=== PATIENT | female | born 1990 | race Caucasian/White ===

== ENCOUNTER 2018-03-18 18:04 | Emergency (ER) | payer OTHER, MEDICAID, SELFPAY ==
[2018-03-18 18:05] VITALS: BP 166/102; PULSE 109; RESP 18; TEMP 36.4; O2SAT 99; BMI 29.2
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
--- NOTE | 2018-03-18 19:33 | ED.RN ---
PATIENT LEFT WITHOUT VITALS BEING OBTAINED AND D/C INFORMATION. PT GIVEN EDUCATION ON STRANGULATION AND WHEN TO RETURN TO ER. PHYSICIAN AWARE AND GAVE PATIENT CT RESULTS PRIOR TO LEAVING AND WALKING OUT OF DOOR.
== END 2018-03-18 19:34 | disposition home or self-care (01) ==
LOC: ED 19:21
PROVIDERS: Emergency Provider Emergency Medicine
DX: S16.1XXA Strain of muscle, fascia and tendon at neck level, initial encounter (principal); Y04.2XXA Assault by strike against or bumped into by another person, initial encounter; Y93.9 Activity, unspecified; Y92.9 Unspecified place or not applicable; Y99.9 Unspecified external cause status; Z72.0 Tobacco use
CPT/HCPCS: 70498; 99283; Q9967; A4216

== ENCOUNTER 2018-10-26 10:46 | Emergency (ER) | payer OTHER, MEDICAID, SELFPAY ==
[2018-10-26 10:47] VITALS: BP 116/72; PULSE 120; RESP 16; TEMP 36.5; O2SAT 98; BMI 30.8
[2018-10-26] MEDS: 0.9% Normal Saline 1,000 ML 1000 ML IV (11:59)
[2018-10-26] MEDS: Ondansetron 4 MG/2 ML Vial IV (11:59)
--- NOTE | 2018-10-26 12:04 | RAD_ITS ---
STUDY: X-RAY - ACUTE ABDOMINAL SERIES REASON FOR EXAM: Female, 27 years old. 5 day history of abdominal pain and vomiting. TECHNIQUE: Single view of the chest. Supine, and erect view(s) of the abdomen were obtained. COMPARISON: None. FINDINGS: The lungs are clear and expanded. Normal size heart. Normal mediastinum and pebbles. Normal visualized pulmonary arteries. Normal visualized aortic arch and descending thoracic aorta. There is an abundance of fecal material throughout the colon. The soft tissue structures of the abdomen and pelvis are unremarkable. Normal visualized osseous structures. RAD/Acute Abdomen Inc Chest IMPRESSION: Large amount of fecal material is seen in the colon. Electronically Signed: Colton Royal, at 12:44 EST , Service support ,
[2018-10-26 12:17] LABS: Absolute Neutrophil Count 5.4 X10^3/uL (2.0-7.7); Basophil# 0.07 X10^3/uL; Basophil% 0.8 % (0-1); Eosinophil# 0.05 X10^3/uL; Eosinophils% 0.5 % (0-5); Hematocrit 27.5 % (37-47); Hemoglobin 8.8 g/dl (12.0-15.0); Lymphocyte % 25.1 % (19-41); Mean Corpuscular Hgb 30.2 pg (27.0-32.0); Mean Corpuscular Volume 94.5 fL (81-99); Mean Platelet Vol. 9.3 fl (6.2-12.0); Monocyte# 1.24 X10^3/uL; Monocyte% 13.5 % (0-10); Neutrophil # 5.43 X10^3/uL (2.7-7.7); Neutrophil % 59.2 % (47-70); Platelet Count 322 K/mm3 (150-450); RBC Distribution Width CV 14.5 % (11.6-14.6); RBC Distribution Width SD 49.7 fl (35.1-43.9); Red Blood Count 2.91 M/mm3 (4.2-5.4); White Blood Count 9.2 K/mm3 (4.4-11.0)
[2018-10-26 12:18] LABS: POSITIVE COUNT NO; POSITIVE DIFFERENTIAL NO; POSITIVE MORPHOLOGY NO
[2018-10-26 12:26] LABS: Anion Gap 8 (5-15); BUN 19 mg/dL (7-18); BUN/Creat Ratio 26.6 RATIO (10-20); Calcium,Total 8.1 mg/dL (8.5-10.1); Chloride 100 mmol/L (98-107); Creatinine, Serum 0.71 mg/dL (0.55-1.02); EST Glomerular Filtration Rate 102 mL/min (>60); Est Glom Filt Rate - Afr Amer 124 mL/min (>60); Estimated Creatinine Clearance 100.96 ml/min; Glucose 113 mg/dL (74-106); Potassium 4.5 mmol/L (3.5-5.1); Sodium Level 136 mmol/L (136-145)
--- NOTE | 2018-10-26 12:43 | ED.DCSUM_ITS ---
History of Present Illness Chief Complaint: Abd Pain Detail of Chief Complaint: Generalized with nausea vomiting and no BM times 4-5 days Informant: Patient Onset: Days Context: Gradual Onset Timing: Continuous Quality: Aching, cramping sharp Location: Generalized Current Severity: Moderate Maximum Severity: Severe Worsened by: Nothing in particular Relieved by: Nothing Associated Symptoms: Nausea vomiting and constipation Narrative: Patient is a 27-year-old female who reports last menses was 2 weeks ago. She reports nausea and vomiting since yesterday. She reports generalized abdominal pain. She states she has not had a bowel movement for 5 days. No prior surgical history. Patient denies fever, chills night sweats. She denies cardiac respiratory symptoms. She denies food intolerance. She denies neuro logic symptoms. Patient was asked what she has eaten the past 24-40 hours and she has a diet. Prior similar symptoms: No Recent Illness/Hospitalization: No Past Medical History - Allergies and Home Meds Allergies/Adverse Reactions: Allergies Penicillins Allergy (Verified 10/26/18 10:49) Hives Primary Care Physician: Care Physician,No Primary [Primary Care Provider] - Prior records reviewed: Yes Past Medical History: None Surgical History: no surgical history Lives: Alone Smoking Status: Former smoker Alcohol: Rare Drugs: None Review of Systems General: Denies: Chills, Fever, Malaise, Subjective, Sweats Eyes: Denies: Visual changes - bilaterally, Blurred Vision - bilaterally, Diplopia ENT: Denies: Bilateral ear pain, Rhinorrhea, Sore throat Cardiovascular: Denies: Chest pain, Palpitations Respiratory: Denies: Dyspnea, Cough, Dyspnea on exertion Gastrointestinal: Reports: Abdominal pain, Nausea, Vomiting, Constipation - Re: 20 usually Jayne 2 0 followed. Denies: Diarrhea, Melena, Hematochezia Genitourinary: Denies: Dysuria, Hematuria, Frequency Musculoskeletal: Denies: Back pain, Extremity Pain Skin: Denies: Rash, Wounds Neurological: Denies: Headache, Weakness, Numbness Psych: Reports: Depression Endocrine: Denies: Polyuria, Polydipsia Hematologic: Denies: Easy bruising Allergy: Denies: Uticaria Physical Exam Vital Signs/Narrative: Vital Signs Temp Pulse Resp BP Pulse Ox 10/26/18 10:47 97.7 F L 120 H 16 116/72 98 Inital Vital Signs reviewed: Yes General: Well nourished, Well developed, No Acute Distress, Acute Distress Head: Normocephalic, Atraumatic Eyes: Perrl, EOMI. Negative for: Pale conjunctiva, Scleral icterus ENT: Moist mucous membranes, No rhinorrhea, TM's clear Neck: Supple, Nontender, No lymphadenopathy, No JVD Cardiovascular: Regular rate, Regular rhythm, No murmurs, Normal S1, Normal S2, Tachycardia Respiratory: No distress, CTA bilaterally, Chest nontender, Rales Abdomen: Soft, Nondistended, Normal bowel sounds, No masses, Tender, Hypoactive bowel sounds. Negative for: Guarding, Rebound tenderness, Hyperactive bowel sounds, Splenomegaly, Mass, Ventral hernia, Inguinal hernia, Umbilical hernia Rectal: Deferred Back: Nontender, Normal Inspection. Negative for: CVA tenderness Extremities: Nontender, No edema. Negative for: Tenderness, Calf Tenderness Skin: Normal color, No rash. Negative for: Cyanosis, Jaundice Neurological: Alert, Oriented x3, Cranial nerves II-XII grossly intact, Normal Strength, Normal Sensation Psychological: - - Aspect is flat. Thought content is normal. Diagnostic/Tx/Re-eval Chest X-Ray - ED: - - Three-view abdominal x-ray interpreted by me as no acute process. There is increased feces. No ossific gas pattern. Osseous structures are normal. 10/26/18 12:04 Acute Abdomen Inc Chest [RAD] Stat Laboratory Results 10/26/18 10/26/18 11:57 11:57 WBC 9.2 RBC 2.91 L Hgb 8.8 L Hct 27.5 L MCV 94.5 MCH 30.2 MCHC 32.0 RDW 14.5 RDW Differential 49.7 H Plt Count 322 MPV 9.3 Immature Gran % (Auto) 0.900 Neut % (Auto) 59.2 Lymph % (Auto) 25.1 [place] % (Auto) 13.5 H Eos % (Auto) 0.5 Baso % (Auto) 0.8 Absolute Neuts (auto) 5.4 Absolute Lymphs (auto) 2.30 Total Counted Not Reportable Sodium 136 Potassium 4.5 Chloride 100 Carbon Dioxide 28.0 Anion Gap 8 BUN 19 H Creatinine 0.71 Estim Creat Clear Calc 100.96 Est GFR (MDRD) Af Amer 124 Est GFR (MDRD) Non-Af 102 BUN/Creatinine Ratio 26.6 H Glucose 113 H Calcium 8.1 L Three-view x-ray of the abdomen interpreted by me - Rhythm Strip Rhythm Strip: Sinus Rhythm Rate: 120 Ectopy: None - Medical Decision Making We will obtain abdominal series to determine patient has fecal stasis the cause of her abdominal dose discomfort and nausea and vomiting. Blood work was obtained as well. Patient's abdominal discomfort is secondary to fecal stasis. Plan is mag citrate 10 ounces followed 4 hours later with 1 glass of MiraLAX and a glass of MiraLAX every hour until she has results. 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 4 hours later drink 1 glass of MiraLAX and drink 1 glass of MiraLAX every hour until you have results.
[2018-10-26 12:47] LABS: Pregnancy, Serum, hCG Quali. NEGATIVE Negative (0-9 Nonpreg)
[2018-10-26 13:39] VITALS: BP 115/70; PULSE 90; RESP 14; O2SAT 98
== END 2018-10-26 13:41 | disposition home or self-care (01) ==
PROVIDERS: Emergency Provider Emergency Medicine
DX: K59.00 Constipation, unspecified (principal); R11.2 Nausea with vomiting, unspecified; R00.0 Tachycardia, unspecified; Z87.891 Personal history of nicotine dependence
CPT/HCPCS: 74022; 80048; 84703; 85025; 96361; 96374; 99283; J7030; A4216; J2405

== ENCOUNTER 2018-12-31 12:31 | Emergency (ER) | payer OTHER, MEDICAID, SELFPAY ==
[2018-12-31 12:32] VITALS: BP 130/96; PULSE 111; RESP 16; TEMP 36.7; BMI 28.1
--- NOTE | 2018-12-31 12:57 | ED.DCSUM_ITS ---
History of Present Illness Chief Complaint: Mental Health Detail of Chief Complaint: Paranoia and illicit drug use Informant: Patient Onset: - - 1 to 3 years Timing: Waxes and wanes Quality: Patient feels people are out to get her. Location: Not applicable Current Severity: Moderate Maximum Severity: Severe Worsened by: Methamphetamine use Relieved by: nothing Associated Symptoms: No suicidal homicidal ideation no formal psychiatric diagnosis Narrative: Patient is a 28-year-old woman who presents with chief complaint of paranoia. She states this is not related to methamphetamine use. She think she has a mental illness. She has been to rehab twice. She states she snorts the methamphetamine. In the past she injected methamphetamine. She denies fever, chills night sweats. Denies ocular, visual auditory symptoms. Denies trouble with speech. She denies cardiac, respiratory or GI symptoms. She denies urologic symptoms. She denies history of SBE. Patient does not know HIV status or hepatitis status. Prior similar symptoms: Yes Recent Illness/Hospitalization: No - Past Medical History (1) Illicit drug use, continuous Status: Acute Past Medical History - Allergies and Home Meds Allergies/Adverse Reactions: Allergies Penicillins Allergy (Verified 12/31/18 12:45) Hives Primary Care Physician: Care Physician,No Primary [Primary Care Provider] - Prior records reviewed: No Surgical History: no surgical history Lives: Alone Smoking Status: Current every day smoker Alcohol: Occasional Drugs: - - Methamphetamine Review of Systems General: Denies: Chills, Fever, Malaise, Subjective, Sweats Eyes: Denies: Visual changes - bilaterally, Blurred Vision - bilaterally, Diplopia ENT: Denies: Rhinorrhea, Sore throat Cardiovascular: Reports: Heart racing. Denies: Chest pain, Palpitations Respiratory: Denies: Dyspnea, Cough, Dyspnea on exertion Gastrointestinal: Denies: Abdominal pain, Nausea, Vomiting, Diarrhea, Melena, Hematochezia Genitourinary: Denies: Dysuria, Hematuria, Frequency Musculoskeletal: Denies: Back pain, Extremity Pain Skin: Denies: Rash, Wounds Neurological: Denies: Headache, Weakness, Numbness Psych: Reports: Depression, Anxiety, - - Paranoid ideation. Denies: Suicidal thoughts, Suicidal ideations Physical Exam Vital Signs/Narrative: Vital Signs Temp Pulse Resp BP 12/31/18 12:32 98.1 F 111 H 16 130/96 H Inital Vital Signs reviewed: Yes General: Well nourished, Well developed, No Acute Distress, - - Patient is unable to sit still or lie on the bed for more than 15 to 30 seconds. Head: Normocephalic, Atraumatic Eyes: Perrl, EOMI. Negative for: Pale conjunctiva, Scleral icterus ENT: Moist mucous membranes, No rhinorrhea Neck: Supple, Nontender Cardiovascular: Regular rate, Regular rhythm, No murmurs Respiratory: No distress, CTA bilaterally, Chest nontender Abdomen: Soft, Nontender, Nondistended, Normal bowel sounds Back: Nontender, Normal Inspection Extremities: Nontender, No edema Skin: Normal color, No rash. Negative for: Cyanosis, Jaundice Neurological: Alert, Oriented x3, Cranial nerves II-XII grossly intact, Normal Strength, Normal Sensation, Normal Gait Psychological: Normal Mood, Agitated, - - Hyper hyperactive, pressured speech Diagnostic/Tx/Re-eval - Medical Decision Making patient admits to recent methamphetamine use. She does not believe she needs h elp for her drug addiction. She believes she has a mental health illness. She may have both. She declined referral to [facility]. Evaluation. In my professional medical opinion patient's paranoia is related to her methamphetamine use. There is no evidence of cellulitis or abscess. Since patient not febrile has no infectious symptoms blood work was not obtained. Appointment was made to be seen in counseling center tomorrow January 01 at 1 PM. I was informed that she has not kept her prior appointments. ED Disposition - Plan for ED Patient: Disposition: Home or Assisted Living Diagnosis: Paranoia Instructions: ED Psychosis, ED Drug Abuse General Referrals: Care Physician,No Primary [Primary Care Provider] - Counseling,Center [GROUP OF PHYSICIANS] - 01/01/19 1:00 pm
[2018-12-31 13:15] VITALS: PULSE 90; RESP 18; O2SAT 97
--- NOTE | 2018-12-31 13:16 | ED.RN ---
This RN discussed discharge instructions with pt and explained the importance going to her scheduled appt with the counseling center tomorrow.
== END 2018-12-31 13:35 | disposition home or self-care (01) ==
LOC: ED 13:24
PROVIDERS: Emergency Provider Emergency Medicine
DX: F22 Delusional disorders (principal); F32.9 Major depressive disorder, single episode, unspecified; F41.9 Anxiety disorder, unspecified; F17.200 Nicotine dependence, unspecified, uncomplicated; Z88.0 Allergy status to penicillin
CPT/HCPCS: 99282

== ENCOUNTER 2019-01-08 19:16 | Emergency (ER) | payer OTHER, MEDICAID, SELFPAY ==
[2019-01-08 19:16] VITALS: BP 147/96; PULSE 106; RESP 18; TEMP 36.6; O2SAT 99; BMI 28.3
--- NOTE | 2019-01-08 20:08 | ED.DCSUM_ITS ---
- ER Visit Summary Date of Service: 01/08/19 Chief Complaint: Fatigue with jaundiced eyes History of Present Illness: The patient is a 28 F past medical history of IV methamphetamine abuse states she has not used recently. Otherwise no other significant past medical history. Denies any history of hepatitis. Physical Examination: Young female no acute distress. Vital signs are stable afebrile. She does not look septic or toxic. She does not look dehydrated. HEENT exam she does have scleral icterus consistent with jaundice. Moist weeks membranes. Neck nontender no lymphadenopathy. Lungs clear to auscultation bilaterally. Heart regular rhythm rate about 100 no murmur. Abdomen is soft and nontender normal bowel sounds no peritoneal signs. I do not appreciate a specific organomegaly. There is no right upper quadrant tenderness. Extremities moves all 4. Nontender no edema. Neurologically she is awake alert. Back nontender. Test Results: White count 8. Hemoglobin 14. Electrolytes unremarkable normal creatinine and gap. Lipase normal. Serum test negative. Liver enzymes elevated total bilirubin 6.9 direct 5.8. Alk phos is only 172 ALT [address] of the abdomen and pelvis showed a collapsed gallbladder but no gall stones or signs of obstruction. A hemorrhagic ovarian cyst in the liver appeared unremarkable. Emergency Department Course and Treatment: Patient with scleral icterus. Will be worked up for possible causes of jaundice. Repeat exam at 2240 abdomen is benign. She has no right upper quadrant pain. My plan was to admit the patient for further evaluation and work-up for jaundice possible acute hepatitis she is refusing admission and will sign out AMA. She has no local primary care physician and will be referred to Dr. Patel from the [facility]. Treatment Plan: Outpatient follow-up for further evaluation and work-up for possible hepatitis versus other causes of jaundice Disposition: Discharge AMA Impression: Acute jaundice uncertain etiology Rule out acute onset hepatitis This note was generated with [employer] dictation software. It may contain incorrect words, spelling, and punctuation that were not noted in review of the chart prior to signing ED Disposition - Plan for ED Patient: Referrals: Care Physician,No Primary [Primary Care Provider] -
[2019-01-08 20:23] VITALS: BP 148/104; PULSE 91; RESP 16; O2SAT 98
[2019-01-08 20:26] LABS: Absolute Lymphocyte Count 1.82 X10^3/ul (0.83-4.51); Absolute Neutrophil Count 5.3 X10^3/uL (2.0-7.7); Basophil# 0.04 X10^3/uL; Basophil% 0.5 % (0-1); Eosinophil# 0.08 X10^3/uL; Hematocrit 43.1 % (37-47); Hemoglobin 14.6 g/dl (12.0-15.0); Lymphocyte # 1.82 X10^3/ul (4.0); Lymphocyte % 22.5 % (19-41); Mean Corp Hgb Conc 33.9 g/gl (32-36); Mean Corpuscular Hgb 30.9 pg (27.0-32.0); Mean Corpuscular Volume 91.1 fL (81-99); Mean Platelet Vol. 10.9 fl (6.2-12.0); Monocyte% 9.9 % (0-10); Neutrophil # 5.27 X10^3/uL (2.7-7.7); Neutrophil % 65.2 % (47-70); Platelet Count 421 K/mm3 (150-450); RBC Distribution Width CV 15.7 % (11.6-14.6); RBC Distribution Width SD 51.8 fl (35.1-43.9); Red Blood Count 4.73 M/mm3 (4.2-5.4); White Blood Count 8.1 K/mm3 (4.4-11.0)
[2019-01-08 20:37] LABS: POSITIVE COUNT NO; POSITIVE DIFFERENTIAL NO; POSITIVE MORPHOLOGY NO
[2019-01-08 20:40] LABS: Pregnancy, Serum, hCG Quali. NEGATIVE Negative (0-9 Nonpreg)
[2019-01-08 20:41] LABS: AST(SGOT) 1410 U/L (15-37); Alanine Aminotransfer ALT/SGPT 1719 U/L (13-56); Albumin, Serum 3.4 g/dL (3.2-5.0); Alkaline Phosphatase 172 U/L (45-117); Anion Gap 5 (5-15); BUN 11 mg/dL (7-18); BUN/Creat Ratio 15.2 RATIO (10-20); Bilirubin, Direct 5.82 mg/dL (0.00-0.30); Calcium,Total 8.5 mg/dL (8.5-10.1); Chloride 111 mmol/L (98-107); Creatinine, Serum 0.72 mg/dL (0.55-1.02); EST Glomerular Filtration Rate 101 mL/min (>60); Est Glom Filt Rate - Afr Amer 122 mL/min (>60); Estimated Creatinine Clearance 98.66 ml/min; Globulin 4.4 g/dL (2.2-4.2); Glucose 104 mg/dL (74-106); Lipase 137 U/L (73-393); Potassium 3.8 mmol/L (3.5-5.1); Protein, Total 7.8 g/dL (6.4-8.2); Sodium Level 139 mmol/L (136-145)
[2019-01-08 20:44] LABS: Internal QC Validated? YES +Cl - CLEAR BKGD
--- NOTE | 2019-01-08 20:49 | CT_ITS ---
STUDY: CT ABDOMEN AND PELVIS WITH CONTRAST REASON FOR EXAM: Female, 28 years old. Jaundice, hepatitis. RADIATION DOSAGE (If Supplied By Facility): CTDIvol = ( 13.85 ) mGy, DLP = ( 800.26 ) mGycm TECHNIQUE: Transaxial images were obtained from the dome of the diaphragm to the symphysis pubis without oral contrast. 100ML IV Isovue 300 was administered. Sagittal and coronal images were reconstructed. Individualized dose optimization techniques were used for this CT. COMPARISON: None. FINDINGS: Lung bases are clear. Visualized heart is normal. The liver is unremarkable. There is no intrahepatic biliary duct dilation. The gallbladder is collapsed and irregular, with marked pericholecystic fluid versus wall thickening. No obvious stones are seen. Common duct is normal in caliber. The spleen and pancreas are unremarkable. The adrenal glands are normal. The kidneys are unremarkable. No stones or hydronephrosis. The aorta is normal in caliber. There is no free fluid, free air, or organized collection. Small bowel (jejunal) intussusception is noted in the left upper quadrant, seen on series 2 image 64 and series 601, image 46. There is no evidence of high-grade proximal obstruction. The appendix is not seen. There are no inflammatory changes about the cecum to indicate acute appendicitis. Urinary bladder is unremarkable. The uterus is normal in appearance. There is a 4.7 x 4.2 x 4.8 cm lesion posterior to the uterus with CT density of 44 Hounsfield units. This likely represents a hemorrhagic ovarian cyst. Differential considerations include: Tubo-ovarian abscess, endometrioma. Ectopic is not excluded and should be considered in the appropriate clinical setting. If the patient has acute pelvic pain, ovarian torsion cannot be excluded. Normal abdominal wall. Normal osseous structures. CT/Abdomen/Pelvis W IV Cont ONLY IMPRESSION: 1. Small bowel intussusception in the left upper quadrant. This may be seen as a transient phenomenon, although it may be associated with underlying inflammation or mass as lead point. There is no high-grade proximal obstruction. 2. Collapsed gallbladder with marked pericholecystic fluid (less likely wall thickening). No demonstrated stone or duct dilation. 3. A 4.8 cm complex adnexal cyst. Differential considerations are noted above. If the patient has acute pelvic pain, pelvic ultrasound to include Doppler evaluation is advised to evaluate for ovarian torsion. Electronically Signed: Suzi Ojeda MD at 22:13 EDT Tel , Service support ,
[2019-01-08 22:14] VITALS: BP 142/102; PULSE 96; RESP 15; O2SAT 97
--- NOTE | 2019-01-08 22:45 | ED.DEP ---
ED Disposition - Plan for ED Patient: Disposition: Home or Assisted Living Instructions: ED Hepatitis Cause Unkn Test Pen Referrals: Naga Patel MD [NON-STAFF] - As soon as possible Additional Instructions: May have hepatitis that is undetermined at this time. You need to follow-up with the above physician to have further evaluation. We did send hepatitis studies today but there is been on back for several days. There are other causes of jaundice that also may need evaluation.
[2019-01-08 22:51] VITALS: BP 146/103; PULSE 97; RESP 16; O2SAT 99
--- NOTE | 2019-01-08 22:52 | ED.RN ---
pt was given pamplet on 180 upon discharge. she was strongly encouraged to follow-up with them and that if she continued this lifestyle she may . pt was instructed to return if s/s worsened. she was informed that her hepatis screen would not be back tonight. pt stated understanding of d/c information and need for follow-up care. joel parsons. rn [id number]
[2019-01-10 09:08] LABS: Hepatitis A IgM Antibody Negative (Negative); Hepatitis B Core AB IgM Positive (Negative)
[2019-01-10 16:16] LABS: HEPATITIS B SURFACE AG Positive (Negative)
[2019-01-10 16:20] LABS: Hep C Antibodies >11.0 s/co ratio (0.0-0.9)
== END 2019-01-08 22:55 | disposition left against medical advice (07) ==
PROVIDERS: Emergency Provider Emergency Medicine
DX: R17 Unspecified jaundice (principal); R74.8 Abnormal levels of other serum enzymes; R10.9 Unspecified abdominal pain; F15.21 Other stimulant dependence, in remission; Z72.0 Tobacco use
CPT/HCPCS: 74177; 80048; 80074; 80076; 83690; 84703; 85025; 99283; Q9967; A4216

== ENCOUNTER 2019-01-10 07:24 | Emergency (ER) | payer OTHER, MEDICAID, SELFPAY ==
[2019-01-10 07:25] VITALS: BP 128/74; PULSE 76; RESP 12; TEMP 36.7; O2SAT 98; BMI 28.3
--- NOTE | 2019-01-10 07:48 | US_ITS ---
STUDY: ABDOMINAL ULTRASOUND - RIGHT UPPER QUADRANT REASON FOR VISIT: Female, 28 years old. Elevated liver function tests. TECHNIQUE: Ultrasound evaluation of the right upper quadrant was performed with real-time and static hinojosa-scale imaging. TECHNICAL QUALITY: Adequate. COMPARISON: Comparison is made with prior CT scan dated January 08, 2019. FINDINGS: Liver: The liver measures 15.5 cm. There is normal echogenicity of the liver. The bile ducts are within normal limits. There is hepatic color flow. The direction of portal flow is hepatopetal. There is no demonstrated mass lesion. Gallbladder: There is a contracted gallbladder. The gallbladder wall is thickened and measures 7 mm. There is a negative sonographic Benson's sign. There is pericholecystic fluid. There are no gallstones. Common Bile Duct (C.B.D.): The common bile duct measures 5 mm. Pancreas: Normal size of the head, body and tail of the pancreas. There is normal echogenicity of the pancreas. There is no demonstrated pancreatic mass or cyst. Right Kidney: Normal size of the right kidney. The right kidney measures 11.3 cm x 4.6 cm x 4.4 cm. Normal renal cortex. The right cortex measures 1.1 cm. There is no demonstrated renal mass or cyst. There is no right hydronephrosis. US/Abdomen Limited IMPRESSION: Contracted gallbladder with a thickened wall of the gallbladder and pericholecystic fluid. Electronically Signed: Colton Royal, at 8:55 EDT , Service support ,
[2019-01-10] MEDS: 0.9% Normal Saline 1,000 ML 150 ML IV (07:59)
[2019-01-10] MEDS: Ondansetron 4 MG/2 ML Vial IV (07:59)
[2019-01-10] MEDS: Ketorolac 30 MG/ML Syringe IV (07:59)
--- NOTE | 2019-01-10 08:05 | ED.DCSUM_ITS ---
- ER Visit Summary Date of Service: 01/10/19 Chief Complaint: Abdominal pain, diarrhea History of Present Illness: The patient is a 28 F with a 5-day history of generalized abdominal pain. She was seen in the ER yesterday. She was found to have elevated LFTs. Hepatitis panel was sent. Patient signed out AMA last night. She returns today with continued abdominal pain and generalized weakness. She now agrees to hospital admission. Patient has not noted fever or chills. She does have a history of IV drug use. Last use of meth was last night. I did review her work-up from last evening. CT scan from last night showed a collapsed gallbladder. There is questionable intussusception in the left upper quadrant small bowel. Patient does report having a bowel movement this morning. Physical Examination: Vital signs are unremarkable. Patient is lying in a darkened room in no acute distress. Heart is regular rate and rhythm. Lung sounds are clear. Abdomen is soft with mild diffuse tenderness. Active bowel sounds are noted throughout. There is no guarding or rebound. Skin examination was mild scleral icterus. Test Results: CBC is unremarkable. Chemistry studies remarkable only for glucose of 130. LFTs revealed total bili of 8.2 compared to 6.9 yesterday. Bili 6.72 compared to 5.8 yesterday. Alk phos is 158 today compared to 172 yesterday. ALT is 1311 compared to 1719 yesterday. AST is 08/21/2000 compared to 1410 yesterday. Lipase is normal. Coags are unremarkable. Hepatitis panel sent yesterday is still pending. Right upper quadrant ultrasound shows contracted gallbladder with wall measuring 7 mm. Pericholecystic fluid is noted. There is no sonographic Benson sign. No gallstones are noted and normal common bile duct is noted. Abdominal x-ray with upright is obtained and unremarkable. Emergency Department Course and Treatment: Patient was given IV fluids, Toradol, and Zofran. On repeat evaluation she is resting comfortably. At this time her LFTs largely are reducing. I do not know that there will be significant work-up to be obtained in the hospital. Patient needs the results of her hepatitis panel and to follow-up. She was referred to Dr. Patel yesterday. I will also refer her to Dr. Payne. Patient is in agreement with discharge and return if her symptoms worsen. I did advise her that she would be called with her hepatitis panel results if abnormal. Treatment Plan: [] Disposition: Discharge Impression: 1. Abdominal pain, improved 2. Hepatitis, improving This note was generated with [employer] dictation software. It may contain incorrect words, spelling, and punctuation that were not noted in review of the chart prior to signing ED Disposition - Plan for ED Patient: Disposition: Home or Assisted Living Instructions: ED Hepatitis Cause Unkn Test Pen Prescriptions: Ondansetron [Zofran Odt] 4 mg PO Q8H PRN PRN #10 tablet PRN Reason: Nausea Ketorolac [Toradol] 10 mg PO Q6H PRN #14 tablet PRN Reason: Pain Referrals: Naga Patel MD [NON-STAFF] - As soon as possible Roly Payne MD [NON-STAFF] - As soon as possible
--- NOTE | 2019-01-10 08:05 | RAD_ITS ---
STUDY: X-RAY - ABDOMEN/PELVIS REASON FOR EXAM: Female, 28 years old. Abdominal pain. Possible intussusception. TECHNIQUE: AP supine and upright views of the abdomen and pelvis. COMPARISON: None. FINDINGS: Normal visualized lung bases. There is a moderate amount of colonic fecal material. There is no demonstrated free abdominal air. The visualized liver, spleen and kidneys are grossly normal in size and morphology. Normal soft tissue structures. Normal visualized osseous structures. RAD/Abd Inc Decub and/or Erect IMPRESSION: Normal x-ray examination of the abdomen and pelvis. Electronically Signed: Colton Royal, at 8:52 EDT , Service support ,
[2019-01-10 08:36] LABS: International Normalized Ratio 1.3; Prothrombin Time (Protime)PT. 15.8 SECONDS (11.7-14.9)
[2019-01-10 08:40] LABS: Absolute Lymphocyte Count 1.63 X10^3/ul (0.83-4.51); Absolute Neutrophil Count 4.1 X10^3/uL (2.0-7.7); Basophil# 0.04 X10^3/uL; Basophil% 0.6 % (0-1); Eosinophil# 0.17 X10^3/uL; Eosinophils% 2.5 % (0-5); Hematocrit 39.5 % (37-47); Hemoglobin 13.3 g/dl (12.0-15.0); Lymphocyte # 1.63 X10^3/ul (4.0); Lymphocyte % 23.9 % (19-41); Mean Corp Hgb Conc 33.7 g/gl (32-36); Mean Corpuscular Hgb 30.5 pg (27.0-32.0); Mean Corpuscular Volume 90.6 fL (81-99); Mean Platelet Vol. 10.8 fl (6.2-12.0); Monocyte# 0.84 X10^3/uL; Monocyte% 12.3 % (0-10); Neutrophil # 4.07 X10^3/uL (2.7-7.7); Neutrophil % 59.8 % (47-70); Platelet Count 430 K/mm3 (150-450); RBC Distribution Width CV 16.3 % (11.6-14.6); RBC Distribution Width SD 53.1 fl (35.1-43.9); Red Blood Count 4.36 M/mm3 (4.2-5.4); White Blood Count 6.8 K/mm3 (4.4-11.0)
[2019-01-10 08:44] LABS: POSITIVE COUNT NO; POSITIVE DIFFERENTIAL NO; POSITIVE MORPHOLOGY NO
[2019-01-10 08:54] LABS: AST(SGOT) 1101 U/L (15-37); Alanine Aminotransfer ALT/SGPT 1311 U/L (13-56); Albumin, Serum 3.1 g/dL (3.2-5.0); Alkaline Phosphatase 158 U/L (45-117); Anion Gap 5 (5-15); BUN 11 mg/dL (7-18); BUN/Creat Ratio 14.8 RATIO (10-20); Bilirubin, Direct 6.72 mg/dL (0.00-0.30); Calcium,Total 8.5 mg/dL (8.5-10.1); Chloride 107 mmol/L (98-107); Creatinine, Serum 0.74 mg/dL (0.55-1.02); EST Glomerular Filtration Rate 97 mL/min (>60); Est Glom Filt Rate - Afr Amer 118 mL/min (>60); Estimated Creatinine Clearance 95.99 ml/min; Globulin 4.2 g/dL (2.2-4.2); Glucose 130 mg/dL (74-106); Lipase 182 U/L (73-393); Potassium 3.8 mmol/L (3.5-5.1); Protein, Total 7.3 g/dL (6.4-8.2); Sodium Level 139 mmol/L (136-145)
[2019-01-10 09:29] VITALS: BP 124/69; PULSE 71; RESP 15; O2SAT 98
== END 2019-01-10 09:31 | disposition home or self-care (01) ==
PROVIDERS: Emergency Provider Emergency Medicine
DX: B19.10 Unspecified viral hepatitis B without hepatic coma (principal); B19.20 Unspecified viral hepatitis C without hepatic coma; R10.84 Generalized abdominal pain; R53.1 Weakness; Z72.0 Tobacco use
CPT/HCPCS: 74019; 76705; 80048; 80076; 83690; 85025; 85610; 85730; 96361; 96374; 96375; 99284; J2405

== ENCOUNTER 2019-01-13 12:25 | Emergency (ER) | payer OTHER, MEDICAID, SELFPAY ==
[2019-01-13 12:27] VITALS: BP 148/99; PULSE 99; RESP 16; TEMP 36.4; O2SAT 99; BMI 27.8
--- NOTE | 2019-01-13 13:04 | ED.DCSUM_ITS ---
- ER Visit Summary Date of Service: 01/13/19 Chief Complaint: Abscess History of Present Illness: The patient is a 28 F with recent diagnosis of hepatitis presents with an abscess on her right posterior calf. The patient was recently diagnosed with otitis. She states she had an area of redness over the past 2 days. She went to urgent care, but given her recent history she was sent here for further evaluation. She denies any fevers or chills. She denies any injections of the area. She denies any other history of immunosuppression. Physical Examination: Exam is relatively unremarkable. Patient is a 6 cm ovoid area of cellulitis on the right calf. It does not extend beyond the knee. There is some central fluctuance. There is no streaking. Compartments are soft. Test Results: [] Emergency Department Course and Treatment: The patient does have a localized abscess with some cellulitis. She was consented for I&D. This was done. Purulence is able to be expressed. It was sent for culture. Loculations were broken up. The small strip packing was placed. With the patient's recent diagnosis of hepatitis, she will be placed on doxycycline as it is not hepatically cleared. She is comfortable with this plan of care and will be discharged to follow-up with GI as initially discussed. Treatment Plan: [] Disposition: Discharge Impression: 1. Abscess of the right calf to incision and drainage This note was generated with [employer] dictation software. It may contain incorrect words, spelling, and punctuation that were not noted in review of the chart prior to signing ED Disposition - Plan for ED Patient: Instructions: ED Abscess IandD Prescriptions: Ondansetron [Zofran Odt] 4 mg PO Q8H PRN PRN #10 tab PRN Reason: Nausea Doxycycline 100 mg PO BID #20 cap Referrals: Care Physician,No Primary [Primary Care Provider] -
== END 2019-01-13 13:20 | disposition home or self-care (01) ==
LOC: ED 13:19
PROVIDERS: Emergency Provider Emergency Medicine
DX: L02.415 Cutaneous abscess of right lower limb (principal); L03.115 Cellulitis of right lower limb; Z72.0 Tobacco use; Z86.19 Personal history of other infectious and parasitic diseases
CPT/HCPCS: 10060; 87070; 87077; 87186; 87205; 99283

== ENCOUNTER 2019-04-29 09:03 | Emergency (ER) | payer OTHER, SELFPAY ==
[2019-04-29 09:04] VITALS: BP 117/82; PULSE 106; RESP 16; TEMP 36.2; O2SAT 99; BMI 29.2
--- NOTE | 2019-04-29 09:13 | ED.DCSUM_ITS ---
History of Present Illness Chief Complaint: Abd Pain Detail of Chief Complaint: Upper quadrant with nausea, vomiting diarrhea Informant: Patient, Significant Other Onset: Days - Onset Monday, April 26 with nausea and vomiting x3. No vomiting since Monday. Context: Sudden Onset Timing: Continuous Quality: Pulling sensation Location: Right upper and left upper quadrant Current Severity: Mild Maximum Severity: Moderate Worsened by: Nothing Relieved by: Nothing Associated Symptoms: Nausea, vomiting and diarrhea Narrative: Patient is a 28-year-old woman whose last normal menstrual period was February. She presents with bilateral upper quadrant abdominal pain associate with nausea and vomiting on Monday. Diarrhea started today. She is had 3 loose stools. Denies blood or mucus in the stool. She denies black or maroon stool. No ill contacts. She complained of subjective fever on Monday. She denies ocular, visual or auditory symptoms. She denies rhinorrhea, congestion or postnasal drainage. She denies sore throat. She denies cough, shortness of breath or difficulty breathing. She denies intolerance to greasy or fried foods. She has been 3 times with no complications. She states she does not use any form of control. She denies symptoms of i.e. breast tenderness, frequency or weight gain. Prior similar symptoms: Yes - October 2018 Recent Illness/Hospitalization: Yes - Other issues - Past Medical History (1) Illicit drug use, continuous Status: Acute Past Medical History - Allergies and Home Meds Allergies/Adverse Reactions: Allergies Penicillins Allergy (Verified 04/29/19 09:04) Hives Primary Care Physician: Care Physician,No Primary [Primary Care Provider] - Prior records reviewed: Yes Surgical History: no surgical history Lives: Spouse/ Significant Other, With Family Smoking Status: Current every day smoker Alcohol: Rare Drugs: - - Per old records history of drug use Review of Systems General: Reports: Chills, Fever, Malaise, Subjective. Denies: Sweats, Weight loss Eyes: Denies: Visual changes - bilaterally, Blurred Vision - bilaterally, Diplopia ENT: Denies: Rhinorrhea, Sore throat Cardiovascular: Denies: Chest pain, Palpitations Respiratory: Denies: Dyspnea, Cough, Dyspnea on exertion Gastrointestinal: Reports: Abdominal pain, Nausea, Vomiting, Diarrhea. Denies: Constipation, Melena, Hematochezia Genitourinary: Denies: Dysuria, Hematuria, Frequency Musculoskeletal: Denies: Myalgias, Arthralgias, Neck pain, Back pain, Swelling, Extremity Pain Skin: Denies: Rash, Wounds Neurological: Denies: Headache, Weakness, Numbness Hematologic: Denies: Easy bruising, Easy bleeding Allergy: Denies: Uticaria, Swelling of the mouth Physical Exam Vital Signs/Narrative: Vital Signs Temp Pulse Resp BP Pulse Ox 04/29/19 09:04 97.2 F L 106 H 16 117/82 H 99 Inital Vital Signs reviewed: Yes General: Well nourished, Well developed, No Acute Distress Head: Normocephalic, Atraumatic Eyes: Perrl, EOMI. Negative for: Pale conjunctiva, Scleral icterus ENT: No rhinorrhea, Dry mucous membranes. Negative for: Nasal congestion, Sinus tenderness Neck: Supple, Nontender Cardiovascular: Regular rate, Regular rhythm, No murmurs Respiratory: No distress, CTA bilaterally, Chest nontender Abdomen: Soft, Nondistended, Normal bowel sounds, No masses, Tender - Patient has tenderness suprapubic region., - - There is tympanitic to percussion. Rectal: Deferred Back: Nontender, Normal Inspection. Negative for: CVA tenderness Extremities: Nontender, No edema Skin: Normal color, No rash, No Trauma. Negative for: Cyanosis, Diaphoresis, Jaundice Neurological: Alert, Oriented x3, Cranial nerves II-XII grossly intact, Normal Strength, Normal Sensation, Normal Gait Psychological: Normal affect, Normal Mood Diagnostic/Tx/Re-eval Laboratory Results 04/29/19 04/29/19 04/29/19 09:20 09:20 10:19 Sodium 137 Potassium 3.8 Chloride 104 Carbon Dioxide 27.0 Anion Gap 6 BUN 15 Creatinine 0.73 Estim Creat Clear Calc 97.31 Est GFR (MDRD) Af Amer 121 Est GFR (MDRD) Non-Af 100 BUN/Creatinine Ratio 20.7 H Glucose 103 Calcium 8.5 Serum , Qual NEGATIVE Urine Color Yellow Urine Clarity Clear Urine pH 6.0 Ur Specific [place] 1.015 Urine Protein Negative Urine Glucose (UA) Normal Urine Ketones Negative Urine Occult Blood Negative Urine Nitrite Negative Urine Bilirubin Negative Urine Urobilinogen Normal Ur Leukocyte Esterase 25 H Urine RBC 0-5 SEEN Urine WBC 0-5 SEEN Ur Squamous Epith Cells 0-5 SEEN Urine Bacteria RARE Urine Mucus 0 SEEN Basic metabolic panel is unremarkable. test is negative. UA is unremarkable and split gravity is only 1.015. - Medical Decision Making Clinically patient has mild dehydration. Will treat nausea with Zofran. Basic metabolic panel was obtained to assess potassium and renal function. Because patient has not had a menstrual cycle since February and is sexually active using no form of control a test was obtained. Because there is significant tenderness suprapubic region will obtain a UA. If urine is consistent with infection and pain assess his positive will not need to pursue ultrasound at this point. If urine does not explain to the pubic discomfort and brings test is positive we will obtain an ultrasound to assess for ovarian cyst, ectopic . ED Disposition - Plan for ED Patient: Disposition: Acute Care [facility] Diagnosis: Abdominal pain, vomiting, and diarrhea, Mild dehydration, Amenorrhea Instructions: VOMITING AND DIARRHEA, Nonspecific (Adult), Amenorrhea Referrals: Care Physician,No Primary [Primary Care Provider] - Zach Hendrix MD [NON-STAFF] - 3-5 Days if not improving Additional Instructions: You were assigned to Dr. Zach Hendrix since you do not have a primary care physician.
[2019-04-29 09:41] LABS: Anion Gap 6 (5-15); BUN 15 mg/dL (7-18); BUN/Creat Ratio 20.7 RATIO (10-20); Calcium,Total 8.5 mg/dL (8.5-10.1); Chloride 104 mmol/L (98-107); Creatinine, Serum 0.73 mg/dL (0.55-1.02); EST Glomerular Filtration Rate 100 mL/min (>60); Est Glom Filt Rate - Afr Amer 121 mL/min (>60); Estimated Creatinine Clearance 97.31 ml/min; Glucose 103 mg/dL (74-106); Potassium 3.8 mmol/L (3.5-5.1); Sodium Level 137 mmol/L (136-145)
[2019-04-29 09:51] LABS: Internal QC Validated? YES +Cl - CLEAR BKGD; Pregnancy, Serum, hCG Quali. NEGATIVE Negative
[2019-04-29] MEDS: 0.9% Normal Saline 1,000 ML 1000 ML IV (10:06)
[2019-04-29] MEDS: Ondansetron 4 MG/2 ML Vial IV (10:06)
[2019-04-29 10:24] LABS: Mucous, Urine 0 SEEN /hpf (<or=2+)
[2019-04-29 10:30] LABS: Color, Urine Yellow (Yellow); Glucose, Dipstick Normal (Normal); Ketone-Dipstick Negative (Negative); Leukocyte Esterase-Dipstick 25 /ul (Negative); Nitrite-Dipstick Negative (Negative); Occult Blood-Urine Negative /ul (Negative); Protein-Dipstick Negative (Negative); Specific Gravity, Urine 1.015 (1.002-1.030); Urine Bilirubin Dipstick Negative (Negative); Urine Clarity Clear (Clear); Urine Urobilinogen Normal (Normal)
[2019-04-29 10:38] LABS: Bacteria RARE /hpf (None Seen); Red Blood Cells-Urine 0-5 SEEN /hpf (0-5); Squamous Epithelial Cells - UA 0-5 SEEN /hpf (5-10); White Blood Cells 0-5 SEEN /hpf (0-5)
[2019-04-29 11:44] VITALS: BP 108/74; PULSE 86; RESP 18; O2SAT 99
== END 2019-04-29 11:45 | disposition home or self-care (01) ==
PROVIDERS: Emergency Provider Emergency Medicine
DX: R10.11 Right upper quadrant pain (principal); R10.12 Left upper quadrant pain; R11.2 Nausea with vomiting, unspecified; R19.7 Diarrhea, unspecified; E86.0 Dehydration; N91.2 Amenorrhea, unspecified; F17.200 Nicotine dependence, unspecified, uncomplicated; Z88.0 Allergy status to penicillin
CPT/HCPCS: 80048; 81001; 84703; 96361; 96374; 99283; J7030; A4216; J2405

== ENCOUNTER 2020-01-30 21:41 | Emergency (ER) | payer MEDICAID, SELFPAY ==
[2020-01-30 21:43] VITALS: BP 121/89; PULSE 60; RESP 14; TEMP 35.8; O2SAT 100; BMI 34.0
--- NOTE | 2020-01-30 22:53 | ED.VIS.GEN ---
History of Present Illness Chief Complaint: Mental Health Informant: Patient Narrative: She stated that she took methamphetamines tonight. It was laced with heroin in her opinion. She felt dizzy and tired. She did not lose consciousness. She feels mild nausea. Otherwise she has no complaints at this time and is resting comfortably. Current severity is mild. - Past Medical History (1) Illicit drug use, continuous Status: Acute Past Medical History - Allergies and Home Meds Allergies/Adverse Reactions: Allergies Penicillins Allergy (Verified 01/30/20 21:47) Hives Primary Care Physician: Care Physician,No Primary [Primary Care Provider] - Prior records reviewed: Yes Past Medical History: - - See problem list Surgical History: no surgical history Smoking Status: Current every day smoker Alcohol: None Drugs: - - Amphetamines Review of Systems General: Denies: Chills, Fever, Sweats Eyes: Denies: Visual changes - bilaterally, Diplopia ENT: Denies: Rhinorrhea, Sore throat Cardiovascular: Denies: Chest pain, Palpitations Respiratory: Denies: Dyspnea, Cough, Dyspnea on exertion Gastrointestinal: Reports: Nausea. Denies: Abdominal pain, Vomiting, Diarrhea, Melena, Hematochezia Genitourinary: Denies: Dysuria, Hematuria, Frequency Musculoskeletal: Denies: Back pain, Extremity Pain Skin: Denies: Rash, Wounds Neurological: Denies: Headache, Weakness, Numbness Physical Exam Vital Signs/Narrative: Vital Signs Temp Pulse Resp BP Pulse Ox 01/30/20 21:43 96.4 F L 60 14 121/89 H 100 General: Well nourished, Well developed, No Acute Distress Head: Normocephalic, Atraumatic Eyes: Perrl, EOMI ENT: Moist mucous membranes, No rhinorrhea Neck: Supple, Nontender Cardiovascular: Regular rate, Regular rhythm, No murmurs Respiratory: No distress, CTA bilaterally, Chest nontender Abdomen: Soft, Nontender, Nondistended, Normal bowel sounds Back: Nontender, Normal Inspection Extremities: Nontender, No edema Skin: Normal color, No rash Neurological: Alert, Oriented x3, Cranial nerves II-XII grossly intact, Normal Strength, Normal Sensation Psychological: Normal affect, Normal Mood Diagnostic/Tx/Re-eval - Medical Decision Making Patient is resting comfortably. Perhaps her methamphetamines were laced with heroin. At this time she was given oral dissolving Zofran. She will be monitored. She will be discharged upon further sobriety and instructed to stay away from illicit substances ED Disposition - Plan for ED Patient: Disposition: Home or Assisted Living Diagnosis: Drug abuse Instructions: ED Abuse Narcotic Referrals: Mark Paul DO [NON CLINICAL AFFILIATE] - [facility] [STAFF PHYSICIAN] -
[2020-01-30] MEDS: Ondansetron ODT 4 MG Tablet 8 MG PO (23:29)
[2020-01-30 23:48] VITALS: BP 122/78; PULSE 80; RESP 17; O2SAT 99
--- OUTSIDE RECORDS SUMMARY | 2020-06-07 12:09 | XMS RPT_ITS | CCD ---
:1990 External Reference #:[id number] Author Organization [facility] Care Team Providers Name Role Phone Unavailable Unavailable Unavailable Results Result Name Value Range Unit Interpretation Flag Date Location cnpn on 2019-10-10 CNPN Telephone (IMMDNA) Normal 10-10-2019 [facility] BAUDILIO SHARMA ([id number]) 1990 [facility] Time Provider Department ([id number]) 10/10/19 LACHO RODRIGUEZ IMMMIRACLE During your visit today, we recorded the following informati on about you: Lacho Rodriguez MD 10/10/2019 7:17 AM Signed Patient was seen recently. She provided a history of hepatitis C without follow-up. Laboratories were ordered. I note that they were not done. N ot sure why. Please call patient and make sure that these are completed. This is extremely important Stacie Bowser, RN, RN 10/10/2019 8:22 AM Signed Left message for patient to return call. Alexis Kruse 10/14/2019 3:44 PM Signed Called pt and left VM to complete labs per below. Advised to Cb with any questions/concerns. Allergies As of Date: 10/10/2019 Noted Allergy Reaction PENICILLINS 07/28/2012 2 - Rash Date Reviewed: 10/08/2019 Reviewed by: Alexis Kruse - Fully Assessed Reason for Visit: Labs needed [Other] Prescriptions as of 10/10/2019 Sig: GENTAMICIN 0.3 % EYE DROPS Use 2 Drops in eyes three светлана* HYDROCHLOROTHIAZIDE 12.5 MG C* Take 1 capsule by mouth once * VITAMIN,CALCIUM,MINE* Take 1 tablet by mouth. Problem List As Of Date 10/10/2019 Noted Resolved Supervision of normal [Z34.90] 12/29/2014 High risk due to smoking in first tri*12/29/2014 Short interval between pregnancies affecting pr*12/29/2014 Family history of sickle cell trait in father [*12/29/2014 More... Rubella non-immune status, antepartum [O99.89, *01/29/2015 History of shoulder dystocia in prior *06/05/2015 More... Abnormal glucose affecting [O99.810] 06/08/2015 Hepatitis C [B19.20] Encounter Status:Closed by LACHO RODRIGUEZ MD on 10/10/19 progress on 2019-09 PROGRESS HNO ID: [id number] Normal 10-08-2019 [facility] Author: Lacho Rodriguez [facility] ([id number]) Service: ? Author Type: Physician Type: Progress Notes Filed: 10/08/2019 10:50 AM Note Text: S: Here for left eye Red matted this am . Exposed to [place] [facility] this week right eye Also ?? Some discomfort in left eye No Visual change O: palpeibral and Scleral ocnjunctiva Left eye inflammed Inj ected . No pus Right minimally so A: Conjunctivitis P: gentamcin eye drops 2 qtts Ou 3 times per day wash Hands Frequently No mascara no eyeliner 158/100 Recheck Noted bp Every time it is checked lungs Clear Cor rrr no m A: Hypertension History of hepatitis C - no f/u diagnosed in Summer At [facility] P: cmp Hepatitis c Viral load HIV - History of IV drug use hctz 12.5 Stop smoking Decrease salt n diet Exercise rto 1 month bp Recheck in one month PROGRESS HNO ID: [id number] Normal 10-08-2019 [facility] Author: Alexis patel ([id number]) Service: ? Author Type: ? Type: Progress Notes Filed: 10/08/2019 10:34 AM Note Text: ONE PNEUMOVAX PRIOR TO AGE 63 due on 11/03/2007 PAP TESTING due on 2009 HPV TESTING due on 2018 INFLUENZA(1) due on 04/21/2019 cnov on 2019-10-08 CNOV Office Visit (FAMDNA) Normal 10-08-19 [facility] BAUDILIO SHARMA ([id number]) 1990 [facility] Date Time Provider Department ([id number]) 10/08/19 10:00 AM LACHO RODRIGUEZ FAM[place]IR[place]LE During your visit today, we recorded the following informati on about you: Temperature Pulse Blood pressure Weight 98.5 degrees 123/minute 167/111 92.5 kg Height 1.626 m Alexis Uriah 10/08/2019 10:34 AM Signed ONE PNEUMOVAX PRIOR TO AGE 63 due on 11/03/2007 PAP TESTING due on 2009 HPV TESTING due on 2018 INFLUENZA(1) due on 04/21/2019 Lacho Rodriguez MD 10/08/2019 10:50 AM Addendum S: Here for left eye Red matted this am . Exposed to [place] [facility] this week right eye Also ?? Some discomfort in left eye No Visual change O: palpeibral and Scleral ocnjunctiva Left eye inflammed Inj ected . No pus Right minimally so A: Conjunctivitis P: gentamcin eye drops 2 qtts Ou 3 times per day wash Hands Frequently No mascara no eyeliner 158/100 Recheck Noted bp Every time it is checked lungs Clear Cor rrr no m A: Hypertension History of hepatitis C - no f/u diagnosed in Summer At [facility] P: cmp Hepatitis c Viral load HIV - History of IV drug use hctz 12.5 Stop smoking Decrease salt n diet Exercise rto 1 month bp Recheck in one month Lacho Rodriguez MD 10/08/2019 10:51 AM Signed Addended by: LACHO RODRIGUEZ MD on: 10/08/2019 10:51 AM Modules accepted: Orders Referring Provider: SELF [200] Allergies As of Date: 10/08/2019 Noted Allergy Reaction PENICILLINS 07/28/2012 2 - Rash Date Reviewed: 10/08/2019 Reviewed by: Alexis Kruse - Fully Assessed Reason for Visit: Conjunctivitis [24] Primary Visit Diagnosis:Bacterial conjunctivitis [H10.9] Other Visit Diagnoses:Hepatitis C virus infection without he patic coma, unspecified chronicity [B19.20] Essential hypertension, benign [I10] Order(s):gentamicin (GENTAK) 0.3 % ophthalmic solutionUse 2 Drops in eyes three times daily.Disp: 1 BottleRfl: 0 Hydrochlorothiazide 12.5 mg capsuleTake 1 capsule by mouth o nce daily.Disp: 30 capsuleRfl: 6 COMP METABOLIC PANEL [SQCMP] Order #: [id number] FUTURE HCV QUANT RNA BY PCR [SQHCQPCR] Order #: [id number] FUTURE HIV 1 2 COMBO(AG/AB),WITH REFLEX TO DIFFERENTIATION [SQHIV12 ] Order #: [id number] FUTURE Prescriptions as of 10/08/2019 Sig: GENTAMICIN 0.3 % EYE DROPS Use 2 Drops in eyes three светлана* HYDROCHLOROTHIAZIDE 12.5 MG C* Take 1 capsule by mouth once * VITAMIN,CALCIUM,MINE* Take 1 tablet by mouth. Problem List As Of Date 10/08/2019 Noted Resolved Supervision of normal [Z34.90] 12/29/2014 High risk due to smoking in first tri*12/29/2014 Short interval between pregnancies affecting pr*12/29/2014 Family history of sickle cell trait in father [*12/29/2014 More... Rubella non-immune status, antepartum [O99.89, *01/29/2015 History of shoulder dystocia in prior *06/05/2015 More... Abnormal glucose affecting [O99.810] 06/08/2015 Hepatitis C [B19.20] Prescriptions ordered this encounter Disp Refills Start End GENTAMICIN 0.3 % EYE DROPS 1 [place]* 0 10/08/2019 Route: OPHTHALMIC Sig: Use 2 Drops in eyes three times daily. HYDROCHLOROTHIAZIDE 12.5 MG CAPSULE 30 c* 6 10/08/2019 Route: ORAL Sig: Take 1 capsule by mouth once daily. Disposition: Return for 1 month bp choose p cp . Follow-up and Disposition History Recorded Encounter Status:Closed by LACHO RODRIGUEZ MD on 10/08/19 progress on 2018-12 PROGRESS HNO ID: [id number] Normal 01-13-2019 [facility] Author: Ver[place] (Sanjiv) [facility] ([id number]) Service: ? Author Type: Nurse Practitioner Type: Progress Notes Filed: 01/13/2019 1:50 PM Note Text: Subjective HPI HPI Baudilio Sharma is a 28 year old female who presents t [facility] for CC of severe right calf pain/infection. This started 2 days ago, n o known insect bite. Has tried nothing for relief. Recently went to ER and w/u for liver dysfunction and blood infection .Patient presents with: Insect Bite: (right) lower leg x 2 days PAST MEDICAL HISTORY Diagnosis Date - NEGATIVE MEDICAL HISTORY PAST SURGICAL HISTORY Procedure Laterality Date - NONE ALLERGIES Penicillins MEDICATIONS Ftfjymmg-Yt-Qji-Fe-FA ( VITAMIN) tab Take 1 tablet by mouth. FAMILY HISTORY Problem Relation Age of Onset - Cancer Father Throat Cancer Social History Tobacco Use - Smoking status: Current Some Day Smoker Packs/day: 0.25 Years: 17.00 Pack years: 4.25 Types: Cigarettes - Smokeless tobacco: Never Used - Tobacco comment: 1 cigarettes per week Substance Use Topics - Alcohol use: No - Drug use: No Review of Systems Constitutional: Positive for malaise/fatigue. Negative for f ever. Skin: Negative for itching and rash. Objective Blood pressure 130/90, pulse 93, temperature 36.8 ?C (98.2 ? F), temperature source Tympanic, resp. rate 17, weight 73.5 kg ( 162 lb), SpO2 98 %, unknown if currently . Physical Exam Constitutional: She is oriented to person, place, and time a nd well-developed, well-nourished, and in no distress. Non-toxi c appearance. She does not have a sickly appearance. No distress. HENT: Head: Normocephalic and atraumatic. Eyes: Scleral icterus is present. Pulmonary/Chest: Effort normal. No accessory muscle usage. N o respiratory distress. Neurological: She is alert and oriented to person, place, an d time. Skin: She is not diaphoretic. ASSESSMENT/PLAN: 1. Scleral icterus - ICD9: 782.4, ICD10: R17 (primary diagno sis) As below 2. Skin infection - ICD9: 686.9, ICD10: L08.9 -Concerns with severity of pain erythema -Patient not known to [facility] recently being w/u fo r liver dysfunction, has not gotten results yet. -I recommend ER evaluation/treatment -patient to drive pov to ER, not sure what hospital she will go to Verona Carrasquillo APRN.CNP cnov on 2019-01-13 CNOV Office Visit (UCWSTR) Normal 01-14-20 19 [facility] SHARMABAUDILIO ([id number]) 1990 [facility] Date Time Provider Department ([id number]) 01/13/19 10:45 AM VERONA CARRASQUILLO (SANJIV) [facility] During your visit today, we recorded the following informati on about you: Temperature Pulse Respiration Blood pressure 98.2 degrees 93/minute 17/minute 130/90 Weight 73.5 kg Verona Carrasquillo APRN.CNP 01/13/2019 1:50 PM Signed Subjective HPI HPI Baudiliochristal Sharma is a 28 year old female who presents t [facility] for CC of severe right calf pain/infection. This started 2 days ago, n o known insect bite. Has tried nothing for relief. Recently went to ER and w/u for liver dysfunction and blood infection .Patient presents with: Insect Bite: (right) lower leg x 2 days PAST MEDICAL HISTORY Diagnosis Date - NEGATIVE MEDICAL HISTORY PAST SURGICAL HISTORY Procedure Laterality Date - NONE ALLERGIES Penicillins MEDICATIONS Stlbygbq-Xc-Weg-Fe-FA ( VITAMIN ) tab Take 1 tablet by mouth. FAMILY HISTORY Problem Relation Age of Onset - Cancer Father Throat Cancer Social History Tobacco Use - Smoking status: Current Some Day Smoker Packs/day: 0.25 Years: 17.00 Pack years: 4.25 Types: Cigarettes - Smokeless tobacco: Never Used - Tobacco comment: 1 cigarettes per week Substance Use Topics - Alcohol use: No - Drug use: No Review of Systems Constitutional: Positive for malaise/fatigue. Negative for f ever. Skin: Negative for itching and rash. Objective Blood pressure 130/90, pulse 93, temperature 36.8 ?C (98.2 ?F), temperature source Tympanic, resp. rate 17, weight 7 3.5 kg (162 lb), SpO2 98 %, unknown if currently . Physical Exam Constitutional: She is oriented to perso n, place, and time and well-developed, well-nourished, and in no distress. Non-toxic ap pearance. She does not have a sickly appearance. No distress. HENT: Head: Normocephalic and atraumatic. Eyes: Scleral icterus is present. Pulmonary/Chest: Effort normal. No accessory muscle usage. N o respiratory distress. Neurological: She is alert and oriented to person, place, an d time. Skin: She is not diaphoretic. ASSESSMENT/PLAN: 1. Scleral icterus - ICD9: 782.4, ICD10: R17 (primary diagno sis) As below 2. Skin infection - ICD9: 686.9, ICD10: L08.9 -Concerns with severity of pain erythema -Patient not known to [facility] recently being w/u fo r liver dysfunction, has not gotten results yet. -I recommend ER evaluation/treatment -patient to drive pov to ER, not sure what hospital she will go to Verona Carrasquillo APRN.HOME HEALTH OCCUPATIONAL THERAPIST Referring Provider: SELF [200] Allergies As of Date: 01/13/2019 Noted Allergy Reaction PENICILLINS 07/28/2012 2 - Rash Date Reviewed: 01/13/2019 Reviewed by: Antonina Krishna [facility] - Fully Assessed Reason for Visit: Insect Bite [929] Cmt: (right) lower leg x 2 days Primary Visit Diagnosis:Scleral icterus [R17] Other Visit Diagnosis:Skin infection [L08.9] Prescriptions as of 01/13/2019 Sig: VITAMIN,CALCIUM,MINE* Take 1 tablet by mouth. Problem List As Of Date 01/13/2019 Noted Resolved Supervision of normal [Z34.90] INVALID FOR* High risk due to smoking in first tri*INVALID FOR* Short interval between pregnancies affecting pr*INVALID FOR* Family history of sickle cell trait in father [*INVALID FOR* More... Rubella non-immune status, antepartum [O99.89, *INVALID FOR* History of shoulder dystocia in prior *INVALID FOR* More... Abnormal glucose affecting [O99.810] INVALID FOR* Encounter Status:Closed by VERONA CARRASQUILLO CNP on 01/13/19 Summary Purpose Family History No Family History Records Found Advance Directives No Advanced Directives Records Found Additional Source Comments FOR RECORDS PERTAINING TO PATIENTS WHO ARE OR HAVE BEEN ENROLLED IN A CHEMICAL DEPENDENCY/SUBSTANCE ABUSE PROGRAM, SOME INFORMATION MAY BE OMITTED. This clinical summary was aggregated from multiple sources. Caution should be exercised in using it in the provision of clinical care. This summary normalizes information from multiple sources, and as a consequence, information in this document may materially changethe coding, format and clinical context of patient data. In addition, data may be omittedin some cases. CLINICAL DECISIONS SHOULD BE BASED ON THE PRIMARY CLINICAL RECORDS. [facility] provides no warranty or guarantee of the accuracy or completeness of information in this document. UNRECOGNIZED CONTENT PROVIDED BELOW FOR UNRECOGNIZED SECTION INFORMATION SOURCE DATE CREATED AUTHOR AUTHOR'S ORGANIZATIO N 10/15/2019 [facility] Ayan santana
--- OUTSIDE RECORDS SUMMARY | 2020-06-07 12:12 | XMS RPT_ITS | CCD ---
:1990 External Reference #:[id number] Author Organization [facility] Care Team Providers Name Role Phone Unavailable Unavailable Unavailable Results Result Name Value Range Unit Interpretation Flag Date Location cnpn on 2019-10-10 CNPN Telephone (IMMDNA) Normal 10-10-2019 [facility] BAUDILIO SHARMA ([id number]) 1990 [facility] Time Provider Department ([id number]) 10/10/19 LACHO RODRIGUEZ IMMMIRACLE During your visit [...] 10/10/19 progress on 2019-09 PROGRESS HNO ID: [id number] Normal 10-08-2019 [facility] Author: Lacho Rodriguez [place] ([id number]) Service: ? Author Type: Physician Type: Progress Notes Filed: 10/08/2019 10:50 AM Note Text: S: Here for left eye Red matted this am . Exposed to [place] [facility] this week right eye Also ?? [...] - no f/u diagnosed in Summer At [facility] P: cmp Hepatitis c Viral load HIV - History of IV drug use hctz 12.5 Stop smoking Decrease salt n diet Exercise rto 1 month bp Recheck in one month PROGRESS HNO ID: [id number] Normal 10-08-2019 [facility] Author: Alexis patel ([id number]) Service: ? Author Type: ? Type: Progress Notes Filed: 10/08/2019 10:34 AM Note Text: ONE PNEUMOVAX PRIOR TO AGE 63 due on 11/03/2007 PAP TESTING due on 2009 HPV TESTING due on 2018 INFLUENZA(1) due on 04/21/2019 cnov on 2019-10-08 CNOV Office Visit (FAMDNA) Normal 10-08-19 [facility] BAUDILIO SHARMA ([id number]) 1990 [facility] [place] Date Time Provider Department ([id number]) 10/08/19 10:00 AM LACHO RODRIGUEZ FAMMIRACLE During [...] Red matted this am . Exposed to [place] [facility] this week right eye Also ?? [...] - no f/u diagnosed in Summer At [facility] P: cmp Hepatitis c Viral load HIV [...] 6 COMP METABOLIC PANEL [SQCMP] Order #: [id number] FUTURE HCV QUANT RNA BY PCR [SQHCQPCR] Order #: [id number] FUTURE HIV 1 2 COMBO(AG/AB),WITH REFLEX TO DIFFERENTIATION [SQHIV12 ] Order #: [id number] FUTURE Prescriptions as of 10/08/2019 Sig: GENTAMICIN [...] 10/08/19 progress on 2018-12 PROGRESS HNO ID: [id number] Normal 01-13-2019 [facility] Author: [place] (Sanjiv) [facility] ([id number]) Service: ? Author Type: Nurse Practitioner Type: [...] Laterality Date - NONE ALLERGIES Penicillins MEDICATIONS Eodcxjco-Be-Xxe-Fe-FA ( VITAMIN) tab Take 1 tablet by [...] of pain erythema -Patient not known to [facility] recently being w/u fo r liver dysfunction, has not gotten results yet. -I recommend ER evaluation/treatment -patient to drive pov to ER, not sure what hospital she will go to Verona Carrasquillo APRN.CNP cnov on 2019-01-13 CNOV Office Visit (UCWSTR) Normal 01-14-20 19 [facility] SHARMABAUDILIO ([id number]) 1990 [facility] Date Time Provider Department ([id number]) 01/13/19 10:45 AM VERONA CARRASQUILLO (SANJIV) [facility] During your visit today, we recorded the following informati on about you: Temperature Pulse Respiration Blood pressure 98.2 degrees 93/minute 17/minute 130/90 Weight 73.5 kg Verona Carrasquillo APRN.CNP 01/13/2019 1:50 PM Signed Subjective HPI HPI Baudiliochristal Sharma is a 28 year old female who presents t [facility] for CC of severe right calf [...] Laterality Date - NONE ALLERGIES Penicillins MEDICATIONS Idqhxvks-Bx-Zpw-Fe-FA ( VITAMIN ) tab Take 1 tablet [...] of pain erythema -Patient not known to [facility] recently being w/u fo r liver dysfunction, has not gotten results yet. -I recommend ER evaluation/treatment -patient to drive pov to ER, not sure what hospital she will go to Verona Carrasquillo APRN.HASHER OPERATOR Referring Provider: SELF [200] Allergies As of Date: 01/13/2019 Noted Allergy Reaction PENICILLINS 07/28/2012 2 - Rash Date Reviewed: 01/13/2019 Reviewed by: Antonina Krishna [facility] - Fully Assessed Reason for Visit: Insect [...] BE BASED ON THE PRIMARY CLINICAL RECORDS. [facility] provides no warranty or guarantee of the accuracy or completeness of information in this document. UNRECOGNIZED CONTENT PROVIDED BELOW FOR UNRECOGNIZED SECTION INFORMATION SOURCE DATE CREATED AUTHOR AUTHOR'S ORGANIZATIO N 10/15/2019 [facility] Ayan santana
== END 2020-01-30 23:56 | disposition home or self-care (01) ==
PROVIDERS: Emergency Provider Emergency Medicine
DX: F19.10 Other psychoactive substance abuse, uncomplicated (principal); F17.200 Nicotine dependence, unspecified, uncomplicated; Z88.0 Allergy status to penicillin
CPT/HCPCS: 99284

== ENCOUNTER 2020-07-04 13:39 | Emergency (ER) | payer MEDICAID, SELFPAY ==
[2020-07-04 13:39] VITALS: BP 141/83; PULSE 96; PULSE 99; RESP 18; TEMP 35.9; O2SAT 100; O2SAT 99; BMI 33.5
--- NOTE | 2020-07-04 13:59 | ED.VIS.GEN ---
History of Present Illness Informant: Patient Narrative: 29 year old female presents asking to detox from meth. She states she injects meth and last use was yesterday. She smokes 1/2 PPD but denies any other illicit drug use. She has contacted [facility] and states she has a bed ready for her at [place] on Monday but she wanted to detox sooner. She has no withdrawal symptoms. Denies fevers, chills, nausea, vomiting, chest pain, shortness of breath, cough, abdominal pain, or diarrhea. She also states she had a positive home test 1 week ago. LMP was the first week of May. <Jolanta Hedrick - Last Filed: 07/04/20 14:26> Narrative: Patient was seen by me she appears well has normal vitals she does have a positive test. We talked to the hospitalist who did not admit the patient for detox however she does have a plan for detox in 2 days. She has a safe place to go and she will go to a place where there is no drug use. <Delfino Saavedra - Last Filed: 07/04/20 14:39> Chief Complaint: Substance Abuse Past Medical History Surgical History: no surgical history Smoking Status: Current every day smoker <Jolanta Hedrick - Last Filed: 07/04/20 14:26> <Delfino Saavedra - Last Filed: 07/04/20 14:39> - Allergies and Home Meds Allergies/Adverse Reactions: Allergies Penicillins Allergy (Verified 01/30/20 21:47) Hives Primary Care Physician: Care Physician,No Primary [Primary Care Provider] - Review of Systems General: Denies: Chills, Fever, Sweats Eyes: Denies: Visual changes - bilaterally, Diplopia ENT: Denies: Rhinorrhea, Sore throat Cardiovascular: Denies: Chest pain, Palpitations Respiratory: Denies: Dyspnea, Cough, Dyspnea on exertion Gastrointestinal: Denies: Abdominal pain, Nausea, Vomiting, Diarrhea, Melena, Hematochezia Genitourinary: Denies: Dysuria, Hematuria, Frequency Musculoskeletal: Denies: Back pain, Extremity Pain Skin: Denies: Rash, Wounds Neurological: Denies: Headache, Weakness, Numbness <Jolanta Hedrick - Last Filed: 07/04/20 14:26> Physical Exam Vital Signs/Narrative: Vital Signs Temp Pulse Resp BP Pulse Ox 07/04/20 13:39 96.6 F L 99 18 141/83 H 99 General: Well nourished, Well developed, No Acute Distress Head: Normocephalic, Atraumatic Eyes: Perrl, EOMI ENT: Moist mucous membranes, No rhinorrhea Neck: Supple, Nontender Cardiovascular: Regular rate, Regular rhythm, No murmurs Respiratory: No distress, CTA bilaterally, Chest nontender Abdomen: Soft, Nontender, Nondistended, Normal bowel sounds Back: Nontender, Normal Inspection Extremities: Nontender, No edema Skin: Normal color, No rash Neurological: Alert, Oriented x3, Cranial nerves II-XII grossly intact Psychological: Normal affect, Normal Mood <Jolanta Hedrick - Last Filed: 07/04/20 14:26> Vital Signs/Narrative: Vital Signs Temp Pulse Resp BP Pulse Ox 07/04/20 13:39 96.6 F L 99 18 141/83 H 99 <Delfino Saavedra - Last Filed: 07/04/20 14:39> Diagnostic/Tx/Re-eval - Medical Decision Making Patient presented requesting to detox from meth. She uses no other illicit drugs. She appears well and nontoxic. Vital signs within normal limits. General medical exam is unremarkable. I spoke with the hospitalist who states there is no treatment for meth detox unless she has concurrent opiate use which she denies. She would only be admitted to be placed in a program but she already has this arranged through [facility]. Urine hgc confirmed . She was informed of these results and has an OBGYN to follow up with. She was discharged home in stable condition. <Jolanta Hedrick - Last Filed: 07/04/20 14:26> ED Disposition <Jolanta Hedrick - Last Filed: 07/04/20 14:26> <Delfino Saavedra - Last Filed: 07/04/20 14:39> - Plan for ED Patient: Disposition: Home or Assisted Living Diagnosis: Amphetamine abuse, Illicit drug use, continuous, First trimester Instructions: ED AMPHETAMINE ABUSE Referrals: Care Physician,No Primary [Primary Care Provider] -
[2020-07-04 14:22] LABS: Internal QC Validated? YES +Cl - CLEAR BKGD
[2020-07-04 14:24] LABS: Pregnancy, Urine Positive Negative
--- OUTSIDE RECORDS SUMMARY | 2020-08-12 05:15 | XMS RPT_ITS | CCD ---
:1990 External Reference #:[id number] Demographics Address [address] [place] [address] Preferred Language Unknown Marital Status Unknown Moravian Affiliation Unknown Race White Ethnic Group Unknown Author Organization [facility] Care Team Providers Name Role Phone Unavailable Primary Care Provider Unavailable Allergies Reported Allergen Reaction(s) Severity Date of Onset Location Penicillins Rash 07-28-2012 - [facility] ([id number]) Medications Medication Name Sig Date Prescriber Location Gentamicin gentamicin (GENTAK) 10-08-2019 - Ronnie Rodriguez [facility] 0.3 % ophthalmic 08-04-2020 Ronnie Tatumiajeffrey ([id number] ) solution Use 2 Drops in eyes three times daily. 1 Bottle 0 10/08/2019 08/04/2020 Discontinued Comment: Use 2 Drops in eyes three ti mes daily. hydroCHLOROthiazide Hydrochlorothiazide 12.5 10-08-2019 - Ronnie Griffith [place] mg capsule Take 1 08-04-2020 [facility] capsule by mouth once Ronnie Griffith ([id number] ) daily. 30 capsule 6 [place] 10/08/2019 08/04/2020 Discontinued Comment: Take 1 capsule by mouth once daily. [facility]cf Provider [place] Vzqyolrh-Fi-Sbk-Fe-FA Sijlbfhm-Nt-Epi-Fe-FA [facility] ([id number]) ( VITAMIN) tab ( VITAMIN) tab Take 1 tablet by mouth. 0 Active Comment: Take 1 tablet by mouth. Problems Active Problems Category Problem Name Status Date Location Hepatitis Viral hepatitis C Active [facility] ([id number]) Unclassified Finding of pattern of Active 12-29-2014 - [facility] ([id number]) Past or Other Problems Category Problem Name Status Date Location Diabetes mellitus Abnormal glucose Completed 06-08-2015 - [facility] without complication level (71535) Immunizations and Rubella non-immune Completed 01-29-2015 - [facility] screening for (92099) infectious disease Other complications of Supervision of Completed 06-05-2015 - [facility] with other (91749) poor reproductive or obstetric history, unspecified trimester Other complications of High risk Completed 12-29-2014 - [facility] ([id number]) Other and Normal Completed 12-29-2014 - [facility] delivery including (01260) normal Residual codes; FH: Sickle cell trait Completed 12-29-2014 - [facility] unclassified (86436) Results Result Name Value Range Unit Interpretation Flag Date Location progress on 2020-07 PROGRESS HNO ID: [id number] Normal 08-04-[address] [facility] Author: Murray Arellano [facility] ([id number]) Service: ? Author Type: Physician Type: Progress Notes Filed: 08/04/2020 3:06 PM Note Text: Baudilio Sharma is a 29 year old female who presents for e karon . HPI: Patient presents with early . She went to the care center and US there was unable to detect a heart beat. Also the baby was measuring 8 weeks and by LMP she would be 11-12 weeks. Patient reports some light spotting about 4 times in the pre gnancy. Denies pelvic pain. No PNC prior to today. PAST MEDICAL HISTORY Diagnosis Date - Hepatitis C - Hypertension - NEGATIVE MEDICAL HISTORY PAST SURGICAL HISTORY Procedure Laterality Date - NONE FAMILY HISTORY Problem Relation Age of Onset - Cancer Father Throat Cancer Social History Tobacco Use - Smoking status: Current Some Day Smoker Packs/day: 0.25 Years: 17.00 Pack years: 4.25 Types: Cigarettes - Smokeless tobacco: Never Used Substance Use Topics - Alcohol use: No - Drug use: Not Currently Current Outpatient Medications Medication Sig - Ypkxxmwb-Gr-Fcf-Fe-FA ( VITAMIN) tab Take 1 tablet by mouth. - gentamicin (GENTAK) 0.3 % ophthalmic solution Use 2 Drops in eyes three times daily. (Patient not taking: Reported on 08/04/2020 ) - Hydrochlorothiazide 12.5 mg capsule Take 1 capsule by mout h once daily. (Patient not taking: Reported on 08/04/2020 ) No current facility-administered medications for this visit. Allergies As of Date: 08/04/2020 Allergen Noted Reaction PENICILLINS 07/28/2012 Rash Fully Assessed 08/04/2020 REVIEW OF SYSTEMS Abdomen: No bloating, early satiety, indigestion, or increas ed flatulence. No abdominal pain, nausea, vomiting, diarrhea, or constipati on. Bladder: No dysuria, gross hematuria, urinary frequency, uri nary urgency, or incontinence. Expanded ROS: GENERAL: No weight loss, malaise or fevers Allergies and current medication updated:Yes EXAM: BP 134/72 Wt 208 lb (94.3kg) LMP 05/15/2020 GENERAL: pleasant, female in no apparent distress CHEST: Normal inspiratory effort PELVIC: external genitalia normal, normal appearing perineal body and perianal region NEURO: alert and oriented x3,exam grossly non-focal EXTREMITIES: normal ASSESSMENT AND PLAN: 29yo female with missed TVUS shows IUP measuring 8AND3 with no fca. This confirms th e findings at the Care Center. Discussed R/B/A of management options. Patient wishes to pro ceed with cytotec AND use reviewed. Reviewed bleeding AND pain preca utions. She plans to take the cytotec later this week. F/u 1 week or PRN. [facility] 2020[facility]08-04 CNPN Telephone (OBGYWM) Normal 08-04-2020 [facility] BAUDILIO SHARMA ([id number]) 1990 [facility] Date Time Provider Department ([id number]) 08/04/20 MURRAY ARELLANO During your visit today, we recorded the following informati on about you: Geena Jeffers RN 08/04/2020 12:37 PM Signed LMP 05/15/20 Approximately 11w4d Received a call from Litzy from the [facility]. Patient is in their office now for an ultrasound and unable to find a FHR. Asking if we can bring patient in to our office today for an ultrasound. Patient pamela fernandez seen in our office in 2014. Denies cramping or bleeding. Ok to schedule patient for a problem visit and bedside ultrasound? Please advise. Geena Arellano MD 08/04/2020 1:18 PM Signed Sounds like a good plan. Please schedule AND have her come i n. MD Jessica Chaudhari RN 08/04/2020 1:42 PM Signed Patient notified and scheduled. Jessica Fontaine RN Allergies As of Date: 08/04/2020 Noted Allergy Reaction PENICILLINS 07/28/2012 2 - Rash Date Reviewed: 10/08/2019 Reviewed by: Alexis Kruse - Fully Assessed Reason for Visit: Call To Referring Provider [[id number]] Prescriptions as of 08/04/2020 Sig: GENTAMICIN 0.3 % EYE DROPS Use 2 Drops in eyes three светлана* HYDROCHLOROTHIAZIDE 12.5 MG C* Take 1 capsule by mouth once * VITAMIN,CALCIUM,MINE* Take 1 tablet by mouth. Problem List As Of Date 08/04/2020 Noted Resolved Supervision of normal [Z34.90] 12/29/2014 High risk due to smoking in first tri*12/29/2014 Short interval between pregnancies affecting pr*12/29/2014 Family history of sickle cell trait in father [*12/29/2014 More... Rubella non-immune status, antepartum [O99.891,*01/29/2015 History of shoulder dystocia in prior *06/05/2015 More... Abnormal glucose affecting [O99.810] 06/08/2015 Hepatitis C [B19.20] Encounter Status:Closed by JESSICA FONTAINE RN on 08/04/20 cnov on 2020-08-04 CNOV Office Visit (OBGYWM) Normal 08-04-[address] [place] [address] [facility] BAUDILIO SHARMA ([id number]) 1990 [facility] Time Provider Department ([id number]) 08/04/20 2:20 PM MURRAY ARELLANO OBHANNAH During your visit today, we recorded the following informati on about you: Blood pressure Weight Last Period 134/72 94.3 kg 05/15/20 Murray Arellano MD 08/04/2020 3:06 PM Signed Baudilio Sharma is a 29 year old female who presents for early . HPI: Patient presents with early . She went to the care center and US there was unable to detect a heart beat. Also the baby was measuring 8 weeks and by LMP she would be 11-12 weeks. Pat ient reports some light spotting about 4 times in the . Denies pelvic pain. No PNC prior to today. PAST MEDICAL HISTORY Diagnosis Date - Hepatitis C - Hypertension - NEGATIVE MEDICAL HISTORY PAST SURGICAL HISTORY Procedure Laterality Date - NONE FAMILY HISTORY Problem Relation Age of Onset - Cancer Father Throat Cancer Social History Tobacco Use - Smoking status: Current Some Day Smoker Packs/day: 0.25 Years: 17.00 Pack years: 4.25 Types: Cigarettes - Smokeless tobacco: Never Used Substance Use Topics - Alcohol use: No - Drug use: Not Currently Current Outpatient Medications Medication Sig - Ojzqxcsa-Ey-Zgb-F e-FA ( VITAMIN) tab Take 1 tablet by mouth. - gentamicin (GENTAK) 0.3 % ophthalmic solution Use 2 Drops in eyes three times daily. (Patient not taking: Reported on 08/04/2020 ) - Hydrochlorothiazide 12.5 mg capsule Take 1 capsule by mout h once daily. (Patient not taking: Reported on 08/04/2020 ) No current facility-administered medications for this visit. Allergies As of Date: 08/04/2020 Allergen Noted Reaction PENICILLINS 07/28/2012 Rash Fully Assessed 08/04/2020 REVIEW OF SYSTEMS Abdomen: No bloating, early satiety, indigestion , or increased flatulence. No abdominal pain, nausea, vomiting, diarrhea, or constipation. Bladder: No dysuria, gross hematuria, urinary frequenc y, urinary urgency, or incontinence. Expanded ROS: GENERAL: No weight loss, malaise or fevers Allergies and current medication updated:Yes EXAM: BP 134/72 Wt 208 lb (94.3kg) LMP 05/15/2020 GENERAL: pleasant, female in no apparent distress CHEST: Normal inspiratory effort PELVIC: external genitalia normal, velma l appearing perineal body and perianal region NEURO: alert and oriented x3,exam grossly non-focal EXTREMITIES: normal ASSESSMENT AND PLAN: 29yo female with missed TVUS shows IUP measuring 8AND3 with no fca. This confirms the findings at the Care Center. Discussed R/B/A of management options. Patient w ishes to proceed with cytotec AND use reviewed. Reviewed b leeding AND pain precautions. She plans to take the cytotec later this week. F/u 1 week or PRN. Murray Arellano MD Referring Provider: MURRAY ARELLANO [[id number]] Allergies As of Date: 08/04/2020 Noted Allergy Reaction PENICILLINS 07/28/2012 2 - Rash Date Reviewed: 08/04/2020 Reviewed by: Murray Arellano - Fully Assessed Reason for Visit: Early [Other] Primary Visit Diagnosis:Missed [O02.1] Order(s):miSOPROStol (CYTOTEC) 200 mcg tabletUse 4 tablets vaginally one time only for 1 dose.Disp: 4 tabletRfl: 0 Prescriptions as of 08/04/2020 Sig: VITAMIN,CALCIUM,MINE* Take 1 tablet by mouth. MISOPROSTOL 200 MCG TABLET Use 4 tablets vaginally one t* Problem List As Of Date 08/04/2020 Noted Resolved Supervision of normal [Z34.90] 12/29/2014 High risk due to smoking in first tri*12/29/2014 Short interval between pregnancies affecting pr*12/29/2014 Family history of sickle cell trait in father [*12/29/2014 More... Rubella non-immune status, antepartum [O99.891,*01/29/2015 History of shoulder dystocia in prior *06/05/2015 More... Abnormal glucose affecting [O99.810] 06/08/2015 Hepatitis C [B19.20] Prescriptions ordered this encounter Disp Refills Start End MISOPROSTOL 200 MCG TABLET 4 ta* 0 08/04/2020 08/04/2020 Route: VAGINAL Sig: Use 4 tablets vaginally one time only for 1 dose. Medications Discontinued During This Encounter Prescriptions - gentamicin (GENTAK) 0.3 % ophthalmic solution (Discontinue d) Reported on 08/04/2020 - Hydrochlorothiazide 12.5 mg capsule (Discontinued) Reported on 08/04/2020 Encounter Status:Closed by MURRAY ARELLANO MD on 08/04/20 cnpn on 2019-10-10 CNPN Telephone (IMMDNA) Normal 10-10-2019 [facility] BAUDILIO SHARMA ([id number]) 1990 [facility] Time Provider Department ([id number]) 10/10/19 RONNIE RODRIGUEZ During your visit today, we recorded the following informati on about you: Ronnie Rodriguez MD 10/10/2019 7:17 AM Signed Patient [...] 06/08/2015 Hepatitis C [B19.20] Encounter Status:Closed by RONNIE RODRIGUEZ MD on 10/10/19 progress on 2019-09 PROGRESS HNO ID: [id number] Normal 10-08-[address] [facility] Author: Ronnie Martinez ([id number]) Service: ? Author Type: Physician Type: Progress Notes Filed: 10/08/2019 10:50 AM Note Text: S: Here for left eye Red matted this am . Exposed to [place] eye this week right eye Also ?? [...] - no f/u diagnosed in [facility] At [facility] P: cmp Hepatitis c Viral load HIV - History of IV drug use hctz 12.5 Stop smoking Decrease salt n diet Exercise rto 1 month bp Recheck in one month PROGRESS HNO ID: [id number] Normal 10-08-[address] [facility] Author: Alexis patel ([id number]) Service: ? Author Type: ? Type: Progress Notes Filed: 10/08/2019 10:34 AM Note Text: ONE PNEUMOVAX PRIOR TO AGE 65 due on 11/03/2007 PAP TESTING due on 2009 HPV TESTING due on 2018 INFLUENZA(1) due on 04/21/2019 cnov on 2019-10-08 CNOV Office Visit (FAMDNA) Normal 10-08-[address] [place] [address] Clinic BAUDILIO SHARMA ([id number]) 1990 [facility] Date Time Provider Department ([id number]) 10/08/19 10:00 AM RONNIE RODRIGUEZ [facility] During your visit today, we recorded the following informati on about you: Temperature Pulse Blood pressure Weight 98.5 degrees 123/minute 167/111 92.5 kg Height 1.626 m Alexis Kruse 10/08/2019 10:34 AM Signed ONE PNEUMOVAX PRIOR TO AGE 65 due on 11/03/2007 PAP TESTING due on 2009 HPV TESTING due on 2018 INFLUENZA(1) due on 04/21/2019 Ronnie Rodriguez MD 10/08/2019 10:50 AM Addendum S: Here for left eye Red matted this am . Exposed to [place] eye this week right eye Also ?? [...] - no f/u diagnosed in Summer At [facility] P: cmp Hepatitis c Viral load HIV - History of IV drug use hctz 12.5 Stop smoking Decrease salt n diet Exercise rto 1 month bp Recheck in one month Ronnie Rodriguez MD 10/08/2019 10:51 AM Signed Addended by: RONNIE RODRIGUEZ MD on: 10/08/2019 10:51 AM Modules [...] 6 COMP METABOLIC PANEL [SQCMP] Order #: [id number] FUTURE HCV QUANT RNA BY PCR [SQHCQPCR] Order #: [id number] FUTURE HIV 1 2 COMBO(AG/AB),WITH REFLEX TO DIFFERENTIATION [SQHIV12 ] Order #: [id number] FUTURE Prescriptions as of 10/08/2019 Sig: GENTAMICIN [...] and Disposition History Recorded Encounter Status:Closed by RONNIE RODRIGUEZ MD on 10/08/19 Encounters Date Type Reason Provider Location 08-04-2020 - 08-04-2020 Telephone encounter [facility] Comment: Call To Referring Provider Plan of Treatment Plan Description Date Location DTAP,TDAP,TD (2 - Td) DTAP,TDAP,TD (2 - Td) 04-23-2025 [facility] ([id number]) ONE PNEUMOVAX PRIOR TO ONE PNEUMOVAX PRIOR TO AGE 0210-08-[address] [facility] ([id number]) AGE [age] Comment: Postponed from 11/03/2007 (D eclined at this time) INFLUENZA (#1) INFLUENZA (#1) [address] [facility] ([id number]) HPV TESTING HPV TESTING [address] [facility] ([id number]) PAP TESTING PAP TESTING [address] [facility] (68742) no information [facility] (16128) Immunizations Vaccine Notes Status Date Location Influenza Seasonal influenza, injectable, (completed) 06-05-[address] [facility] Inj Quad Age 6 Mo - quadrivalent, contains (94693) 64 Yrs preservative Tdap (Age 7+) tetanus toxoid, reduced (completed) 04-23-2015 [facility] diphtheria toxoid, and (4419 5) acellular pertussis vaccine, adsorbed Payers Payer Name Policy Number Location [employer] [id number] [facility] (44 195) The following information is from the original human readable contentNo Payer Records Found Social History Type Social History Date Location Description Tobacco smoking status [facility]) [facility] of [facility] use [facility]igarette Smoker [facility] (83508) Cigarettes smoked 08-04-2020 - [facility] ic current (pack per day) 08-04-2020 (85843) - Reported Tobacco use and Never used 08-04-[address] [facility] exposure (41363) Alcohol intake Current non-drinker of 08-04-[address] [facility] alcohol (finding) (96208) Sex Assigned At Not on file [address] [facility] (91593) Exposure to SARS-CoV-[address] [facility] (event) (93528) The following information is from the original human readable contentNo Social History Records Found Summary Purpose Family History No Family History [...] BE BASED ON THE PRIMARY CLINICAL RECORDS. [facility] provides no warranty or guarantee of the accuracy or completeness of information in this document. UNRECOGNIZED CONTENT PROVIDED BELOW FOR UNRECOGNIZED SECTION INFORMATION SOURCE DATE CREATED AUTHOR AUTHOR'S GILLES N 08/06/[address] [facility] Ayan santana UNRECOGNIZED CONTENT PROVIDED BELOW FOR UNRECOGNIZED SECTION Source Comments In the event this information is protected by the Federal Confidentiality of Alcohol and Drug Abuse Patient Records regulations: The Federal rules restrict any use of the information to criminally investigate or prosecute any alcohol or drug abuse patient.[facility] UNRECOGNIZED CONTENT PROVIDED BELOW FOR UNRECOGNIZED SECTION Reason for Visit Reason Comments Call To Referring Provider UNRECOGNIZED CONTENT PROVIDED BELOW FOR UNRECOGNIZED SECTION Miscellaneous Notes Telephone Encounter - Jessica Fontaine RN - 08/04/2020 1:42 PM ESTPatient notified and scheduled. Jessica Fontaine RN elephone Encounter - Murray Arellano - 08/04/2020 1:17 PM ESTSounds like a good plan. Please schedule & have her come in. Murray Arellano MD elephone Encounter - Geena Jeffers RN - 08/04/2020 12:35 PM ESTLMP 05/15/20 Approximately 11w4d Received a call from Litzy from the Care Center. Patient is in their office now for an ultrasound and unable to find a FHR. Asking if we can bring patient in to our office today for an ultrasound. Patient last seen in our office in 2014. Denies cramping or bleeding. Ok to schedule patient for a problem visit and bedside ultrasound? Please advise. Geena Jeffers RN documented in this encounter
--- OUTSIDE RECORDS SUMMARY | 2020-08-12 05:15 | XMS RPT_ITS | CCD ---
:1990 External Reference #:[id number] Demographics Address [address] [place] [address] Preferred Language Unknown Marital Status Unknown Holiness Affiliation Unknown Race White Ethnic Group Unknown Author Organization [facility] Care Team Providers Name Role Phone Unavailable Primary Care Provider Unavailable Allergies Reported Allergen Reaction(s) Severity Date of Onset Location Penicillins Rash 07-28-2012 - [facility] ([id number]) Medications Medication Name Sig Date Prescriber Location Gentamicin gentamicin (GENTAK) 10-08-2019 - Ronnie Rodriguez [facility] 0.3 % ophthalmic 08-04-2020 Ronnie Tatumiajeffrey ([id number] ) solution Use 2 Drops in eyes three times daily. 1 Bottle 0 10/08/2019 08/04/2020 Discontinued Comment: Use 2 Drops in eyes three ti mes daily. hydroCHLOROthiazide Hydrochlorothiazide 12.5 10-08-2019 - Ronnie Griffith [place] mg capsule Take 1 08-04-2020 [facility] capsule by mouth once Ronnie Griffith ([id number] ) daily. 30 capsule 6 [place] 10/08/2019 08/04/2020 Discontinued Comment: Take 1 capsule by mouth once daily. [facility] Provider [place] Nnqrsjdn-Hq-Jtx-Fe-FA Zpodysmf-Ci-Dfx-Fe-FA [facility] ([id number]) ( VITAMIN) tab ( VITAMIN) tab Take 1 tablet by mouth. 0 Active Comment: Take 1 tablet by mouth. Problems Active Problems Category Problem Name Status Date Location Hepatitis Viral hepatitis C Active [facility] ([id number]) Unclassified Finding of pattern of Active 12-29-2014 - [facility] ([id number]) Past or Other Problems Category Problem Name Status Date Location Diabetes mellitus Abnormal glucose Completed 06-08-2015 - [facility] without complication level (36499) Immunizations and Rubella non-immune Completed 01-29-2015 - [facility] screening for (26085) infectious disease Other complications of Supervision of Completed 06-05-2015 - [facility] with other (94931) poor reproductive or obstetric history, unspecified trimester Other complications of High risk Completed 12-29-2014 - [facility] (03712) Other and Normal Completed 12-29-2014 - [facility] delivery including (31707) normal Residual codes; FH: Sickle cell trait Completed 12-29-2014 - [facility] unclassified ([id number]) Results Result Name Value Range Unit Interpretation Flag Date Location progress on 2020-07 PROGRESS HNO ID: [id number] Normal 08-04-2020 [facility] Author: Murray Arellano [facility] ([id number]) Service: ? Author Type: Physician Type: Progress [...] Currently Current Outpatient Medications Medication Sig - Bkvzloca-Vi-Yrk-Fe-FA ( VITAMIN) tab Take 1 tablet by [...] 1 week or PRN. Murray Arellano [facility] 2020-08-04 CNPN Telephone (OBGYWM) Normal 08-04-2020 [place] [facility] BAUDILIO SHARMA ([id number]) 1990 [facility] Date Time Provider Department ([id number]) 08/04/20 MURRAY ARELLANO During your visit today, we recorded the following informati on about you: Geena Jeffers RN 08/04/2020 12:37 PM Signed LMP 05/15/20 Approximately 11w4d Received a call from Litzy from the [facility]. Patient is in their office now [...] Reason for Visit: Call To Referring Provider [[id number]] Prescriptions as of 08/04/2020 Sig: GENTAMICIN 0.3 [...] 2020-08-04 CNOV Office Visit (OBGYWM) Normal 08-04-[address] [place] [address] [facility] BAUDILIO SHARMA ([id number]) 1990 [facility] Time Provider Department ([id number]) 08/04/20 2:20 PM MURRAY ARELLANO OBHANNAH During [...] Currently Current Outpatient Medications Medication Sig - Ioxvxkty-Ag-Ebk-F e-FA ( VITAMIN) tab Take 1 tablet [...] Murray Arellano MD Referring Provider: MURRAY ARELLANO [[id number]] Allergies As of Date: 08/04/2020 Noted Allergy [...] (IMMDNA) Normal 10-10-2019 [facility] BAUDILIO SHARMA ([id number]) 1990 [facility] Time Provider Department ([id number]) 10/10/19 RONNIE RODRIGUEZ During your visit today, [...] 10/10/19 progress on 2019-09 PROGRESS HNO ID: [id number] Normal 10-08-2019 [facility] Author: Ronnie [facility] ([id number]) Service: ? Author Type: Physician Type: Progress Notes Filed: 10/08/2019 10:50 AM Note Text: S: Here for left eye Red matted this am . Exposed to [facility] this week right eye Also ?? [...] - no f/u diagnosed in [facility] P: cmp Hepatitis c Viral load HIV - History of IV drug use hctz 12.5 Stop smoking Decrease salt n diet Exercise rto 1 month bp Recheck in one month PROGRESS HNO ID: [id number] Normal 10-08-2019 [facility] Author: Alexis patel ([id number]) Service: ? Author Type: ? Type: Progress Notes Filed: 10/08/2019 10:34 AM Note Text: ONE PNEUMOVAX PRIOR TO AGE 65 due on 11/03/2007 PAP TESTING due on 2009 HPV TESTING due on 2018 INFLUENZA(1) due on 04/21/2019 cnov on 2019-10-08 CNOV Office Visit (FAMDNA) Normal 10-08-[address] [place] [address] Clinic BAUDILIO SHARMA ([id number]) 1990 [facility] Date Time Provider Department ([id number]) 10/08/19 10:00 AM RONNIE RODRIGUEZ [facility] During [...] Red matted this am . Exposed to [facility] this week right eye Also ?? [...] - no f/u diagnosed in [facility] P: cmp Hepatitis c Viral load [...] 6 COMP METABOLIC PANEL [SQCMP] Order #: [id number] FUTURE HCV QUANT RNA BY PCR [SQHCQPCR] Order #: [id number] FUTURE HIV 1 2 COMBO(AG/AB),WITH REFLEX TO DIFFERENTIATION [SQHIV12 ] Order #: [id number] FUTURE Prescriptions as of 10/08/2019 Sig: GENTAMICIN [...] - Td) DTAP,TDAP,TD (2 - Td) 04-23-2025 [facility] ([id number]) ONE PNEUMOVAX PRIOR TO ONE PNEUMOVAX PRIOR TO AGE 0210-08-2020 [facility] ([id number]) AGE 63 65 Comment: Postponed from 11/03/2007 (D eclined at this time) INFLUENZA (#1) INFLUENZA (#1) 2020 [facility] (80536) HPV TESTING HPV TESTING 2018 [facility] ([id number]) PAP TESTING PAP TESTING 2009 [facility] ([id number]) no information [facility] (37811) Immunizations Vaccine Notes Status Date Location Influenza Seasonal influenza, injectable, (completed) 06-05-2015 [facility] Inj Quad Age 6 Mo - quadrivalent, contains (91733) 64 Yrs preservative Tdap (Age 7+) tetanus toxoid, reduced (completed) 04-23-2015 [facility] diphtheria toxoid, and (4419 5) acellular pertussis vaccine, adsorbed Payers Payer Name Policy Number Location [employer] [id number] [facility] (44 195) The following information is from the original human readable contentNo Payer Records Found Social History Type Social History Date Location Description Tobacco smoking status [facility]) [facility] of tobacco use Cigarette Smoker [facility] (90637) Cigarettes smoked 08-04-2020 - [facility] ic current (pack per day) 08-04-2020 (64667) - Reported Tobacco use and Never used 08-04-2020 [facility] exposure (82568) Alcohol intake Current non-drinker of 08-04-2020 [facility] alcohol (finding) (56170) Sex Assigned At Not on file 1990 [facility] (64533) Exposure to SARS-CoV-2 Not sure [facility] (event) (02843) The following information is from the original [...] BE BASED ON THE PRIMARY CLINICAL RECORDS. [facility] provides no warranty or guarantee of the accuracy or completeness of information in this document. UNRECOGNIZED CONTENT PROVIDED BELOW FOR UNRECOGNIZED SECTION INFORMATION SOURCE DATE CREATED AUTHOR AUTHOR'S GILLES N 08/06/2020 [facility] Ayan santana UNRECOGNIZED CONTENT PROVIDED BELOW FOR UNRECOGNIZED SECTION Source Comments In the event this information is protected by the Federal Confidentiality of Alcohol and Drug Abuse Patient Records regulations: The Federal rules restrict any use of the information to criminally investigate or prosecute any alcohol or drug abuse patient.[facility] UNRECOGNIZED CONTENT PROVIDED BELOW FOR UNRECOGNIZED [...]
== END 2020-07-04 14:44 | disposition home or self-care (01) ==
LOC: ED 14:15
PROVIDERS: Emergency Provider Physician Assistant
DX: O99.321 Drug use complicating pregnancy, first trimester (principal); F15.10 Other stimulant abuse, uncomplicated; O99.331 Smoking (tobacco) complicating pregnancy, first trimester; F17.200 Nicotine dependence, unspecified, uncomplicated; Z3A.00 Weeks of gestation of pregnancy not specified
CPT/HCPCS: 81025; 99282

== ENCOUNTER 2020-08-10 00:28 | Emergency (ER) | payer MEDICAID, SELFPAY ==
[2020-08-10 00:29] VITALS: BP 138/93; PULSE 96; RESP 18; TEMP 36.4; O2SAT 97; BMI 36.1
[2020-08-10] MEDS: Ondansetron 4 MG/2 ML Vial IV (00:50)
[2020-08-10] MEDS: Ketorolac 15 MG/ML Vial IV (00:50)
[2020-08-10] MEDS: 0.9% Normal Saline 1,000 ML 1000 ML IV (00:50)
[2020-08-10 00:57] LABS: Absolute Lymphocyte Count 1.55 X10^3/uL (0.83-4.51); Basophil# 0.06 X10^3/uL; Basophil% 0.4 % (0-1); Eosinophil# 0.15 X10^3/uL; Hematocrit 44.4 % (37-47); Hemoglobin 14.9 g/dL (12.0-15.0); Lymphocyte # 1.55 X10^3/ul (4.0); Lymphocyte % 10.1 % (19-41); Mean Corp Hgb Conc 33.6 g/dL (32-36); Mean Corpuscular Hgb 31.8 pg (27.0-32.0); Mean Corpuscular Volume 94.7 fL (81-99); Mean Platelet Vol. 9.1 fl (6.2-12.0); Monocyte% 3.2 % (0-10); NRBC Flagged by Analyzer 0 % (0-5); Neutrophil # 13.01 X10^3/uL (2.7-7.7); Neutrophil % 84.5 % (47-70); Platelet Count 395 K/mm3 (150-450); RBC Distribution Width SD 44.6 fl (35.1-43.9); Red Blood Count 4.69 M/mm3 (4.2-5.4); White Blood Count 15.4 K/mm3 (4.4-11.0)
--- NOTE | 2020-08-10 01:00 | ED.DCSUM_ITS ---
- ER Visit Summary Date of Service: 08/10/20 Chief Complaint: Vomiting/diarrhea History of Present Illness: The patient is a 29 F with no primary care physician. She reports that Dr. Dobbs is her cath lab radiology technician. States that she has vomiting and diarrhea that began today. She complains of crampy diffuse abd ominal pain is 4-10 in severity. She is vomited 4 times. No blood or emesis. She had 3 episodes of diarrhea. No blood in her stools or black tarry stools. Patient denies sick contacts. Has not been camping out of the country. No possible bad food exposure. Does not drink well water. No recent antibiotic use. Patient reports that she had a positive test in June and is approx imately 11 weeks . She went to the care center on August 06 and had an ultrasound that showed that there is no heartbeat. She had a second opinion by Dr. Rinku Tian who agrees that there is no heartbeat. She is scheduled to have a D&C tomorrow. She reports that she has been spotting since yesterday. Physical Examination: Vitals: Stable. Afebrile. General: Well-nourished and well-developed. Head: Normocephalic atraumatic. Neck: Supple, no lymphadenopathy. No JVD. Nontender. Cardiovascular: Regular rate and rhythm. No murmurs. Respiratory: No respiratory distress. Clear to auscultation bilaterally. Abdominal: Soft, nontender, nondistended, normal bowel sounds. No guarding, rebound, or peritoneal signs. Back: Nontender. Extremities: Nontender, no edema. Skin: Normal color, no rash. Neurologic: Alert and oriented ?3. Cranial nerves II through XII are intact. Normal strength and sensation. Psych: Depressed affect. Test Results: CBC shows a white count of 15.4 with 85 segmented neutrophils and 10 lymphocytes. I suspect that the elevated white count is demargination from vomiting. Chem-7 shows a sodium 133, bicarb of 19, glucose of 116. Anion gap is normal at 7. Emergency Department Course and Treatment: Chart review shows patient's blood type is O+. She had an IV placed. She was given a liter normal saline. She is given Toradol and Zofran IV. She has had no vomiting or diarrhea while here. She is resting comfortably. Treatment Plan: Patient will be discharged with Zofran. Instructed to push fluids. Follow-up with Dr. Dobbs tomorrow for her D&C as scheduled. Follow-up with the [facility] in 1 to 2 days if her vomiting and diarrhea has not resolved. Return to the emergency department for any worsening symptoms. Disposition: To home in improved and stable condition. Impression: 1. Vomiting/diarrhea. 2. Reported intrauterine demise. 3. Leukocytosis. This note was generated with [employer] software. It may contain incorrect words, spelling, and punctuation that were not noted in review of the chart prior to signing ED Disposition - Plan for ED Patient: Instructions: ED Diet for Vomiting or Diarrhea Adult Prescriptions: Ondansetron [Zofran Odt] 4 mg PO Q8H PRN PRN #10 tab PRN Reason: Nausea Prescription Printed Referrals: Pinky Jacobsen [NON-STAFF] - 1-2 Days if not improving Moises Dobbs MD [STAFF PHYSICIAN] - Keep Ismael appointment
[2020-08-10 01:21] LABS: Anion Gap 7 (5-15); BUN 15 mg/dL (7-18); BUN/Creat Ratio 24.4 RATIO (10-20); Calcium,Total 8.6 mg/dL (8.5-10.1); Chloride 107 mmol/L (98-107); Creatinine, Serum 0.62 mg/dL (0.55-1.02); EST Glomerular Filtration Rate 120 mL/min (>60); Est Glom Filt Rate - Afr Amer 145 mL/min (>60); Estimated Creatinine Clearance 113.53 ml/min; Glucose 116 mg/dL (74-106); Sodium Level 133 mmol/L (136-145)
[2020-08-10 01:38] VITALS: PULSE 95
== END 2020-08-10 01:41 | disposition home or self-care (01) ==
LOC: ED 01:01
PROVIDERS: Emergency Provider Emergency Medicine
DX: O99.891 Other specified diseases and conditions complicating pregnancy (principal); R11.2 Nausea with vomiting, unspecified; R10.84 Generalized abdominal pain; R19.7 Diarrhea, unspecified; O02.1 Missed abortion; Z3A.11 11 weeks gestation of pregnancy; Z72.0 Tobacco use
CPT/HCPCS: 80048; 85025; 96361; 96374; 96375; 99285; J7030; J2405

== ENCOUNTER 2020-08-20 04:13 | Emergency (ER) | payer MEDICAID, SELFPAY ==
[2020-08-20 04:14] VITALS: BP 113/76; PULSE 102; RESP 18; TEMP 36.6; O2SAT 100; BMI 35.4
[2020-08-20 04:48] LABS: Absolute Lymphocyte Count 2.52 X10^3/uL (0.83-4.51); Absolute Neutrophil Count 5.8 X10^3/uL (2.0-7.7); Basophil# 0.06 X10^3/uL; Basophil% 0.6 % (0-1); Eosinophil# 0.25 X10^3/uL; Eosinophils% 2.7 % (0-5); Hematocrit 38.3 % (37-47); Hemoglobin 12.7 g/dL (12.0-15.0); Lymphocyte # 2.52 X10^3/ul (4.0); Mean Corp Hgb Conc 33.2 g/dL (32-36); Mean Corpuscular Hgb 31.8 pg (27.0-32.0); Mean Corpuscular Volume 95.8 fL (81-99); Mean Platelet Vol. 9.4 fl (6.2-12.0); Monocyte# 0.66 X10^3/uL; Monocyte% 7.1 % (0-10); NRBC Flagged by Analyzer 0 % (0-5); Neutrophil # 5.77 X10^3/uL (2.7-7.7); Platelet Count 392 K/mm3 (150-450); RBC Distribution Width SD 45.5 fl (35.1-43.9); White Blood Count 9.3 K/mm3 (4.4-11.0)
--- NOTE | 2020-08-20 04:48 | ED.DCSUM_ITS ---
History of Present Illness Chief Complaint: Vag Bld, Preg Narrative: 29-year-old female presents with concern for miscarriage. She states that earlier today she had some bleeding and then started passing clots and tissue. Patient was told on August 06 that she has no heartbeat. She estimates she is about 8 weeks . 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 She states that she did have a second opinion by Dr. Rinku Tian. She was scheduled for a D&C yesterday. She did not go because she wanted to have a natural miscarriage. Patient is not having any abdominal pain and states she feels otherwise well but I does have some lightheadedness. She does not feel short of breath. She has not feel like she going to faint. Patient states she would have stayed home except for her family was concerned and sent her to the ER. Past Medical History - Allergies and Home Meds Allergies/Adverse Reactions: Allergies Penicillins Allergy (Verified 08/20/20 04:18) Hives Primary Care Physician: Care Physician,No Primary [Primary Care Provider] - Prior records reviewed: Yes Past Medical History: - - Patient denies medical problems. Surgical History: no surgical history Lives: Spouse/ Significant Other Smoking Status: Current every day smoker Alcohol: None Drugs: - - Patient denies drug abuse. Review of Systems General: Denies: Chills, Fever, Sweats Eyes: Denies: Visual changes - bilaterally, Diplopia ENT: Reports: Bilateral ear pain Cardiovascular: Denies: Chest pain, Palpitations Respiratory: Denies: Dyspnea, Cough, Dyspnea on exertion Gastrointestinal: Denies: Abdominal pain, Nausea, Vomiting Genitourinary: Reports: - - Vaginal bleeding, passing clots and tissue.. Denies: Dysuria, Hematuria Musculoskeletal: Denies: Myalgias, Arthralgias Skin: Denies: Rash, Abscess Physical Exam Vital Signs/Narrative: Vital Signs Temp Pulse Resp BP Pulse Ox 08/20/20 04:14 97.9 F 102 H 18 113/76 100 Inital Vital Signs reviewed: Yes General: Well nourished, No Acute Distress Head: Normocephalic, Atraumatic Eyes: Perrl, EOMI ENT: Moist mucous membranes, No rhinorrhea Cardiovascular: Regular rate, Tachycardia Respiratory: No distress, CTA bilaterally Abdomen: Soft, Nontender Back: Nontender, Normal Inspection Extremities: Nontender, No edema Skin: Normal color, No rash Neurological: Alert, Oriented x3 Psychological: Normal affect, Normal Mood Diagnostic/Tx/Re-eval Laboratory Data 08/20/20 08/20/20 04:22 04:22 WBC 9.3 RBC 4.00 L Hgb 12.7 Hct 38.3 MCV 95.8 MCH 31.8 MCHC 33.2 RDW Std Deviation 45.5 H RDW Coeff of Fanta 13.0 Plt Count 392 MPV 9.4 Immature Gran % (Auto) 0.600 Neut % (Auto) 62.0 Lymph % (Auto) 27.0 [place] % (Auto) 7.1 Eos % (Auto) 2.7 Baso % (Auto) 0.6 Absolute Neuts (auto) 5.8 Absolute Lymphs (auto) 2.52 Nucleated RBC % 0 Sodium 137 Potassium 4.6 Chloride 107 Carbon Dioxide 23.0 Anion Gap 7 BUN 18 Creatinine 0.88 Estim Creat Clear Calc 79.99 Est GFR (MDRD) Af Amer 96 Est GFR (MDRD) Non-Af 80 BUN/Creatinine Ratio 20.5 H Glucose 112 H Calcium 8.5 - Medical Decision Making He 1-year-old female presenting with concern for miscarriage. She states that she would have stayed home but her family was concerned due to vaginal bleeding. She states that she feels fine except for a little bit of lightheadedness. She wants to have her hemoglobin checked to make sure she did not bleed too much. Her vital signs are stable and she is afebrile. Her physical exam is benign and she has no abdominal pain. She does not want a repeat ultrasound. I think clinically this would be okay. She does not have a leukocytosis or any signs of retained products of conception at this point. Patient admittedly passed tissue which is finally stopped. She does have some bleeding. She will be discharged home to follow-up with her PLASMA PROCESSING C[employer]UGE OPERATOR. She was given return precautions. Patient stable for discharge at this time. Impression: 1. Miscarriage ED Disposition - Plan for ED Patient: Disposition: Home or Assisted Living Instructions: Miscarriage Referrals: Care Physician,No Primary [Primary Care Provider] -
[2020-08-20 04:59] LABS: Anion Gap 7 (5-15); BUN 18 mg/dL (7-18); BUN/Creat Ratio 20.5 RATIO (10-20); Calcium,Total 8.5 mg/dL (8.5-10.1); Chloride 107 mmol/L (98-107); Creatinine, Serum 0.88 mg/dL (0.55-1.02); EST Glomerular Filtration Rate 80 mL/min (>60); Est Glom Filt Rate - Afr Amer 96 mL/min (>60); Estimated Creatinine Clearance 79.99 ml/min; Glucose 112 mg/dL (74-106); Potassium 4.6 mmol/L (3.5-5.1); Sodium Level 137 mmol/L (136-145)
[2020-08-20 05:14] VITALS: BP 136/86; PULSE 100; RESP 18; O2SAT 100
== END 2020-08-20 05:15 | disposition home or self-care (01) ==
PROVIDERS: Emergency Provider Student in an Organized Health Care Education/Training Program
DX: O03.9 Complete or unspecified spontaneous abortion without complication (principal); O99.331 Smoking (tobacco) complicating pregnancy, first trimester; F17.200 Nicotine dependence, unspecified, uncomplicated; R42 Dizziness and giddiness; Z3A.08 8 weeks gestation of pregnancy
CPT/HCPCS: 80048; 85025; 99282; A4216

== ENCOUNTER → 2020-10-28 10:41 | Outpatient (CLI) | payer MEDICAID, SELFPAY | PROVIDERS: Visit Provider Obstetrics & Gynecology | DX: O02.1 Missed abortion (principal); Z53.9 Procedure and treatment not carried out, unspecified reason ==

== ENCOUNTER 2021-04-10 21:04 | Observation (INO) | payer MEDICAID, SELFPAY ==
[2021-04-10 21:05] VITALS: BP 129/87; PULSE 104; RESP 15; TEMP 36.8; O2SAT 94; BMI 35.8
--- NOTE | 2021-04-10 21:55 | EDS_ITS ---
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 Patient states her last use was 2 days ago. Patient denies any prior detox. Patient states she has been feeling dizzy today. Patient also admits to some generalized body aches. Patient states nothing makes it worse and nothing makes it better. Patient admits to some subjective chills. Patient also admits to sore throat rhinorrhea. Patient admits to some abdominal cramping but denies any nausea or vomiting. [facility] Medical History Substance abuse Home Medications NK 08/20/20 [History Last Taken Unknown] Allergy/AdvReac Type Severity Reaction Status Date / Time Penicillins Allergy Hives Verified 04/10/21 21:05 no surgical history Social History Smoking Status: Current every day smoker tobacco type: cigarettes ROS ROS ED Constitutional Constitutional ED: Reports chills and subjective; Denies fever(s) Eyes Eyes: Denies blurry vision or change in vision ENT ENT ED: Reports rhinorrhea and sore throat Cardiovascular Cardiovascular: Denies chest pain or palpitations Respiratory/Chest Respiratory/Chest: Denies cough or dyspnea Gastrointestinal Gastrointestinal: Reports abdominal pain; Denies nausea or vomiting Genitourinary Genitourinary ED: Denies dysuria or hematuria Musculoskeletal Musculoskeletal: Reports myalgias; Denies back pain or neck pain Integumentary Denies abscess or rash Neurologic Neurologic: Reports headache(s); Denies weakness Allergic/Immunologic Allergic/Immunologic ED: Denies mouth swelling or urticaria EXAM Physical Exam Const Vital Signs: 04/10/21 21:05 Temperature 98.2 F Temperature Source Temporal Pulse Rate 104 H Respiratory Rate 15 Blood Pressure 129/87 H Blood Pressure Mean 101 Pulse Ox 94 Oxygen Delivery Method Room Air Positive well nourished, well developed, obese and unkempt General Appearance ED: unkempt and well developed Nutritional Appearance: obese HEENT Reports moist mucous membranes Neck supple and no JVD Resp normal respiratory effort and clear to auscultation bilaterally Cardio regular rate, regular rhythm and no murmurs GI normal to inspection, nondistended, normoactive bowel sounds, soft to palpation and non-tender Palpation: soft Extremity normal to inspection General Extremety ED: Negative for edema or tenderness General Extremity: Negative for edema Neuro oriented x3, CN's II-XII intact bilaterally and no sensory deficits noted Sensorium / Orientation: alert Motor Exam: strength 5/5 throughout Psych mental status grossly normal Appearance: unkempt Skin no rashes or lesions noted MDM MDM MDM Narrative Medical decision making narrative: COVID-19 rapid antigen was obtained and was negative. CBC was normal. Urinalysis shows leukocyte esterase of 500 with 5-10 white blood cells but 5-10 epithelial cells. There is rare bacteria. Urine tox screen was positive for amphetamines. Comprehensive metabolic profile was within normal limits. Serum hCG was negative. Patient was advised of her findings. Patient is still wanting detox. Case was discussed with the hospitalist. He will admit the patient for detox. Patient understood and was agreeable with the plan. All questions were answered. Lab Data Attestation: I reviewed the patient's lab results. Labs: Laboratory Results - last 24 hr 04/10/21 04/10/21 04/10/21 21:40 21:40 22:10 WBC 6.7 RBC 4.44 Hgb 13.5 Hct 41.8 MCV 94.1 MCH 30.4 MCHC 32.3 RDW Std Deviation 44.9 H RDW Coeff of Fanta 13.1 Plt Count 334 MPV 9.3 Immature Gran % (Auto) 0.700 Neut % (Auto) 68.1 Lymph % (Auto) 16.9 L [place] % (Auto) 10.7 H Eos % (Auto) 3.0 Baso % (Auto) 0.6 Absolute Neuts (auto) 4.6 Absolute Lymphs (auto) 1.13 Nucleated RBC % 0 Sodium Potassium Chloride Carbon Dioxide Anion Gap BUN Creatinine Estim Creat Clear Calc Est GFR (MDRD) Af Amer Est GFR (MDRD) Non-Af BUN/Creatinine Ratio Glucose Calcium Total Bilirubin AST ALT Alkaline Phosphatase Total Protein Albumin Globulin Albumin/Globulin Ratio Lipase Serum , Qual Urine Color Yellow Urine Clarity Clear Urine pH 6.0 Ur Specific [place] 1.020 Urine Protein 30 H Urine Glucose (UA) Normal Urine Ketones Negative Urine Occult Blood Negative Urine Nitrite Negative Urine Bilirubin Negative Urine Urobilinogen Normal Ur Leukocyte Esterase 500 H Urine RBC 0 SEEN Urine WBC 5-10 SEEN Ur Squamous Epith Cells 5-10 SEEN Urine Bacteria RARE Urine Mucus 0 SEEN Urine Opiates Screen NEGATIVE Urine Methadone Screen NEGATIVE Ur Barbiturates Screen NEGATIVE Ur Phencyclidine Scrn NEGATIVE Ur Amphetamines Screen POSITIVE H U Methamphetamin-MDMA NEGATIVE U Benzodiazepines Scrn NEGATIVE Urine Cocaine Screen NEGATIVE U Cannabinoids Screen NEGATIVE Ur Drug Screen Comment Ethyl Alcohol 04/10/21 04/10/21 04/10/21 22:10 22:10 22:10 WBC RBC Hgb Hct MCV MCH MCHC RDW Std Deviation RDW Coeff of Fanta Plt Count MPV Immature Gran % (Auto) Neut % (Auto) Lymph % (Auto) [place] % (Auto) Eos % (Auto) Baso % (Auto) Absolute Neuts (auto) Absolute Lymphs (auto) Nucleated RBC % Sodium 136 Potassium 4.0 Chloride 104 Carbon Dioxide 25.0 Anion Gap 7 BUN 15 Creatinine 0.74 Estim Creat Clear Calc 94.25 Est GFR (MDRD) Af Amer 117 Est GFR (MDRD) Non-Af 97 BUN/Creatinine Ratio 20.3 H Glucose 102 Calcium 8.6 Total Bilirubin 0.20 AST 12 L ALT 19 Alkaline Phosphatase 67 Total Protein 7.6 Albumin 3.4 Globulin 4.2 Albumin/Globulin Ratio 0.8 L Lipase 205 Serum , Qual NEGATIVE Urine Color Urine Clarity Urine pH Ur Specific [place] Urine Protein Urine Glucose (UA) Urine Ketones Urine Occult Blood Urine Nitrite Urine Bilirubin Urine Urobilinogen Ur Leukocyte Esterase Urine RBC Urine WBC Ur Squamous Epith Cells Urine Bacteria Urine Mucus Urine Opiates Screen Urine Methadone Screen Ur Barbiturates Screen Ur Phencyclidine Scrn Ur Amphetamines Screen U Methamphetamin-MDMA U Benzodiazepines Scrn Urine Cocaine Screen U Cannabinoids Screen Ur Drug Screen Comment Ethyl Alcohol < 3.0 Treatment and Re-Evaluation Vital Sign Attestation:: Vital signs were reviewed prior to admission. They are stable. Discharge Plan Dx/Rx/DC Orders Clinical Impression: Opiate withdrawal Disposition Disposition: Acute Care Hospital [facility]
[2021-04-10 22:07] LABS: Mucous, Urine 0 SEEN /hpf (<or=2+); Red Blood Cells-Urine 0 SEEN /hpf (0-5)
[2021-04-10 22:18] LABS: Absolute Lymphocyte Count 1.13 X10^3/uL (0.83-4.51); Absolute Neutrophil Count 4.6 X10^3/uL (2.0-7.7); Basophil# 0.04 X10^3/uL; Basophil% 0.6 % (0-1); Hematocrit 41.8 % (37-47); Hemoglobin 13.5 g/dL (12.0-15.0); Lymphocyte # 1.13 X10^3/ul (0.83-4.51); Lymphocyte % 16.9 % (19-41); Mean Corp Hgb Conc 32.3 g/dL (32-36); Mean Corpuscular Hgb 30.4 pg (27.0-32.0); Mean Corpuscular Volume 94.1 fL (81-99); Mean Platelet Vol. 9.3 fl (6.2-12.0); Monocyte# 0.72 X10^3/uL; Monocyte% 10.7 % (0-10); NRBC Flagged by Analyzer 0 % (0-5); Neutrophil # 4.56 X10^3/uL (2.7-7.7); Neutrophil % 68.1 % (47-70); Platelet Count 334 K/mm3 (150-450); RBC Distribution Width CV 13.1 % (11.6-14.6); RBC Distribution Width SD 44.9 fl (35.1-43.9); Red Blood Count 4.44 M/mm3 (4.2-5.4); White Blood Count 6.7 K/mm3 (4.4-11.0)
[2021-04-10 22:20] LABS: POSITIVE COUNT NO; POSITIVE DIFFERENTIAL NO; POSITIVE MORPHOLOGY NO
[2021-04-10 22:22] LABS: Color, Urine Yellow (Yellow); Glucose, Dipstick Normal (Normal); Ketone-Dipstick Negative (Negative); Leukocyte Esterase-Dipstick 500 /ul (Negative); Nitrite-Dipstick Negative (Negative); Occult Blood-Urine Negative /ul (Negative); Protein-Dipstick 30 mg/dl (Negative); Urine Bilirubin Dipstick Negative (Negative); Urine Clarity Clear (Clear); Urine Urobilinogen Normal (Normal)
[2021-04-10 22:28] LABS: Bacteria RARE /hpf (None Seen); Squamous Epithelial Cells - UA 5-10 SEEN /hpf (5-10); White Blood Cells 5-10 SEEN /hpf (0-5)
[2021-04-10 22:35] LABS: ALB/GLOB Ratio 0.8 RATIO (0.9-2.4); AST(SGOT) 12 U/L (15-37); Alanine Aminotransfer ALT/SGPT 19 U/L (13-56); Albumin, Serum 3.4 g/dL (3.2-5.0); Alkaline Phosphatase 67 U/L (45-117); Anion Gap 7 (5-15); BUN 15 mg/dL (7-18); BUN/Creat Ratio 20.3 RATIO (10-20); Calcium,Total 8.6 mg/dL (8.5-10.1); Chloride 104 mmol/L (98-107); Creatinine, Serum 0.74 mg/dL (0.55-1.02); EST Glomerular Filtration Rate 97 mL/min (>60); Est Glom Filt Rate - Afr Amer 117 mL/min (>60); Estimated Creatinine Clearance 94.25 ml/min; Globulin 4.2 g/dL (2.2-4.2); Glucose 102 mg/dL (74-106); Lipase 205 U/L (73-393); Protein, Total 7.6 g/dL (6.4-8.2); Sodium Level 136 mmol/L (136-145)
[2021-04-10 22:38] LABS: Amphetamine Urine VISTA POSITIVE (<1000 ng/mL); Barbiturate Urine VISTA NEGATIVE (< 200 ng/mL); Benzodiazepine Urine VISTA NEGATIVE (< 200 ng/mL); Cocaine Urine VISTA NEGATIVE (< 300 ng/mL); Ecstacy Urine VISTA NEGATIVE (< 500 ng/mL); Methadone Urine VISTA NEGATIVE (< 300 ng/mL); PCP Urine VISTA NEGATIVE (< 25 ng/mL); THC Urine VISTA NEGATIVE (< 50 ng/mL); Vista UDS pH Range 5
[2021-04-10 22:39] LABS: Internal QC Validated? YES +Cl - CLEAR BKGD; Pregnancy, Serum, hCG Quali. NEGATIVE Negative
[2021-04-10 22:56] LABS: Alcohol, Blood (Medical)-Serum < 3.0 mg/dL
--- NOTE | 2021-04-11 00:02 | HP.PCM.HOS_ITS ---
HPI - General General Date of Admission: 04/11/21 HPI Narrative BAUDILIO SHARMA, is a 30 F with a significant history of drug abuse who presents to emergency department with help with detoxification. Patient drug of choice is heroin/fentanyl and methamphetamine. She uses about half a grams of heroin/fentanyl daily. Last time she used was 3 days before presentation. She has been using heroin/fentanyl for 2 years. In regard to methamphetamine she is about a gram a day. She snorts and shoots methamphetamine. She has been using methamphetamine for 3 years. She reports withdrawal symptoms of flulike symptoms; diaphoresis; body aches and rigors. Since 3 days ago she has been at the [facility] Medical History Substance abuse Home Medications NK 08/20/20 [History Last Taken Unknown] Allergy/AdvReac Type Severity Reaction Status Date / Time Penicillins Allergy Hives Verified 04/10/21 21:05 other (Denies knowledge of paternal and maternal medical history.) no surgical history Social History Smoking Status: Current every day smoker tobacco type: cigarettes ROS ROS Narrative Constitutional: Denies anorexia and change in weight. Reports rigors. Eyes: Denies blurry vision, change in eye color, change in vision, discharge from eye(s), double vision, erythema, eye pain, loss of vision or other HEENT: Denies abnormal hearing, dysphagia, ear pain, epistaxis, headache(s), hearing loss, nasal congestion, nasal discharge, post nasal drip, sinus pressure, sore throat or other Cardiovascular: Denies chest pain. Denies dyspnea on exertion, orthopnea and paroxysmal nocturnal dyspnea Respiratory/Chest: Denies cough, excessive phlegm production, shortness of breath with exertion and wheezing Gastrointestinal: Denies abdominal pain, coffee ground emesis, constipation, diarrhea, dyspepsia, hematemesis, hematochezia, loose stools, melena, nausea, vomiting or other Genitourinary: Denies burning urination, difficulty urinating, dysuria, hematuria, nocturia, urinary frequency, urinary hesitancy, urinary incontinence, urinary urgency or other Musculoskeletal: Reports myalgia. Denies arthralgias, back pain, joint pain, joint stiffness, joint swelling, neck pain or other Neurologic: Denies abnormal gait, abnormal speech, confusion, disequilibrium, dizziness, focal weakness, headache(s), numbness, paresthesias, seizure-like activity, seizures, syncope, tingling, tremor(s) or other Psychiatric: Denies anxiety, depression, homicidal ideation, suicidal ideation or other Endocrinology: Denies change in body appearance, cold intolerance, excessive sweating, heat intolerance, polydipsia, polyuria or other Hematologic/Lymphatic: Denies anemia, easy bleeding, easy bruising, lymphadenopathy or other Integumentary: Denies ulcer on buttocks. Allergic/Immunologic: Denies rhinitis, hives, eczema, asthma or other Vital Signs Vital Signs Vital Signs: 04/10/21 21:05 Temperature 98.2 F Temperature Source Temporal Pulse Rate 104 H Respiratory Rate 15 Blood Pressure 129/87 H Blood Pressure Mean 101 Pulse Ox 94 Oxygen Delivery Method Room Air Weight Weight: 94.6 kg Body Mass Index (BMI) 35.8 Physical Exam Narrative Physical exam: General: Well-nourished, well-developed, no acute distress Head: Normocephalic, atraumatic, no tenderness Eyes: PERRLA, EOMI ENT, no trauma, moist mucous membranes, no rhinorrhea Neck: Nontender, full range of motion, no spinal tenderness, deformities, step- off CVS: Regular rate and rhythm Respiratory no acute distress, clear to auscultation bilaterally, chest wall nontender, no wheezing Abdomen: Soft, nontender, nondistended, normal bowel sounds, no masses : Deferred Back: Nontender, no CVA tenderness, no midline spinal tenderness, deformities, step-offs Extremities: Nontender full range of motion, no trauma Skin: Normal color, no trauma, abrasions Neuro: Alert, oriented, cranial nerves II through XII grossly intact. Psychiatry: Normal mood. Normal affect. Not depressed. Not anxious. Results Lab / Micro Data Result Diagrams: 04/10/21 22:10 04/10/21 22:10 Labs: Laboratory Results - last 24 hr 04/10/21 21:40: Urine Color Yellow, Urine Clarity Clear, Urine pH 6.0, Ur Specific [place] 1.020, Urine Protein 30 H, Urine Glucose (UA) Normal, Urine Ketones Negative, Urine Occult Blood Negative, Urine Nitrite Negative, Urine Bilirubin Negative, Urine Urobilinogen Normal, Ur Leukocyte Esterase 500 H, Urine RBC 0 SEEN, Urine WBC 5-10 SEEN, Ur Squamous Epith Cells 5-10 SEEN, Urine Bacteria RARE, Urine Mucus 0 SEEN 04/10/21 21:40: Urine Opiates Screen NEGATIVE, Urine Methadone Screen NEGATIVE, Ur Barbiturates Screen NEGATIVE, Ur Phencyclidine Scrn NEGATIVE, Ur Amphetamines Screen POSITIVE H, U Methamphetamin-MDMA NEGATIVE, U Benzodiazepines Scrn NEGATIVE, Urine Cocaine Screen NEGATIVE, U Cannabinoids Screen NEGATIVE, Ur Drug Screen Comment 04/10/21 22:10: WBC 6.7, RBC 4.44, Hgb 13.5, Hct 41.8, MCV 94.1, MCH 30.4, MCHC 32.3, RDW Std Deviation 44.9 H, RDW Coeff of Fanta 13.1, Plt Count 334, MPV 9.3, Immature Gran % (Auto) 0.700, Neut % (Auto) 68.1, Lymph % (Auto) 16.9 L, [place] % (Auto) 10.7 H, Eos % (Auto) 3.0, Baso % (Auto) 0.6, Absolute Neuts (auto) 4.6, Absolute Lymphs (auto) 1.13, Nucleated RBC % 0 04/10/21 22:10: Sodium 136, Potassium 4.0, Chloride 104, Carbon Dioxide 25.0, Anion Gap 7, BUN 15, Creatinine 0.74, Estim Creat Clear Calc 94.25, Est GFR (MDRD) Af Amer 117, Est GFR (MDRD) Non-Af 97, BUN/Creatinine Ratio 20.3 H, Glucose 102, Calcium 8.6, Total Bilirubin 0.20, AST 12 L, ALT 19, Alkaline Phosphatase 67, Total Protein 7.6, Albumin 3.4, Globulin 4.2, Albumin/Globulin Ratio 0.8 L, Lipase 205 04/10/21 22:10: Ethyl Alcohol < 3.0 04/10/21 22:10: Serum , Qual NEGATIVE Micro: Microbiology 04/10/21 22:05 Mucosa - Nose SARS-CoV-2 Antigen (Rapid) - Final Assessment & Plan Assessment/Plan (1) Illicit drug use, continuous: (2) Opiate withdrawal: PLAN: The patient is a 30 year old F with a significant history of polysubstance abuse who presents emergency department with withdrawal symptoms and for desire for detoxification. Opioid dependence and withdrawal Urine toxicology was positive for amphetamines. Negative for opiates. CMP is unremarkable. Urinalysis showed proteinuria and increased leukocyte esterase. Patient with no urinary symptoms. Patient be started on Subutex and other adjunctive medications: Gabapentin as needed; dicyclomine as needed; Vistaril as needed; methocarbamol as needed; clonidine as needed; Imodium as needed; trazodone as needed and Zofran as needed. Monitor COWS and CINA score Tobacco abuse Smokes about 3 to 4 cigarettes/day. Counseled Methamphetamine abuse Counseled Supportive treatment as above. DVT prophylaxis Low risk Encourage to ambulate Charges/Coding Visit Charges Inpatient E&M: 84161 Init Hosp L2
[2021-04-11 00:08] VITALS: BP 115/78; PULSE 98; RESP 16; TEMP 36.8; O2SAT 98
[2021-04-11 00:47] VITALS: BMI 33.3
[2021-04-11 01:07] VITALS: BP 133/101; PULSE 96; RESP 16; TEMP 36.6; O2SAT 100
[2021-04-11] MEDS: hydrOXYzine PAM 25 MG Capsule 50 MG PO (01:12)
[2021-04-11] MEDS: Buprenorphine HCl 2 MG TAB.SUBL SL (01:12)
[2021-04-11] MEDS: traZODone 100 MG Tablet PO (01:13)
[2021-04-11] MEDS: Methocarbamol 750 MG Tablet 1500 MG PO (01:13)
[2021-04-11 06:27] VITALS: BP 116/75; PULSE 83; RESP 16; TEMP 36.8; O2SAT 98
[2021-04-11 10:11] VITALS: BP 110/77; PULSE 87; RESP 18; TEMP 36.7; O2SAT 99
--- NOTE | 2021-04-11 13:19 | PN.HOSP_ITS ---
Subjective Subjective Feels unwell today. She states that this is her 1st inpatient withdrawal treatment. Objective Data Objective Data Vital Signs: Vital Signs Temp Pulse Resp BP Pulse Ox 36.7 C 87 18 110/77 99 04/11/21 10:11 04/11/21 10:11 04/11/21 10:11 04/11/21 10:11 04/11/21 10:11 Oxygen Delivery Method Room Air Weight: 90.174 kg Body Mass Index (BMI) 33.3 Lab / Micro Data Result Diagrams: 04/10/21 22:10 04/10/21 22:10 Labs: Laboratory Results - last 24 hr 04/10/21 21:40: Urine Color Yellow, Urine Clarity Clear, Urine pH 6.0, Ur Specific [place] 1.020, Urine Protein 30 H, Urine Glucose (UA) Normal, Urine Ketones Negative, Urine Occult Blood Negative, Urine Nitrite Negative, Urine Bilirubin Negative, Urine Urobilinogen Normal, Ur Leukocyte Esterase 500 H, U rine RBC 0 SEEN, Urine WBC 5-10 SEEN, Ur Squamous Epith Cells 5-10 SEEN, Urine Bacteria RARE, Urine Mucus 0 SEEN 04/10/21 21:40: Urine Opiates Screen NEGATIVE, Urine Methadone Screen NEGATIVE, Ur Barbiturates Screen NEGATIVE, Ur Phencyclidine Scrn NEGATIVE, Ur Amphetamines Screen POSITIVE H, U Methamphetamin-MDMA NEGATIVE, U Benzodiazepines Scrn NEGATI VE, Urine Cocaine Screen NEGATIVE, U Cannabinoids Screen NEGATIVE, Ur Drug Screen Comment 04/10/21 22:10: WBC 6.7, RBC 4.44, Hgb 13.5, Hct 41.8, MCV 94.1, MCH 30.4, MCHC 32.3, RDW Std Deviation 44.9 H, RDW Coeff of Fanta 13.1, Plt Count 334, MPV 9.3, Immature Gran % (Auto) 0.700, Neut % (Auto) 68.1, Lymph % (Auto) 16.9 L, Delta % (Auto) 10.7 H, Eos % (Auto) 3.0, Baso % (Auto) 0.6, Absolute Neuts (auto) 4.6, Absolute Lymphs (auto) 1.13, Nucleated RBC % 0 04/10/21 22:10: Sodium 136, Potassium 4.0, Chloride 104, Carbon Dioxide 25.0, Anion Gap 7, BUN 15, Creatinine 0.74, Estim Creat Clear Calc 94.25, Est GFR (MDRD) Af Amer 117, Est GFR (MDRD) Non-Af 97, BUN/Creatinine Ratio 20.3 H, Glucose 102, Calcium 8.6, Total Bilirubin 0.20, AST 12 L, ALT 19, Alkaline Phosphatase 67, Total Protein 7.6, Albumin 3.4, Globulin 4.2, Albumin/Globulin Ratio 0.8 L, Lipase 205 04/10/21 22:10: Ethyl Alcohol < 3.0 04/10/21 22:10: Serum , Qual NEGATIVE Micro: Microbiology 04/10/21 22:05 Mucosa - Nose SARS-CoV-2 Antigen (Rapid) - Final Physical Exam Const alert HEENT head/scalp atraumatic and moist oral mucous membranes Head and Scalp: normocephalic Resp normal respiratory effort, no retractions and no use of accessory muscles Cardio regular rate, regular rhythm, S1 normal heart sound and S2 normal heart sound GI normal to inspection, nondistended, normoactive bowel sounds, soft to palpation, non-tender and non-distended Assessment & Plan Assessment/Plan (1) Illicit drug use, continuous: (2) Opiate withdrawal: PLAN: The patient is a 30 year old F with a significant history of polysubstance abuse who presents emergency department with withdrawal symptoms and for desire for detoxification. Opioid dependence and withdrawal Urine toxicology was positive for amphetamines. Negative for opiates. CMP is unremarkable. Urinalysis showed proteinuria and increased leukocyte esterase. Patient with no urinary symptoms. Patient be started on Subutex and other adjunctive medications: Gabapentin as needed; dicyclomine as needed; Vistaril as needed; methocarbamol as needed; clonidine as needed; Imodium as needed; trazodone as needed and Zofran as needed. Monitor COWS and CINA score Tobacco abuse Smokes about 3 to 4 cigarettes/day. Counseled Methamphetamine abuse Counseled Supportive treatment as above. complicates overall goal of life-long sobriety DVT prophylaxis Low risk Encourage to ambulate Charges/Coding Procedures Hospitalists Procedures: Other Procedure - See Report (non-billable rounding. pt seen after midnight. )
[2021-04-11 20:42] VITALS: BP 139/81; PULSE 100; RESP 18; TEMP 38; O2SAT 95
--- NOTE | 2021-04-11 21:00 | NURSING ---
Covid 19 emergency documentation initiated 04/11/21 @ 2387
[2021-04-12] VITALS (12 sets, daily range): BP systolic 110–127; BP diastolic 58–87; PULSE 67–101; RESP 16–20; TEMP 36.7–38.1; O2SAT 94–98
--- NOTE | 2021-04-12 01:02 | RAD_ITS ---
STUDY: X-RAY CHEST REASON FOR EXAM: Female, 30 years old. Fever and cough TECHNIQUE: PA and lateral chest radiographs COMPARISON: 10/26/2018 FINDINGS: The lungs are clear and expanded. There is no demonstrated pleural abnormality. Normal size heart. Normal mediastinum and pebbles. Normal visualized pulmonary arteries. Normal visualized aortic arch and descending thoracic aorta. There are diffuse degenerative changes of the visualized thoracic spine. Normal visualized ribs, clavicles, and shoulders. There is no demonstrated abnormality of the visualized soft tissue structures of the upper abdomen. RAD/Chest PA and Lateral IMPRESSION: No acute abnormal cardiopulmonary finding. Electronically Signed: Delfino Miranda MD at 2:17 EDT Tel , Service support ,
[2021-04-12] MEDS: Acetaminophen 325 MG Tablet 650 MG PO (01:21)
--- NOTE | 2021-04-12 02:25 | NURSING ---
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
[2021-04-12 02:28] LABS: Mucous, Urine 0 SEEN /hpf (<or=2+); Red Blood Cells-Urine 0 SEEN /hpf (0-5)
[2021-04-12 02:34] LABS: Color, Urine Yellow (Yellow); Glucose, Dipstick Normal (Normal); Ketone-Dipstick Negative (Negative); Leukocyte Esterase-Dipstick 500 /ul (Negative); Nitrite-Dipstick Negative (Negative); Occult Blood-Urine Negative /ul (Negative); Protein-Dipstick Negative (Negative); Urine Bilirubin Dipstick Negative (Negative); Urine Clarity Clear (Clear); Urine Urobilinogen Normal (Normal)
[2021-04-12 02:50] LABS: Amorphous Sediment 1+; Bacteria 2+ /hpf (None Seen); Squamous Epithelial Cells - UA 5-10 SEEN /hpf (5-10); White Blood Cells 10-25 SEEN /hpf (0-5)
--- NOTE | 2021-04-12 09:05 | PCS.PANDOC ---
PANDEMIC DOCUMENTATION INITIATED: Date: 04/05/2021 Time: 1899 806 phone call received, female states she is Mireille from [facility], states to let pt know that she has a court date today that [facility] will take care of, they will notify her PO or whomever that she is currently hospitalized.
--- NOTE | 2021-04-12 10:07 | PCS.PANDOC ---
PANDEMIC DOCUMENTATION INITIATED: Date: 04/05/2021 Time: 1900 continuous pulse ox on
[2021-04-12] MEDS: hydrOXYzine PAM 25 MG Capsule 50 MG PO ×2 (10:09→20:57)
[2021-04-12] MEDS: Methocarbamol 750 MG Tablet 1500 MG PO ×2 (10:10→20:56)
[2021-04-12] MEDS: cloNIDine HCl 0.1 MG Tablet PO (10:10)
--- NOTE | 2021-04-12 10:27 | NURSING ---
Mireille at [facility] aware of pt + COVID per pt request
--- NOTE | 2021-04-12 10:32 | ADDICTION ---
This publicity writer met with PT to conduct ASAM, MSE, AUDIT assessments and to plan for d/c. PT A+Ox4 and participated actively. All assessments completed. PT plans to go back to [facility] for [facility] services. PT did not indicate a need for transportation post d/c from [facility].
--- NOTE | 2021-04-12 10:51 | PN.HOSP_ITS ---
Subjective Subjective Patient seen and examined. Patient says she is not feeling good and had a fever overnight. She denies any shortness of breath review of systems otherwise negative. She thinks her symptoms are due to Covid. She is refusing Subutex and despite counseling, absolutely refuses to take it as she says it does not make her feel good. Objective Data Objective Data Vital Signs: Vital Signs Temp Pulse Resp BP Pulse Ox 98.0 F 89 18 125/87 H 96 04/12/21 10:05 04/12/21 10:05 04/12/21 10:05 04/12/21 10:05 04/12/21 10:05 Oxygen Delivery Method Room Air Weight: 198 lb 12.8 oz Body Mass Index (BMI) 33.3 Intake & Output: Intake and Output for Last 24 Hours 04/10/21 04/11/21 04/12/21 23:59 23:59 23:59 Intake Total 400 / 400 200 / 200 Balance 400 / 400 200 / 200 Lab / Micro Data Result Diagrams: 04/10/21 22:10 04/10/21 22:10 Labs: Laboratory Results - last 24 hr 04/12/21 02:17: Urine Color Yellow, Urine Clarity Clear, Urine pH 6.0, Ur Specific [place] 1.020, Urine Protein Negative, Urine Glucose (UA) Normal, Urine Ketones Negative, Urine Occult Blood Negative, Urine Nitrite Negative, Urine Bilirubin Negative, Urine Urobilinogen Normal, Ur Leukocyte Esterase 500 H, Urine RBC 0 SEEN, Urine WBC 10-25 SEEN, Ur Squamous Epith Cells 5-10 SEEN, Amorphous Sediment 1+, Urine Bacteria 2+, Urine Mucus 0 SEEN Micro: Microbiology 04/12/21 01:15 Mucosa - Nose SARS-CoV-2 Antigen (Rapid) - Final SARS-CoV-2 (COVID 19) 04/10/21 22:05 Mucosa - Nose SARS-CoV-2 Antigen (Rapid) - Final Radiography Diagnostic Testing: Radiology Impression Chest X-Ray 04/12/21 01:02 IMPRESSION: No acute abnormal cardiopulmonary finding. Electronically Signed: Delfino Miranda MD at 2:17 EDT Tel , Service support , Physical Exam Const alert, oriented x3 and no apparent distress HEENT head/scalp atraumatic and moist oral mucous membranes Head and Scalp: normocephalic Eyes PERRL, EOMs intact bilaterally and conjunctivae normal Neck no lymphadenopathy Resp normal respiratory effort, no retractions, no use of accessory muscles and clear to auscultation bilaterally Cardio regular rate, regular rhythm, S1 normal heart sound, S2 normal heart sound and no murmurs GI normal to inspection, nondistended, normoactive bowel sounds, soft to palpation, non-tender and non-distended Extremity normal to inspection, full ROM and no clubbing, cyanosis or edema Peripheral Pulses: Yes pulses 2+ throughout Skin no rashes or lesions noted Neuro oriented x3, CN's II-XII intact bilaterally and moves all extremities Sensorium / Orientation: awake and alert Psych affect normal Assessment & Plan Assessment/Plan (1) Opiate withdrawal: (2) COVID: PLAN: #Acute opiate withdrawal * On opioid withdrawal protocol with buprenorphine but she is refusing the buprenorphine. * on adjunctive meds such as gabapentin, dicyclomine, vistaril, methocarbamol, clonidine, zofran and trazodone prn * monitor COWS score * #COVID 19 infection * patient also tested positive for covid. She did have a mild fever this morning but is not short of breath and is otherwise stable. * start on PO decadron 6mg daily. No remdesivir as she doesnt qualify since there is no hypoxia * #History of hepatitis B * stable. Treatment naive. * would need to stay off drugs for at least 6 months to qualify for treatment * #UTI * patient has positive urinalysis with 2+ bacteria * patient doesnt appear to have any symptoms, but in light of her having a mild fever, and not feeling well, I do think it is prudent to start on oral antibi otics for UTI. * get urine cultures also * #Nicotine dependence: counseled to quit. DVT prophylaxis: low risk, encourage ambulation. Charges/Coding Visit Charges Inpatient E&M: 14567 Subs Hosp L2
[2021-04-12 11:06] LABS: D-Dimer Quantitative (DVT/PE) <= 0.27 FEU/ug/m (0.27-0.49)
[2021-04-12] MEDS: Cefdinir 300 MG Capsule PO ×2 (12:29→20:56)
[2021-04-12] MEDS: Enoxaparin 30 MG/0.3 ML Syringe SC (20:56)
[2021-04-12] MEDS: traZODone 100 MG Tablet PO (20:57)
[2021-04-13 00:08] VITALS: PULSE 83; O2SAT 97
[2021-04-13 03:22] VITALS: BP 127/85; PULSE 77; RESP 18; TEMP 36.9; O2SAT 93
[2021-04-13 03:26] VITALS: RESP 18
[2021-04-13] MEDS: cloNIDine HCl 0.1 MG Tablet PO (03:29)
[2021-04-13 05:44] VITALS: PULSE 75; O2SAT 94
[2021-04-13 08:42] VITALS: BP 115/75; PULSE 82; RESP 16; TEMP 36.6; O2SAT 96
[2021-04-13] MEDS: Cefdinir 300 MG Capsule PO (08:49)
[2021-04-13] MEDS: dexAMETHasone 2 MG TABLET 6 MG PO (09:39)
[2021-04-13] MEDS: Acetaminophen 325 MG Tablet 650 MG PO (09:58)
[2021-04-13 10:01] VITALS: PULSE 86; RESP 17; O2SAT 95
--- NOTE | 2021-04-13 11:12 | DS.PCM_ITS ---
Providers Date of Admission: 04/11/21 Primary Care Physician: Kerline Primary Care Phys Reason For Visit: OPIOID DEPENDENCE AND WITHDRAWAL Diagnosis Discharge Diagnosis (1) Opiate withdrawal: Status: Acute Code(s): F11.23 - Opioid dependence with withdrawal (2) COVID: Status: Acute Code(s): U07.1 - COVID-19 Medications at Discharge Home Medications cefdinir 300 mg PO BID #10 cap 04/13/21 dexamethasone [Decadron] 6 mg PO DAILY #9 tab 04/13/21 Hospital Course Operations None Procedures None Summary of Care Provided Minutes Spent on Discharge: 35 Hospital Course: Patient is a 30-year-old female with a past medical history significant for polysubstance abuse who was admitted through the ED on 04/11/2021. She uses heroin and fentanyl as well as methamphetamine and last use about 3 days before admission. She complained of body aches, rigors and flulike symptoms as well as increased sweating. She was admitted and managed for acute opiate withdrawal. Urine tox was positive for methamphetamines but negative for opiates. Urine also showed increased proteinuria and increased leukocyte esterase with 2+ bacteria. She was started on opiate withdrawal protocol with open often. Of note, patient also tested positive for Covid though she was largely asymptomatic. She was started on p.o. Decadron. Patient refused the Subutex during her to days of admission and said it made her feel horrible so she absolutely refused to take it. Patient remained stable. She was started on p.o. cefdinir for UTI. She was discharged home on 04/13/2021 with a prescription for p.o. Decadron to complete a 10-day course as well as p.o. cefdinir 300 mg twice daily to complete a 5-day course. She is to follow-up with her primary care doctor in 1 to 2 weeks. Patient seen and examined prior to discharge. She says she could not go back to her rehab center [facility] because they would not take as she was positive for Covid. She also said she could not go to her home as she had a father who was sick and did not want to affect him with Covid. When hospitalist inquired where patient was thinking of going to upon discharge, patient got upset and stated that she would figure it out on her own after discharge. Review of systems otherwise negative. Labs and vitals reviewed. Home medications reviewed and reconciled. Physical Exam Const alert, oriented x3 and no apparent distress General Appearance: uncooperative Exam Limitations: no limitations HEENT normocephalic, head/scalp atraumatic and moist oral mucous membranes Eyes PERRL, EOMs intact bilaterally and conjunctivae normal Neck no lymphadenopathy Resp normal respiratory effort, no retractions, no use of accessory muscles and clear to auscultation bilaterally Cardio regular rate, regular rhythm, S1 normal heart sound, S2 normal heart sound and no murmurs GI normal to inspection, nondistended, normoactive bowel sounds, soft to palpation, non-tender and non-distended Extremity normal to inspection, full ROM and no clubbing, cyanosis or edema Skin no rashes or lesions noted Neuro oriented x3, CN's II-XII intact bilaterally and moves all extremities Sensorium / Orientation: awake and alert Psych affect normal Weight / BMI Weight Weight: 198 lb 12.8 oz Body Mass Index (BMI) 33.3 ABG / Lab / Microbiology Data Result Diagrams: 04/10/21 22:10 04/10/21 22:10 Microbiology: Microbiology 04/12/21 02:17 Urine, Clean Catch Urine Culture - 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 Gram negative maryam 04/12/21 01:15 Mucosa - Nose SARS-CoV-2 Antigen (Rapid) - Final SARS-CoV-2 (COVID 19) 04/10/21 22:05 Mucosa - Nose SARS-CoV-2 Antigen (Rapid) - Final D/C Instructions Discharge Diet: No restrictions Discharge Activity: Return to Normal Activity Call your doctor if you observe: Fever of 101 or Higher, Shortness of breath and Increased palpitations (irregular heartbeat) Meaningful Use Info Meaningful Use Diagnoses (Choose all that apply): None applicable Discharge Plan Admission Admit Date/Time: 04/11/21 00:01 Primary Reason for Your Visit: acute opioid withdrawal Attending Provider: Nery Rowe Primary Care Provider: Care Physician,No Primary Instructions Patient Instructions: Coronavirus Disease 2019 (COVID-19): Caring for Yourself or Others, COVID-19 and the Flu: What's the Difference?, Addiction: Getting Help, Addiction: Your Treatment Options Additional Instructions / Restrictions: to remain in quarantine till April 22, 2021 for a total of 10 days of quar antine. Discharge Orders/Prescriptions Prescriptions: New cefdinir 300 mg capsule 300 mg PO BID Qty: 10 RF: 0 dexamethasone [Decadron] 6 mg tablet 6 mg PO DAILY Qty: 9 RF: 0 Referrals / Follow Up: Care Physician,No Primary [Primary Care Provider] - Disposition Disposition (needs filled in before D/C Order can be placed): Home, Self Care Charges/Coding Visit Charges Inpatient E&M: 69600 Disch Hosp
== END 2021-04-13 12:01 | disposition home or self-care (01) | DRG 773 ==
LOC: ED 23:56 → MS3 04-11 06:52
PROVIDERS: Admitting Provider Hospitalist; Emergency Provider Emergency Medicine; Visit Provider Student in an Organized Health Care Education/Training Program
DX: F11.23 Opioid dependence with withdrawal (principal); F15.10 Other stimulant abuse, uncomplicated; U07.1 COVID-19; N39.0 Urinary tract infection, site not specified; E66.9 Obesity, unspecified; Z68.35 Body mass index [BMI] 35.0-35.9, adult; F17.210 Nicotine dependence, cigarettes, uncomplicated; Z88.0 Allergy status to penicillin; Z86.19 Personal history of other infectious and parasitic diseases
CPT/HCPCS: 36415; 71046; 80053; 80307; 81001; 82077; 83690; 84703; 85025; 85379; 87040; 87077; 87086; 87088; 87186; 87426; 99283; 99406; H0012

== ENCOUNTER 2021-09-04 13:26 | Observation (INO) | payer MEDICAID, SELFPAY ==
[2021-09-04 13:27] VITALS: BP 138/87; PULSE 92; RESP 16; TEMP 36.9; O2SAT 100; BMI 33.2
--- NOTE | 2021-09-04 13:48 | EDS_ITS ---
HPI History of Present Illness Chief Complaint: Substance Abuse Narrative Narrative: 30-year-old female presenting for detox from fentanyl. She states she uses about 1/2 g to a gram a day. She snorts this. She states she tried detox here at [facility] few months ago and then reports that she was COVID sick. She states she could not take the medications and was lost to follow-up. Patient feels as if she is withdrawing currently. She states she also uses methamphetamine at times. She denies other drug use. She denies EtOH abuse. [facility] Medical History Anxiety Depression Illicit drug use, continuous Opiate withdrawal Smoker Substance abuse Allergy/AdvReac Type Severity Reaction Status Date / Time Penicillins Allergy Hives Verified 09/04/21 13:27 Social History Smoking Status: Current every day smoker tobacco type: cigarettes ROS ROS ED Constitutional Constitutional ED: Denies chills or fever(s) Eyes Eyes: Denies blurry vision or diplopia ENT ENT ED: Denies rhinorrhea or sore throat Cardiovascular Cardiovascular: Denies chest pain or palpitations Respiratory/Chest Respiratory/Chest: Denies dyspnea Gastrointestinal Gastrointestinal: Reports nausea Genitourinary Genitourinary ED: Denies dysuria or urinary frequency Musculoskeletal Musculoskeletal: Reports myalgias; Denies arthralgias or neck pain Integumentary Denies abscess or rash Neurologic Neurologic: Denies headache(s) or paresthesias Psychiatric Psychiatric: Denies suicidal ideation or suicidal thoughts EXAM Physical Exam Const Vital Signs: 09/04/21 13:27 Temperature 98.4 F Temperature Source Temporal Pulse Rate 92 Respiratory Rate 16 Blood Pressure 138/87 H Blood Pressure Mean 104 Pulse Ox 100 Oxygen Delivery Method Room Air Positive well nourished General Appearance ED: NAD HEENT Reports moist mucous membranes atraumatic Eyes PERRL and EOMs intact bilaterally General Eye ED: Negative for pale conjunctiva or scleral icterus Resp normal respiratory effort and clear to auscultation bilaterally Cardio regular rate and regular rhythm Psych mental status grossly normal and thought process normal Skin Lesions: no lesions Rashes: no rashes MDM MDM MDM Narrative Medical decision making narrative: Patient presenting for opioid detox. Last use was yesterday. Patient states she is having mild withdrawal symptoms. Blood work is obtained and her CMP and CBC are unremarkable. Serum hCG is negative. EtOH negative. Urine drug screen is negative for opioids. Patient states that he does do fentanyl and this is likely why is not showing up on her drug screen. He does admit to methamphetamine use as well and this is positive. Patient discussed with hospitalist for admission. Impression: 1. Methamphetamine abuse 2. Opioid detox Lab Data Attestation: I reviewed the patient's lab results. Labs: Laboratory Results - last 24 hr 09/04/21 09/04/21 09/04/21 14:10 14:10 14:10 WBC 5.6 RBC 4.08 L Hgb 12.8 Hct 38.1 MCV 93.4 MCH 31.4 MCHC 33.6 RDW Std Deviation 43.9 RDW Coeff of Fanta 12.9 Plt Count 366 MPV 9.9 Immature Gran % (Auto) 0.200 Neut % (Auto) 51.7 Lymph % (Auto) 31.8 [place] % (Auto) 10.8 H Eos % (Auto) 4.1 Baso % (Auto) 1.4 H Absolute Neuts (auto) 2.9 Absolute Lymphs (auto) 1.77 Nucleated RBC % 0 Sodium Potassium Chloride Carbon Dioxide Anion Gap BUN Creatinine Estim Creat Clear Calc Est GFR (MDRD) Af Amer Est GFR (MDRD) Non-Af BUN/Creatinine Ratio Glucose Calcium Total Bilirubin AST ALT Alkaline Phosphatase Total Protein Albumin Globulin Albumin/Globulin Ratio Serum , Qual NEGATIVE Urine Opiates Screen Urine Methadone Screen Ur Barbiturates Screen Ur Phencyclidine Scrn Ur Amphetamines Screen U Methamphetamin-MDMA U Benzodiazepines Scrn Urine Cocaine Screen U Cannabinoids Screen Ur Drug Screen Comment Ethyl Alcohol < 3.0 09/04/21 09/04/21 14:10 14:20 WBC RBC Hgb Hct MCV MCH MCHC RDW Std Deviation RDW Coeff of Fanta Plt Count MPV Immature Gran % (Auto) Neut % (Auto) Lymph % (Auto) [place] % (Auto) Eos % (Auto) Baso % (Auto) Absolute Neuts (auto) Absolute Lymphs (auto) Nucleated RBC % Sodium 140 Potassium 3.7 Chloride 110 H Carbon Dioxide 26.0 Anion Gap 4 L BUN 19 H Creatinine 0.80 Estim Creat Clear Calc 87.18 Est GFR (MDRD) Af Amer 106 Est GFR (MDRD) Non-Af 87 BUN/Creatinine Ratio 23.6 H Glucose 92 Calcium 8.6 Total Bilirubin 0.20 AST 11 L ALT 18 Alkaline Phosphatase 72 Total Protein 7.5 Albumin 3.4 Globulin 4.1 Albumin/Globulin Ratio 0.8 L Serum , Qual Urine Opiates Screen NEGATIVE Urine Methadone Screen NEGATIVE Ur Barbiturates Screen NEGATIVE Ur Phencyclidine Scrn NEGATIVE Ur Amphetamines Screen POSITIVE H U Methamphetamin-MDMA POSITIVE H U Benzodiazepines Scrn NEGATIVE Urine Cocaine Screen NEGATIVE U Cannabinoids Screen NEGATIVE Ur Drug Screen Comment Ethyl Alcohol Discharge Plan Triage Chief Complaint: Substance Abuse ED Provider: Shay Lawton Dx/Rx/DC Orders Primary Care Provider: Care Physician,No Primary
[2021-09-04 14:25] LABS: Absolute Lymphocyte Count 1.77 X10^3/uL (0.83-4.51); Absolute Neutrophil Count 2.9 X10^3/uL (2.0-7.7); Basophil# 0.08 X10^3/uL; Basophil% 1.4 % (0-1); Eosinophil# 0.23 X10^3/uL; Eosinophils% 4.1 % (0-5); Hematocrit 38.1 % (37-47); Hemoglobin 12.8 g/dL (12.0-15.0); Lymphocyte # 1.77 X10^3/ul (0.83-4.51); Lymphocyte % 31.8 % (19-41); Mean Corp Hgb Conc 33.6 g/dL (32-36); Mean Corpuscular Hgb 31.4 pg (27.0-32.0); Mean Corpuscular Volume 93.4 fL (81-99); Mean Platelet Vol. 9.9 fl (6.2-12.0); Monocyte% 10.8 % (0-10); NRBC Flagged by Analyzer 0 % (0-5); Neutrophil # 2.88 X10^3/uL (2.7-7.7); Neutrophil % 51.7 % (47-70); Platelet Count 366 K/mm3 (150-450); RBC Distribution Width CV 12.9 % (11.6-14.6); RBC Distribution Width SD 43.9 fl (35.1-43.9); Red Blood Count 4.08 M/mm3 (4.2-5.4); White Blood Count 5.6 K/mm3 (4.4-11.0)
[2021-09-04 14:39] LABS: Amphetamine Urine VISTA POSITIVE (<1000 ng/mL); Barbiturate Urine VISTA NEGATIVE (< 200 ng/mL); Benzodiazepine Urine VISTA NEGATIVE (< 200 ng/mL); Cocaine Urine VISTA NEGATIVE (< 300 ng/mL); Ecstacy Urine VISTA POSITIVE (< 500 ng/mL); Methadone Urine VISTA NEGATIVE (< 300 ng/mL); PCP Urine VISTA NEGATIVE (< 25 ng/mL); THC Urine VISTA NEGATIVE (< 50 ng/mL); Vista UDS pH Range 6
[2021-09-04 14:46] LABS: ALB/GLOB Ratio 0.8 RATIO (0.9-2.4); AST(SGOT) 11 U/L (15-37); Alanine Aminotransfer ALT/SGPT 18 U/L (13-56); Albumin, Serum 3.4 g/dL (3.2-5.0); Alkaline Phosphatase 72 U/L (45-117); Anion Gap 4 (5-15); BUN 19 mg/dL (7-18); BUN/Creat Ratio 23.6 RATIO (10-20); Calcium,Total 8.6 mg/dL (8.5-10.1); Chloride 110 mmol/L (98-107); EST Glomerular Filtration Rate 87 mL/min (>60); Est Glom Filt Rate - Afr Amer 106 mL/min (>60); Estimated Creatinine Clearance 87.18 ml/min; Globulin 4.1 g/dL (2.2-4.2); Glucose 92 mg/dL (74-106); Potassium 3.7 mmol/L (3.5-5.1); Protein, Total 7.5 g/dL (6.4-8.2); Sodium Level 140 mmol/L (136-145)
[2021-09-04 14:47] LABS: Internal QC Validated? YES +Cl - CLEAR BKGD; Pregnancy, Serum, hCG Quali. NEGATIVE Negative
[2021-09-04 14:48] LABS: Alcohol, Blood (Medical)-Serum < 3.0 mg/dL
[2021-09-04 15:42] VITALS: BP 134/89; PULSE 88; RESP 16; TEMP 36.4; O2SAT 99
--- NOTE | 2021-09-04 15:48 | ED.RN ---
per patient okay to give updates to Rhea friend at [phone].
[2021-09-04 16:31] VITALS: BMI 32.3
[2021-09-04 16:41] VITALS: BP 140/93; PULSE 75; RESP 18; TEMP 36.5; O2SAT 98
--- NOTE | 2021-09-04 16:45 | PCS.PANDOC ---
PANDEMIC DOCUMENTATION INITIATED: Date: 04/05/2021 Time: 189909/04/21 162
[2021-09-04] MEDS: Methocarbamol 750 MG Tablet 1500 MG PO (17:31)
[2021-09-04] MEDS: Acetaminophen 325 MG Tablet 650 MG PO (17:31)
--- NOTE | 2021-09-04 17:32 | HP.PCM.HOS_ITS ---
HPI - General General Date of Admission: 09/04/21 HPI Narrative BAUDILIO SHARMA, is a 30 F who presents for detox of fentanyl, and she is using one half-1 g a day via snorting. She turned herself into a local sober house yesterday but they advised her to come to the hospital for detox given her symptoms. She previously was at [facility] during the summer for detox, however returned to using drugs on discharge. Now she feels achy and feels like she is in withdrawals. She feels restless. Denies nausea vomiting She smokes about half pack a day cigarettes and does not admit to any alcohol use His mother to 3 children [facility] Medical History (Updated 09/04/21 @ 17:[address] Jeffrey Mason MD) Anxiety Depression Illicit drug use, continuous Opiate withdrawal Smoker Substance abuse Home Medications NK 09/04/21 [History Last Taken Unknown] Allergy/AdvReac Type Severity Reaction Status Date / Time Penicillins Allergy Hives Verified 09/04/21 13:27 Social History Smoking Status: Current every day smoker tobacco type: cigarettes ROS ROS Narrative 10 point review systems negative except for pertinent positives above Vital Signs Vital Signs Vital Signs: 09/04/21 13:27 09/04/21 15:42 09/04/21 16:41 Temperature 98.4 F 97.6 F L 97.7 F L Temperature Source Temporal Temporal Oral Pulse Rate 92 88 75 Respiratory Rate 16 16 18 Blood Pressure 138/87 H 134/89 H 140/93 H Blood Pressure Mean 104 104 108 Blood Pressure Source Monitor Blood Pressure Position Semi-Fowlers Blood Pressure Location Right Arm Pulse Ox 100 99 98 Oxygen Delivery Method Room Air Room Air Room Air Weight Weight: 188 lb 12.8 oz Body Mass Index (BMI) 32.3 Results Lab / Micro Data Result Diagrams: 09/04/21 14:10 09/04/21 14:10 Labs: Laboratory Results - last 24 hr 09/04/21 14:10: WBC 5.6, RBC 4.08 L, Hgb 12.8, Hct 38.1, MCV 93.4, MCH 31.4, MCHC 33.6, RDW Std Deviation 43.9, RDW Coeff of Fanta 12.9, Plt Count 366, MPV 9.9, Immature Gran % (Auto) 0.200, Neut % (Auto) 51.7, Lymph % (Auto) 31.8, [place] % (Auto) 10.8 H, Eos % (Auto) 4.1, Baso % (Auto) 1.4 H, Absolute Neuts (auto) 2.9, Absolute Lymphs (auto) 1.77, Nucleated RBC % 0 09/04/21 14:10: Ethyl Alcohol < 3.0 09/04/21 14:10: Serum , Qual NEGATIVE 09/04/21 14:10: Sodium 140, Potassium 3.7, Chloride 110 H, Carbon Dioxide 26.0, Anion Gap 4 L, BUN 19 H, Creatinine 0.80, Estim Creat Clear Calc 87.18, Est GFR (MDRD) Af Amer 106, Est GFR (MDRD) Non-Af 87, BUN/Creatinine Ratio 23.6 H, Glucose 92, Calcium 8.6, Total Bilirubin 0.20, AST 11 L, ALT 18, Alkaline Phosphatase 72, Total Protein 7.5, Albumin 3.4, Globulin 4.1, Albumin/Globulin Ratio 0.8 L 09/04/21 14:20: Urine Opiates Screen NEGATIVE, Urine Methadone Screen NEGATIVE, Ur Barbiturates Screen NEGATIVE, Ur Phencyclidine Scrn NEGATIVE, Ur Amphetamines Screen POSITIVE H, U Methamphetamin-MDMA POSITIVE H, U Benzodiazepines Scrn NEGATIVE, Urine Cocaine Screen NEGATIVE, U Cannabinoids Screen NEGATIVE, Ur Drug Screen Comment Assessment & Plan Assessment/Plan (1) Illicit drug use, continuous: (2) Smoker: (3) Opiate withdrawal: PLAN: Opioid dependence and withdrawal Urine toxicology was positive for amphetamines and methamphetamines. Negative for opiates. Patient with no urinary symptoms. Vitals reassuring. Patient be started on Subutex and other adjunctive medications: dicyclomine as needed; Vistaril as needed; methocarbamol as needed; clonidine as needed; Imodium as needed; trazodone as needed and Zofran as needed. Monitor COWS and CINA score regular diet case management Tobacco abuse Smokes about 3 to 4 cigarettes/day. Methamphetamine abuse Supportive treatment as above. Dvt prophylaxis with Lovenox Full code Jeffrey Mason Charges/Coding Visit Charges Inpatient E&M: 39737 Init Hosp L2
--- NOTE | 2021-09-04 17:46 | CM.ED ---
HEIDI Note HEIDI called [facility] Treatment Navigator and advised that patient had been admitted for fentanyl detox. HEIDI provided drug history and demographic information. Treatment Navigator will be in tomorrow to see patient. Plan: SOTERO DYSON
[2021-09-04 20:36] VITALS: BP 119/69; PULSE 82; RESP 18; TEMP 36.5; O2SAT 97
[2021-09-04] MEDS: Buprenorphine HCl 2 MG TAB.SUBL SL (21:01)
[2021-09-05 01:33] VITALS: BP 123/81; PULSE 85; RESP 18; TEMP 36.6; O2SAT 100
[2021-09-05] MEDS: cloNIDine HCl 0.1 MG Tablet PO (01:42)
[2021-09-05] MEDS: Methocarbamol 750 MG Tablet 1500 MG PO (01:43)
[2021-09-05] MEDS: Acetaminophen 325 MG Tablet 650 MG PO (01:44)
[2021-09-05 05:18] VITALS: BP 123/74; PULSE 81; RESP 18; TEMP 36.6; O2SAT 95
[2021-09-05] MEDS: Buprenorphine HCl 2 MG TAB.SUBL SL ×3 (05:27→20:59)
[2021-09-05] MEDS: hydrOXYzine PAM 25 MG Capsule 50 MG PO ×2 (05:29→21:00)
--- NOTE | 2021-09-05 10:28 | PCM.PN.HOSP ---
Subjective Subjective Patient was seen and examined today, she appears calm at rest, she does not express any anxiety, there are no tremors. Patient states she has been through detox before but ended up having COVID during the time and could not go anywhere for detox. Objective Data Objective Data Vital Signs: Vital Signs Temp Pulse Resp BP Pulse Ox 97.8 F 81 18 123/74 H 95 09/05/21 05:18 09/05/21 05:18 09/05/21 05:18 09/05/21 05:18 09/05/21 05:18 Oxygen Delivery Method Room Air Weight: 85.638 kg Body Mass Index (BMI) 32.3 Intake & Output: Intake and Output for Last 24 Hours 09/03/21 09/04/21 09/05/21 23:59 23:59 23:59 Intake Total 800 / 800 Balance 800 / 800 Lab / Micro Data Result Diagrams: 09/04/21 14:10 09/04/21 14:10 Labs: Laboratory Results - last 24 hr 09/04/21 14:10: WBC 5.6, RBC 4.08 L, Hgb 12.8, Hct 38.1, MCV 93.4, MCH 31.4, MCHC 33.6, RDW Std Deviation 43.9, RDW Coeff of Fanta 12.9, Plt Count 366, MPV 9.9, Immature Gran % (Auto) 0.200, Neut % (Auto) 51.7, Lymph % (Auto) 31.8, [place] % (Auto) 10.8 H, Eos % (Auto) 4.1, Baso % (Auto) 1.4 H, Absolute Neuts (auto) 2.9, Absolute Lymphs (auto) 1.77, Nucleated RBC % 0 09/04/21 14:10: Ethyl Alcohol < 3.0 09/04/21 14:10: Serum , Qual NEGATIVE 09/04/21 14:10: Sodium 140, Potassium 3.7, Chloride 110 H, Carbon Dioxide 26.0, Anion Gap 4 L, BUN 19 H, Creatinine 0.80, Estim Creat Clear Calc 87.18, Est GFR (MDRD) Af Amer 106, Est GFR (MDRD) Non-Af 87, BUN/Creatinine Ratio 23.6 H, Glucose 92, Calcium 8.6, Total Bilirubin 0.20, AST 11 L, ALT 18, Alkaline Phosphatase 72, Total Protein 7.5, Albumin 3.4, Globulin 4.1, Albumin/Globulin Ratio 0.8 L 09/04/21 14:20: Urine Opiates Screen NEGATIVE, Urine Methadone Screen NEGATIVE, Ur Barbiturates Screen NEGATIVE, Ur Phencyclidine Scrn NEGATIVE, Ur Amphetamines Screen POSITIVE H, U Methamphetamin-MDMA POSITIVE H, U Benzodiazepines Scrn NEGATIVE, Urine Cocaine Screen NEGATIVE, U Cannabinoids Screen NEGATIVE, Ur Drug Screen Comment Physical Exam Const alert, oriented x3, no apparent distress, average body habitus and healthy appearing General Appearance: cooperative, well kempt and well developed Orientation / Consciousness: awake, oriented to person, oriented to place and oriented to time HEENT normocephalic, head/scalp atraumatic and moist oral mucous membranes Head and Scalp: normocephalic Eyes PERRL, EOMs intact bilaterally and conjunctivae normal Neck nuchal rigidity, supple, no JVD, thyroid normal and no carotid bruits General: trachea midline Resp normal respiratory effort, no retractions, no use of accessory muscles and clear to auscultation bilaterally Auscultation: Negative for rales, rhonchi or wheezes Cardio regular rate, regular rhythm, S1 normal heart sound, S2 normal heart sound, no murmurs, no rub and no gallops GI normal to inspection, nondistended, normoactive bowel sounds, soft to palpation, non-tender and non-distended Extremity no clubbing, cyanosis or edema Skin no rashes or lesions noted, no wounds and skin turgor normal General Skin Exam: no breakdown Neuro oriented x3, CN's II-XII intact bilaterally, no focal motor deficits and no sensory deficits noted Sensorium / Orientation: awake and alert Speech: speech normal Psych thought process normal and affect normal Assessment & Plan Assessment/Plan (1) Opiate withdrawal: PLAN: 1. Opiate withdrawal-patient will continue on her present medications, she mentioned that she wanted to talk to 180 while here. #2 methamphetamine use-patient sporadically uses methamphetamines. #3 opioid dependence-continue current medication I do not feel the patient needs Lovenox prophylaxis while hospitalized. Charges/Coding Visit Charges Inpatient E&M: 94972 Subs Hosp L2
[2021-09-05 12:30] VITALS: BP 119/71; PULSE 70; RESP 18; TEMP 36.5; O2SAT 96
[2021-09-05 16:33] VITALS: BP 111/73; PULSE 85; RESP 18; TEMP 36.6; O2SAT 99
[2021-09-05 20:44] VITALS: BP 138/72; PULSE 84; RESP 18; TEMP 36.7; O2SAT 96
[2021-09-05] MEDS: traZODone 100 MG Tablet PO (21:00)
[2021-09-06 03:01] VITALS: BP 123/56; PULSE 82; RESP 18; TEMP 36.7; O2SAT 97
[2021-09-06] MEDS: Buprenorphine HCl 2 MG TAB.SUBL SL ×3 (05:02→21:09)
[2021-09-06 12:06] VITALS: BP 113/71; PULSE 79; RESP 16; TEMP 36.8; O2SAT 98
--- NOTE | 2021-09-06 14:49 | PCM.PN.HOSP ---
Subjective Subjective Feels well. Denies complaints. Objective Data Objective Data Vital Signs: Vital Signs Temp Pulse Resp BP Pulse Ox 36.8 C 79 16 113/71 98 09/06/21 12:06 09/06/21 12:06 09/06/21 12:06 09/06/21 12:06 09/06/21 12:06 Oxygen Delivery Method Room Air Weight: 85.638 kg Body Mass Index (BMI) 32.3 Intake & Output: Intake and Output for Last 24 Hours 09/04/21 09/05/21 09/06/21 23:59 23:59 23:59 Intake Total 800 / 800 900 / 900 Balance 800 / 800 900 / 900 Lab / Micro Data Result Diagrams: 09/04/21 14:10 09/04/21 14:10 Physical Exam Const alert and oriented x3 Constitutional Narrative: Non-toxic. Psych affect normal Assessment & Plan Assessment/Plan (1) Opiate withdrawal: PLAN: 1. acute opiate withdrawal. uncomplicated on buprenorphine taper plan to follow up with [facility] upon discharge anticipate discharge 09/07 Charges/Coding Visit Charges Inpatient E&M: 76677 Subs Hosp L1
[2021-09-06 21:08] VITALS: BP 135/81; PULSE 85; RESP 18; TEMP 36.9; O2SAT 99
[2021-09-06] MEDS: traZODone 100 MG Tablet PO (21:09)
[2021-09-07 03:10] VITALS: BP 123/70; PULSE 69; RESP 16; TEMP 36.8; O2SAT 95
[2021-09-07 08:17] VITALS: BP 110/64; PULSE 74; RESP 16; TEMP 36.9; O2SAT 97
[2021-09-07] MEDS: Buprenorphine HCl 2 MG TAB.SUBL SL (08:56)
--- NOTE | 2021-09-07 10:21 | PCM.DC ---
Discharge Instructions Diet Discharge Diet: No restrictions Activity Discharge Activity: Return to Normal Activity Follow Up Care Please Follow Up With: [facility] When: GAETANO Test Results: Test results from this visit will be discussed in further detail at your follow-up appointment, if applicable. Discharge Plan Admission Admit Date/Time: 09/04/21 16:56 Primary Reason for Your Visit: opiate withdrawal Attending Provider: Neeraj Fields Primary Care Provider: Care Physician,No Primary Discharge Orders/Prescriptions Prescriptions: No Action NK RF: 0 Referrals / Follow Up: Care Physician,No Primary [Primary Care Provider] - Disposition Disposition (needs filled in before D/C Order can be placed): Home, Self Care
--- NOTE | 2021-09-07 10:23 | PCM.DC.SUM ---
Providers Date of Admission: 09/04/21 Primary Care Physician: Kerline Primary Care Phys Reason For Visit: OPIATE DETOX Diagnosis Discharge Diagnosis (1) Opiate withdrawal: Status: Acute Code(s): F11.23 - Opioid dependence with withdrawal Medications at Discharge Home Medications NK 09/04/21 Hospital Course Operations None Procedures None Summary of Care Provided Minutes Spent on Discharge: 24 Hospital Course: 28-year-old female presents for treatment for acute opiate withdrawal. Patient utilizing 0.5 to 1 g a day of fentanyl. Patient snorts. Patient was started on buprenorphine taper while she was here. Her course was uncomplicated. Patient will be following up with [facility] to continue her addiction managment. Physical Exam Const alert and no apparent distress Neuro Sensorium / Orientation: awake and alert Weight / BMI Weight Weight: 85.638 kg Body Mass Index (BMI) 32.3 ABG / Lab / Microbiology Data Result Diagrams: 09/04/21 14:10 09/04/21 14:10 D/C Instructions Discharge Diet: No restrictions Please Follow Up With: [facility] When: GAETANO Meaningful Use Info Meaningful Use Diagnoses (Choose all that apply): None applicable Discharge Plan Admission Admit Date/Time: 09/04/21 16:56 Primary Reason for Your Visit: opiate withdrawal Attending Provider: Neeraj Fields Primary Care Provider: Care Physician,Kerline Primary Discharge Orders/Prescriptions Prescriptions: No Action NK RF: 0 Referrals / Follow Up: Care Physician,No Primary [Primary Care Provider] - Disposition Disposition (needs filled in before D/C Order can be placed): Home, Self Care Charges/Coding Visit Charges Inpatient E&M: 36988 Disch Hosp
--- NOTE | 2021-09-07 11:59 | CASEMGMT ---
Social Work Pt is up at the nurse's station and asked to use phone, needed to call [facility] for a ride. SW asked pt the number, she does not remember. SW explained would get it for her. Pt said her grandpa could also give her a ride; SW encouraged her to let someone from [facility] come pick her up. SW called Kai with [employer] and got the number, called [facility] and spoke w/Rhea. She states they can come pick pt up anytime. While SW making calls however, pt left the floor. SW went to the front door to try to find pt, she is not by the front door. SW called Rhea from [facility] to let her know it appears pt left, and perhaps her grandpa came to get her, but it is not clear as pt just walked off the floor after asking SW to get the phone number for [facility]. SW also let Kai with [employer] know what happened. FELICITY Hernandez
== END 2021-09-07 11:43 | disposition home or self-care (01) | DRG 773 ==
LOC: ED 14:10 → MS2 15:45
PROVIDERS: Admitting Provider Hospitalist; Emergency Provider Student in an Organized Health Care Education/Training Program
DX: F11.23 Opioid dependence with withdrawal (principal); F15.10 Other stimulant abuse, uncomplicated; F17.210 Nicotine dependence, cigarettes, uncomplicated; F41.9 Anxiety disorder, unspecified; F32.A Depression, unspecified; Z86.16 Personal history of COVID-19
CPT/HCPCS: 80053; 80307; 82077; 84703; 85025; 99283; 99406; H0012

== ENCOUNTER 2022-01-01 22:03 | Observation (INO) | payer MEDICAID, SELFPAY ==
[2022-01-01 22:04] VITALS: BP 162/85; PULSE 114; RESP 16; TEMP 36.6; O2SAT 98; BMI 30.9
--- NOTE | 2022-01-01 22:26 | EX.ED.SAOD ---
HPI History of Present Illness Chief Complaint: Substance Abuse Informant: patient Narrative Narrative: Patient presents requesting detox from heroin. She states that she is going to the [facility] on Monday. When she spoke with them they suggested she come in for inpatient treatment for a few days. She reports using about a half a gram of meth a day. She uses less than a half a gram of heroin a day. She snorts both of these. She states she will also occasionally shoot up ice. PFSH [facility] Medical History Anxiety Depression Illicit drug use, continuous Opiate withdrawal Smoker Substance abuse Home Medications NK 09/04/21 [History Last Taken Unknown] Allergy/AdvReac Type Severity Reaction Status Date / Time Penicillins Allergy Hives Verified 01/01/22 22:05 Family History Other Throat cancer Social History (Updated 01/01/22 @ 23:49 by Estela Lee) household members: family housing: house number of children: 3 Smoking Status: Current every day smoker tobacco type: cigarettes ROS ROS ED Constitutional Constitutional ED: Denies chills or fever(s) Eyes Eyes: Denies change in vision ENT ENT ED: Denies sore throat Cardiovascular Cardiovascular: Denies chest pain Respiratory/Chest Respiratory/Chest: Denies cough or dyspnea Gastrointestinal Gastrointestinal: Denies abdominal pain, diarrhea, nausea or vomiting Genitourinary Genitourinary ED: Denies dysuria Musculoskeletal Musculoskeletal: Denies back pain Integumentary Denies rash Neurologic Neurologic: Denies headache(s) or weakness Allergic/Immunologic Allergic/Immunologic ED: Denies urticaria EXAM Physical Exam Const Vital Signs: 01/01/22 22:04 Temperature 97.9 F Temperature Source Temporal Pulse Rate 114 H Respiratory Rate 16 Blood Pressure 162/85 H Blood Pressure Mean 110 Pulse Ox 98 Oxygen Delivery Method Room Air Positive well nourished and well developed General Appearance ED: well developed HEENT Reports moist mucous membranes Eyes PERRL and EOMs intact bilaterally Neck supple Lymph Lymphatic: no lymphadenopathy noted Chest Wall inspection of chest normal and palpation of chest normal Resp normal respiratory effort and clear to auscultation bilaterally Cardio regular rate and regular rhythm GI soft to palpation and non-tender Back/Spine no CVA tenderness Neuro oriented x3 and no sensory deficits noted Sensorium / Orientation: alert Motor Exam: strength 5/5 throughout Psych mental status grossly normal Skin Lesions: no lesions Rashes: no rashes MDM MDM MDM Narrative Medical decision making narrative: Labs for ED addiction medicine obtained. Lab Data Attestation: I reviewed the patient's lab results. Labs: Laboratory Results - last 24 hr 01/01/22 01/01/22 01/01/22 22:08 22:35 22:35 WBC 7.6 RBC 4.15 L Hgb 12.9 Hct 39.9 MCV 96.1 MCH 31.1 MCHC 32.3 RDW Std Deviation 44.4 H RDW Coeff of Fanta 12.5 Plt Count 365 MPV 9.1 Immature Gran % (Auto) 0.400 Neut % (Auto) 56.0 Lymph % (Auto) 31.8 [place] % (Auto) 8.7 Eos % (Auto) 2.4 Baso % (Auto) 0.7 Absolute Neuts (auto) 4.3 Absolute Lymphs (auto) 2.43 Nucleated RBC % 0 Sodium 141 Potassium 3.8 Chloride 109 H Carbon Dioxide 26.0 Anion Gap 6 BUN 17 Creatinine 0.96 Estim Creat Clear Calc 71.98 Est GFR (MDRD) Af Amer 86 Est GFR (MDRD) Non-Af 71 BUN/Creatinine Ratio 17.7 Glucose 90 Calcium 8.5 Total Bilirubin 0.30 AST 12 L ALT 15 Alkaline Phosphatase 76 Total Protein 7.6 Albumin 3.7 Globulin 3.9 Albumin/Globulin Ratio 0.9 Serum , Qual Urine Opiates Screen NEGATIVE Urine Methadone Screen NEGATIVE Ur Barbiturates Screen NEGATIVE Ur Phencyclidine Scrn NEGATIVE Ur Amphetamines Screen POSITIVE H MDMA (Ecstasy) Screen POSITIVE H U Benzodiazepines Scrn NEGATIVE Urine Cocaine Screen NEGATIVE U Cannabinoids Screen NEGATIVE Ur Drug Screen Comment Ethyl Alcohol 01/01/22 01/01/22 22:35 22:35 WBC RBC Hgb Hct MCV MCH MCHC RDW Std Deviation RDW Coeff of Fanta Plt Count MPV Immature Gran % (Auto) Neut % (Auto) Lymph % (Auto) [place] % (Auto) Eos % (Auto) Baso % (Auto) Absolute Neuts (auto) Absolute Lymphs (auto) Nucleated RBC % Sodium Potassium Chloride Carbon Dioxide Anion Gap BUN Creatinine Estim Creat Clear Calc Est GFR (MDRD) Af Amer Est GFR (MDRD) Non-Af BUN/Creatinine Ratio Glucose Calcium Total Bilirubin AST ALT Alkaline Phosphatase Total Protein Albumin Globulin Albumin/Globulin Ratio Serum , Qual NEGATIVE Urine Opiates Screen Urine Methadone Screen Ur Barbiturates Screen Ur Phencyclidine Scrn Ur Amphetamines Screen MDMA (Ecstasy) Screen U Benzodiazepines Scrn Urine Cocaine Screen U Cannabinoids Screen Ur Drug Screen Comment Ethyl Alcohol 9.0 Treatment and Re-Evaluation Narrative: test is negative. CBC unremarkable. Patient has follow-up plans with therapy at [facility] starting in 2 days. I will speak with hospitalist regarding admission. Discharge Plan Dx/Rx/DC Orders Clinical Impression: Desire for detoxification Disposition Disposition: Acute Care Hospital [facility] Discharge Date/Time: 01/01/22 23:30
[2022-01-01 22:47] LABS: Absolute Lymphocyte Count 2.43 X10^3/uL (0.83-4.51); Absolute Neutrophil Count 4.3 X10^3/uL (2.0-7.7); Basophil# 0.05 X10^3/uL; Basophil% 0.7 % (0-1); Eosinophil# 0.18 X10^3/uL; Eosinophils% 2.4 % (0-5); Hematocrit 39.9 % (37-47); Hemoglobin 12.9 g/dL (12.0-15.0); Lymphocyte # 2.43 X10^3/ul (0.83-4.51); Lymphocyte % 31.8 % (19-41); Mean Corp Hgb Conc 32.3 g/dL (32-36); Mean Corpuscular Hgb 31.1 pg (27.0-32.0); Mean Corpuscular Volume 96.1 fL (81-99); Mean Platelet Vol. 9.1 fl (6.2-12.0); Monocyte# 0.66 X10^3/uL; Monocyte% 8.7 % (0-10); NRBC Flagged by Analyzer 0 % (0-5); Neutrophil # 4.28 X10^3/uL (2.7-7.7); Platelet Count 365 K/mm3 (150-450); RBC Distribution Width CV 12.5 % (11.6-14.6); RBC Distribution Width SD 44.4 fl (35.1-43.9); Red Blood Count 4.15 M/mm3 (4.2-5.4); White Blood Count 7.6 K/mm3 (4.4-11.0)
[2022-01-01 22:56] LABS: Internal QC Validated? YES +Cl - CLEAR BKGD; Pregnancy, Serum, hCG Quali. NEGATIVE Negative
[2022-01-01 23:04] LABS: ALB/GLOB Ratio 0.9 RATIO (0.9-2.4); AST(SGOT) 12 U/L (15-37); Alanine Aminotransfer ALT/SGPT 15 U/L (13-56); Albumin, Serum 3.7 g/dL (3.2-5.0); Alkaline Phosphatase 76 U/L (45-117); Anion Gap 6 (5-15); BUN 17 mg/dL (7-18); BUN/Creat Ratio 17.7 RATIO (10-20); Calcium,Total 8.5 mg/dL (8.5-10.1); Chloride 109 mmol/L (98-107); Creatinine, Serum 0.96 mg/dL (0.55-1.02); EST Glomerular Filtration Rate 71 mL/min (>60); Est Glom Filt Rate - Afr Amer 86 mL/min (>60); Estimated Creatinine Clearance 71.98 ml/min; Globulin 3.9 g/dL (2.2-4.2); Glucose 90 mg/dL (74-106); Potassium 3.8 mmol/L (3.5-5.1); Protein, Total 7.6 g/dL (6.4-8.2); Sodium Level 141 mmol/L (136-145)
[2022-01-01 23:07] LABS: Amphetamine Urine VISTA POSITIVE (<1000 ng/mL); Barbiturate Urine VISTA NEGATIVE (< 200 ng/mL); Benzodiazepine Urine VISTA NEGATIVE (< 200 ng/mL); Cocaine Urine VISTA NEGATIVE (< 300 ng/mL); Ecstacy Urine VISTA POSITIVE (< 500 ng/mL); Methadone Urine VISTA NEGATIVE (< 300 ng/mL); PCP Urine VISTA NEGATIVE (< 25 ng/mL); THC Urine VISTA NEGATIVE (< 50 ng/mL); Vista UDS pH Range 4
[2022-01-01 23:08] VITALS: RESP 18
--- NOTE | 2022-01-01 23:13 | PCM.HP.STD ---
HPI - General General Date of Admission: 01/01/22 HPI Narrative BAUDILIO SHARMA, is a 31 F with a significant history of tobacco abuse; depression and anxiety; and polysubstance drug abuse who presents to the emergency department for help with detoxification. Patient came for joint detoxification with her fianc?. Patient is scheduled to go to the [facility] rehabilitation program on 01/03/2022. Patient uses heroin/fentanyl and methamphetamine. Heroin/fentanyl use. Patient snorts. He uses less than half a gram per day. He has been using for the past 1 year. He uses every day. Methamphetamine: Patient snorts and occasionally he shoots. He uses about half a gram per day. She has been using for the past 3 years. Last time she used was about an hour before presentation. With the last use she snorted. On presentation she denied any symptoms with the exception of a headache. She is unsure whether the headache is from withdrawal or from the use of substances. Patient was at a hospital in February 2022 for detoxification. After the program she stayed sober for about 1 month. [facility] Medical History Anxiety Depression Illicit drug use, continuous Opiate withdrawal Smoker Substance abuse Home Medications NK 09/04/21 [History Last Taken Unknown] Allergy/AdvReac Type Severity Reaction Status Date / Time Penicillins Allergy Hives Verified 01/01/22 22:05 Family History Other Throat cancer Surgical History no surgical history no surgical history Social History Smoking Status: Current every day smoker tobacco type: cigarettes ROS ROS Narrative Constitutional: Denies fever, chills, fatigue, anorexia and change in weight Eyes: Denies blurry vision, change in eye color, change in vision, discharge from eye(s), double vision, erythema, eye pain, loss of vision or other HEENT: Reports headache. Denies abnormal hearing, dysphagia, ear pain, epistaxis, hearing loss, nasal congestion, nasal discharge, post nasal drip, sinus pressure, sore throat or other Cardiovascular: Denies chest pain or palpitations. Denies dyspnea on exertion, orthopnea and paroxysmal nocturnal dyspnea Respiratory/Chest: Denies cough, excessive phlegm production, shortness of breath with exertion and wheezing Gastrointestinal: Denies abdominal pain, coffee ground emesis, constipation, diarrhea, dyspepsia, hematemesis, hematochezia, loose stools, melena, nausea, vomiting or other Genitourinary: Denies burning urination, difficulty urinating, dysuria, hematuria, nocturia, urinary frequency, urinary hesitancy, urinary incontinence, urinary urgency or other Musculoskeletal: Denies arthralgias, back pain, joint pain, joint stiffness, joint swelling, myalgias, neck pain or other Neurologic: Denies abnormal gait, abnormal speech, confusion, disequilibrium, dizziness, focal weakness, numbness, paresthesias, seizure-like activity, seizures, syncope, tingling, tremor(s) or other Psychiatric: Denies anxiety, depression, homicidal ideation, suicidal ideation or other Endocrinology: Denies change in body appearance, cold intolerance, excessive sweating, heat intolerance, polydipsia, polyuria or other Hematologic/Lymphatic: Denies anemia, easy bleeding, easy bruising, lymphadenopathy or other Integumentary: Denies rashes Allergic/Immunologic: Denies rhinitis, hives, eczema, or other Vital Signs Vital Signs Vital Signs: 01/01/22 22:04 01/01/22 23:08 Temperature 97.9 F Temperature Source Temporal Pulse Rate 114 H Respiratory Rate 16 18 Blood Pressure 162/85 H Blood Pressure Mean 110 Pulse Ox 98 Oxygen Delivery Method Room Air Weight Weight: 81.647 kg Body Mass Index (BMI) 30.9 Physical Exam Narrative Physical exam: General: Well-nourished, well-developed. Head: Normocephalic, atraumatic, no tenderness Eyes: Vision is grossly intact. EOMI ENT, no trauma, moist mucous membranes, no rhinorrhea Neck: Nontender, full range of motion, no spinal tenderness, deformities, step-off CVS: Regular rate and rhythm. S1-S2 present. No murmur, gallop or rub. Respiratory : clear to auscultation bilaterally, chest wall nontender, no wheezing Abdomen: Soft, nontender, nondistended, normal bowel sounds, no masses : Deferred Back: Nontender, no CVA tenderness, no midline spinal tenderness, deformities, step-offs Extremities: Nontender full range of motion, no trauma Skin: Needle track alatorre in left antecubital area. Normal color, no trauma, abrasions Neuro: Alert, oriented, cranial nerves II through XII grossly intact. Psychiatry: Normal mood. Normal affect. Not depressed. Not anxious. Results Lab / Micro Data Result Diagrams: 01/01/22 22:35 01/01/22 22:35 Labs: Laboratory Results - last 24 hr 01/01/22 22:08: Urine Opiates Screen NEGATIVE, Urine Methadone Screen NEGATIVE, Ur Barbiturates Screen NEGATIVE, Ur Phencyclidine Scrn NEGATIVE, Ur Amphetamines Screen POSITIVE H, MDMA (Ecstasy) Screen POSITIVE H, U Benzodiazepines Scrn NEGATIVE, Urine Cocaine Screen NEGATIVE, U Cannabinoids Screen NEGATIVE, Ur Drug Screen Comment 01/01/22 22:35: WBC 7.6, RBC 4.15 L, Hgb 12.9, Hct 39.9, MCV 96.1, MCH 31.1, MCHC 32.3, RDW Std Deviation 44.4 H, RDW Coeff of Fanta 12.5, Plt Count 365, MPV 9.1, Immature Gran % (Auto) 0.400, Neut % (Auto) 56.0, Lymph % (Auto) 31.8, [place] % (Auto) 8.7, Eos % (Auto) 2.4, Baso % (Auto) 0.7, Absolute Neuts (auto) 4.3, Absolute Lymphs (auto) 2.43, Nucleated RBC % 0 01/01/22 22:35: Sodium 141, Potassium 3.8, Chloride 109 H, Carbon Dioxide 26.0, Anion Gap 6, BUN 17, Creatinine 0.96, Estim Creat Clear Calc 71.98, Est GFR (MDRD) Af Amer 86, Est GFR (MDRD) Non-Af 71, BUN/Creatinine Ratio 17.7, Glucose 90, Calcium 8.5, Total Bilirubin 0.30, AST 12 L, ALT 15, Alkaline Phosphatase 76, Total Protein 7.6, Albumin 3.7, Globulin 3.9, Albumin/Globulin Ratio 0.9 01/01/22 22:35: Ethyl Alcohol 9.0 01/01/22 22:35: Serum , Qual NEGATIVE Assessment & Plan Assessment/Plan (1) Elevated blood pressure reading: (2) Desire for detoxification: (3) Tobacco abuse: PLAN: Desire for detoxification Toxicology on presentation showed a positive urine methamphetamines and urine MDMA. Urine test on presentation was negative. Patient will started on Subutex and other adjunctive medications: Gabapentin as needed; dicyclomine as needed; Vistaril as needed; methocarbamol as needed; clonidine as needed; Imodium as needed; trazodone as needed and Zofran as needed. Tylenol for headaches Monitor COWS and CINA score Tobacco abuse Counseled Declined nicotine patch. Elevated blood pressure Patient blood pressure is not within goal. He report about outpatient blood pressures has been elevated. Unclear whether patient has hypertension or her elevated blood is secondary to drug use / withdrawal. PRN clonidine for systolic blood pressure more than 160. Trend blood pressures. DVT prophylaxis Low risk Encourage to ambulate Charges/Coding Visit Charges Inpatient E&M: 02328 Init Hosp L3
[2022-01-01 23:29] VITALS: BP 140/80; PULSE 99; RESP 16; TEMP 36.6; O2SAT 98
[2022-01-01 23:37] VITALS: BMI 31.9
[2022-01-01 23:45] VITALS: BP 137/99; PULSE 95; RESP 16; TEMP 36.6; O2SAT 100
[2022-01-02] MEDS: traZODone 100 MG Tablet PO (00:29)
[2022-01-02] MEDS: Gabapentin 300 MG Capsule PO (00:29)
[2022-01-02] MEDS: Acetaminophen 325 MG Tablet 650 MG PO ×2 (00:29→11:19)
[2022-01-02 04:00] VITALS: BP 141/88; PULSE 95; RESP 16; TEMP 36.6; O2SAT 100
[2022-01-02 07:39] VITALS: BP 113/69; PULSE 91; RESP 16; TEMP 36.2; O2SAT 97
--- NOTE | 2022-01-02 12:34 | PCM.PN.HOSP ---
Subjective Subjective Follow-up for acute opioid withdrawal: Patient was seen and examined. She complains of having cramps in her legs. Otherwise no acute events overnight. Objective Data Objective Data Vital Signs: Vital Signs Temp Pulse Resp BP Pulse Ox 97.2 F L 91 16 113/69 97 01/02/22 07:39 01/02/22 07:39 01/02/22 07:39 01/02/22 07:39 01/02/22 07:39 Oxygen Delivery Method Room Air Weight: 84.5 kg Body Mass Index (BMI) 31.9 Intake & Output: Intake and Output for Last 24 Hours 12/31/21 01/01/22 01/02/22 23:59 23:59 23:59 Intake Total 675 / 675 Balance 675 / 675 Lab / Micro Data Result Diagrams: 01/01/22 22:35 01/01/22 22:35 Labs: Laboratory Results - last 24 hr 01/01/22 22:08: Urine Opiates Screen NEGATIVE, Urine Methadone Screen NEGATIVE, Ur Barbiturates Screen NEGATIVE, Ur Phencyclidine Scrn NEGATIVE, Ur Amphetamines Screen POSITIVE H, MDMA (Ecstasy) Screen POSITIVE H, U Benzodiazepines Scrn NEGATIVE, Urine Cocaine Screen NEGATIVE, U Cannabinoids Screen NEGATIVE, Ur Drug Screen Comment 01/01/22 22:35: WBC 7.6, RBC 4.15 L, Hgb 12.9, Hct 39.9, MCV 96.1, MCH 31.1, MCHC 32.3, RDW Std Deviation 44.4 H, RDW Coeff of Fanta 12.5, Plt Count 365, MPV 9.1, Immature Gran % (Auto) 0.400, Neut % (Auto) 56.0, Lymph % (Auto) 31.8, [place] % (Auto) 8.7, Eos % (Auto) 2.4, Baso % (Auto) 0.7, Absolute Neuts (auto) 4.3, Absolute Lymphs (auto) 2.43, Nucleated RBC % 0 01/01/22 22:35: Sodium 141, Potassium 3.8, Chloride 109 H, Carbon Dioxide 26.0, Anion Gap 6, BUN 17, Creatinine 0.96, Estim Creat Clear Calc 71.98, Est GFR (MDRD) Af Amer 86, Est GFR (MDRD) Non-Af 71, BUN/Creatinine Ratio 17.7, Glucose 90, Calcium 8.5, Total Bilirubin 0.30, AST 12 L, ALT 15, Alkaline Phosphatase 76, Total Protein 7.6, Albumin 3.7, Globulin 3.9, Albumin/Globulin Ratio 0.9 01/01/22 22:35: Ethyl Alcohol 9.0 01/01/22 22:35: Serum , Qual NEGATIVE Physical Exam Narrative Physical exam: General: Alert, Oriented x3, Cooperative, No apparent distress HEENT: Atraumatic Oral: Moist Mucosa Neck: Supple Lungs: Clear to auscultation Cardiovascular: HS I+II, regular, no murmurs Abdomen: Bowel Sounds Present, Soft, Non Tender Extremities: No edema Skin: No rashes, No breakdown Neurological: Grossly intact Psych/Mental Status: Appropriate Assessment & Plan Assessment/Plan (1) Elevated blood pressure reading: (2) Desire for detoxification: (3) Tobacco abuse: PLAN: 1. Acute opioid withdrawal, last COWS score was 4 Continue on Subutex withdrawal protocol 2. Nicotine dependence, advised to quit 3. Elevated blood pressure without diagnosis hypertension, blood pressures controlled Continue to monitor 4. DVT prophylaxis - low risk; early ambulation recommended Charges/Coding Visit Charges Inpatient E&M: 58233 Subs Hosp L2
[2022-01-02 14:00] VITALS: BP 114/73; PULSE 85; RESP 14; TEMP 36.2; O2SAT 98
--- NOTE | 2022-01-02 18:24 | NURSING ---
PATIENT CELL PHONE LOCKED IN THE NARCOTIC FISCAL ECONOMIST THE MED ROOM. UNKNOWN HOW PATIENT GOT CELL PHONE AT THIS TIME.
[2022-01-02 20:00] VITALS: BP 138/93; PULSE 97; RESP 18; TEMP 36.2; O2SAT 98
--- NOTE | 2022-01-02 21:43 | PCM.PN.BLA ---
Progress Note Nursing by nursing team that patient is leaving AMA.
--- NOTE | 2022-01-02 22:00 | NURSING ---
pt wanting to leave AMA states it took too long to get her medication to help relax her (had to be sent from pharm), had tooth ache and didnt want to wait and see if she could get something besides tylenol. cellphone given back to pt and jessica cut open, pt calling for a ride. notified
== END 2022-01-02 22:04 | disposition left against medical advice (07) ==
LOC: ED 23:02 → PCU 01-02 07:05
PROVIDERS: Admitting Provider Hospitalist; Emergency Provider Emergency Medicine; Visit Provider Internal Medicine
DX: F11.23 Opioid dependence with withdrawal (principal); F15.10 Other stimulant abuse, uncomplicated; F17.210 Nicotine dependence, cigarettes, uncomplicated; R51.9 Headache, unspecified; R03.0 Elevated blood-pressure reading, without diagnosis of hypertension
CPT/HCPCS: 80053; 80307; 82077; 84703; 85025; 97802; 99218; 99283; G0378

== ENCOUNTER 2022-01-06 15:22 | Observation (INO) | payer MEDICAID, SELFPAY ==
[2022-01-06 15:22] VITALS: BP 143/102; PULSE 91; RESP 17; TEMP 36.3; O2SAT 99; BMI 30.9
--- NOTE | 2022-01-06 15:34 | ED.RN ---
Rhea Galvan from [facility] - [facility] [phone]
--- NOTE | 2022-01-06 16:04 | HP.PCM_ITS ---
Documented by User: VAHE Wiley 01/06/22 16:16 HPI - General General Date of Admission: 01/06/22 Date of Service: 01/06/22 Chief Complaint: Acute detox from fentanyl HPI Narrative BAUDILIO SHARMA, is a 31 F who presents with complaints of body aches and chills. Patient states that she last used fentanyl approximately 2 days ago and reports a 0.5 g/day usage. Patient also reports that she smokes half a pack of cigarettes a day. Patient denies alcohol use. Patient states that she is wanting help with detoxification from fentanyl. [facility] Medical History (Updated 01/06/22 @ 16:11 by VAHE Wiley) Anxiety Depression Hepatitis B Hepatitis C Illicit drug use, continuous Opiate withdrawal Smoker Substance abuse Home Medications NK 09/04/21 [History Last Taken Unknown] Allergy/AdvReac Type Severity Reaction Status Date / Time Penicillins Allergy Hives Verified 01/06/22 15:25 Family History Father Throat cancer Surgical History No history of previous surgery Social History household members: family housing: house number of children: 3 Smoking Status: Current every day smoker tobacco type: cigarettes Smoking packs per day: 0.5 Smoking cigarettes per day: 10.0 alcohol intake: never substance use type: amphetamines, opiates and IV drugs ROS Constitutional Constitutional: Reports chills and malaise; Denies anorexia, fatigue, fever(s) or weakness Cardiovascular Cardiovascular: Denies chest pain, edema or palpitations Respiratory/Chest Respiratory/Chest: Denies cough, shortness of breath at rest, shortness of breath with exertion or wheezing Gastrointestinal Gastrointestinal: Denies abdominal pain, constipation, diarrhea, nausea or vomiting Genitourinary Genitourinary: Denies dysuria Musculoskeletal Musculoskeletal: Reports joint pain; Denies back pain or extremity pain Integumentary Integumentary: Denies dry skin Neurologic Neurologic: Reports restless legs; Denies abnormal gait, abnormal speech, confusion or dizziness Psychiatric Psychiatric: Denies anxiety or depression Endocrine Endocrinology: Denies change in body appearance Hematologic/Lymphatic Hematologic/Lymphatic: Denies anemia Vital Signs Vital Signs Vital Signs: 01/06/22 15:22 Temperature 97.3 F L Temperature Source Temporal Pulse Rate 91 Respiratory Rate 17 Blood Pressure 143/102 H Blood Pressure Mean 115 Pulse Ox 99 Oxygen Delivery Method Room Air Weight Weight: 180 lb Body Mass Index (BMI) 30.9 Physical Exam Const alert HEENT normocephalic and head/scalp atraumatic Eyes conjunctivae normal and no scleral icterus Neck supple General: trachea midline Resp normal respiratory effort, normal air movement and clear to auscultation bilaterally Cardio regular rate, regular rhythm, S1 normal heart sound, S2 normal heart sound and peripheral pulses 2+ throughout GI normal to inspection, nondistended, normoactive bowel sounds, soft to palpation and non-tender Extremity normal capillary refill and no clubbing, cyanosis or edema General Extremity: no tenderness to palpation of joints or extremities Skin General Skin Exam: turgor normal Neuro oriented x3, no focal motor deficits and no sensory deficits noted Motor Exam: Negative for general weakness Psych affect normal Appearance: appropriate Activity / Motor Behavior: restless Speech: normal speech Results Lab / Micro Data Result Diagrams: 01/06/22 15:50 01/06/22 15:50 Assessment & Plan Assessment/Plan (1) Tobacco abuse: (2) Desire for detoxification: (3) Opioid abuse: (4) Hepatitis C: (5) Hepatitis B: PLAN: 1. Opioid abuse with desire for detoxification -Admit to MedSurg -Buprenorphine taper ordered per protocol along with supportive medications -Regular diet -Case management consulted for coordination with outpatient follow-up -LR 125 mL/h -CMP and UA pending as well as UDS 2. Tobacco abuse -Inpatient smoking cessation ordered -Nicotine patch ordered -Encouraged patient to stop smoking 3. Hepatitis B and hepatitis C -Patient tested positive for hepatitis B and C on 01/08/2019 -Patient denies further follow-up either outpatient or inpatient for hepatitis status -Discussed with patient that she will need to follow-up with GI outpatient to discuss treatment options and management -Patient instructed that she will likely have to be sober for 6 months with pr jorge a of meetings before being initiated on treatment. DVT prophylaxis-not indicated This patient was seen by Eduarda Carpenter NP-C under the supervision of Dr. Koehler. 27 minutes spent in clinical coordination of patient's plan of care. Documented by User: Dr. Geena Koehler MD 01/06/22 16:17 [facility] Medical History (Updated 01/06/22 @ 16:11 by Eduarda Carpenter NP-C) Anxiety Depression Hepatitis B Hepatitis C Illicit drug use, continuous Opiate withdrawal Smoker Substance abuse Home Medications NK 09/04/21 [History Last Taken Unknown] Allergy/AdvReac Type Severity Reaction Status Date / Time Penicillins Allergy Hives Verified 01/06/22 15:25 Family History Father Throat cancer Surgical History No history of previous surgery Social History household members: family housing: house number of children: 3 Smoking Status: Current every day smoker tobacco type: cigarettes Smoking packs per day: 0.5 Smoking cigarettes per day: 10.0 alcohol intake: never substance use type: amphetamines, opiates and IV drugs Results Lab / Micro Data Result Diagrams: 01/06/22 15:50 01/06/22 15:50
[2022-01-06 16:06] LABS: Absolute Neutrophil Count 4.3 X10^3/uL (2.0-7.7); Basophil# 0.07 X10^3/uL; Eosinophil# 0.21 X10^3/uL; Eosinophils% 2.9 % (0-5); Hematocrit 41.4 % (37-47); Hemoglobin 13.7 g/dL (12.0-15.0); Lymphocyte % 27.7 % (19-41); Mean Corp Hgb Conc 33.1 g/dL (32-36); Mean Corpuscular Hgb 31.2 pg (27.0-32.0); Mean Corpuscular Volume 94.3 fL (81-99); Mean Platelet Vol. 9.2 fl (6.2-12.0); Monocyte# 0.59 X10^3/uL; Monocyte% 8.2 % (0-10); NRBC Flagged by Analyzer 0 % (0-5); Neutrophil # 4.31 X10^3/uL (2.7-7.7); Neutrophil % 59.6 % (47-70); Platelet Count 386 K/mm3 (150-450); RBC Distribution Width CV 12.6 % (11.6-14.6); RBC Distribution Width SD 43.8 fl (35.1-43.9); Red Blood Count 4.39 M/mm3 (4.2-5.4); White Blood Count 7.2 K/mm3 (4.4-11.0)
[2022-01-06 16:06] LABS: Mucous, Urine 0 SEEN /hpf (<or=2+)
[2022-01-06] MEDS: Methocarbamol 750 MG Tablet 1500 MG PO (16:12)
--- NOTE | 2022-01-06 16:28 | EDS_ITS ---
HPI <VAHE Witt - Last Filed: 01/06/22 16:35> History of Present Illness Chief Complaint: Substance Abuse Narrative Narrative: 31-year-old female with history of hepatitis B, hepatitis C, long history of opiate abuse presents to the emergency department for detox. Patient was seen here 1 week ago for the same however she did leave AMA. Patient is currently living in a sober living facility, called here and arranged to be admitted. Patient is aware of the rules that she is only allowed to leave AGAINST MEDICAL ADVICE 1 time. Patient is here for evaluation for her detox symptoms from fentanyl such as cramping, muscle aches, nausea. PFSH <VAHE Witt - Last Filed: 01/06/22 16:35> [facility] Medical History (Updated 01/06/22 @ 16:35 by VAHE Wtit) Anxiety Depression Hepatitis B Hepatitis C Illicit drug use, continuous Opiate withdrawal Smoker Substance abuse Home Medications NK 09/04/21 [History Last Taken Unknown] Allergy/AdvReac Type Severity Reaction Status Date / Time Penicillins Allergy Hives Verified 01/06/22 15:25 Family History Father Throat cancer Surgical History No history of previous surgery Social History household members: family housing: house number of children: 3 Smoking Status: Current every day smoker tobacco type: cigarettes Smoking packs per day: 0.5 Smoking cigarettes per day: 10.0 alcohol intake: never substance use type: amphetamines, opiates and IV drugs ROS <VAHE Witt - Last Filed: 01/06/22 16:35> ROS ED ROS Narrative Constitutional: Negative for fever, chills, weight loss, weakness Eyes: Negative for vision loss, vision change, double vision ENT: Negative for any sore throat, ear pain, congestion Cardiovascular: Negative for any chest pain, tightness, palpitations, racing heartbeat Respiratory: Negative for any cough, sputum production, hemoptysis, shortness of breath, shortness of breath on exertion, orthopnea Gastrointestinal: Negative for any abdominal pain, vomiting, diarrhea, constipation, blood in stool, blood in vomit. Positive feeling nausea : Negative for any urinary frequency, incontinence, dysuria, retention, blood in urine Muscle skeletal: Negative for any muscle joint pain, stiffness, arthralgias, neck pain, back pain. Positive for generalized myalgias Neurological: Negative for any headache, dizziness, syncope, numbness or tingling Skin: Negative for any rashes, lumps, itching, abrasions, lacerations Psychiatric: Negative for any depression, anxiety, stress, suicidal ideation, homicidal ideation Hematologic: Negative for any easy bruising, excessive bruising, easy bleeding Allergies: Negative for any eczema, hives, rash EXAM <VAHE Witt - Last Filed: 01/06/22 16:35> Physical Exam Narrative Exam Narrative: Vital signs reviewed. Patient appears to be in minor distress secondary to withdrawal symptoms. Patient is acting appropriate. HEET: Head normocephalic atraumatic, TMs clear bilaterally. Posterior pharynx is clear, moist mucous membranes. Nares clear bilaterally. Neck: Supple with no lymphadenopathy or tenderness. No signs of meningismus, negative jolt sign. Cardiac: Regular rate and rhythm no murmurs gallops or rubs, equal peripheral pulses bilaterally. Respiratory: Lungs clear to auscultation bilaterally. No chest tenderness. Abdomen: Soft, nontender, nondistended. No abdominal bruit or pulsatile masses. No hepatosplenomegaly Extremities: No peripheral edema, no signs of gross trauma or deformity. Active full range of motion of all extremities. Neuro: Cranial nerves II through XII intact, no focal neurological deficits. Skin: Clean dry and intact with no rash, purpura, petechiae, vesicles or pustules. Backslash flank: No CVA tenderness, no midline spinal tenderness, no deformity. Psych: Normal mood and affect. No SI, HI or acute psychosis. Const Vital Signs: 01/06/22 15:22 Temperature 97.3 F L Temperature Source Temporal Pulse Rate 91 Respiratory Rate 17 Blood Pressure 143/102 H Blood Pressure Mean 115 Pulse Ox 99 Oxygen Delivery Method Room Air <Dr. Neeraj Abdullahi DO - Last Filed: 01/06/22 16:36> Physical Exam Const Vital Signs: 01/06/22 15:22 Temperature 97.3 F L Temperature Source Temporal Pulse Rate 91 Respiratory Rate 17 Blood Pressure 143/102 H Blood Pressure Mean 115 Pulse Ox 99 Oxygen Delivery Method Room Air [facility] <Delfino Vargas AUDITOR TAX-C - Last Filed: 01/06/22 16:35> [facility] Narrative Medical decision making narrative: Patient appears well, patient appears nontoxic, vital signs are stable. Patient presents to the emergency department for the want of admission for opiate withdrawal. Patient was given strict instructions that she will no longer have the ability to stay here if she leaves AGAINST MEDICAL ADVICE again. Patient did receive some basic laboratory values.Patient CBC was unremarkable. Patient will receive a CMP as well as a urine drug screen. Patient will be admitted to the hospitalist. Lab Data Attestation: I reviewed the patient's lab results. <Dr. Neeraj Abdullahi, - Last Filed: 01/06/22 16:36> [facility] Narrative Medical decision making narrative: I have personally performed a face to face assessment of the patient and have reviewed the OUMOU Note. I performed a substantive portion of the visit including all aspects of the following. My gonzalez findings include: History: Patient presents 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 Patient states he snorts her fentanyl. Patient states she uses approximately half a gram per day. Patient states her last use was 2 days ago. Patient admits to some abdominal pain. Patient denies any fevers or chills. Patient denies any nausea or vomiting. Patient states she has been through detox here in the past. Patient recently signed out AGAINST MEDICAL ADVICE. Exam: Vital signs are stable. Patient is afebrile. Patient is in no acute distress. Oral mucosa is pink and moist. Neck is supple. Trachea is midline. There is no JVD. Heart was regular rate and rhythm. Lungs are clear and equal bilaterally. Abdomen is soft and nontender. Cranial nerves II through XII are intact. There are no focal motor or sensory deficits noted. Patient denies any suicidal homicidal ideations. Medical Decison Making: Basic labs were obtained. Patient was discussed with the hospitalist. She will admit the patient for detox. Patient understood and was agreeable with the plan. All questions were answered. Discharge Plan Dx/Rx/DC Orders Clinical Impression: Desire for detoxification, Hepatitis C, Hepatitis B, Opioid abuse Disposition Disposition: Acute Care [facility]
[2022-01-06 16:34] VITALS: BP 143/102; PULSE 91; RESP 17; TEMP 36.3; O2SAT 99
[2022-01-06 16:34] LABS: Color, Urine Yellow (Yellow); Glucose, Dipstick Normal (Normal); Ketone-Dipstick Negative (Negative); Leukocyte Esterase-Dipstick 100 /ul (Negative); Nitrite-Dipstick Negative (Negative); Occult Blood-Urine Negative /ul (Negative); Protein-Dipstick Negative (Negative); Urine Bilirubin Dipstick Negative (Negative); Urine Clarity Sl. Cloudy (Clear); Urine Urobilinogen Normal (Normal)
[2022-01-06 16:37] LABS: ALB/GLOB Ratio 0.9 RATIO (0.9-2.4); AST(SGOT) 9 U/L (15-37); Alanine Aminotransfer ALT/SGPT 18 U/L (13-56); Albumin, Serum 3.4 g/dL (3.2-5.0); Alkaline Phosphatase 72 U/L (45-117); Anion Gap 6 (5-15); BUN 19 mg/dL (7-18); BUN/Creat Ratio 21.9 RATIO (10-20); Calcium,Total 8.6 mg/dL (8.5-10.1); Chloride 106 mmol/L (98-107); Creatinine, Serum 0.87 mg/dL (0.55-1.02); EST Glomerular Filtration Rate 80 mL/min (>60); Est Glom Filt Rate - Afr Amer 97 mL/min (>60); Estimated Creatinine Clearance 79.42 ml/min; Globulin 3.9 g/dL (2.2-4.2); Glucose 103 mg/dL (74-106); Potassium 4.3 mmol/L (3.5-5.1); Protein, Total 7.3 g/dL (6.4-8.2); Sodium Level 137 mmol/L (136-145)
[2022-01-06 16:42] LABS: Internal QC Validated? YES +Cl - CLEAR BKGD; Pregnancy, Urine Negative Negative
[2022-01-06 16:47] LABS: White Blood Cells 5-10 SEEN /hpf (0-5)
[2022-01-06 16:48] LABS: Red Blood Cells-Urine 0-5 SEEN /hpf (0-5)
[2022-01-06 16:49] LABS: Bacteria 3+ /hpf (None Seen); Squamous Epithelial Cells - UA 10-25 SEEN /hpf (5-10)
[2022-01-06 17:05] VITALS: BP 143/102; PULSE 91; RESP 17; TEMP 36.3; O2SAT 99
[2022-01-06 17:07] LABS: Amphetamine Urine VISTA POSITIVE (<1000 ng/mL); Barbiturate Urine VISTA NEGATIVE (< 200 ng/mL); Benzodiazepine Urine VISTA NEGATIVE (< 200 ng/mL); Cocaine Urine VISTA NEGATIVE (< 300 ng/mL); Ecstacy Urine VISTA POSITIVE (< 500 ng/mL); Methadone Urine VISTA NEGATIVE (< 300 ng/mL); PCP Urine VISTA NEGATIVE (< 25 ng/mL); THC Urine VISTA NEGATIVE (< 50 ng/mL); Vista UDS pH Range 5
[2022-01-06 17:50] VITALS: BP 140/93; PULSE 78; RESP 16; TEMP 36.3; O2SAT 100
[2022-01-06 17:53] VITALS: BMI 32.5
[2022-01-06] MEDS: Lactated Ringers 1,000 ML 125 ML IV (20:08)
[2022-01-06] MEDS: Gabapentin 300 MG Capsule PO (20:13)
[2022-01-06] MEDS: traZODone 100 MG Tablet PO (20:13)
[2022-01-06] MEDS: Dicyclomine 10 MG Capsule 20 MG PO (20:22)
[2022-01-06 20:32] VITALS: BP 130/90; PULSE 110; RESP 20; TEMP 37; O2SAT 98
[2022-01-06 20:54] LABS: HIV - WCH Non-Reactive (Nonreactive)
[2022-01-06] MEDS: Buprenorphine HCl 2 MG TAB.SUBL SL (21:17)
[2022-01-07] MEDS: cloNIDine HCl 0.1 MG Tablet PO ×3 (01:57→18:28)
[2022-01-07 01:58] VITALS: BP 130/79; PULSE 77; RESP 16; TEMP 36.6; O2SAT 95
[2022-01-07] MEDS: hydrOXYzine PAM 25 MG Capsule 50 MG PO ×2 (04:10→15:36)
[2022-01-07] MEDS: Buprenorphine HCl 2 MG TAB.SUBL SL ×3 (04:10→21:17)
--- NOTE | 2022-01-07 07:35 | PCM.PN.HOSP ---
Subjective Subjective Patient is a 31-year-old F with history of polysubstance abuse including heroin and fentanyl admitted with acute opioid withdrawal Objective Data Objective Data Vital Signs: Vital Signs Temp Pulse Resp BP Pulse Ox 98 F 77 16 130/79 H 95 01/07/22 01:58 01/07/22 01:58 01/07/22 01:58 01/07/22 01:58 01/07/22 01:58 Oxygen Delivery Method Room Air Weight: 85.9 kg Body Mass Index (BMI) 32.5 Intake & Output: Intake and Output for Last 24 Hours 01/05/22 01/06/22 01/07/22 23:59 23:59 23:59 Intake Total 3166 / 3166 Balance 3166 / 3166 Lab / Micro Data Result Diagrams: 01/06/22 15:50 01/06/22 15:50 Labs: Laboratory Results - last 24 hr 01/06/22 15:50: Ethyl Alcohol 6.0 01/06/22 15:50: WBC 7.2, RBC 4.39, Hgb 13.7, Hct 41.4, MCV 94.3, MCH 31.2, MCHC 33.1, RDW Std Deviation 43.8, RDW Coeff of Fanta 12.6, Plt Count 386, MPV 9.2, Immature Gran % (Auto) 0.600, Neut % (Auto) 59.6, Lymph % (Auto) 27.7, Brule % (Auto) 8.2, Eos % (Auto) 2.9, Baso % (Auto) 1.0, Absolute Neuts (auto) 4.3, Absolute Lymphs (auto) 2.00, Nucleated RBC % 0 01/06/22 15:50: Sodium 137, Potassium 4.3, Chloride 106, Carbon Dioxide 25.0, Anion Gap 6, BUN 19 H, Creatinine 0.87, Estim Creat Clear Calc 79.42, Est GFR (MDRD) Af Amer 97, Est GFR (MDRD) Non-Af 80, BUN/Creatinine Ratio 21.9 H, Glucose 103, Calcium 8.6, Total Bilirubin 0.20, AST 9 L, ALT 18, Alkaline Phosphatase 72, Total Protein 7.3, Albumin 3.4, Globulin 3.9, Albumin/Globulin Ratio 0.9 01/06/22 15:50: HIV 1&2 Antibody Non-Reactive 01/06/22 16:00: Urine Opiates Screen NEGATIVE, Urine Methadone Screen NEGATIVE, Ur Barbiturates Screen NEGATIVE, Ur Phencyclidine Scrn NEGATIVE, Ur Amphetamines Screen POSITIVE H, MDMA (Ecstasy) Screen POSITIVE H, U Benzodiazepines Scrn NEGATIVE, Urine Cocaine Screen NEGATIVE, U Cannabinoids Screen NEGATIVE, Ur Drug Screen Comment 01/06/22 16:00: Urine Color Yellow, Urine Clarity Sl. Cloudy, Urine pH 6.0, Ur Specific [place] 1.020, Urine Protein Negative, Urine Glucose (UA) Normal, Urine Ketones Negative, Urine Occult Blood Negative, Urine Nitrite Negative, Urine Bilirubin Negative, Urine Urobilinogen Normal, Ur Leukocyte Esterase 100 H, Urine RBC 0-5 SEEN, Urine WBC 5-10 SEEN, Ur Squamous Epith Cells 10-25 SEEN, Urine Bacteria 3+, Urine Mucus 0 SEEN, Urine Test Negative Physical Exam Narrative GENERAL: cooperative HEENT: Atraumatic; EYES; Anicteric, Normal Conjunctiva NECK; supple, normal thyroid, RESPIRATORY: Diminished to auscultation CARDIOVASCULAR: Regular S1 S2, GI: soft, normoactive bowel sounds, : No Renal angle tenderness; EXTREMITIES: No edema, no clubbing, MUSCULOSKELETAL: no muscle wasting NEURO: Awake; no lateralizing signs. SKIN: No Rash PSYCH; Flat affect Assessment & Plan Assessment/Plan (1) Tobacco abuse: (2) Desire for detoxification: (3) Opioid abuse: (4) Hepatitis C: (5) Hepatitis B: PLAN: Patient is a 31-year-old F with history of polysubstance abuse including heroin and fentanyl admitted with acute opioid withdrawal 1. Acute opiate withdrawal ? Patient has been admitted to regular nursing floor currently undergoing medical stabilization using Subutex taper 2. Polysubstance abuse ? Counseled on cessation 3. Chronic hep C ? Patient to follow-up with PCP following discharge for subsequent management 4. Tobacco dependence - Counseled on cessation, offered nicotine patch for tobacco cravings 5. DVT prophylaxis ? Low risk did encourage early ambulation Charges/Coding Visit Charges Inpatient E&M: 86031 Subs Hosp L2
--- NOTE | 2022-01-07 09:59 | ADDICTION ---
Addendum entered by Nina Joel 01/07/22 11:00: Pt changed her mind and reported that she wanted to go to [facility] when she completes detox. [facility] is to be called once completed. Original Note: This production underwriter met with PT to conduct ASAM, MSE, AUDIT, DUDIT assessments and to plan for d/c. PT A+Ox4 and participated actively. All assessments completed, faxed to [facility] and placed in PT's chart. PT plans to f/u with the [facility] at [facility] for follow-up treatment services. [facility] will provide transportation post d/c from [facility].
[2022-01-07] MEDS: Gabapentin 300 MG Capsule PO ×2 (10:23→18:28)
[2022-01-07] MEDS: Dicyclomine 10 MG Capsule 20 MG PO ×2 (10:24→18:28)
[2022-01-07] MEDS: Ibuprofen 600 MG Tablet PO ×2 (10:24→18:28)
[2022-01-07] MEDS: Methocarbamol 750 MG Tablet 1500 MG PO ×2 (10:24→18:29)
[2022-01-07 10:29] VITALS: BP 114/72; PULSE 83; RESP 18; TEMP 36.6; O2SAT 97
[2022-01-07 13:52] VITALS: O2SAT 97
[2022-01-07 15:40] VITALS: BP 108/68; PULSE 78; RESP 18; TEMP 36.7; O2SAT 98
[2022-01-07 21:07] VITALS: BP 95/57; PULSE 70; RESP 16; TEMP 36.7; O2SAT 95
[2022-01-08 05:36] VITALS: BP 106/66; PULSE 68; RESP 16; TEMP 36.8; O2SAT 97
[2022-01-08] MEDS: Methocarbamol 750 MG Tablet 1500 MG PO ×2 (05:46→13:19)
[2022-01-08] MEDS: Buprenorphine HCl 2 MG TAB.SUBL SL ×3 (05:46→20:46)
[2022-01-08] MEDS: Gabapentin 300 MG Capsule PO ×2 (05:46→13:18)
--- NOTE | 2022-01-08 06:50 | PN.HOSP_ITS ---
Subjective Subjective Patient with no acute events overnight per self and per nursing report. She notes she slept well and all withdrawal symptoms have been abating. Plan for discharge with completion of taper 01/09/2022 which was discussed and also reviewed with nursing staff with patient currently plan for transition to a specific substance abuse house therefore has a decent plan of care to consider discharge over the weekend. Patient denies fevers, chills, nausea, emesis, abdominal pain, chest pain or dyspnea. Objective Data Objective Data Vital Signs: Vital Signs Temp Pulse Resp BP Pulse Ox 98.3 F 68 16 106/66 97 01/08/22 05:36 01/08/22 05:36 01/08/22 05:36 01/08/22 05:36 01/08/22 05:36 Oxygen Delivery Method Room Air Weight: 189 lb 6.033 oz Body Mass Index (BMI) 32.5 Intake & Output: Intake and Output for Last 24 Hours 01/06/22 01/07/22 01/08/22 23:59 23:59 23:59 Intake Total 3726 / 3726 Balance 3726 / 3726 Lab / Micro Data Result Diagrams: 01/06/22 15:50 01/06/22 15:50 Physical Exam Narrative Physical Examination: General: Awake, alert, oriented x 3 and cooperative, seated upright in MedSur bed, fatigued otherwise no distress. Skin: Normal color, normal turgor, no icterus, no cyanosis except occasional track alatorre, ecchymosis. HEENT: AT/NC, EOMI, PERRLA, MMM. Lungs: Diminished, greater bases, appropriate effort, no rales, ronchi or wheezing. Heart: Currently regular rate and rhythm; no gallop, rub audible. Abdomen: Soft, obese, NTTP, ND, normal BS. Extremities: No cyanosis, clubbing, or edema. Neurological: Patient awake, alert, oriented as noted, cognitive function intact; pupils equally reactive to light and accommodation, cranial nerves II- XII grossly normal, moving all 4 extremities, no focal deficits, strength preserved, improved appearance from admission. Psychiatric: Affect appears fatigued otherwise normal, no acute evidence of depressive or anxiety feelings. Assessment & Plan Assessment/Plan (1) Desire for detoxification: (2) Opiate withdrawal: PLAN: 6.The patient is a 31 y/o F w/ PMHx: Tobacco use, Anxiety and Depression, from records 12/2018 + Hepatitis C/Hepatitis B acute who presents to the [facility] ED on 01/06/22, recently left AMA on 01/02/2022 following admission at that time for acute detoxification with acute opiate withdrawal who now represents with last usage 2 days prior specifically fentanyl, heroin usually both snorted approximately 1/2 g/day with usage on a daily basis in addition to methamphetamine usage occasionally as well now with acute opiate withdrawal. #1. Acute Opiate Withdrawal: Admitted to [place], routine labs including CBC, CMP, urine for drug screen, ethyl alcohol, testing obtained in the ED, initiated and continued on protocol with tapering course of Subutex, as needed tylenol, ibuprofen, bowel regimen, gabapentin, Bentyl, Vistaril, methocarbamol, clonidine, PRN nightly trazodone for insomnia, IV fluids, IV antiemetics. Case management consulted for transition to next level of rehabilitation care with potential discharge 01/09/2022 given patient does have a discharge plan in place and a facility to transition to otherwise would consider deferral to Monday to assure good follow-up care. #2. Polysubstance Abuse, IVDA Hx, History of Hepatitis C as well as from review of records hepatitis B acutely 12/2018: Patient currently not candidate for hep C treatment currently as needs to be clean, sober x 6 months, documented attendance NA or AA meetings, counseling and ongoing negative drug screens. Given evidence of coinfection patient would strongly benefit from early follow- up which was recommended. HIV checked for co-infection and noted to be non- reactive. Will recommend ID follow-up at discharge. #3. Elevated BP without hypertensive diagnosis: Likely secondary to acute presentation number 1, improved following admission, continue to monitor, PRN hydralazine. #4. Anxiety and depression: Likely contributing to substance abuse, not on any medications, would benefit from ongoing counseling, case management/substance abuse counselor consulted and following. #5. Tobacco Abuse: Encouraged cessation, inpatient consultation per RT, NR if desired. #6. DVT prophylaxis: Low risk, encourage ambulation. Charges/Coding Visit Charges Inpatient E&M: 93030 Subs Hosp L2
[2022-01-08 08:26] VITALS: O2SAT 95
[2022-01-08 10:00] VITALS: BP 118/71; PULSE 95; RESP 16; TEMP 36.9; O2SAT 97
[2022-01-08] MEDS: hydrOXYzine PAM 25 MG Capsule 50 MG PO (10:07)
[2022-01-08] MEDS: Dicyclomine 10 MG Capsule 20 MG PO (10:07)
[2022-01-08] MEDS: Ibuprofen 600 MG Tablet PO (10:07)
[2022-01-08] MEDS: cloNIDine HCl 0.1 MG Tablet PO (10:08)
--- NOTE | 2022-01-08 13:24 | NURSING ---
despite Motrin, pt still complaining that her tooth to her Rt lower mouth hurts. Pt very tearful. This nurse asked if pt has had an infection in her teeth before, pt stated she had indeed had a tooth infection in the past. Will notify Dr. Koehler
[2022-01-08] MEDS: Clindamycin HCl 150 MG Capsule 450 MG PO ×2 (15:56→20:46)
[2022-01-08 16:00] VITALS: BP 106/52; PULSE 60; RESP 16; TEMP 37.1; O2SAT 99
[2022-01-08 20:51] VITALS: BP 127/73; PULSE 80; RESP 16; TEMP 37.3; O2SAT 99
[2022-01-09] MEDS: Clindamycin HCl 150 MG Capsule 450 MG PO ×3 (05:08→21:10)
[2022-01-09 05:12] VITALS: BP 141/89; PULSE 70; RESP 16; TEMP 36.8; O2SAT 98
--- NOTE | 2022-01-09 05:28 | PN.HOSP_ITS ---
Subjective Subjective Patient with improved dental pain and staff noted that she did not even request any motrin overnight with right lower cheek region swelling lessened. Patient notes withdrawal symptoms continue to be completely abated. She understands that plan of care is to continue evaluation and treatment into 01/10/2022 per dis cussion with case management/social work with planned discharge at that time to her facility. Patient denies fevers, chills, nausea, emesis, abdominal pain, chest pain or dyspnea. Objective Data Objective Data Vital Signs: Vital Signs Temp Pulse Resp BP Pulse Ox 98.3 F 70 16 141/89 H 98 01/09/22 05:12 01/09/22 05:12 01/09/22 05:12 01/09/22 05:12 01/09/22 05:12 Oxygen Delivery Method Room Air Weight: 189 lb 6.033 oz Body Mass Index (BMI) 32.5 Intake & Output: Intake and Output for Last 24 Hours 01/07/22 01/08/22 01/09/22 23:59 23:59 23:59 Intake Total 3726 / 3726 510 / 510 Balance 3726 / 3726 510 / 510 Lab / Micro Data Result Diagrams: 01/06/22 15:50 01/06/22 15:50 Physical Exam Narrative Physical Examination: General: Awake, alert, oriented x 3 and cooperative, seated upright in MedSurg bed, fatigued, notes dental discomfort to the right posterior second molar improved, less facial swelling. Skin: Normal color, normal turgor, no icterus, no cyanosis except occasional track alatorre, ecchymosis. HEENT: AT/NC, EOMI, PERRLA, MMM, right mild facial swelling nearly resolved, right posterior second molar with mild swelling, erythema, infected appearance but no obvious evidence of any abscess, no specific blood ability on evaluation. Lungs: Diminished, greater bases, appropriate effort, no rales, ronchi or wheezing. Heart: Regular rate and rhythm; no gallop, rub audible. Abdomen: Soft, obese, NTTP, ND, mildly hyperactive BS. Extremities: No cyanosis, clubbing, or edema. Neurological: Patient awake, alert, oriented as noted, cognitive function intact; pupils equally reactive to light and accommodation, cranial nerves II- XII grossly normal, moving all 4 extremities, no focal deficits, strength normalized. Psychiatric: Affect appears fatigued otherwise normal, no acute evidence of depressive or anxiety feelings. Assessment & Plan Assessment/Plan (1) Desire for detoxification: (2) Opiate withdrawal: PLAN: The patient is a 31 y/o F w/ PMHx: Tobacco use, Anxiety and Depression, from records 12/2018 + Hepatitis C/Hepatitis B acute who presents to the [facility] ED on 01/06/22, recently left AMA on 01/02/2022 following admission at that time for acute detoxification with acute opiate withdrawal who now represents with last usage 2 days prior specifically fentanyl, heroin usually both snorted approximately 1/2 g/day with usage on a daily basis in addition to methamphetamine usage occasionally as well now with acute opiate withdrawal. #1. Acute Opiate Withdrawal: Admitted to [place], routine labs including CBC, CMP, urine for drug screen, ethyl alcohol, testing obtained in the ED, initiated and continued on protocol with tapering course of Subutex, as needed tylenol, ibuprofen, bowel regimen, gabapentin, Bentyl, Vistaril, methocarbamol, clonidine, PRN nightly trazodone for insomnia, IV fluids, IV antiemetics. Case management consulted for transition to next level of rehabilitation care with potential discharge 01/09/2022 given patient does have a discharge plan in place and a facility to transition to otherwise would consider deferral to Monday to assure good follow-up care. #2. Acute Dental Infection, Tooth Pain: Notes intermittently an issue, poor dentition noted, initiated and continued on IV clindamycin given allergy history with improvement however if suddenly worsens may consider CT imaging to assess for any osseous involvement or more deep potential abscess. #3. Polysubstance Abuse, IVDA Hx, History of Hepatitis C as well as from review of records hepatitis B acutely 12/2018: Patient currently not candidate for hep C treatment currently as needs to be clean, sober x 6 months, documented attendance NA or AA meetings, counseling and ongoing negative drug screens. Given evidence of coinfection patient would strongly benefit from early follow- up which was recommended. HIV checked for co-infection and noted to be non- reactive. Will recommend ID follow-up at discharge. #4. Elevated BP without hypertensive diagnosis: Likely secondary to acute presentation number 1, improved following admission, continue to monitor, PRN hydralazine. #5. Anxiety and depression: Likely contributing to substance abuse, not on any medications, would benefit from ongoing counseling, case management/substance abuse counselor consulted and following. #6. Tobacco Abuse: Encouraged cessation, inpatient consultation per RT, NR if desired. #7. DVT prophylaxis: Low risk, encourage ambulation. Charges/Coding Visit Charges Inpatient E&M: 22232 Subs Hosp L2
[2022-01-09] MEDS: Buprenorphine HCl 2 MG TAB.SUBL SL (06:46)
[2022-01-09 06:58] VITALS: O2SAT 97
[2022-01-09 08:54] VITALS: BP 117/67; PULSE 76; RESP 17; TEMP 36.8; O2SAT 98
[2022-01-09] MEDS: Dicyclomine 10 MG Capsule 20 MG PO (14:35)
[2022-01-09] MEDS: Gabapentin 300 MG Capsule PO (14:35)
[2022-01-09] MEDS: Methocarbamol 750 MG Tablet 1500 MG PO ×2 (14:36→21:12)
[2022-01-09 15:00] VITALS: BP 106/61; PULSE 75; RESP 16; TEMP 36.8; O2SAT 96
[2022-01-09 21:00] VITALS: BP 134/80; PULSE 83; RESP 16; TEMP 36.7; O2SAT 98
[2022-01-09] MEDS: traZODone 100 MG Tablet PO (21:10)
[2022-01-10 03:21] VITALS: BP 115/73; PULSE 75; RESP 16; TEMP 36.5; O2SAT 97
[2022-01-10] MEDS: Clindamycin HCl 150 MG Capsule 450 MG PO (06:13)
--- NOTE | 2022-01-10 10:06 | PCM.DC ---
Discharge Instructions Diet Discharge Diet: No restrictions Activity Discharge Activity: Return to Normal Activity Follow Up Care Test Results: Test results from this visit will be discussed in further detail at your follow-up appointment, if applicable. Discharge Plan Admission Admit Date/Time: 01/06/22 15:49 Primary Reason for Your Visit: Acute opiate withdrawal Attending Provider: Kelly Loza Primary Care Provider: Angella Booth,No Primary Consulting Providers: Fletcher Harris ; Geena Koehler Instructions Additional Instructions / Restrictions: You are strongly advised to continue to avoid use of opioids. You are also advised to stop smoking. Follow-up with your outpatient drug rehab program as scheduled. You have been prescribed antibiotics for your dental infection. Complete your antibiotics. Follow-up with a dentist (list of available places given) within a week Discharge Orders/Prescriptions Prescriptions: New metronidazole 500 mg tablet 500 mg PO TID 5 Days Qty: 15 RF: 0 levofloxacin 500 mg tablet 500 mg PO DAILY 5 Days Qty: 5 RF: 0 Referrals / Follow Up: Care Physician,No Primary [Primary Care Provider] - Within 2 Weeks Disposition Disposition (needs filled in before D/C Order can be placed): Home, Self Care
[2022-01-10 10:15] VITALS: BP 112/74; PULSE 79; RESP 16; TEMP 36.8; O2SAT 97
--- NOTE | 2022-01-10 10:17 | PCM.DC.SUM ---
Providers Date of Admission: 01/06/22 Date of Discharge: 01/10/22 Primary Care Physician: Kerline Primary Care Phys Reason For Visit: ACUTE OPIATE WITHDRAWAL Diagnosis Discharge Diagnosis (1) Desire for detoxification: Status: Acute (2) Opiate withdrawal: Status: Resolved Code(s): F11.23 - Opioid dependence with withdrawal Medications at Discharge Home Medications levofloxacin 500 mg PO DAILY 5 Days #5 tab 01/10/22 metronidazole 500 mg PO TID 5 Days #15 tab 01/10/22 Hospital Course Operations None Procedures None Summary of Care Provided Minutes Spent on Discharge: 25 Hospital Course: 31-year-old female with a past medical history of anxiety/depression, chronic IBS-C, chronic opioid use who comes in requesting for medical stabilization. Patient admits to using fentanyl. She used about 0.5 g a day. She last used 2 days prior to admission. [facility] and managed on the opioid withdrawal protocol. She was seen by the plant and equipment worker. During this hospital stay, patient had complained of dental caries. She was started on clindamycin. She was discharged on Flagyl and Levaquin for 5 more days making a total of 7 days of antibiotics. She was discharged to follow-up with inpatient drug rehab program. Physical Exam Narrative Physical exam: General: Alert, Oriented x3, Cooperative, No apparent distress HEENT: Atraumatic Oral: Moist Mucosa, right lower premolar dental caries Neck: Supple Lungs: Clear to auscultation Cardiovascular: HS I+II, regular, no murmurs Abdomen: Bowel Sounds Present, Soft, Non Tender Extremities: No edema Skin: No rashes, No breakdown Neurological: Grossly intact Psych/Mental Status: Appropriate Weight / BMI Weight Weight: 85.9 kg Body Mass Index (BMI) 32.5 ABG / Lab / Microbiology Data Result Diagrams: 01/06/22 15:50 01/06/22 15:50 D/C Instructions Discharge Diet: No restrictions Meaningful Use Info Meaningful Use Diagnoses (Choose all that apply): None applicable Discharge Plan Admission Admit Date/Time: 01/06/22 15:49 Primary Reason for Your Visit: Acute opiate withdrawal Attending Provider: Kelly Loza Primary Care Provider: Angella Physician,Kerline Primary Consulting Providers: Fletcher Harris ; Geena Koehler Instructions Additional Instructions / Restrictions: You are strongly advised to continue to avoid use of opioids. You are also advised to stop smoking. Follow-up with your outpatient drug rehab program as scheduled. You have been prescribed antibiotics for your dental infection. Complete your antibiotics. Follow-up with a dentist (list of available places given) within a week Discharge Orders/Prescriptions Prescriptions: New metronidazole 500 mg tablet 500 mg PO TID 5 Days Qty: 15 RF: 0 levofloxacin 500 mg tablet 500 mg PO DAILY 5 Days Qty: 5 RF: 0 Referrals / Follow Up: Care Physician,No Primary [Primary Care Provider] - Within 2 Weeks Disposition Disposition (needs filled in before D/C Order can be placed): Home, Self Care Charges/Coding Visit Charges Inpatient E&M: 66828 Disch Hosp
--- NOTE | 2022-01-10 10:20 | ADDICTION ---
This worker attempted to make pt a dental appointment due to her tooth pain. [facility] and [facility]. This worker gave pt all information for the resource in case she is d/c'd prior to the return phone call.
== END 2022-01-10 12:16 | disposition home or self-care (01) | DRG 772 ==
LOC: ED 15:53 → MS3 16:35
PROVIDERS: Nurse Practitioner; Admitting Provider Family Medicine; Emergency Provider Emergency Medicine; Visit Provider Internal Medicine
DX: F11.23 Opioid dependence with withdrawal (principal); B19.10 Unspecified viral hepatitis B without hepatic coma; B19.20 Unspecified viral hepatitis C without hepatic coma; K04.7 Periapical abscess without sinus; K02.9 Dental caries, unspecified; R03.0 Elevated blood-pressure reading, without diagnosis of hypertension; F32.A Depression, unspecified; F41.9 Anxiety disorder, unspecified; F17.210 Nicotine dependence, cigarettes, uncomplicated
CPT/HCPCS: 36415; 80053; 80307; 81001; 81025; 82077; 85025; 86703; 99284; 99406; H0012; J7120

== ENCOUNTER 2022-05-16 11:49 | Observation (INO) | payer MEDICAID, SELFPAY ==
[2022-05-16 11:50] VITALS: BP 134/85; PULSE 80; RESP 16; TEMP 36.6; O2SAT 99; BMI 31.7
--- NOTE | 2022-05-16 12:12 | EDS_ITS ---
HPI History of Present Illness Chief Complaint: Substance Abuse Detail of Chief Complaint: Requesting detox for fentanyl abuse. Informant: patient Onset/Context/Timing Onset: Month(s) Timing: Continuous Current Severity: Mild Maximum Severity: Mild Narrative Narrative: 31-year-old female history of anxiety and depression. History of hepatitis B and C. History of drug abuse. Last detox was earlier this year. States that she wishes to be detox from fentanyl abuse. Denies any IV use. Denies alcohol use. Last use was this morning. Denies any recent admission or hospitalization. Prior similar symptoms: Yes Recent Illness/Hospitalization: No [facility] Medical History Anxiety Depression Hepatitis B Hepatitis C Illicit drug use, continuous Opiate withdrawal Smoker Substance abuse Home Medications NK 05/16/22 [History Last Taken Unknown] Allergy/AdvReac Type Severity Reaction Status Date / Time Penicillins Allergy Hives Verified 05/16/22 11:49 Family History Father Throat cancer Surgical History No history of previous surgery Social History household members: family housing: house number of children: 3 Smoking Status: Current some day smoker tobacco type: cigarettes alcohol intake: never substance use type: amphetamines, opiates and IV drugs ROS ROS ED ROS Narrative Denies recent illness. Review of Systems ROS Unobtainable: Denies due to encephalopathy Constitutional Constitutional ED: Denies chills or fever(s) Eyes Eyes: Denies blurry vision ENT ENT ED: Denies ear pain Respiratory/Chest Respiratory/Chest: Denies cough or dyspnea Gastrointestinal Gastrointestinal: Denies abdominal pain Genitourinary Genitourinary ED: Denies dysuria Musculoskeletal Musculoskeletal: Denies arthralgias Integumentary Denies abscess Neurologic Neurologic: Denies headache(s) Psychiatric Psychiatric: Denies anxiety or depression Hematologic/Lymphatic Hematologic/Lymphatic: Denies easy bleeding Allergic/Immunologic Allergic/Immunologic ED: Denies mouth swelling EXAM Physical Exam Narrative Exam Narrative: 31-year-old female no acute distress. Vital signs stable afebrile. H EENT exam unremarkable. Neck nontender no lymphadenopathy. Lungs clear to auscultation bilaterally. Heart regular rhythm no murmur. Abdomen soft nontender. Moving all 4 extremities. No track alatorre. No cellulitis or abscesses. Back nontender. Neurologically she is awake and alert with no focal motor deficits. Const Vital Signs: 05/16/22 11:50 Temperature 97.8 F Temperature Source Temporal Pulse Rate 80 Respiratory Rate 16 Blood Pressure 134/85 H Blood Pressure Mean 101 Pulse Ox 99 Oxygen Delivery Method Room Air Positive well nourished, well developed and unkempt; Negative for cachectic or contractures General Appearance ED: unkempt, well developed and NAD; Negative for cachectic, contractures or pallor Nutritional Appearance: Negative for cachectic HEENT Reports moist mucous membranes; Denies dry mucous membranes atraumatic; Negative for trauma or tenderness Mouth ED: No dry mucous membranes Mouth: No dry mucous membranes Eyes PERRL and EOMs intact bilaterally General Eye ED: Negative for pale conjunctiva or scleral icterus Neck no lymphadenopathy, supple and no JVD Lymph Lymphatic: no lymphadenopathy noted; Negative for lymphadenopathy Chest Wall inspection of chest normal and palpation of chest normal Resp normal respiratory effort Effort and Inspection: Negative for retractions Auscultation: Negative for rales, rhonchi or wheezes Cardio regular rate, regular rhythm, S1 normal heart sound, S2 normal heart sound and no murmurs Rate: Negative for bradycardia Rhythm: Negative for abnormal rhythm Bruits: Negative for other GI soft to palpation, non-tender, non-distended and no masses Inspection: Negative for abdominal distention Palpation: Negative for tender Back/Spine no CVA tenderness General Back: Negative for CVA tenderness Cervical Spine: Negative for cervical spine tenderness Thoracic Spine / Upper Back: Negative for thoracic spinal tenderness Lumbar Spine / Lower Back: Negative for lumbar spinal tenderness Coccyx: Negative for swelling Extremity General Extremety ED: Negative for edema or tenderness General Extremity: Negative for edema Neuro oriented x3 and CN's II-XII intact bilaterally Sensorium / Orientation: alert, oriented to person, oriented to place and oriented to time; Negative for confused, lethargic or stuporous Speech: speech normal Motor Exam: strength 5/5 throughout Psych mental status grossly normal and thought process normal Appearance: unkempt Attitude: No belligerent Mood & Affect: Negative for depressed Skin General Skin Exam: Negative for jaundice or pallor Lesions: no lesions Rashes: no rashes Trauma: Negative for abrasion MDM MDM MDM Narrative Medical decision making narrative: Patient requesting detox for fentanyl abuse. Exam benign. Hospitalist on page for admission. Discharge Plan Triage Chief Complaint: Substance Abuse ED Provider: Raúl Huerta Dx/Rx/DC Orders Clinical Impression: Substance abuse, Desire for detoxification, Hepatitis C, Hepatitis B, Opioid abuse Prescriptions: No Action NK Primary Care Provider: Care Physician,No Primary Referrals: Care Physician,No Primary [Primary Care Provider] - Disposition Disposition: Acute Care Hospital [facility]
--- NOTE | 2022-05-16 12:39 | HP.PCM.HOS_ITS ---
HPI - General General Date of Admission: 05/16/22 HPI Narrative BAUDILIO SHARMA, is a 31 F who presents to the hospital 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 Her last use of fentanyl was this morning and she does inject. She does have a history of hepatitis B and C. She was recently admitted in December of this year where she was to follow-up with an inpatient drug rehab program. [facility] Medical History Anxiety Depression Hepatitis B Hepatitis C Illicit drug use, continuous Opiate withdrawal Smoker Substance abuse Home Medications NK 05/16/22 [History Last Taken Unknown] Allergy/AdvReac Type Severity Reaction Status Date / Time Penicillins Allergy Hives Verified 05/16/22 11:49 Family History Father Throat cancer Surgical History No history of previous surgery Social History household members: family housing: house number of children: 3 Smoking Status: Current some day smoker tobacco type: cigarettes alcohol intake: never substance use type: amphetamines, opiates and IV drugs ROS Constitutional Constitutional: Denies chills, fatigue, fever(s) or malaise Eyes Eyes: Denies blurry vision ENT HEENT: Denies headache(s) or nasal discharge Cardiovascular Cardiovascular: Denies chest pain, dyspnea on exertion or syncope Respiratory/Chest Respiratory/Chest: Denies cough, shortness of breath at rest or shortness of breath with exertion Gastrointestinal Gastrointestinal: Denies constipation, diarrhea, nausea or vomiting Genitourinary Genitourinary: Denies dysuria Neurologic Neurologic: Denies focal weakness, numbness or tremor(s) Psychiatric Psychiatric: Reports other Details: Restless ; Denies anxiety or depression Vital Signs Vital Signs Vital Signs: 05/16/22 11:50 Temperature 97.8 F Temperature Source Temporal Pulse Rate 80 Respiratory Rate 16 Blood Pressure 134/85 H Blood Pressure Mean 101 Pulse Ox 99 Oxygen Delivery Method Room Air Weight Weight: 185 lb Body Mass Index (BMI) 31.7 Physical Exam Narrative General: Alert, Oriented x3, Cooperative, No apparent distress HEENT: Atraumatic, PERRLA, EOMI, Normocephalic Oral: Moist Mucosa Neck: Supple, No JVD Lungs: Clear to auscultation, Normal air movement, No rhonchi, No wheeze, No rales Cardiovascular: Regular rate, Regular Rhythm, Normal S1, Normal S2, No murmurs Abdomen: Soft, Non Tender, Non-Distended, No Hepato-splenomegaly Extremities: No edema, Capillary Refill Less than 3 Seconds Skin: No rashes, No breakdown Musculoskeletal: No Tenderness to Palpation of Joints or Extremities Neurological: Cranial nerves II-XII grossly intact, Motor Exam 5/5 strength throughout, Sensory exam intact to light touch and pain Psych/Mental Status: Normal Affect, restless, itchy and scratching everywhere Assessment & Plan Assessment/Plan (1) Opioid abuse: PLAN: Plan 1. Fentanyl abuse/hepatitis B and C/tobacco abuse ? We will place her on the opiate withdrawal protocol ? We will have her follow-up with 180 ? She does not qualify for any treatments for hepatitis B and C at this time since she continues to use ? We will provide a nicotine patch if necessary, discussed cessation DVT: Ambulation Charges/Coding Visit Charges Inpatient E&M: 50274 Init Hosp L2
--- NOTE | 2022-05-16 12:41 | CM.ED ---
Social Work Consult: Substance Abuse Referral source: Self referral due to reason for visit. This sr. social media & mobile manager met with patient in room. Introduced self and sr. social media & mobile manager role. Patient agreeable to speak with this sr. social media & mobile manager. Patient confirms to be seeking medical management of withdrawal symptoms. Patient reports plan to admit to [facility] residential program after completing [facility]. Patient verbally agreeing to RAMP contract. Patient with no question. Active support and listening provided. Telephone call to Addiction TherapistNina. Nina updated on patient admission to acute care unit. No further services requested or indicated. Rajesh Jiménez MSW, FELICITY
[2022-05-16 12:44] VITALS: BP 112/60; PULSE 91; RESP 18; TEMP 36.7; O2SAT 100
[2022-05-16 14:00] VITALS: BP 119/61; PULSE 73; RESP 16; TEMP 36.3; O2SAT 100
[2022-05-16 14:08] VITALS: BMI 32.3
[2022-05-16] MEDS: hydrOXYzine PAM 25 MG Capsule 50 MG PO (15:23)
[2022-05-16] MEDS: Buprenorphine HCl 2 MG TAB.SUBL SL ×2 (15:23→23:01)
[2022-05-16] MEDS: cloNIDine HCl 0.1 MG Tablet PO (15:23)
[2022-05-16 17:00] VITALS: BP 118/95; PULSE 92; RESP 16; TEMP 36.6; O2SAT 98
[2022-05-16] MEDS: Dicyclomine 10 MG Capsule 20 MG PO (17:06)
[2022-05-16 21:00] VITALS: BP 123/70; PULSE 78; RESP 18; TEMP 36.2; O2SAT 99
[2022-05-16] MEDS: Methocarbamol 750 MG Tablet 1500 MG PO (23:03)
[2022-05-17 03:24] VITALS: BP 112/70; PULSE 74; RESP 16; TEMP 36.4; O2SAT 99
[2022-05-17] MEDS: Buprenorphine HCl 2 MG TAB.SUBL SL ×3 (06:35→23:25)
--- NOTE | 2022-05-17 07:59 | PCM.PN.HOSP ---
Subjective Subjective Doing well, no issues overnight. Cina score 0 Objective Data Objective Data Vital Signs: Vital Signs Temp Pulse Resp BP Pulse Ox O2 Del Method 97.5 F L 74 16 112/70 99 Room Air 05/17/22 03:24 05/17/22 03:24 05/17/22 03:24 05/17/22 03:24 05/17/22 03:24 05/17/22 07:54 Oxygen Delivery Method Room Air Weight: 188 lb 8 oz Body Mass Index (BMI) 32.3 Intake & Output: Intake and Output for Last 24 Hours 05/16/22 05/17/22 05/18/22 03:59 03:59 03:59 Intake Total 600 / 600 Balance 600 / 600 Physical Exam Narrative General: Alert, Oriented x3, Cooperative, No apparent distress HEENT: Atraumatic, PERRLA, EOMI, Normocephalic Oral: Moist Mucosa Neck: Supple, No JVD Lungs: Clear to auscultation, Normal air movement, No rhonchi, No wheeze, No rales Cardiovascular: Regular rate, Regular Rhythm, Normal S1, Normal S2, No murmurs Abdomen: Soft, Non Tender, Non-Distended, No Hepato-splenomegaly Extremities: No edema, Capillary Refill Less than 3 Seconds Skin: No rashes, No breakdown Musculoskeletal: No Tenderness to Palpation of Joints or Extremities Neurological: Cranial nerves II-XII grossly intact, Motor Exam 5/5 strength throughout, Sensory exam intact to light touch and pain Psych/Mental Status: Normal Affect, appropriate Assessment & Plan Assessment/Plan (1) Opioid abuse: PLAN: Plan 1. Fentanyl abuse/hepatitis B and C/tobacco abuse ? We will place her on the opiate withdrawal protocol ? We will have her follow-up with [facility] inpatient ? She does not qualify for any treatments for hepatitis B and C at this time since she continues to use ? We will provide a nicotine patch if necessary, discussed cessation DVT: Ambulation Charges/Coding Visit Charges Inpatient E&M: 64114 Subs Hosp L2
[2022-05-17 09:05] VITALS: BP 101/60; PULSE 87; RESP 16; TEMP 36.7; O2SAT 99
--- NOTE | 2022-05-17 14:00 | ADDICTION ---
This editorial writer met with PT to conduct ASAM, MSE, AUDIT, DUDIT assessments and to plan for d/c. PT A+Ox4 and participated actively. All assessments completed, faxed to [facility] and placed in PT's chart. PT plans to f/u at [facility] for residential treatment services on 05/18 or 05/19 depending on medical clearance. PT will need transportation to [facility] post d/c from [facility].
[2022-05-17 15:05] VITALS: BP 110/66; PULSE 74; RESP 16; TEMP 36.8; O2SAT 99
[2022-05-17 22:00] VITALS: BP 113/67; PULSE 88; RESP 18; TEMP 36.8; O2SAT 98
[2022-05-18 04:00] VITALS: BP 124/65; PULSE 71; RESP 17; TEMP 36.8; O2SAT 98
[2022-05-18] MEDS: Buprenorphine HCl 2 MG TAB.SUBL SL ×2 (06:39→15:12)
[2022-05-18 09:22] VITALS: BP 130/75; PULSE 79; RESP 16; TEMP 37; O2SAT 98
--- NOTE | 2022-05-18 10:32 | PCM.PN.HOSP ---
Subjective Subjective Doing well, Cina score of 0. Plan is still for discharge toe [facility] inpatient residential treatment Objective Data Objective Data Vital Signs: Vital Signs Temp Pulse Resp BP Pulse Ox O2 Del Method 98.6 F 79 16 130/75 H 98 Room Air 05/18/22 09:22 05/18/22 09:22 05/18/22 09:22 05/18/22 09:22 05/18/22 09:22 05/18/22 09:22 Oxygen Delivery Method Room Air Weight: 188 lb 8 oz Body Mass Index (BMI) 32.3 Intake & Output: Intake and Output for Last 24 Hours 05/17/22 05/18/22 05/19/22 03:59 03:59 03:59 Intake Total 2480 / 2480 640 / 640 Balance 2480 / 2480 640 / 640 Physical Exam Narrative General: Alert, Oriented x3, Cooperative, No apparent distress HEENT: Atraumatic, PERRLA, EOMI, Normocephalic Oral: Moist Mucosa Neck: Supple, No JVD Lungs: Clear to auscultation, Normal air movement, No rhonchi, No wheeze, No rales Cardiovascular: Regular rate, Regular Rhythm, Normal S1, Normal S2, No murmurs Abdomen: Soft, Non Tender, Non-Distended, No Hepato-splenomegaly Extremities: No edema, Capillary Refill Less than 3 Seconds Skin: No rashes, No breakdown Musculoskeletal: No Tenderness to Palpation of Joints or Extremities Neurological: Cranial nerves II-XII grossly intact, Motor Exam 5/5 strength throughout, Sensory exam intact to light touch and pain Psych/Mental Status: Normal Affect, appropriate Assessment & Plan Assessment/Plan (1) Opioid abuse: PLAN: Plan 1. Fentanyl abuse/hepatitis B and C/tobacco abuse ? We will place her on the opiate withdrawal protocol ? We will have her follow-up with 180 inpatient ? She does not qualify for any treatments for hepatitis B and C at this time since she continues to use ? We will provide a nicotine patch if necessary, discussed cessation DVT: Ambulation Charges/Coding Visit Charges Inpatient E&M: 62219 Subs Hosp L2
[2022-05-18 15:11] VITALS: BP 136/74; PULSE 94; RESP 16; TEMP 36.7; O2SAT 97
[2022-05-18 21:10] VITALS: BP 124/76; PULSE 72; RESP 16; TEMP 36.3; O2SAT 97
[2022-05-18] MEDS: Acetaminophen 325 MG Tablet 650 MG PO (21:11)
[2022-05-19 03:10] VITALS: BP 119/77; PULSE 66; RESP 18; TEMP 36.8; O2SAT 95
[2022-05-19] MEDS: Buprenorphine HCl 2 MG TAB.SUBL SL (03:11)
--- NOTE | 2022-05-19 09:04 | DCINST_ITS ---
Discharge Instructions Diet Discharge Diet: No restrictions Follow Up Care Test Results: Test results from this visit will be discussed in further detail at your follow- up appointment, if applicable. Discharge Plan Admission Admit Date/Time: 05/16/22 12:37 Attending Provider: James Otero Primary Care Provider: Care Physician,No Primary Discharge Orders/Prescriptions Prescriptions: No Action NK Referrals / Follow Up: Care Physician,No Primary [Primary Care Provider] - Disposition Disposition (needs filled in before D/C Order can be placed): Home, Self Care
[2022-05-19 09:11] VITALS: BP 119/77; PULSE 66; RESP 18; TEMP 36.8; O2SAT 95
--- NOTE | 2022-05-19 15:02 | PCM.DC.SUM ---
Providers Date of Admission: 05/16/22 Primary Care Physician: No Primary Care Phys Reason For Visit: OPIATE DETOX Diagnosis Discharge Diagnosis (1) Opioid abuse: Status: Acute Code(s): F11.10 - Opioid abuse, uncomplicated Plan 1. Fentanyl abuse/hepatitis B and C/tobacco abuse ? We will place her on the opiate withdrawal protocol ? We will have her follow-up with 180 inpatient ? She does not qualify for any treatments for hepatitis B and C at this time since she continues to use ? We will provide a nicotine patch if necessary, discussed cessation DVT: Ambulation Medications at Discharge Home Medications NK 05/16/22 Hospital Course Operations None Procedures None Summary of Care Provided Minutes Spent on Discharge: 36 Hospital Course: Per HPI: BAUDILIO SHARMA, is a 31 F who presents to the hospital 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? Her last use of fentanyl was this morning and she does inject.? She does have a history of hepatitis B and C.? She was recently admitted in December of this year where she was to follow-up with an inpatient drug rehab program. Hospital Course: 1. Fentanyl abuse/hepatitis B and C/tobacco abuse?31-year-old female presents to the hospital requesting opiate detox. She apparently had gone to [facility] to go into inpatient rehab given her recent use and recommended detox first. She did complete the treatment protocol today and I discussed with her the plan to discharge her for continued inpatient rehab she expressed understanding of the risk benefits being discharged today and would like to go today if possible. We did discuss cessation of tobacco products and she has done fairly well without any nicotine replacement. Physical Exam Narrative General: Alert, Oriented x3, Cooperative, No apparent distress HEENT: Atraumatic, PERRLA, EOMI, Normocephalic Oral: Moist Mucosa Neck: Supple, No JVD Lungs: Clear to auscultation, Normal air movement, No rhonchi, No wheeze, No rales Cardiovascular: Regular rate, Regular Rhythm, Normal S1, Normal S2, No murmurs Abdomen: Soft, Non Tender, Non-Distended, No Hepato-splenomegaly Extremities: No edema, Capillary Refill Less than 3 Seconds Skin: No rashes, No breakdown Musculoskeletal: No Tenderness to Palpation of Joints or Extremities Neurological: Cranial nerves II-XII grossly intact, Motor Exam 5/5 strength throughout, Sensory exam intact to light touch and pain Psych/Mental Status: Normal Affect, appropriate Weight / BMI Weight Weight: 188 lb 8 oz Body Mass Index (BMI) 32.3 D/C Instructions Discharge Diet: No restrictions Meaningful Use Info Meaningful Use Diagnoses (Choose all that apply): None applicable Discharge Plan Admission Admit Date/Time: 05/16/22 12:37 Attending Provider: James Otero Primary Care Provider: Care Physician,No Primary Discharge Orders/Prescriptions Prescriptions: No Action NK Referrals / Follow Up: Care Physician,No Primary [Primary Care Provider] - Disposition Disposition (needs filled in before D/C Order can be placed): Home, Self Care Charges/Coding Visit Charges OBSV E&M: 10374 Observation care discharge
== END 2022-05-19 09:22 | disposition home or self-care (01) ==
LOC: ED 12:57 → PCU 05-17 08:46
PROVIDERS: Admitting Provider Family Medicine; Emergency Provider Emergency Medicine; Visit Provider Family Medicine
DX: F11.23 Opioid dependence with withdrawal (principal); F17.210 Nicotine dependence, cigarettes, uncomplicated; B19.10 Unspecified viral hepatitis B without hepatic coma; B19.20 Unspecified viral hepatitis C without hepatic coma
CPT/HCPCS: 99283; 99406; H0012

== ENCOUNTER 2022-07-27 13:50 | Emergency (ER) | payer MEDICAID, SELFPAY ==
[2022-07-27 13:50] VITALS: BP 142/96; PULSE 109; RESP 18; TEMP 36.6; O2SAT 100; BMI 34.3
--- NOTE | 2022-07-27 14:11 | EKG12_ITS ---
Test Reason : CP Blood Pressure : / mmHG Vent. Rate : 102 BPM Atrial Rate : 102 BPM P-R Int : 122 ms QRS Dur : 082 ms QT Int : 320 ms P-R-T Axes : 049 061 040 degrees QTc Int : 417 ms Sinus tachycardia Otherwise normal ECG Confirmed by JOANA MCCULLOUGH, MARIAN ([id number]), art editor NILDA PALMA ([id number]) on 07/29/2022 10:30:12 A M Referred By: AMBREEN Confirmed By:GEORGE BERNARD MD
[2022-07-27 15:30] VITALS: O2SAT 100
--- NOTE | 2022-07-27 15:37 | EX.ED.DYSGE1 ---
HPI History of Present Illness Chief Complaint: Cold Sx Informant: patient Narrative Narrative: 31-year-old female presents to the emergency room out of concerns for COVID-19. The patient states that she woke this morning with fever body aches cough rhinorrhea and headache. She denies vomiting and diarrhea. She states that most of her roommates have COVID-19 and she would like to get a prescription for pack Slo-Bid as they are on them. PFSH PFSH Medical History Anxiety Depression Hepatitis B Hepatitis C Illicit drug use, continuous Opiate withdrawal Opioid abuse Smoker Substance abuse Home Medications nirmatrelvir 300 mg (150 mg x2)-ritonavir 100 mg tablet,dose pack(EUA) (Paxlovid) See Rx Instructions PO .COMPLEX #30 tabs 07/27/22 [Rx Last Taken Unknown] Allergy/AdvReac Type Severity Reaction Status Date / Time Penicillins Allergy Hives Verified 07/27/22 13:52 Family History Father Throat cancer Surgical History No history of previous surgery Social History household members: family housing: house number of children: 3 Smoking Status: Current every day smoker tobacco type: cigarettes alcohol intake: never substance use type: amphetamines, opiates and IV drugs ROS ROS ED Constitutional Constitutional ED: Reports chills and fever(s); Denies weight loss Eyes Eyes: Denies change in vision or diplopia ENT ENT ED: Reports rhinorrhea and sore throat; Denies ear pain Cardiovascular Cardiovascular: Denies chest pain, orthopnea, palpitations or racing heartbeat Respiratory/Chest Respiratory/Chest: Reports cough; Denies dyspnea or orthopnea Gastrointestinal Gastrointestinal: Denies abdominal pain, diarrhea, nausea or vomiting Genitourinary Genitourinary ED: Denies dysuria, hematuria or urinary frequency Musculoskeletal Musculoskeletal: Reports myalgias; Denies arthralgias Integumentary Denies abscess or rash Neurologic Neurologic: Reports headache(s); Denies weakness Psychiatric Psychiatric: Denies anxiety, depression, suicidal ideation or suicidal thoughts Endocrine Endocrinology: Denies polydipsia, polyphagia or polyuria Allergic/Immunologic Allergic/Immunologic ED: Denies mouth swelling, tongue swelling or urticaria EXAM Physical Exam Const Vital Signs: 07/27/22 13:50 07/27/22 15:30 Temperature 97.8 F Temperature Source Temporal Pulse Rate 109 H Respiratory Rate 18 Respiratory Effort Short of Breath Respiratory Depth Normal Respiratory Pattern Normal Blood Pressure 142/96 H Blood Pressure Mean 111 Pulse Ox 100 Oxygen Delivery Method Room Air Room Air Positive well nourished and well developed General Appearance ED: well developed HEENT Reports normocephalic, head/scalp atraumatic and moist mucous membranes Eyes PERRL and EOMs intact bilaterally Neck no lymphadenopathy, supple and no JVD Resp normal respiratory effort and clear to auscultation bilaterally Cardio regular rate, regular rhythm and no murmurs GI normal to inspection, nondistended, normoactive bowel sounds and non-tender Palpation: soft Back/Spine no CVA tenderness and normal ROM Extremity normal to inspection General Extremety ED: Negative for edema General Extremity: Negative for edema Neuro oriented x3 and CN's II-XII intact bilaterally Sensorium / Orientation: alert Motor Exam: strength 5/5 throughout Psych mental status grossly normal Mood & Affect: Negative for depressed or tearful Skin no rashes or lesions noted and no wounds MDM MDM MDM Narrative Medical decision making narrative: Patient clinically appears well. She is COVID-19 positive. We talked about risk benefits of pack Slo-Bid and she wants to proceed with it. She understands that she may have rebound COVID as well as nausea and vomiting. I will also send for some Zofran. Return if worsening or concerns Discharge Plan Triage Chief Complaint: Cold Sx ED Provider: Taye Alarcon Dx/Rx/DC Orders Clinical Impression: COVID-19 Instructions: Coronavirus Disease 2019 (COVID-19): Caring for Yourself or Others Prescriptions: New Paxlovid (EUA) 300 mg (150 mg x 2)-100 mg tablets,dose pack See Rx Instructions .ROUTE .COMPLEX Qty: 30 0RF Rx Instructions: take TWO 150 mg tablets of nirmatrelvir with ONE 100 mg tablet of ritonavir twice daily for 5 days Primary Care Provider: Care Physician,No Primary Referrals: Care Physician,No Primary [Primary Care Provider] - Disposition Disposition: Home, Self Care
[2022-07-27 15:53] VITALS: PULSE 98; RESP 17; O2SAT 100
== END 2022-07-27 15:54 | disposition home or self-care (01) ==
PROVIDERS: Emergency Provider Emergency Medicine; Visit Provider Emergency Medicine
DX: U07.1 COVID-19 (principal); R51.9 Headache, unspecified
CPT/HCPCS: 87428; 93005; 99282

== ENCOUNTER 2022-12-13 13:33 | Emergency (ER) | payer MEDICAID, SELFPAY ==
[2022-12-13 13:34] VITALS: BP 104/80; PULSE 120; RESP 16; TEMP 36.6; O2SAT 100; BMI 33.0
--- NOTE | 2022-12-13 14:28 | CT_ITS ---
STUDY: CT ABDOMEN AND PELVIS WITH CONTRAST REASON FOR EXAM: Female, 32 years old. low abd pain RADIATION DOSAGE (If Supplied By Facility): CTDIvol = ( 16.49 ) mGy, DLP = ( 1088.42 ) mGycm TECHNIQUE: Transaxial images were obtained from the dome of the diaphragm to the symphysis pubis without oral contrast. IV 100mL Isovue-300 was administered. Sagittal and coronal images were reconstructed. Individualized dose optimization techniques were used for this CT. COMPARISON: 01/08/2019 CT abdomen and pelvis FINDINGS: The visualized lung bases are unremarkable. The visualized portions of the heart are within normal limits. Normal liver. Normal gallbladder and extrahepatic biliary system. Normal spleen. Normal pancreas. Normal bilateral adrenal glands. Punctate right renal nonobstructing nephrolith is present. Normal left kidney. Normal visualized stomach. Normal small intestine. Normal colon. The appendix is visualized and appears normal. Normal abdominal aorta. Normal inferior vena cava. Normal retroperitoneum. Normal urinary bladder. There is a large left adnexal heterogeneous mass with central cystic component measuring 9.9 x 7.5 x 8.4 cm. There is mild layering pelvic fluid present. Normal abdominal wall. Normal osseous structures. CT/Abdomen/Pelvis W IV Cont ONLY IMPRESSION: Left adnexal heterogeneous and partially cystic mass measuring 9.9 x 7.5 x 8.4 cm concerning for underlying ovarian neoplasm. Other considerations could include underlying enlarged ovarian torsion trauma. Recommend MRI imaging with contrast and baseline imaging with pelvic ultrasound with gynecologic consultation for further assessment and management. Electronically Signed: Juancho Dalton DO at 16:15 EDT ,
--- NOTE | 2022-12-13 14:33 | ED.VIS.GI ---
HPI HPI - GI History of Present Illness Chief Complaint: Abd Pain Informant: patient Narrative Narrative: Presents progressive lower abdominal pain started on the left side since a.m. this morning. She felt fine going to bed. Pain constant progressed took ibuprofen 2 hours ago with mild improvement. No history of similar. Denies abdominal surgeries. Last menstrual period a month ago. Last bowel movement 2 days ago this is typical for her. Denies urinary symptoms. Denies nausea, vomiting, diarrhea. Denies any history ovarian cysts. Allergies to penicillin as a child. Prior similar symptoms: No PFSH PFSH Medical History Anxiety Depression Hepatitis B Hepatitis C Illicit drug use, continuous Opiate withdrawal Opioid abuse Smoker Substance abuse Home Medications NK 12/13/22 [History Last Taken Unknown] Allergy/AdvReac Type Severity Reaction Status Date / Time Penicillins Allergy Hives Verified 12/13/22 13:36 Family History Father Throat cancer Surgical History No history of previous surgery Social History household members: family housing: house number of children: 3 Smoking Status: Current every day smoker tobacco type: cigarettes alcohol intake: never substance use type: amphetamines, opiates and IV drugs ROS ROS ED Constitutional Constitutional ED: Denies chills, fever(s) or sweats Eyes Eyes: Denies change in vision ENT ENT ED: Denies dysphagia or sore throat Cardiovascular Cardiovascular: Denies chest pain, leg edema, palpitations or racing heartbeat Respiratory/Chest Respiratory/Chest: Denies cough, dyspnea or dyspnea on exertion Gastrointestinal Gastrointestinal: Reports abdominal pain; Denies diarrhea, nausea or vomiting Genitourinary Genitourinary ED: Denies dysuria, hematuria or urinary frequency Musculoskeletal Musculoskeletal: Denies back pain, extremity pain or neck pain Integumentary Denies rash or wounds Neurologic Neurologic: Denies headache(s), paresthesias or weakness EXAM Physical Exam Const Vital Signs: 12/13/22 13:34 12/13/22 17:50 12/13/22 19:07 Temperature 98 F Temperature Source Temporal Pulse Rate 120 H 77 82 Respiratory Rate 16 14 14 Blood Pressure 104/80 103/63 113/73 Blood Pressure Mean 88 76 86 Pulse Ox 100 100 100 Oxygen Delivery Method Room Air Room Air Room Air Positive well nourished and well developed General Appearance ED: well developed and NAD HEENT HEENT Narrative: Mild dry mucosal membranes normocephalic and atraumatic Eyes PERRL, EOMs intact bilaterally and conjunctivae normal General Eye ED: Yes normal appearance of both eyes Neck no lymphadenopathy and supple General: Negative for tenderness Chest Wall Chest: Negative for tenderness Resp normal respiratory effort and normal air movement Effort and Inspection: symmetric chest movement; Negative for respiratory distress Cardio regular rhythm and no murmurs Rate: tachycardic Peripheral Pulses: pulses 2+ throughout GI normal to inspection, nondistended, normoactive bowel sounds GI Narrative: Tender palpation to lower quadrants left greater than right no guarding or rebound. Negative Benson's. Palpation: Negative for guarding or rebound tenderness present Back/Spine no CVA tenderness and no thoracic nor lumbar tenderness Extremity normal to inspection General Extremety ED: Negative for edema or tenderness General Extremity: Negative for edema Neuro oriented x3 and no sensory deficits noted Sensorium / Orientation: awake and alert Skin no rashes or lesions noted and no wounds MDM MDM MDM Narrative Medical decision making narrative: Interventions / MDM: Differential diagnosis: Diverticulitis, appendicitis, ovarian cyst Diagnosis considered but do not suspect: N/A My EKG interpretation: N/A Imaging independently reviewed and interpreted by myself: CT abdomen pelvis with IV contrast: Large left adnexal cyst/mass also read by radiology of 10 centimeters. Ultrasound transvaginal 10 cm left ovary central cystic mass concerning for cystic adenoma positive flow however impending torsion was concern per radiology. External documents reviewed: N/A Test considered but not ordered:N/A ED course: Patient tender on exam progressive pain since 8 AM. IV established morphine Zofran fluids given. Due to lower quadrant pain bilaterally initial labs with CT scan ordered. Abs were normal negative urine noted leukocytes have no other findings denies urinary symptoms. CT scan per radiology and after my review notes concerning large heterogeneous mass left adnexa. Patient sent for ultrasound out torsion. In the interim outpatient with ultrasound discussed with on-call director of housing and energy services Dr. Sendy Dobbs, she reports with the large size recommended transfer to tertiary center for backup as there is no backup for her for this. Multiple evaluations patient stable while laying down, she gets tenderness on palpation of the pelvis however no guarding or rebound. Ultrasound results cystic adenoma 10 cm ovary with a 5 cm central cysts concerning for cystic adenoma with impending torsion was reported. I did read discussed with Dr. Dobbs after ultrasound still recommended transfer as she would not build to manage here. I spoke with [facility] transfer line and director of housing and energy services Dr. Garcia discussed patient's findings. She is comfortable reevaluation patient initially wanted to go home and not be transferred. She stated patient would like to go home, she denied any significant pain she can follow-up with her in the next day. If she is concerned she can go to the ED for them to evaluate. Discussed the plans with the patient and she would like to go home, her mom is present. They understand if sudden severe symptoms to return admitted to the ED for symptom control and likely transfer to [facility] for evaluation and if surgical intervention is needed there. All other questions were answered. Re-evaluation: stable Disposition discussed with patient/family/significant other: Patient significant other Case discussed with consulting clinician: Gynecology Dr. Sendy Dobbs, [facility] gynecology Dr. Garcia Lab Data Attestation: I reviewed the patient's lab results. Labs: Laboratory Results - last 24 hr 12/13/22 12/13/22 12/13/22 14:45 14:45 14:45 WBC 10.4 RBC 4.35 Hgb 13.5 Hct 41.1 MCV 94.5 MCH 31.0 MCHC 32.8 RDW Std Deviation 44.4 H RDW Coeff of Fanta 12.9 Plt Count 364 MPV 10.1 Immature Gran % (Auto) 0.500 Neut % (Auto) 75.5 H Lymph % (Auto) 15.5 L Wagoner % (Auto) 6.5 Eos % (Auto) 1.5 Baso % (Auto) 0.5 Absolute Neuts (auto) 7.8 H Absolute Lymphs (auto) 1.61 Nucleated RBC % 0 Sodium 138 Potassium 4.0 Chloride 109 H Carbon Dioxide 24.0 Anion Gap 5 BUN 23 H Creatinine 1.01 Estim Creat Clear Calc 67.77 Est GFR (MDRD) Af Amer 81 Est GFR (MDRD) Non-Af 67 BUN/Creatinine Ratio 22.8 H Glucose 122 H Calcium 9.0 Total Bilirubin 0.50 AST 11 L ALT 15 Alkaline Phosphatase 68 Total Protein 7.4 Albumin 3.7 Globulin 3.7 Albumin/Globulin Ratio 1.0 Lipase 63 Urine Color Yellow Urine Clarity Clear Urine pH 6.0 Ur Specific [place] 1.025 Urine Protein 30 H Urine Glucose (UA) Normal Urine Ketones 5 H Urine Occult Blood Negative Urine Nitrite Negative Urine Bilirubin 1 H Urine Urobilinogen 1 H Ur Leukocyte Esterase 25 H Urine RBC 0 SEEN Urine WBC 5-10 SEEN Ur Squamous Epith Cells 0-5 SEEN Urine Bacteria 1+ Hyaline Casts 0-5 SEEN Urine Mucus 0 SEEN Urine Test Negative Radiography Diagnostic Testing: Clinical Impression(s) from Imaging Studies Abdomen/Pelvis CT 12/13/22 14:28 IMPRESSION: Left adnexal heterogeneous and partially cystic mass measuring 9.9 x 7.5 x 8.4 cm concerning for underlying ovarian neoplasm. Other considerations could include underlying enlarged ovarian torsion trauma. Recommend MRI imaging with contrast and baseline imaging with pelvic ultrasound with gynecologic consultation for further assessment and management. Electronically Signed: Juancho Dalton DO at 16:15 EDT , Transvaginal US 12/13/22 16:24 IMPRESSION: Enlarged left ovary with central dominant cyst with maximum ovarian dimension of 10 cm and central cyst measurement of 5 cm with noted peripheral blood flow within the parenchyma. Findings are concerning for underlying cystadenoma with impending ovarian torsion not excluded due to ovarian size (presence of arterial venous blood flow does not exclude possibility of ovarian torsion). Recommend gynecologic consultation for further management. Electronically Signed: Juancho Dalton DO at 18:15 EDT , Discharge Plan Triage Chief Complaint: Abd Pain Other Complaint: Complaint ED Provider: Jean Carlos Stern Dx/Rx/DC Orders Clinical Impression: Ovarian cyst, Pelvic pain Instructions: ED Ovarian Cyst Prescriptions: No Action NK Primary Care Provider: Care Physician,No Primary Referrals: Care Physician,No Primary [Primary Care Provider] - Activity Restrictions/Additional Instructions: PatientYour CT and ultrasound findings concerning for 10 cm cystic adenoma, left ovarian 10 cm you have a cyst of 5 cm inside you are at risk for torsion's. Discussed with Dr. Garcia at [facility], . 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 Return if any sudden worsening symptoms. Disposition Disposition: Home, Self Care Discharge Date/Time: 12/13/22 22:19
[2022-12-13] MEDS: 0.9% Normal Saline 1,000 ML 1000 ML IV (14:40)
[2022-12-13] MEDS: Ondansetron 4 MG/2 ML Vial IV (14:45)
[2022-12-13] MEDS: Morphine 4 MG/ML Syringe IV (14:45)
[2022-12-13 15:07] LABS: Mucous, Urine 0 SEEN /hpf (<or=2+); Red Blood Cells-Urine 0 SEEN /hpf (0-5)
[2022-12-13 15:11] LABS: Absolute Lymphocyte Count 1.61 X10^3/uL (0.83-4.51); Absolute Neutrophil Count 7.8 X10^3/uL (2.0-7.7); Basophil# 0.05 X10^3/uL; Basophil% 0.5 % (0-1); Eosinophil# 0.16 X10^3/uL; Eosinophils% 1.5 % (0-5); Hematocrit 41.1 % (37-47); Hemoglobin 13.5 g/dL (12.0-15.0); Lymphocyte # 1.61 X10^3/ul (0.83-4.51); Lymphocyte % 15.5 % (19-41); Mean Corp Hgb Conc 32.8 g/dL (32-36); Mean Corpuscular Volume 94.5 fL (81-99); Mean Platelet Vol. 10.1 fl (6.2-12.0); Monocyte# 0.67 X10^3/uL; Monocyte% 6.5 % (0-10); NRBC Flagged by Analyzer 0 % (0-5); Neutrophil # 7.83 X10^3/uL (2.7-7.7); Neutrophil % 75.5 % (47-70); Platelet Count 364 K/mm3 (150-450); RBC Distribution Width CV 12.9 % (11.6-14.6); RBC Distribution Width SD 44.4 fl (35.1-43.9); Red Blood Count 4.35 M/mm3 (4.2-5.4); White Blood Count 10.4 K/mm3 (4.4-11.0)
[2022-12-13 15:14] LABS: Color, Urine Yellow (Yellow); Glucose, Dipstick Normal (Normal); Ketone-Dipstick 5 mg/dl (Negative); Leukocyte Esterase-Dipstick 25 /ul (Negative); Nitrite-Dipstick Negative (Negative); Occult Blood-Urine Negative /ul (Negative); Protein-Dipstick 30 mg/dl (Negative); Specific Gravity, Urine 1.025 (1.002-1.030); Urine Bilirubin Dipstick 1 mg/dL (Negative); Urine Clarity Clear (Clear); Urine Urobilinogen 1 mg/dl (Normal)
[2022-12-13 15:22] LABS: White Blood Cells 5-10 SEEN /hpf (0-5)
[2022-12-13 15:23] LABS: Bacteria 1+ /hpf (None Seen); Hyaline Cast 0-5 SEEN /lpf (0-5); Internal QC Validated? YES +Cl - CLEAR BKGD; Pregnancy, Urine Negative Negative; Squamous Epithelial Cells - UA 0-5 SEEN /hpf (5-10)
[2022-12-13 15:26] LABS: AST(SGOT) 11 U/L (15-37); Alanine Aminotransfer ALT/SGPT 15 U/L (13-56); Albumin, Serum 3.7 g/dL (3.2-5.0); Alkaline Phosphatase 68 U/L (45-117); Anion Gap 5 (5-15); BUN 23 mg/dL (7-18); BUN/Creat Ratio 22.8 RATIO (10-20); Chloride 109 mmol/L (98-107); Creatinine, Serum 1.01 mg/dL (0.55-1.02); EST Glomerular Filtration Rate 67 mL/min (>60); Est Glom Filt Rate - Afr Amer 81 mL/min (>60); Estimated Creatinine Clearance 67.77 ml/min; Globulin 3.7 g/dL (2.2-4.2); Glucose 122 mg/dL (74-106); Lipase 63 U/L (13-75); Protein, Total 7.4 g/dL (6.4-8.2); Sodium Level 138 mmol/L (136-145)
--- NOTE | 2022-12-13 16:24 | US_ITS ---
STUDY: ULTRASOUND TRANSVAGINAL CLINICAL: Female, 32 years old. pelvic pain -- r/o torsion TECHNIQUE: Transvaginal COMPARISON: None. FINDINGS: Normal uterine size measuring 9.7 x 6.2 x 4.9 cm in maximal craniocaudal dimension. There are no myometrial masses. Normal endometrial thickness measuring 4.9 mm. There are no endometrial masses, and there is no fluid in the endometrial cavity. Normal uterine cervix. Normal right ovary, measuring 2.9 x 1.5 x 1.4 cm. There are multiple follicles without a dominant cyst. Normal left ovary, measuring 10 x 7 x 7.3 x 5.9 cm. Hypoechoic right ovarian cyst is present measuring 4.8 x 5.1 x 3.2 cm.. There is no free fluid in the pelvis. Polycystic ovary disease: No. US/Transvaginal Non- IMPRESSION: Enlarged left ovary with central dominant cyst with maximum ovarian dimension of 10 cm and central cyst measurement of 5 cm with noted peripheral blood flow within the parenchyma. Findings are concerning for underlying cystadenoma with impending ovarian torsion not excluded due to ovarian size (presence of arterial venous blood flow does not exclude possibility of ovarian torsion). Recommend gynecologic consultation for further management. Electronically Signed: Juancho Dalton DO at 18:15 EDT ,
[2022-12-13 17:50] VITALS: BP 103/63; PULSE 77; RESP 14; O2SAT 100
[2022-12-13 19:07] VITALS: BP 113/73; PULSE 82; RESP 14; O2SAT 100
== END 2022-12-13 22:19 | disposition home or self-care (01) ==
PROVIDERS: Emergency Provider Emergency Medicine; Visit Provider Emergency Medicine
DX: N83.202 Unspecified ovarian cyst, left side (principal)
CPT/HCPCS: 74177; 76830; 80053; 81001; 81025; 83690; 85025; 96361; 96374; 96375; 99283; Q9967; J2405

== ENCOUNTER 2023-01-21 08:30 | Emergency (ER) | payer MEDICAID, SELFPAY ==
[2023-01-21 08:30] VITALS: BP 148/105; PULSE 100; RESP 18; TEMP 36.3; O2SAT 99; BMI 33.3
--- NOTE | 2023-01-21 08:44 | EX.ED.DYSGE1 ---
HPI History of Present Illness Chief Complaint: Sore Throat Detail of Chief Complaint: Sore throat Informant: patient Onset/Context/Timing Onset: Weeks (1 week ago) Context: Sudden Onset Timing: Continuous Quality: Pain Location: Swollen tonsils Current Severity: Mild Maximum Severity: Severe Worsened by: Swallowing liquids or solids Relieved by: Nothing Associated Symptoms Associated Symptoms: Change in voice Narrative Narrative: Patient is a 32-year-old woman who has hives to penicillin who presents with sore throat that started 1 week ago. She reports difficulty swallowing liquids and solids. She had no drooling. She does report subjective fever. She denies headache, visual, ocular auditory symptoms. She denies difficulty breathing. She denies history rheumatic fever, heart murmur, SBE or being immune suppressed. Patient's menses ended 2 days ago. Patient denies nausea, vomiting or diarrhea. Patient denies any ill contacts. She denies upper abdominal pain and specifically on the left side. Prior similar symptoms: No Recent Illness/Hospitalization: No PFSH PFSH Medical History Anxiety Depression Hepatitis B Hepatitis C Illicit drug use, continuous Opiate withdrawal Opioid abuse Smoker Substance abuse Home Medications clindamycin HCl 300 mg capsule (Cleocin HCl) 300 mg PO Q6H #40 CAPSULES 01/21/23 [Rx Last Taken Unknown] Allergy/AdvReac Type Severity Reaction Status Date / Time Penicillins Allergy Hives Verified 12/13/22 13:36 Family History Father Throat cancer Surgical History No history of previous surgery Social History household members: family housing: house number of children: 3 Smoking Status: Current every day smoker tobacco type: cigarettes alcohol intake: never substance use type: amphetamines, opiates and IV drugs ROS ROS ED Constitutional Constitutional ED: Reports chills and fever(s); Denies subjective, sweats or weight loss Eyes Eyes: Denies blurry vision, change in vision or diplopia ENT ENT ED: Reports sore throat; Denies ear pain or rhinorrhea Cardiovascular Cardiovascular: Denies chest pain or palpitations Respiratory/Chest Respiratory/Chest: Denies cough, dyspnea or dyspnea on exertion Gastrointestinal Gastrointestinal: Denies abdominal pain, nausea or vomiting Musculoskeletal Musculoskeletal: Denies arthralgias, myalgias or neck pain Integumentary Denies rash Neurologic Neurologic: Denies headache(s) or paresthesias Hematologic/Lymphatic Hematologic/Lymphatic: Denies easy bleeding or easy bruising Allergic/Immunologic Allergic/Immunologic ED: Reports mouth swelling; Denies tongue swelling or urticaria EXAM Physical Exam Const Vital Signs: 01/21/23 08:30 Temperature 97.3 F L Temperature Source Temporal Pulse Rate 100 Respiratory Rate 18 Blood Pressure 148/105 H Blood Pressure Mean 119 Pulse Ox 99 Oxygen Delivery Method Room Air Positive well nourished and well developed Constitutional Narrative: Patient appears ill but not toxic. She has hot potato voice. General Appearance ED: well developed; Negative for cyanotic, diaphoretic, NAD or pallor HEENT Reports TM's clear and moist mucous membranes HEENT Narrative: Posterior pharynx reveals erythematous tonsils with minimal exudate. There is evidence of a peritonsillar abscess on the right. Uvula is not displaced. There is no deviation tongue with protrusion. Tympanic Membrane ED: Yes TM's clear Eyes PERRL and EOMs intact bilaterally General Eye ED: Negative for pale conjunctiva or scleral icterus Neck No no lymphadenopathy, supple and no JVD Neck Narrative: Patient does have anterior cervical lymphadenopathy trachea is midline. There is no inspiratory expiratory stridor. Resp normal respiratory effort and clear to auscultation bilaterally Cardio regular rate, regular rhythm, S1 normal heart sound, S2 normal heart sound and no murmurs Extremity normal to inspection General Extremety ED: Negative for edema or tenderness General Extremity: Negative for edema Neuro CN's II-XII intact bilaterally Sensorium / Orientation: alert Skin no rashes or lesions noted, no wounds and skin turgor normal General Skin Exam: Negative for jaundice or pallor MDM MDM MDM Narrative Medical decision making narrative: History and physical is suggestive of peritonsillar abscess. There is fluctuance noted on the right. Patient was explained risk benefits of needle aspirate of peritonsillar abscess. She did give verbal consent. It is of my opinion the patient has capacity to give consent and understands risk benefits. Using a 5 cc syringe with 18-gauge needle 3.2 cc of thick green purulent material was aspirated. Patient's voice improved. Her pain diminished. Since she has allergy to penicillin we will treat with clindamycin and refer to Dr. Keven Walters who is on-call for ENT. She received her first dose of clindamycin in the emergency department. Procedures Other Procedures Procedure(s): Needle aspirate of right peritonsillar abscess as documented in the MDM portion of the chart. Discharge Plan Triage Chief Complaint: Sore Throat ED Provider: Bin Gaspar Dx/Rx/DC Orders Clinical Impression: Peritonsillar abscess Prescriptions: New clindamycin HCl [Cleocin HCl] 300 mg capsule 300 mg PO Q6H Qty: 40 0RF Primary Care Provider: Care Physician,No Primary Referrals: Keven Leroy MD [Med Staff - Active Staff] - 3-5 Days Care Physician,No Primary [Primary Care Provider] - Activity Restrictions/Additional Instructions: 1. Salt water gargles 6-10 times a day. (2 tablespoons of salt and a glass of water) 2. If you have any drooling or difficulty breathing return to the emergency department 3. Take antibiotics until gone 4. You may take either 4 ibuprofen tablets every 8 hours or 2 Aleve tablets every 12 hours for the next 2 to 3 days for pain/discomfort 5. Call Dr. Keven Walters's office for follow-up appointment the next 3 to 5 days. Disposition Disposition: Home, Self Care
[2023-01-21] MEDS: Clindamycin HCl 150 MG Capsule 300 MG PO (09:13)
[2023-01-21] MEDS: Naproxen 250 MG Tablet 500 MG PO (09:13)
== END 2023-01-21 09:20 | disposition home or self-care (01) ==
PROVIDERS: Emergency Provider Emergency Medicine; Visit Provider Emergency Medicine
DX: J36 Peritonsillar abscess (principal); F17.210 Nicotine dependence, cigarettes, uncomplicated; Z88.0 Allergy status to penicillin
CPT/HCPCS: 10160; 10060; 99283

== ENCOUNTER 2023-04-20 03:18 | Emergency (ER) | payer MEDICAID, SELFPAY ==
[2023-04-20 03:20] VITALS: BP 144/89; PULSE 108; RESP 15; TEMP 36.9; O2SAT 98; BMI 33.6
--- NOTE | 2023-04-20 03:30 | EDS_ITS ---
HPI History of Present Illness Chief Complaint: Bite Informant: patient Onset/Context/Timing Onset: Today Context: Gradual Onset Timing: Continuous Quality: Sore Location: Right lower jaw Worsened by: Nothing Relieved by: Nothing Narrative Narrative: Patient presents with redness and swelling to her right lower jaw that began today. Patient states she noticed it when she woke up today. Patient thinks she may have gotten bit by a spider. Patient states she has some pain in her right lower jaw. Patient describes it as soreness. Patient states nothing makes it better nothing makes it worse. Patient denies any fevers or chills. Patient denies any discharge or drainage. Patient denies any difficulty breathing or difficulty swallowing. [facility] Medical History Anxiety Depression Hepatitis B Hepatitis C Illicit drug use, continuous Opiate withdrawal Opioid abuse Smoker Substance abuse Home Medications clindamycin HCl 300 mg capsule (Cleocin HCl) 300 mg PO Q6H #40 CAPSULES 04/20/23 [Rx Last Taken Unknown] Allergy/AdvReac Type Severity Reaction Status Date / Time Penicillins Allergy Hives Verified 12/13/22 13:36 Family History Father Throat cancer Surgical History No history of previous surgery no surgical history Social History household members: family housing: house number of children: 3 Smoking Status: Current every day smoker tobacco type: cigarettes alcohol intake: never substance use type: amphetamines, opiates and IV drugs ROS ROS ED Constitutional Constitutional ED: Denies chills or fever(s) Eyes Eyes: Denies blurry vision or change in vision ENT ENT ED: Denies rhinorrhea or sore throat Cardiovascular Cardiovascular: Denies chest pain or palpitations Respiratory/Chest Respiratory/Chest: Denies cough or dyspnea Gastrointestinal Gastrointestinal: Denies nausea or vomiting Genitourinary Genitourinary ED: Denies dysuria or hematuria Musculoskeletal Musculoskeletal: Denies back pain or neck pain Integumentary Reports rash; Denies abscess Neurologic Neurologic: Denies headache(s) or weakness Allergic/Immunologic Allergic/Immunologic ED: Denies mouth swelling or urticaria EXAM Physical Exam Const Vital Signs: 04/20/23 03:20 Temperature 98.5 F Temperature Source Temporal Pulse Rate 108 H Respiratory Rate 15 Blood Pressure 144/89 H Blood Pressure Mean 107 Pulse Ox 98 Oxygen Delivery Method Room Air Positive well nourished and well developed General Appearance ED: well developed and NAD HEENT Reports moist mucous membranes Neck supple and no JVD Neuro oriented x3, CN's II-XII intact bilaterally and no sensory deficits noted Sensorium / Orientation: alert Motor Exam: strength 5/5 throughout Psych mental status grossly normal Skin Skin Narrative: There is some edema and erythema over the right lower jaw. There is no fluctuan ce. There is no induration. There is no discharge or drainage noted. There are no petechia noted. MDM MDM MDM Narrative Medical decision making narrative: Patient was advised that there does not appear to be any abscess formation. Patient will be given a prescription for clindamycin. Patient was given her first dose here. Patient was instructed to follow-up with her primary care physician in 5 to 7 days. Patient understood and was agreeable with the plan. All questions were answered. Discharge Plan Triage Chief Complaint: Bite ED Provider: Neeraj Abdullahi Dx/Rx/DC Orders Clinical Impression: Cellulitis of face Instructions: ED Cellulitis, Facial Prescriptions: Continued clindamycin HCl [Cleocin HCl] 300 mg capsule 300 mg PO Q6H Qty: 40 0RF Primary Care Provider: Care Physician,No Primary Referrals: Care Physician,No Primary [Primary Care Provider] - Disposition Disposition: Home, Self Care
[2023-04-20 03:39] VITALS: BP 144/89; PULSE 108; RESP 15; O2SAT 98
[2023-04-20] MEDS: Clindamycin HCl 150 MG Capsule 300 MG PO (03:43)
== END 2023-04-20 03:45 | disposition home or self-care (01) ==
PROVIDERS: Emergency Provider Emergency Medicine; Visit Provider Emergency Medicine
DX: L03.211 Cellulitis of face (principal); F17.210 Nicotine dependence, cigarettes, uncomplicated
CPT/HCPCS: 99283

== ENCOUNTER 2023-11-03 02:53 | Emergency (ER) | payer MEDICAID, SELFPAY ==
[2023-11-03 02:53] VITALS: BP 148/109; PULSE 120; RESP 19; TEMP 36.4; O2SAT 99; BMI 34.7
--- NOTE | 2023-11-03 03:23 | CT_ITS ---
STUDY: CT ABDOMEN AND PELVIS WITH CONTRAST REASON FOR EXAM: Female, 33 years old. abd pain RADIATION DOSAGE (If Supplied By Facility): CTDIvol = ( 15.82 ) mGy, DLP = ( 1147.42 ) mGycm TECHNIQUE: IV 100mL Isovue-[id number] was administered. Transaxial images were obtained from the dome of the diaphragm to the symphysis pubis in the portal venous phase. Multiplanar coronal and sagittal images were reformatted. Individualized Dose Optimization Techniques Were Used For This CT. COMPARISON: Prior study dated: 12/13/2022 FINDINGS: LOWER CHEST: Lung bases are clear. No cardiomegaly or pericardial effusion. LIVER: The liver is normal in size, shape, and attenuation. No focal mass. GALLBLADDER AND BILIARY TREE: The gallbladder is normally distended. No gallstones. No gallbladder wall thickening or edema. No pericholecystic fluid. No intra- or extrahepatic biliary ductal dilation. PANCREAS: No focal cystic or solid mass. SPLEEN: Normal size without focal cystic or solid mass. ADRENAL GLANDS: No nodules. KIDNEYS AND URETERS: Normal renal size and position. No hydronephrosis or nephrolithiasis. PERITONEUM: No ascites or free air. No other fluid collection. BOWEL: The stomach is unremarkable. Normal caliber small bowel. There is no obstruction. No colonic wall thickening or inflammation. Diverticulosis noted at the sigmoid colon. No diverticulitis. No evidence of acute appendicitis. LYMPH NODES: No enlarged mesenteric or retroperitoneal lymph nodes. VESSELS: Aorta is non-dilated. URINARY BLADDER: Unremarkable. REPRODUCTIVE ORGANS: Anteverted uterus. 1.4 cm exophytic fibroid at the posterior uterine body. No adnexal mass. ABDOMINAL WALL: No discrete abdominal or pelvic wall hernia. BONES: No lytic or blastic abnormality. CT/Abdomen/Pelvis W IV Cont ONLY IMPRESSION: No acute finding in the abdomen or pelvis. Small uterine fibroid noted. Electronically Signed: John Gramajo MD at 5:51 EDT ,
--- OUTSIDE RECORDS SUMMARY | 2023-11-03 03:26 | XMS RPT_ITS | CCD ---
Author Name Unknown Address [address] [place] [address] Organization [facility] Care Team Providers Care Ops Manager Name Role Phone Unavailable Primary Care Provider Unavailabl e Allergies Allergy Classification Reported Allergen(s) Allergy Type Date of Onset Reaction(s) Facility (2 sources) Penicillins; Translations: [PENICILLINS] Drug Allergy 07-28-2012 Rash [facility] Medications Current Medications Medication Drug Class(es) Dates Sig (Normalized) Sig (Original) cephalexin 500 mg oral capsule (1 source) Cephalosporin Antibacterial Start: 10-02-2023 End: 10-07-2023 take 1 capsule by mouth three times daily cephALEXin (KEFLEX) 500 mg capsule Take 1 capsule by mouth three times a day for 5 days. 15 capsule 0 10/02/2023 10/07/2023 Active Completed/Discontinued Medications Medication Drug Class(es) Dates Sig (Normalized) Sig (Original) clindamycin 300 mg oral capsule (1 source) Lincosamide Antibacterial Start: 10-27-2020 End: 10-02-2023 take 1 capsule by mouth four times daily clindamycin (CLEOCIN) 300 mg capsule Indications: Toothache Take 1 capsule by mouth four times daily. 40 capsule 0 10/27/2020 10/02/2023 Discontinued (Course of therapy completed) Problems Active Problems Problem Classification Problem Date Documented Da te Episodic/Chronic Hepatitis (1 source) Viral hepatitis C; Translations: [Unspecified viral hepatitis C without hepatic coma] 10-08-2019 Episodic Superficial injury; contusion (1 source) Foreign body of skin of great toe; Translations: [Superficial foreign body, right great toe, initial encounter] 10-02-2023 Episodic Past or Other Problems Problem Classification Problem Date Documented Da te Episodic/Chronic Diabetes or abnormal glucose tolerance complicating ; childbirth; or the puerperium (1 source) Abnormal glucose level; Translations: [Abnormal glucose complicating ] Onset: 06-08-2015 06-08-2015 Episodic Other complications of (1 source) High risk ; Translations: [Smoking (tobacco) complicating , first trimester] Onset: 12-29-2014 12-29-2014 Episodic Other complications of (1 source) Finding of pattern of ; Translations: [Supervision of other high risk pregnancies, unspecified trimester] Onset: 12-29-2014 12-29-2014 Episodic Other complications of (1 source) Rubella non-immune; Translations: [Supervision of other high risk pregnancies, unspecified trimester] Onset: 01-29-2015 01-29-2015 Episodic Other complications of (1 source) History of shoulder dystocia; Translations: [Supervision of with other poor reproductive or obstetric history, unspecified trimester] Onset: 06-05-2015 08-16-2021 Episodic Other and delivery including normal (1 source) Normal ; Translations: [Encounter for supervision of normal , unspecified, unspecified trimester] Onset: 12-29-2014 12-29-2014 Episodic Residual codes; unclassified (1 source) FH: Sickle cell trait; Translations: [Family history of diseases of the blood and blood-forming organs and certain disorders involving the immune mechanism] Onset: 12-29-2014 08-16-2021 Episodic Results Test Name Value Interpretation Reference Range Facil ity Vital Signs Date Time Vital Sign Value Performing Clinician Jarad galvez 10-02-2023 15:59-0500 Body temperature 98.1 [degF] Glenn Lanza APRN.CNP Work Phone: [facility] 10-02-2023 15:59-0500 Body weight 93.98 kg Glenn Lanza APRN.CNP Work Phone: [facility] 10-02-2023 15:59-0500 Diastolic blood pressure 98 mm[Hg] Glenn Lanza APRN.CNP Work Phone: [facility] 10-02-2023 15:59-0500 Heart rate 100 /min Glenn Lanza APRN.CNP Work Phone: [facility] 10-02-2023 15:59-0500 Respiratory rate 22 /min Glenn Lanza APRN.SANJIV Work Phone: [facility] 10-02-2023 15:59-0500 SaO2% (BldA) [Mass fraction] 98 % Glenn Lanza PRODUCT MARKETING ENGINEER.COUNTER SUPERVISOR Work Phone: [facility] 10-02-2023 15:59-0500 Systolic blood pressure 130 mm[Hg] Glenn Lanza PRODUCT MARKETING ENGINEER.COUNTER SUPERVISOR Work Phone: [facility] Encounters Encounter Date Encounter Type Care Provider Facility Start: 10-02-2023 End: 10-02-2023 ambulatory Facility:[facility] Start: 10-02-2023 End: 10-02-2023 Office outpatient visit 25 minutes Glenn Lanza APRN.COUNTER SUPERVISOR Work Phone: [facility] Plan of Treatment Date Care Activity Detail Author Start: 04-23-2025 Urine microalbumin profile DTaP,Tdap,Td Vaccine (2 - Td or Tdap) [facility] Start: 08-21-2023 Depression Assessment Depression Ass essment [facility] Start: 04-21-2023 Influenza vaccination Influenza Vacc ine (#1) [facility] Start: 2018 Screening for malign ant neoplasm of cervix HPV Testing [facility] Start: 03-22-2015 Pneumococcal vaccination Pneum ococcal Vaccine (2 of 2 - PCV) [facility] Start: 2009 Screening for malign ant neoplasm of cervix Pap Testing [facility] Start: 05-05-1989 Covid-19 Vaccine (#1) Covid-19 Vacci ne (#1) [facility] Start: 1988 Hepatitis B Vaccine (1 of 3 - 3-dose series) Hepatitis B Vaccine (1 of 3 - 3-dose series) [facility] Immunizations Immunization Date Immunization Notes Care Provider Fa cristian 06-05-2015 influenza, injectabl e, quadrivalent, contains preservative Glenn Lanza APRN.COUNTER SUPERVISOR Work Phone: [facility] 06-05-2015 influenza virus vaccine, unspecified formulation Glenn Lanza APRN.CNP Work Phone: [facility] 04-23-2015 tetanus toxoid, redu alejandra diphtheria toxoid, and acellular pertussis vaccine, adsorbed Glenn Lanza APRN.COUNTER SUPERVISOR Work Phone: [facility] Payers Date Payer Category Payer Medicaid [facility] [employer] [id number] 2022-Present [phone] [address] [place] [address] Medicaid 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 Author Type: Nurse Practitioner Type: Progress Notes Filed: 10/02/2023 16:50 Note Text: Subjective HPI Nontoxic-appearing female presents urgent care chief complaint right foot pain. Patient states last night she stepped on a sewing needle. Presents today due to being lodged in her right great toe. Has not used any OTC medications. Has not tried to remove it. Presents today for evaluation. No numbness or tingling. Pain with movement. No history of surgeries or fractures to this foot in the past. Denies chance of . .Patient presents with: Foreign Body: Stepped on sewing needle and is lodged in right foot big toe happened last night PAST MEDICAL HISTORY Diagnosis Date Hepatitis C Hypertension NEGATIVE MEDICAL HISTORY PAST SURGICAL HISTORY Procedure Laterality Date NONE ALLERGIES Penicillins MEDICATIONS clindamycin (CLEOCIN) 300 mg capsule Take 1 capsule by mouth four times daily. (Patient not taking: Reported on 07/27/2022) naproxen (NAPROSYN) 500 mg tablet Take 1 tablet by mouth twice daily as needed (for pain/inflammation). Take with food. (Patient not taking: Reported on 07/27/2022) Nrhymbwt-Nn-Oya-Fe-FA tab Take 1 tablet by mouth. (Patient not taking: Reported on 07/27/2022) FAMILY HISTORY Problem Relation Age of Onset Cancer Father Throat Cancer Social History Tobacco Use Smoking status: Some Days Packs/day: 0.25 Years: 17.00 Additional pack years: 0.00 Total pack years: 4.25 Types: Cigarettes Smokeless tobacco: Never Vaping Use Vaping Use: Never used Substance Use Topics Alcohol use: No Drug use: Not Currently BP 130/98 Pulse 100 Temp 36.7 ?C (98.1 ?F) Resp 22 Wt 94 kg (207 lb 3.2 oz) LMP 05/15/2020 SpO2 98% BMI 35.57 kg/m? Review of Systems Constitutional: Negative for chills, fever and malaise/fatigue. HENT: Negative for congestion, ear discharge, ear pain, sinus pain and sore throat. Eyes: Negative for blurred vision, pain, discharge and redness. Respiratory: Negative for cough, hemoptysis, sputum production, shortness of breath, wheezing and stridor. Cardiovascular: Negative for chest pain. Gastrointestinal: Negative for abdominal pain, diarrhea, nausea and vomiting. Musculoskeletal: Negative for myalgias. Skin: Negative for itching and rash. Neurological: Negative for dizziness and headaches. Objective Physical Exam Constitutional: General: She is not in acute distress. Appearance: She is not toxic-appearing. HENT: Head: Normocephalic. Nose: Nose normal. Eyes: Pupils: Pupils are equal, round, and reactive to light. Cardiovascular: Rate and Rhythm: Normal rate. Pulmonary: Effort: Pulmonary effort is normal. No respiratory distress. Musculoskeletal: Cervical back: Normal range of motion. Feet: Feet: Comments: Approximately 3 cm foreign body noted on the lateral aspect of right great toe. Neurovascular intact. Skin: General: Skin is warm and dry. Neurological: General: No focal deficit present. Mental Status: She is alert. Verbal consent obtained. Area thoroughly cleansed with alcohol prep and iodine. Area washed with Hibiclens. Approximately 1 cc of 1% lidocaine used anesthetize wound. Small incision made at the top of foreign body with a 11 blade scalpel. Needle drivers used to remove foreign body. ASSESSMENT/PLAN: 1. Foreign body of skin of great toe, right, initial encounter - ICD9: 917.6, ICD10: S90.451A Foreign body was removed without difficulty. I recommended updating tetanus shot and getting x-ray today. Patient declined. Placed on prophylactic antibiotics. Patient was educated on supportive therapies. Patient will follow up with primary care provider as needed. Patient was instructed to immediately proceed to emergency room for any new, worsening, or symptoms lasting longer than anticipated. The patient's clinical presentation is otherwise unremarkable at this time. Based on exam and clinical finding, the patient is stable for discharge. Plan of care was discussed with patient. Patient verbalizes understanding and agrees to plan of care. This note was generated using Exploredge software. It may contain errors in wording, punctuation, or spelling. Glenn Lanza APRN.[facility] History of Present illness Narrative 10-02-2023 Glenn Lanza APRN.SANJIV - 10/02/2023 4:00 PM EST Note Date & Type Note Facility 10-02-2023 History of Presen t illness Narrative Images from the original note were not included. Subjective HPI Nontoxic-appearing female presents urgent care chief complaint right foot pain. Patient states last night she stepped on a sewing needle. Presents today due to being lodged in her right great toe. Has not used any OTC medications. Has not tried to remove it. Presents today for evaluation. No numbness or tingling. Pain with movement. No history of surgeries or fractures to this foot in the past. Denies chance of . .Patient presents with: Foreign Body: Stepped on sewing needle and is lodged in right foot big toe happened last night PAST MEDICAL HISTORY Diagnosis Date Hepatitis C Hypertension NEGATIVE MEDICAL HISTORY PAST SURGICAL HISTORY Procedure Laterality Date NONE ALLERGIES Penicillins MEDICATIONS clindamycin (CLEOCIN) 300 mg capsule Take 1 capsule by mouth four times daily. (Patient not taking: Reported on 07/27/2022) naproxen (NAPROSYN) 500 mg tablet Take 1 tablet by mouth twice daily as needed (for pain/inflammation). Take with food. (Patient not taking: Reported on 07/27/2022) Xpfqszvw-At-Max-Fe-FA tab Take 1 tablet by mouth. (Patient not taking: Reported on 07/27/2022) FAMILY HISTORY Problem Relation Age of Onset Cancer Father Throat Cancer Social History Tobacco Use Smoking status: Some Days Packs/day: 0.25 Years: 17.00 Additional pack years: 0.00 Total pack years: 4.25 Types: Cigarettes Smokeless tobacco: Never Vaping Use Vaping Use: Never used Substance Use Topics Alcohol use: No Drug use: Not Currently BP 130/98 Pulse 100 Temp 36.7 C (98.1 F) Resp 22 Wt 94 kg (207 lb 3.2 oz) LMP 05/15/2020 SpO2 98% BMI 35.57 kg/m Review of Systems Constitutional: Negative for chills, fever and malaise/fatigue. HENT: Negative for congestion, ear discharge, ear pain, sinus pain and sore throat. Eyes: Negative for blurred vision, pain, discharge and redness. Respiratory: Negative for cough, hemoptysis, sputum production, shortness of breath, wheezing and stridor. Cardiovascular: Negative for chest pain. Gastrointestinal: Negative for abdominal pain, diarrhea, nausea and vomiting. Musculoskeletal: Negative for myalgias. Skin: Negative for itching and rash. Neurological: Negative for dizziness and headaches. Objective Physical Exam Constitutional: General: She is not in acute distress. Appearance: She is not toxic-appearing. HENT: Head: Normocephalic. Nose: Nose normal. Eyes: Pupils: Pupils are equal, round, and reactive to light. Cardiovascular: Rate and Rhythm: Normal rate. Pulmonary: Effort: Pulmonary effort is normal. No respiratory distress. Musculoskeletal: Cervical back: Normal range of motion. Feet: Feet: Comments: Approximately 3 cm foreign body noted on the lateral aspect of right great toe. Neurovascular intact. Skin: General: Skin is warm and dry. Neurological: General: No focal deficit present. Mental Status: She is alert. Verbal consent obtained. Area thoroughly cleansed with alcohol prep and iodine. Area washed with Hibiclens. Approximately 1 cc of 1% lidocaine used anesthetize wound. Small incision made at the top of foreign body with a 11 blade scalpel. Needle drivers used to remove foreign body. ASSESSMENT/PLAN: 1. Foreign body of skin of great toe, right, initial encounter - ICD9: 917.6, ICD10: S90.451A Foreign body was removed without difficulty. I recommended updating tetanus shot and getting x-ray today. Patient declined. Placed on prophylactic antibiotics. Patient was educated on supportive therapies. Patient will follow up with primary care provider as needed. Patient was instructed to immediately proceed to emergency room for any new, worsening, or symptoms lasting longer than anticipated. The patient's clinical presentation is otherwise unremarkable at this time. Based on exam and clinical finding, the patient is stable for discharge. Plan of care was discussed with patient. Patient verbalizes understanding and agrees to plan of care. This note was generated using Exploredge software. It may contain errors in wording, punctuation, or spelling. Glenn Lanza APRN.SANJIV documented in this encounter [facility] Evaluation note Note Date & Type Note Facility documented in this encounter [facility] Summary Purpose Family History No Family History Records Found Advance Directives No Advanced Directives Records Found Additional Source Comments Source Comments (unrecognize d section and content) In the event this informatio n is protected by the Federal Confidentiality of Alcohol and Drug Abuse Patient Records regulations: The Federal rules restrict any use of the information to criminally investigate or prosecute any alcohol or drug abuse patient.[facility] Reason for Visit (unrecogniz ed section and content) INFORMATION SOURCE (unrecogn ized section and content) FOR RECORDS PERTAINING TO PATIENTS WHO ARE OR HAVE BEEN ENROLLED IN A CHEMICAL DEPENDENCY/SUBSTANCEABUSE PROGRAM, SOME INFORMATION MAY BE OMITTED. This clinical summary was aggregated from multiple sources. Caution should be exercised in using it in the provision of clinical care. This summary normalizes information from multiple sources, and as a consequence, information in this document may materially change the coding, format and clinical context of patient data. In addition, data may be omitted in some cases. CLINICAL DECISIONS SHOULD BE BASED ON THE PRIMARY CLINICAL RECORDS. [facility] [employer] [facility]. provides no warranty or guarantee of the accuracy or completeness of information in this document.
[2023-11-03 03:36] LABS: Mucous, Urine 0 SEEN /hpf (<or=2+)
[2023-11-03 03:39] LABS: Absolute Lymphocyte Count 2.82 X10^3/uL (0.83-4.51); Absolute Neutrophil Count 7.2 X10^3/uL (2.0-7.7); Basophil# 0.07 X10^3/uL; Basophil% 0.6 % (0-1); Eosinophil# 0.08 X10^3/uL; Eosinophils% 0.7 % (0-5); Hemoglobin 14.1 g/dL (12.0-15.0); Lymphocyte # 2.82 X10^3/ul (0.83-4.51); Lymphocyte % 24.7 % (19-41); Mean Corp Hgb Conc 34.4 g/dL (32-36); Mean Corpuscular Hgb 31.2 pg (27.0-32.0); Mean Corpuscular Volume 90.7 fL (81-99); Mean Platelet Vol. 9.8 fl (6.2-12.0); Monocyte# 1.22 X10^3/uL; Monocyte% 10.7 % (0-10); NRBC Flagged by Analyzer 0 % (0-5); Neutrophil # 7.18 X10^3/uL (2.7-7.7); Neutrophil % 62.9 % (47-70); Platelet Count 331 K/mm3 (150-450); RBC Distribution Width CV 12.4 % (11.6-14.6); RBC Distribution Width SD 40.9 fl (35.1-43.9); Red Blood Count 4.52 M/mm3 (4.2-5.4); White Blood Count 11.4 K/mm3 (4.4-11.0)
[2023-11-03] MEDS: 0.9% Normal Saline (1000mL) 1,000 ML 999 ML IV (03:39)
[2023-11-03] MEDS: Ondansetron 4 MG/2 ML Vial IV (03:39)
[2023-11-03 03:41] LABS: Color, Urine Yellow (Yellow); Glucose, Dipstick Normal (Normal); Ketone-Dipstick 5 mg/dl (Negative); Leukocyte Esterase-Dipstick 500 /ul (Negative); Nitrite-Dipstick Negative (Negative); Occult Blood-Urine 50 /ul (Negative); Protein-Dipstick 30 mg/dl (Negative); Urine Bilirubin Dipstick Negative (Negative); Urine Clarity Clear (Clear); Urine Urobilinogen 1 mg/dl (Normal)
[2023-11-03 03:52] LABS: Internal QC Validated? YES +Cl - CLEAR BKGD; Pregnancy, Serum, hCG Quali. NEGATIVE Negative
[2023-11-03 03:55] LABS: Bacteria 3+ /hpf (None Seen); Red Blood Cells-Urine 25-50 SEEN /hpf (0-5); Squamous Epithelial Cells - UA 5-10 SEEN /hpf (5-10); White Blood Cells >100 SEEN /hpf (0-5)
[2023-11-03 03:57] LABS: AST(SGOT) 66 U/L (15-37); Alanine Aminotransfer ALT/SGPT 34 U/L (13-56); Albumin, Serum 4.3 g/dL (3.2-5.0); Alkaline Phosphatase 67 U/L (45-117); Anion Gap 11 (5-15); BUN 23 mg/dL (7-18); Bilirubin, Direct 0.14 mg/dL (0.00-0.30); Calcium,Total 9.7 mg/dL (8.5-10.1); Chloride 103 mmol/L (98-107); Creatinine, Serum 1.21 mg/dL (0.55-1.02); EST Glomerular Filtration Rate 54 mL/min (>60); Est Glom Filt Rate - Afr Amer 65 mL/min (>60); Estimated Creatinine Clearance 71.16 ml/min; Globulin 4.3 g/dL (2.2-4.2); Glucose 128 mg/dL (74-106); Lipase 23 U/L (13-75); Potassium 4.3 mmol/L (3.5-5.1); Protein, Total 8.6 g/dL (6.4-8.2); Sodium Level 140 mmol/L (136-145)
[2023-11-03 05:05] VITALS: BP 138/60; PULSE 102; RESP 18; O2SAT 96
--- NOTE | 2023-11-03 06:24 | EX.ED.DYSGE1 ---
HPI History of Present Illness Chief Complaint: Abd Pain Informant: patient Narrative Narrative: Patient is a 33-year-old female with past medical history of anxiety and depression as well as opioid abuse and also past history of large ovarian cyst diagnosed on CT and ultrasound roughly 1 year ago. Patient states she was smoking methamphetamine this evening and developed pain in her right lower abdomen and as she never followed up regarding her large cyst had concerned it may have ruptured and also has concern that she is now septic . Secondary to these concerns she presents for evaluation. [facility] Medical History Anxiety Depression Hepatitis B Hepatitis C Illicit drug use, continuous Opiate withdrawal Opioid abuse Smoker Substance abuse Home Medications NK 11/03/23 [History Last Taken Unknown] doxycycline hyclate 100 mg capsule 100 mg PO BID 14 days #28 caps 11/03/23 [Rx Last Taken Unknown] metronidazole 500 mg tablet 500 mg PO BID 14 days #28 tabs 11/03/23 [Rx Last Taken Unknown] Allergy/AdvReac Type Severity Reaction Status Date / Time Penicillins Allergy Hives Verified 11/03/23 02:53 Family History Father Throat cancer Surgical History No history of previous surgery Social History household members: family housing: house number of children: 3 Smoking Status: Current every day smoker tobacco type: cigarettes alcohol intake: never substance use type: amphetamines, opiates and IV drugs ROS ROS ED Constitutional Constitutional ED: Denies chills or fever(s) ENT ENT ED: Denies sore throat Cardiovascular Cardiovascular: Denies chest pain Respiratory/Chest Respiratory/Chest: Denies cough or dyspnea Gastrointestinal Gastrointestinal: Reports abdominal pain; Denies diarrhea, nausea or vomiting Genitourinary Genitourinary ED: Denies dysuria or hematuria Musculoskeletal Musculoskeletal: Denies back pain or myalgias Integumentary Denies rash Neurologic Neurologic: Denies headache(s) Psychiatric Psychiatric: Reports anxiety Hematologic/Lymphatic Hematologic/Lymphatic: Denies easy bleeding or easy bruising EXAM Physical Exam Const Vital Signs: 11/03/23 02:53 11/03/23 05:05 Temperature 97.6 F L Temperature Source Temporal Pulse Rate 120 H 102 H Respiratory Rate 19 H 18 Blood Pressure 148/109 H 138/60 H Blood Pressure Mean 122 86 Pulse Ox 99 96 Oxygen Delivery Method Room Air Positive well nourished and well developed General Appearance ED: well developed; Negative for pallor HEENT Reports moist mucous membranes HEENT Narrative: No signs of infection noted in the posterior pharynx No tongue or lip swelling no oral lesions no airway edema or compromise Eyes PERRL and EOMs intact bilaterally General Eye ED: Negative for scleral icterus Neck supple Neck Narrative: No nuchal rigidity or meningeal signs Resp normal respiratory effort and clear to auscultation bilaterally Cardio regular rhythm Rate: tachycardic and other Other Details: Tachycardic rate with regular rhythm No murmurs rubs or gallop Radial and carotid pulses are equal and symmetric GI non-distended GI Narrative: Abdomen is soft and nondistended with normoactive bowel sounds. Patient has pain with palpation in the right lower quadrant without voluntary guarding or rigidity. Negative heel strike psoas and obturator signs Auscultation: normoactive bowel sounds Palpation: soft Back/Spine no CVA tenderness Extremity normal to inspection Neuro oriented x3, CN's II-XII intact bilaterally and no sensory deficits noted Sensorium / Orientation: alert Motor Exam: strength 5/5 throughout Psych Psych Narrative: Patient has a nervous/anxious affect Skin no rashes or lesions noted General Skin Exam: Negative for jaundice or pallor MDM MDM MDM Narrative Medical decision making narrative: Patient presented to the ER hypertensive and tachycardic but also reported smoking methamphetamine prior to arrival. She did have pain with palpation in the right lower quadrant and has a previous large ovarian cyst roughly 1 year ago. With concern for acute appendicitis versus atypical biliary colic versus pancreatitis versus acute cholecystitis versus ovarian cyst versus kidney stone I did elect to perform basic laboratory studies and CT scan with IV contrast. Labs revealed no clinically significant finding other than urine showing large amount of white blood cells and +3 bacteria but there is also mild contamination noted. CT scan did not show any type of ovarian pathology such as cyst or acute appendicitis or kidney stone. On reevaluation the patient reports feeling better. She does admit to unprotected sexual activity and does have concern for STD but is denying any vaginal discharge. As there is a possibility this could be mild pelvic inflammatory disease I will send her urine for gonorrhea and chlamydia should be treated with Rocephin at this time and then placed on doxycycline and metronidazole secondary to this. However with improvement of vital signs and overall negative workup there is no need for further evaluation and she is otherwise safe for discharge History & Record Review Discussion w/independent historian: Patient Lab Data Labs: Laboratory Results - last 24 hr 11/03/23 03:14 WBC 11.4 H RBC 4.52 Hgb 14.1 Hct 41.0 MCV 90.7 MCH 31.2 MCHC 34.4 RDW Std Deviation 40.9 RDW Coeff of Fanta 12.4 Plt Count 331 MPV 9.8 Immature Gran % (Auto) 0.400 Neut % (Auto) 62.9 Lymph % (Auto) 24.7 [place] % (Auto) 10.7 H Eos % (Auto) 0.7 Baso % (Auto) 0.6 Absolute Neuts (auto) 7.2 Absolute Lymphs (auto) 2.82 Nucleated RBC % 0 Sodium 140 Potassium 4.3 Chloride 103 Carbon Dioxide 26.0 Anion Gap 11 BUN 23 H Creatinine 1.21 H Estim Creat Clear Calc 71.16 Est GFR (MDRD) Af Amer 65 Est GFR (MDRD) Non-Af 54 L BUN/Creatinine Ratio 19.0 Glucose 128 H Calcium 9.7 Total Bilirubin 0.60 Direct Bilirubin 0.14 AST 66 H ALT 34 Alkaline Phosphatase 67 Total Protein 8.6 H Albumin 4.3 Globulin 4.3 H Lipase 23 Serum , Qual NEGATIVE Urine Color Yellow Urine Clarity Clear Urine pH 5.0 Ur Specific [place] 1.030 Urine Protein 30 H Urine Glucose (UA) Normal Urine Ketones 5 H Urine Occult Blood 50 H Urine Nitrite Negative Urine Bilirubin Negative Urine Urobilinogen 1 H Ur Leukocyte Esterase 500 H Urine RBC 25-50 SEEN Urine WBC >100 SEEN Ur Squamous Epith Cells 5-10 SEEN Urine Bacteria 3+ Urine Mucus 0 SEEN Radiography Diagnostic Testing: Clinical Impression(s) from Imaging Studies Abdomen/Pelvis CT 11/03/23 03:23 IMPRESSION: No acute finding in the abdomen or pelvis. Small uterine fibroid noted. Electronically Signed: John Gramajo MD at 5:51 EDT , Discharge Plan Triage Chief Complaint: Abd Pain ED Provider: [place] Dx/Rx/DC Orders Clinical Impression: Nonspecific abdominal pain, UTI (urinary tract infection), Methamphetamine abuse Instructions: Abdominal Pain, Urinary Tract Infections in Women Prescriptions: New doxycycline hyclate 100 mg capsule 100 mg PO BID 14 Days Qty: 28 0RF metronidazole 500 mg tablet 500 mg PO BID 14 Days Qty: 28 0RF No Action NK Primary Care Provider: Care Physician,No Primary Referrals: Delfino Ribeiro MD [Med Staff - Active Staff] - Care Physician,No Primary [Primary Care Provider] - Activity Restrictions/Additional Instructions: Please take your antibiotics as directed to help resolve any infection and/or pain and return to the ER should you have any further concerns Disposition Disposition: Home, Self Care Discharge Date/Time: 11/03/23 07:07
--- NOTE | 2023-11-03 07:07 | ED.RN ---
Pt. stated she could not wait for antibiotics, she had to urgently leave. PIV removed. D/C paperwork given
== END 2023-11-03 07:07 | disposition home or self-care (01) ==
PROVIDERS: Emergency Provider Emergency Medicine; Visit Provider Emergency Medicine
DX: N39.0 Urinary tract infection, site not specified (principal); F15.10 Other stimulant abuse, uncomplicated; F11.10 Opioid abuse, uncomplicated; F17.210 Nicotine dependence, cigarettes, uncomplicated
CPT/HCPCS: 74177; 80048; 80076; 81001; 83690; 84703; 85025; 87086; 87088; 87491; 87591; 96361; 96374; 99282; J7030; Q9967; A4216; J2405; J3490

== ENCOUNTER 2024-06-12 16:09 | Observation (INO) | payer MEDICAID, SELFPAY ==
[2024-06-12 16:10] VITALS: BP 145/108; PULSE 106; RESP 18; TEMP 36.6; O2SAT 99; BMI 37.8
--- NOTE | 2024-06-12 16:15 | EDS_ITS ---
HPI History of Present Illness Chief Complaint: Substance Abuse Informant: patient Onset/Context/Timing Onset: Yesterday Context: Gradual Onset Timing: Continuous Associated Symptoms Associated Symptoms: Positive for palpatations and no; Negative for vomiting*, diarrhea*, fever*, rash*, seizure, tremor, change in mental status, trauma, suicidal ideation or homicidal ideation Narrative Narrative: Patient presents requesting detox from fentanyl and methamphetamine. Patient states her last use of fentanyl was last evening. Patient states she smokes it. Patient states she uses approximately 1 g/week. Patient does state that she uses methamphetamines daily. Patient does not inject. Patient denies any fevers or chills. Patient states she has been through detox here in the past. Patient states her last detox was in April 2022. Patient admits to some palpitations where she felt like her heart was racing at times. Patient denies any suicidal homicidal ideations. Patient denies any chance of . PFSH PFSH Medical History Opioid abuse Hepatitis B Hepatitis C Anxiety Depression Smoker Opiate withdrawal Substance abuse Illicit drug use, continuous Home Medications ?Medication ?Instructions ?Recorded ?Last Taken ?Type NK 11/03/23 Unknown History Allergy/AdvReac Type Severity Reaction Status Date / Time Penicillins Allergy Hives Verified 06/12/24 16:10 Family History Father Throat cancer Surgical History No history of previous surgery Social History household members: family housing: house number of children: 3 Smoking Status: Current every day smoker tobacco type: e-cigarettes alcohol intake: never substance use type: amphetamines, opiates and IV drugs ROS ROS ED Constitutional Constitutional ED: Denies chills or fever(s) Eyes Eyes: Denies blurry vision or change in vision ENT ENT ED: Reports sore throat; Denies rhinorrhea Cardiovascular Cardiovascular: Reports palpitations; Denies chest pain Respiratory/Chest Respiratory/Chest: Denies cough or dyspnea Gastrointestinal Gastrointestinal: Denies nausea or vomiting Genitourinary Genitourinary ED: Denies dysuria or hematuria Musculoskeletal Musculoskeletal: Denies back pain or neck pain Integumentary Denies abscess or rash Neurologic Neurologic: Denies headache(s) or weakness Allergic/Immunologic Allergic/Immunologic ED: Denies mouth swelling or urticaria EXAM Physical Exam Const Vital Signs: 06/12/24 16:10 06/12/24 17:09 Temperature 97.8 F Temperature Source Temporal Pulse Rate 106 H 110 H Respiratory Rate 18 16 Blood Pressure 145/108 H 124/86 H Blood Pressure Mean 120 98 Pulse Ox 99 100 Oxygen Delivery Method Room Air Positive well nourished and well developed General Appearance ED: well developed and NAD HEENT Reports moist mucous membranes Neck supple and no JVD Resp normal respiratory effort and clear to auscultation bilaterally Cardio regular rate and regular rhythm GI soft to palpation, non-tender and non-distended Neuro oriented x3, CN's II-XII intact bilaterally and no sensory deficits noted [place] Coma Scale: document GCS findings Spontaneous Obeys Commands Oriented 15 Sensorium / Orientation: alert Motor Exam: strength 5/5 throughout Psych mental status grossly normal and thought process normal MDM MDM MDM Narrative Medical decision making narrative: Medical screening labs will be obtained. CBC will be obtained to assess for leukocytosis and anemia. Comprehensive metabolic profile will be obtained to assess for hepatic function, renal function, and electrolyte abnormality. Serum hCG will be obtained to assess for . Serum alcohol level will be obtained to assess for alcohol intoxication. Urine drug screen will be obtained to assess for substance abuse. Lab Data Attestation: I reviewed the patient's lab results. Lab results narrative: CBC was reviewed. There is a mild anemia with a hemoglobin of 11.7 and hematocrit of 36.1. Comprehensive metabolic profile was reviewed and was essentially within normal limits. Serum alcohol level was reviewed and was less than 3.0. Serum hCG was reviewed and was negative. Urine tox screen was reviewed and was positive for amphetamines and MDMA. Labs: Laboratory Results - last 24 hr 06/12/24 15:56 WBC 6.5 RBC 3.87 L Hgb 11.7 L Hct 36.1 L MCV 93.3 MCH 30.2 MCHC 32.4 RDW Std Deviation 43.9 RDW Coeff of Fanta 12.8 Plt Count 357 MPV 9.5 Immature Gran % (Auto) 0.300 Neut % (Auto) 52.0 Lymph % (Auto) 30.3 [place] % (Auto) 11.7 H Eos % (Auto) 4.8 Baso % (Auto) 0.9 Absolute Neuts (auto) 3.4 Absolute Lymphs (auto) 1.96 Nucleated RBC % 0 Sodium 140 Potassium 4.0 Chloride 110 H Carbon Dioxide 26.0 Anion Gap 4 L BUN 18 Creatinine 0.85 Estim Creat Clear Calc 106.07 Est GFR (MDRD) Af Amer 98 Est GFR (MDRD) Non-Af 81 BUN/Creatinine Ratio 21.3 H Glucose 90 Calcium 8.8 Total Bilirubin 0.50 AST 14 L ALT 19 Alkaline Phosphatase 68 Total Protein 7.6 Albumin 3.7 Globulin 3.9 Albumin/Globulin Ratio 0.9 Serum , Qual NEGATIVE Urine Opiates Screen NEGATIVE Urine Methadone Screen NEGATIVE Ur Barbiturates Screen NEGATIVE Ur Phencyclidine Scrn NEGATIVE Ur Amphetamines Screen POSITIVE H MDMA (Ecstasy) Screen POSITIVE H U Benzodiazepines Scrn NEGATIVE Urine Cocaine Screen NEGATIVE U Cannabinoids Screen NEGATIVE Ur Drug Screen Comment Ethyl Alcohol < 3.0 Treatment and Re-Evaluation Narrative: Patient was advised of her findings. Case was discussed with the hospitalist for admission for detox. She will admit the patient to her service. Patient understood and was agreeable with the plan. All questions were answered. Discharge Plan Dx/Rx/DC Orders Clinical Impression: Opiate withdrawal, Desire for detoxification, Elevated blood pressure reading Disposition Disposition: Acute Care [facility]
[2024-06-12 17:09] VITALS: BP 124/86; PULSE 110; RESP 16; O2SAT 100
[2024-06-12 17:13] LABS: Absolute Lymphocyte Count 1.96 X10^3/uL (0.83-4.51); Absolute Neutrophil Count 3.4 X10^3/uL (2.0-7.7); Basophil# 0.06 X10^3/uL; Basophil% 0.9 % (0-1); Eosinophil# 0.31 X10^3/uL; Eosinophils% 4.8 % (0-5); Hematocrit 36.1 % (37-47); Hemoglobin 11.7 g/dL (12.0-15.0); Lymphocyte # 1.96 X10^3/ul (0.83-4.51); Lymphocyte % 30.3 % (19-41); Mean Corp Hgb Conc 32.4 g/dL (32-36); Mean Corpuscular Hgb 30.2 pg (27.0-32.0); Mean Corpuscular Volume 93.3 fL (81-99); Mean Platelet Vol. 9.5 fl (6.2-12.0); Monocyte# 0.76 X10^3/uL; Monocyte% 11.7 % (0-10); NRBC Flagged by Analyzer 0 % (0-5); Neutrophil # 3.36 X10^3/uL (2.7-7.7); Platelet Count 357 K/mm3 (150-450); RBC Distribution Width CV 12.8 % (11.6-14.6); RBC Distribution Width SD 43.9 fl (35.1-43.9); Red Blood Count 3.87 M/mm3 (4.2-5.4); White Blood Count 6.5 K/mm3 (4.4-11.0)
[2024-06-12 17:23] LABS: Amphetamine Urine VISTA POSITIVE (<1000 ng/mL); Barbiturate Urine VISTA NEGATIVE (< 200 ng/mL); Benzodiazepine Urine VISTA NEGATIVE (< 200 ng/mL); Cocaine Urine VISTA NEGATIVE (< 300 ng/mL); Ecstacy Urine VISTA POSITIVE (< 500 ng/mL); Methadone Urine VISTA NEGATIVE (< 300 ng/mL); PCP Urine VISTA NEGATIVE (< 25 ng/mL); THC Urine VISTA NEGATIVE (< 50 ng/mL); Vista UDS pH Range 4
[2024-06-12 17:25] LABS: Internal QC Validated? YES +Cl - CLEAR BKGD; Pregnancy, Serum, hCG Quali. NEGATIVE Negative
[2024-06-12 17:28] LABS: Alcohol, Blood (Medical)-Serum < 3.0 mg/dL
[2024-06-12 17:34] LABS: ALB/GLOB Ratio 0.9 RATIO (0.9-2.4); AST(SGOT) 14 U/L (15-37); Alanine Aminotransfer ALT/SGPT 19 U/L (13-56); Albumin, Serum 3.7 g/dL (3.2-5.0); Alkaline Phosphatase 68 U/L (45-117); Anion Gap 4 (5-15); BUN 18 mg/dL (7-18); BUN/Creat Ratio 21.3 RATIO (10-20); Calcium,Total 8.8 mg/dL (8.5-10.1); Chloride 110 mmol/L (98-107); Creatinine, Serum 0.85 mg/dL (0.55-1.02); EST Glomerular Filtration Rate 81 mL/min (>60); Est Glom Filt Rate - Afr Amer 98 mL/min (>60); Estimated Creatinine Clearance 106.07 ml/min; Globulin 3.9 g/dL (2.2-4.2); Glucose 90 mg/dL (74-106); Protein, Total 7.6 g/dL (6.4-8.2); Sodium Level 140 mmol/L (136-145)
--- NOTE | 2024-06-12 18:16 | HP.PCM.HOS_ITS ---
HPI - General General Date of Admission: 06/12/24 Date of Service: 06/12/24 Chief Complaint: Request for detox HPI Narrative BAUDILIO SHARMA, is a 33 F with a history of tobacco use, opiate use, amphetamine use who presented to [facility] ED 06/12/2024 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 Hospitalist contacted for admission. Patient uses roughly 1 g of fentanyl per week and smokes it, does not inject. Last use was last night and she does not yet feel like she is going through withdrawal. Does also routinely uses methamphetamine with last use today. Patient reports she is tired and hungry but denies any other new or acute complaints, no abdominal pain, diarrhea, nausea. No fevers or chills. PFSH Medical History Opioid abuse Hepatitis B Hepatitis C Anxiety Depression Smoker Opiate withdrawal Substance abuse Illicit drug use, continuous Home Medications ?Medication ?Instructions ?Recorded ?Last Taken ?Type NK 11/03/23 Unknown History Allergy/AdvReac Type Severity Reaction Status Date / Time Penicillins Allergy Hives Verified 06/12/24 16:10 Family History Father Throat cancer Surgical History No history of previous surgery Social History household members: family housing: house number of children: 3 Smoking Status: Current every day smoker tobacco type: e-cigarettes alcohol intake: never substance use type: amphetamines, opiates and IV drugs ROS ROS Narrative ROS reviewed and pertinent positive and negatives as above Vital Signs Vital Signs Vital Signs: 06/12/24 16:10 06/12/24 17:09 Temperature 97.8 F Temperature Source Temporal Pulse Rate 106 H 110 H Respiratory Rate 18 16 Blood Pressure 145/108 H 124/86 H Blood Pressure Mean 120 98 Pulse Ox 99 100 Oxygen Delivery Method Room Air Weight Weight: 99.79 kg Body Mass Index (BMI) 37.8 Physical Exam Narrative General: Resting comfortably, answers questions appropriately HEENT: Atraumatic Eyes: Anicteric Neck: Supple Respiratory: Clear to auscultation bilaterally, normal respiratory effort Cardiovascular: Regular rate and rhythm GI: Soft, nontender, nondistended Extremities: No edema Musculoskeletal: Moving all extremities Neuro: No overt focal neurological deficits Skin: No rashes appreciated Psych: Cooperative Results Lab / Micro Data 06/12/24 15:56 06/12/24 15:56 Labs: Laboratory Results - last 24 hr 06/12/24 15:56: WBC 6.5, RBC 3.87 L, Hgb 11.7 L, Hct 36.1 L, MCV 93.3, MCH 30.2, MCHC 32.4, RDW Std Deviation 43.9, RDW Coeff of Fanta 12.8, Plt Count 357, MPV 9.5, Immature Gran % (Auto) 0.300, Neut % (Auto) 52.0, Lymph % (Auto) 30.3, [place] % (Auto) 11.7 H, Eos % (Auto) 4.8, Baso % (Auto) 0.9, Absolute Neuts (auto) 3.4, Absolute Lymphs (auto) 1.96, Nucleated RBC % 0, Sodium 140, Potassium 4.0, C hloride 110 H, Carbon Dioxide 26.0, Anion Gap 4 L, BUN 18, Creatinine 0.85, Estim Creat Clear Calc 106.07, Est GFR (MDRD) Af Amer 98, Est GFR (MDRD) Non-Af 81, BUN/Creatinine Ratio 21.3 H, Glucose 90, Calcium 8.8, Total Bilirubin 0.50, AST 14 L, ALT 19, Alkaline Phosphatase 68, Total Protein 7.6, Albumin 3.7, Globulin 3.9, Albumin/Globulin Ratio 0.9, Serum , Qual NEGATIVE, Urine Opiates Screen NEGATIVE, Urine Methadone Screen NEGATIVE, Ur Barbiturates Screen NEGATIVE, Ur Phencyclidine Scrn NEGATIVE, Ur Amphetamines Screen POSITIVE H, M DMA (Ecstasy) Screen POSITIVE H, U Benzodiazepines Scrn NEGATIVE, Urine Cocaine Screen NEGATIVE, U Cannabinoids Screen NEGATIVE, Ur Drug Screen Comment , Ethyl Alcohol < 3.0 Assessment & Plan Assessment/Plan (1) Desire for detoxification: PLAN: Plan #Acute opiate withdrawal - Subutex taper initiated - As needed Tylenol, ibuprofen, bowel regimen, gabapentin, Bentyl, Vistaril, methocarbamol, clonidine - As needed trazodone nightly - As needed antiemetics -Once patient begins to clinically improve will discuss further discharge planning # Amphetamine use disorder -Advise cessation -UDS was positive for amphetamines #Tobacco use -Advise cessation -Nicotine replacement available if desired #DVT ppx: Low risk, ambulatory Lin Malik MD Charges/Coding Visit Charges Inpatient E&M: 58952 Init Hosp L1
[2024-06-12 18:53] VITALS: BP 139/87; PULSE 102; RESP 20; TEMP 36.5; O2SAT 100
[2024-06-12 19:24] VITALS: BMI 37.0
[2024-06-12 20:00] VITALS: BP 133/111; PULSE 98; RESP 16; TEMP 36.6; O2SAT 99
[2024-06-12 20:28] VITALS: PULSE 101; RESP 16; O2SAT 99
[2024-06-12] MEDS: Ibuprofen 600 MG Tablet PO (20:45)
[2024-06-12] MEDS: cloNIDine HCl 0.1 MG Tablet PO (20:45)
[2024-06-12] MEDS: traZODone 100 MG Tablet PO (22:44)
[2024-06-12] MEDS: Gabapentin 300 MG Capsule PO (22:44)
[2024-06-12] MEDS: Methocarbamol 750 MG Tablet PO (22:44)
[2024-06-12] MEDS: Buprenorphine HCl 2 MG TAB.SUBL SL (22:44)
[2024-06-13] VITALS: BP 106/87; PULSE 102; RESP 16; TEMP 36.7; O2SAT 97
[2024-06-13 04:00] VITALS: BP 101/73; PULSE 84; RESP 16; TEMP 36.6; O2SAT 98
[2024-06-13] MEDS: Buprenorphine HCl 2 MG TAB.SUBL SL ×3 (06:27→22:59)
[2024-06-13] MEDS: Ondansetron 8 MG Tablet PO ×2 (08:55→23:00)
[2024-06-13 08:59] VITALS: BP 113/71; PULSE 74; RESP 18; TEMP 36.1; O2SAT 98
--- NOTE | 2024-06-13 09:59 | PN.HOSP_ITS ---
Subjective Subjective Having some nausea, Cina score of 4 Objective Data Objective Data Vital Signs: Vital Signs Temp Pulse Resp BP Pulse Ox O2 Del Method 97 F L 74 18 113/71 98 Room Air 06/13/24 08:59 06/13/24 08:59 06/13/24 08:59 06/13/24 08:59 06/13/24 08:59 06/13/24 08:59 Oxygen Delivery Method Room Air Weight: 215 lb 8 oz Body Mass Index (BMI) 37.0 Lab / Micro Data 06/12/24 15:56 06/12/24 15:56 Labs: Laboratory Results - last 24 hr 06/12/24 15:56: WBC 6.5, RBC 3.87 L, Hgb 11.7 L, Hct 36.1 L, MCV 93.3, MCH 30.2, MCHC 32.4, RDW Std Deviation 43.9, RDW Coeff of Fanta 12.8, Plt Count 357, MPV 9.5, Immature Gran % (Auto) 0.300, Neut % (Auto) 52.0, Lymph % (Auto) 30.3, [place] % (Auto) 11.7 H, Eos % (Auto) 4.8, Baso % (Auto) 0.9, Absolute Neuts (auto) 3.4, Absolute Lymphs (auto) 1.96, Nucleated RBC % 0, Sodium 140, Potassium 4.0, C hloride 110 H, Carbon Dioxide 26.0, Anion Gap 4 L, BUN 18, Creatinine 0.85, Estim Creat Clear Calc 106.07, Est GFR (MDRD) Af Amer 98, Est GFR (MDRD) Non-Af 81, BUN/Creatinine Ratio 21.3 H, Glucose 90, Calcium 8.8, Total Bilirubin 0.50, AST 14 L, ALT 19, Alkaline Phosphatase 68, Total Protein 7.6, Albumin 3.7, Globulin 3.9, Albumin/Globulin Ratio 0.9, Serum , Qual NEGATIVE, Urine Opiates Screen NEGATIVE, Urine Methadone Screen NEGATIVE, Ur Barbiturates Screen NEGATIVE, Ur Phencyclidine Scrn NEGATIVE, Ur Amphetamines Screen POSITIVE H, M DMA (Ecstasy) Screen POSITIVE H, U Benzodiazepines Scrn NEGATIVE, Urine Cocaine Screen NEGATIVE, U Cannabinoids Screen NEGATIVE, Ur Drug Screen Comment , Ethyl Alcohol < 3.0 Physical Exam Narrative General: Alert, Oriented x3, Cooperative, No apparent distress, restless nauseated HEENT: Atraumatic, PERRLA, EOMI, Normocephalic Oral: Moist Mucosa Neck: Supple, No JVD Lungs: Clear to auscultation, Normal air movement, No rhonchi, No wheeze, No rales Cardiovascular: Regular rate, Regular Rhythm, Normal S1, Normal S2, No murmurs Abdomen: Soft, Non Tender, Non-Distended, No Hepato-splenomegaly Extremities: No edema, Capillary Refill Less than 3 Seconds Skin: No rashes, No breakdown Musculoskeletal: No Tenderness to Palpation of Joints or Extremities Neurological: No focal neurological deficits, Motor Exam 5/5 strength throughout, Sensory exam intact to light touch and pain Psych/Mental Status: Flat Assessment & Plan Assessment/Plan (1) Desire for detoxification: PLAN: Plan 1. Acute opiate withdrawal/amphetamine use/tobacco use ? Continue with the opiate withdrawal protocol ? She would like to evaluate the possibility of inpatient rehab ? Discussed tobacco cessation as well as amphetamine cessation DVT: Ambulation Charges/Coding Visit Charges Inpatient E&M: 53808 Subs Hosp L2
--- NOTE | 2024-06-13 12:06 | ADDICTION ---
Met with pt to complete RAMP assessments. Pt was A&Ox4. She reported that hse would like inpatient tx. A referral was sent to [facility]. [facility] has already screened her and is waiting on the team to decide due to her hx of AMA here as well as leaving [facility] 3x previously. She would prefer [facility] however, [place] will be back up if not approved for [facility].
[2024-06-13 14:30] VITALS: BP 107/68; PULSE 74; RESP 18; TEMP 36.6; O2SAT 100
--- NOTE | 2024-06-13 15:44 | CASEMGMT ---
Social Work- SW met with pt to completed SDOH. SW provided information on transportation, housing, food resources, shelters, & WHIRE card. Pt reports that she is homeless and living with family because I am an addict and don't have a job and struggle with stability. Pt reports that she plans to d/c to a residential facility. Pt reports no other needs at this time. VELVET Gallegos
[2024-06-13 22:55] VITALS: BP 119/75; PULSE 64; RESP 16; TEMP 37.1; O2SAT 97
[2024-06-14 04:55] VITALS: BP 122/80; PULSE 74; RESP 18; TEMP 36.9; O2SAT 99
[2024-06-14] MEDS: Buprenorphine HCl 2 MG TAB.SUBL SL ×3 (06:19→22:10)
[2024-06-14] MEDS: Ibuprofen 600 MG Tablet PO ×2 (06:19→22:10)
[2024-06-14] MEDS: hydrOXYzine PAM 25 MG Capsule 50 MG PO (06:20)
[2024-06-14] MEDS: Dicyclomine 10 MG Capsule 20 MG PO (06:20)
[2024-06-14 08:18] VITALS: BP 121/73; PULSE 78; RESP 16; TEMP 36.6; O2SAT 93
--- NOTE | 2024-06-14 09:40 | PCM.PN.HOSP ---
Subjective Subjective No issues overnight, Cina score of 3. Objective Data Objective Data Vital Signs: Vital Signs Temp Pulse Resp BP Pulse Ox O2 Del Method 97.8 F 78 16 121/73 H 93 Room Air 06/14/24 08:18 06/14/24 08:18 06/14/24 08:18 06/14/24 08:18 06/14/24 08:18 06/14/24 08:18 Oxygen Delivery Method Room Air Weight: 215 lb 7.994 oz Body Mass Index (BMI) 37.0 Intake & Output: Intake and Output for Last 24 Hours 06/13/24 06/14/24 06/15/24 03:59 03:59 03:59 Intake Total 1400 / 1400 Balance 1400 / 1400 Lab / Micro Data 06/12/24 15:56 06/12/24 15:56 Social Homelessness:: Sheltered Physical Exam Narrative General: Alert, Oriented x3, Cooperative, No apparent distress HEENT: Atraumatic, PERRLA, EOMI, Normocephalic Oral: Moist Mucosa Neck: Supple, No JVD Lungs: Clear to auscultation, Normal air movement, No rhonchi, No wheeze, No rales Cardiovascular: Regular rate, Regular Rhythm, Normal S1, Normal S2, No murmurs Abdomen: Soft, Non Tender, Non-Distended, No Hepato-splenomegaly Extremities: No edema, Capillary Refill Less than 3 Seconds Skin: No rashes, No breakdown Musculoskeletal: No Tenderness to Palpation of Joints or Extremities Neurological: No focal neurological deficits, Motor Exam 5/5 strength throughout, Sensory exam intact to light touch and pain Psych/Mental Status: Flat Assessment & Plan Assessment/Plan (1) Desire for detoxification: PLAN: Plan 1. Acute opiate withdrawal/amphetamine use/tobacco use ? Continue with the opiate withdrawal protocol ? She would like to evaluate the possibility of inpatient rehab ? Discussed tobacco cessation as well as amphetamine cessation DVT: Ambulation Charges/Coding Visit Charges Inpatient E&M: 96458 Subs Hosp L2
[2024-06-14 13:53] VITALS: BP 117/76; PULSE 76; RESP 16; TEMP 36.3; O2SAT 96
--- NOTE | 2024-06-14 17:44 | NURSING ---
per Hannah BEY gymnastics coach she was informed by Jax BEY navigator that pt has been accepted into [facility] on monday. She will not be going to [facility].
[2024-06-14 22:04] VITALS: BP 103/80; PULSE 77; RESP 16; TEMP 36.8; O2SAT 98
[2024-06-15 03:54] VITALS: BP 106/62; PULSE 65; RESP 16; TEMP 36.4; O2SAT 95
--- NOTE | 2024-06-15 07:23 | PCM.PN.HOSP ---
Reason for Visit Reason for Visit: Patient is a 33-year-old lady with history of opioid dependence admitted with acute opioid withdrawal Objective Data Objective Data Vital Signs: Vital Signs Temp Pulse Resp BP Pulse Ox O2 Del Method 97.5 F L 65 16 106/62 95 Room Air 06/15/24 03:54 06/15/24 03:54 06/15/24 03:54 06/15/24 03:54 06/15/24 03:54 06/15/24 03:54 Oxygen Delivery Method Room Air Weight: 97.749 kg Body Mass Index (BMI) 37.0 Intake & Output: Intake and Output for Last 24 Hours 06/13/24 06/14/24 06/15/24 23:59 23:59 23:59 Intake Total 1400 / 1400 Balance 1400 / 1400 Lab / Micro Data 06/12/24 15:56 06/12/24 15:56 Social Homelessness:: Sheltered Physical Exam Narrative GENERAL: cooperative HEENT: Atraumatic; normocephalic EYES; Anicteric, Normal Conjunctiva NECK; supple, normal thyroid, RESPIRATORY: Diminished to auscultation CARDIOVASCULAR: Regular S1 S2, GI: soft, normoactive bowel sounds, : No Renal angle tenderness; EXTREMITIES: No edema, no clubbing, MUSCULOSKELETAL: no muscle wasting NEURO: Awake; no lateralizing signs. SKIN: No Rash PSYCH; Flat affect Assessment & Plan Assessment/Plan (1) Desire for detoxification: PLAN: Plan Patient is a 33-year-old lady with history of opioid dependence admitted with acute opioid withdrawal 1. 1. Acute opioid withdrawal - Patient has been admitted to regular nursing floor, managed buprenorphine taper along with other adjunctive medications for medical stabilization. Plan is for patient to be discharged to an inpatient rehab 2. Methamphetamine use ? Counseled on cessation 3. Tobacco dependence ? Counseled on cessation, offered nicotine patch for tobacco cravings 4. Class II obesity with BMI 37.0 Complicating care weight loss advised 5. DVT prophylaxis ? Low risk to encourage ambulation Time spent in the patient's overall evaluation,decision-making process, review of diagnostic data, adjustment of management, discussion with other providers, nursing nursing and ancillary staff involved in patient's care documentation 35 Minutes Charges/Coding Visit Charges Inpatient E&M: 26391 Subs Hosp L2
[2024-06-15 09:00] VITALS: BP 112/66; PULSE 60; RESP 16; TEMP 36.8; O2SAT 96
[2024-06-15] MEDS: Ibuprofen 600 MG Tablet PO (10:29)
[2024-06-15] MEDS: Buprenorphine HCl 2 MG TAB.SUBL SL (10:29)
[2024-06-15 17:15] VITALS: BP 128/70; PULSE 68; RESP 16; TEMP 36.4; O2SAT 96
[2024-06-15 21:43] VITALS: BP 123/75; PULSE 72; RESP 15; TEMP 36.3; O2SAT 96
[2024-06-16 03:55] VITALS: BP 126/77; PULSE 71; RESP 15; TEMP 36.8; O2SAT 97
--- NOTE | 2024-06-16 07:37 | PCM.PN.HOSP ---
Subjective Subjective Patient seen had a relatively uneventful night awaiting transfer to inpatient rehab on 06/17/2020 Objective Data Objective Data Vital Signs: Vital Signs Temp Pulse Resp BP Pulse Ox O2 Del Method 98.3 F 71 15 126/77 H 97 Room Air 06/16/24 03:55 06/16/24 03:55 06/16/24 03:55 06/16/24 03:55 06/16/24 03:55 06/16/24 04:00 Oxygen Delivery Method Room Air Weight: 97.749 kg Body Mass Index (BMI) 37.0 Intake & Output: Intake and Output for Last 24 Hours 06/14/24 06/15/24 06/16/24 23:59 23:59 23:59 Intake Total 1300 / 1300 Balance 1300 / 1300 Lab / Micro Data 06/12/24 15:56 06/12/24 15:56 Social Homelessness:: Sheltered Physical Exam Narrative GENERAL: cooperative HEENT: Atraumatic; normocephalic EYES; Anicteric, Normal Conjunctiva NECK; supple, normal thyroid, RESPIRATORY: Diminished to auscultation CARDIOVASCULAR: Regular S1 S2, GI: soft, normoactive bowel sounds, : No Renal angle tenderness; EXTREMITIES: No edema, no clubbing, MUSCULOSKELETAL: no muscle wasting NEURO: Awake; no lateralizing signs. SKIN: No Rash PSYCH; Flat affect Assessment & Plan Assessment/Plan (1) Desire for detoxification: PLAN: Plan Patient is a 33-year-old lady with history of opioid dependence admitted with acute opioid withdrawal 1. 1. Acute opioid withdrawal - Patient has been admitted to regular nursing floor, managed buprenorphine taper along with other adjunctive medications for medical stabilization. Plan is for patient to be discharged to an inpatient rehab ? 06/16/2024; symptoms remain well-controlled 2. Methamphetamine use ? Counseled on cessation 3. Tobacco dependence ? Counseled on cessation, offered nicotine patch for tobacco cravings 4. Class II obesity with BMI 37.0 Complicating care weight loss advised 5. DVT prophylaxis ? Low risk to encourage ambulation Time spent in the patient's overall evaluation,decision-making process, review of diagnostic data, adjustment of management, discussion with other providers, nursing nursing and ancillary staff involved in patient's care documentation 35 Minutes Charges/Coding Visit Charges Inpatient E&M: 80321 Subs Hosp L2
[2024-06-16 08:45] VITALS: BP 133/97; PULSE 78; RESP 16; TEMP 37.1; O2SAT 97
[2024-06-16 16:46] VITALS: BP 118/90; PULSE 70; RESP 16; TEMP 36.9; O2SAT 97
--- NOTE | 2024-06-17 07:13 | PCM.PN.HOSP ---
Subjective Subjective Patient seen had a relatively uneventful night patient be discharged to an inpatient rehab facility Objective Data Objective Data Vital Signs: Vital Signs Temp Pulse Resp BP Pulse Ox O2 Del Method 98.5 F 70 16 118/90 H 97 Room Air 06/16/24 16:46 06/16/24 16:46 06/16/24 16:46 06/16/24 16:46 06/16/24 16:46 06/16/24 22:00 Oxygen Delivery Method Room Air Weight: 97.749 kg Body Mass Index (BMI) 37.0 Intake & Output: Intake and Output for Last 24 Hours 06/15/24 06/16/24 06/17/24 23:59 23:59 23:59 Intake Total 1300 / 1300 Balance 1300 / 1300 Lab / Micro Data 06/12/24 15:56 06/12/24 15:56 Social Homelessness:: Sheltered Physical Exam Narrative GENERAL: cooperative HEENT: Atraumatic; normocephalic EYES; Anicteric, Normal Conjunctiva NECK; supple, normal thyroid, RESPIRATORY: Diminished to auscultation CARDIOVASCULAR: Regular S1 S2, GI: soft, normoactive bowel sounds, : No Renal angle tenderness; EXTREMITIES: No edema, no clubbing, MUSCULOSKELETAL: no muscle wasting NEURO: Awake; no lateralizing signs. SKIN: No Rash PSYCH; Flat affect Assessment & Plan Assessment/Plan (1) Desire for detoxification: PLAN: Plan Patient is a 33-year-old lady with history of opioid dependence admitted with acute opioid withdrawal 1. 1. Acute opioid withdrawal - Patient has been admitted to regular nursing floor, managed buprenorphine taper along with other adjunctive medications for medical stabilization. Plan is for patient to be discharged to an inpatient rehab ? 06/16/2024; symptoms remain well-controlled 2. Methamphetamine use ? Counseled on cessation 3. Tobacco dependence ? Counseled on cessation, offered nicotine patch for tobacco cravings 4. Class II obesity with BMI 37.0 Complicating care weight loss advised 5. DVT prophylaxis ? Low risk to encourage ambulation Time spent in the patient's overall evaluation,decision-making process, review of diagnostic data, adjustment of management, discussion with other providers, nursing nursing and ancillary staff involved in patient's care documentation 35 Minutes
--- NOTE | 2024-06-17 08:44 | PCM.DC.SUM ---
Providers Date of Admission: 06/12/24 Date of Discharge: 06/17/24 Primary Care Physician: No Primary Care Phys Reason For Visit: REQUEST FOR DETOX Diagnosis Discharge Diagnosis (1) Desire for detoxification: Status: Acute Plan Patient is a 33-year-old lady with history of opioid dependence admitted with acute opioid withdrawal 1. 1. Acute opioid withdrawal - Patient has been admitted to regular nursing floor, managed buprenorphine taper along with other adjunctive medications for medical stabilization. Plan is for patient to be discharged to an inpatient rehab ? 06/16/2024; symptoms remain well-controlled ? 06/16/2024. Patient was discharged to an inpatient rehab facility 2. Methamphetamine use ? Counseled on cessation 3. Tobacco dependence ? Counseled on cessation, offered nicotine patch for tobacco cravings 4. Class II obesity with BMI 37.0 Complicating care weight loss advised 5. DVT prophylaxis ? Low risk to encourage ambulation Time spent in the patient's overall evaluation,decision-making process, review of diagnostic data, adjustment of management, discussion with other providers, nursing nursing and ancillary staff involved in patient's care documentation 35 Minutes Medications at Discharge Home Medications NK 11/03/23 Physical Exam Narrative GENERAL: cooperative HEENT: Atraumatic; normocephalic EYES; Anicteric, Normal Conjunctiva NECK; supple, normal thyroid, RESPIRATORY: Diminished to auscultation CARDIOVASCULAR: Regular S1 S2, GI: soft, normoactive bowel sounds, : No Renal angle tenderness; EXTREMITIES: No edema, no clubbing, MUSCULOSKELETAL: no muscle wasting NEURO: Awake; no lateralizing signs. SKIN: No Rash PSYCH; Flat affect Medical Records Data Homelessness:: Sheltered Weight / BMI Weight Weight: 97.749 kg Body Mass Index (BMI) 37.0 ABG / Lab / Microbiology Data 06/12/24 15:56 06/12/24 15:56 D/C Instructions Discharge Diet: No restrictions Discharge Activity: Return to Normal Activity Call your doctor if you observe: Fever of 101 or Higher, Shortness of breath, Fainting spells and Chest pain Meaningful Use Info Meaningful Use Meaningful Use Diagnoses (Choose all that apply): None applicable Ischemic Stroke Statin Dosing Therapy Reference: STATIN DOSE THERAPY REFERENCE: * Patients > 75 years receive moderate or high dose statin therapy. * Patients 75 years or YOUNGER should receive HIGH intensity statin dose unless contraindicated. You will be required to document reason for non-treatment if statin daily dose does not meet guidelines. HIGH DOSE STATIN THERAPY DAILY Atorvastatin > than or = to 40 mg Rosuvastatin > than or = to 20 mg Amlodipine + Atorvastatin > than or = to 2.5/40 mg Ezetimibe + Simvastatin 10/80 mg Simvastatin 80mg Discharge Plan Admission Admit Date/Time: 06/12/24 18:16 Attending Provider: Fletcher Harris Primary Care Provider: Care Physician,No Primary Consulting Providers: Lin Malik; James Otero Discharge Orders/Prescriptions Prescriptions: Continued NK Referrals / Follow Up: Care Physician,No Primary [Primary Care Provider] - Disposition Disposition (needs filled in before D/C Order can be placed): Inpatient Rehab Unit/Facility Charges/Coding Visit Charges Inpatient E&M: 35710 Disch Hosp >30min
[2024-06-17 09:01] VITALS: BP 124/89; PULSE 77; RESP 18; TEMP 37.2; O2SAT 95
== END 2024-06-17 11:19 | disposition other institution (70) ==
LOC: ED 18:00 → MS3 06-13 07:42
PROVIDERS: Admitting Provider Internal Medicine; Emergency Provider Emergency Medicine; Visit Provider Internal Medicine
DX: F11.23 Opioid dependence with withdrawal (principal); E66.812 Obesity, class 2; Z68.37 Body mass index [BMI] 37.0-37.9, adult; F15.90 Other stimulant use, unspecified, uncomplicated; Z86.19 Personal history of other infectious and parasitic diseases; F17.290 Nicotine dependence, other tobacco product, uncomplicated; R03.0 Elevated blood-pressure reading, without diagnosis of hypertension
CPT/HCPCS: 80053; 80307; 82077; 84703; 85025; 97802; 99283; 99406; H0012

== ENCOUNTER 2025-05-25 02:02 | Observation (INO) | payer MEDICAID, SELFPAY ==
[2025-05-25] VITALS (7 sets, daily range): BP systolic 98–157; BP diastolic 58–102; PULSE 76–104; RESP 16–18; TEMP 36.1–36.6; O2SAT 93–100; BMI 41.1; BMI 40.8
--- NOTE | 2025-05-25 02:25 | EX.ED.SAOD ---
HPI History of Present Illness Chief Complaint: Substance Abuse Informant: patient Narrative Narrative: Patient is a 34-year-old female presenting with symptoms of withdrawal and anxiety after recent fentanyl and methamphetamine use, seeking detox. - Reports daily use of fentanyl and methamphetamine, with last use this morning; smokes both substances, denies injection use. - Describes a pattern of using for several months, then abstaining for several months, currently in a period of use lasting months. - Experiencing withdrawal symptoms including high anxiety, mild nausea, shakiness, and goosebumps; denies major pain. - No recent illness symptoms such as cold or stomach flu. - Also uses marijuana and vapes; denies alcohol use. - Has undergone detoxification in the past, approximately one year ago. - Denies current . - No other medical issues or prescription medications. [facility] Medical History Morbid obesity Anxiety and depression Tobacco abuse Alcohol abuse Opioid abuse Hepatitis B Hepatitis C Substance abuse Home Medications ?Medication ?Instructions ?Recorded ?Last Taken ?Type NK 11/03/23 Unknown History Allergy/AdvReac Type Severity Reaction Status Date / Time Penicillins Allergy Hives Verified 05/25/25 02:06 Family History Father Throat cancer Surgical History No history of previous surgery Social History household members: family housing: house number of children: 3 Smoking Status: Current every day smoker tobacco type: e-cigarettes alcohol intake: never substance use type: amphetamines, opiates and IV drugs ROS ROS ED ROS Narrative Psychiatric: (+) anxiety Gastrointestinal: (+) nausea Neurological: (+) shakiness Skin: (+) goosebumps Constitutional Constitutional ED: Denies fever(s) Eyes Eyes: Denies blurry vision or change in vision ENT ENT ED: Denies sore throat Cardiovascular Cardiovascular: Denies chest pain Respiratory/Chest Respiratory/Chest: Denies cough or dyspnea Gastrointestinal Gastrointestinal: Reports nausea; Denies abdominal pain or vomiting Neurologic Neurologic: Denies headache(s), paresthesias or weakness Psychiatric Psychiatric: Reports anxiety; Denies suicidal thoughts EXAM Physical Exam Const Vital Signs: 10/05/25 02:03 Temperature 97.6 F L Temperature Source Oral Pulse Rate 104 H Respiratory Rate 16 Blood Pressure 157/102 H Blood Pressure Mean 120 Pulse Ox 94 Oxygen Delivery Method Room Air Positive well nourished and well developed General Appearance ED: well developed and NAD HEENT Reports moist mucous membranes normocephalic and atraumatic Eyes PERRL and EOMs intact bilaterally Neck full ROM and supple Resp normal respiratory effort and clear to auscultation bilaterally Cardio regular rate, regular rhythm and no murmurs Cardio Narrative: Mild tachycardia GI non-tender and non-distended Auscultation: normoactive bowel sounds Palpation: soft Back/Spine no CVA tenderness General Back: other FROM Extremity normal to inspection Extremity Narrative: Piloerection General Extremety ED: Negative for edema, pulses abnormal or tenderness General Extremity: Negative for edema or pulses abnormal Neuro oriented x3, CN's II-XII intact bilaterally and no sensory deficits noted Sensorium / Orientation: awake and alert Motor Exam: strength 5/5 throughout Psych Psych Narrative: Mildly anxious/tremulous Skin no rashes or lesions noted and no wounds MDM MDM MDM Narrative Medical decision making narrative: Assessment: The patient is a 34-year-old female presenting for inpatient detoxification after daily smoked fentanyl use and concurrent methamphetamine and cannabis use. She reports early withdrawal symptoms?anxiety, nausea, tremulousness, and goose-flesh. Vital signs reveal mild tachycardia and hypertension, consistent with opioid withdrawal. Initial laboratory panel is unremarkable and serum test is negative; urine toxicology is positive for fentanyl, amphetamines, in addition to cocaine. Given presentation and objective data, acute opioid withdrawal is the primary diagnosis requiring monitored detoxification; methamphetamine abuse will be addressed outpatient. Plan: - Symptomatic treatment for opioid withdrawal and anxiety administered in ED. - Discussed limitations of inpatient management for methamphetamine abuse; patient agrees to outpatient follow-up for stimulant use. - Admission arranged to hospitalist service for monitored opioid detox due to physiologic withdrawal and need for medication-assisted therapy. Diagnostics: - Serum test ? negative. - Routine labs ? unremarkable. - Urine toxicology ? pending. Consultations: - Hospitalist service contacted and accepted admission for opioid withdrawal management. Lab Data Attestation: I reviewed the patient's lab results. Labs: Laboratory Results - last 24 hr 05/25/25 05/25/25 02:30 02:37 WBC 7.3 RBC 4.36 Hgb 13.5 Hct 40.6 MCV 93.1 MCH 31.0 MCHC 33.3 RDW Std Deviation 44.1 H RDW Coeff of Fanta 13.0 Plt Count 328 MPV 9.3 Immature Gran % (Auto) 0.700 Neut % (Auto) 57.3 Lymph % (Auto) 31.7 [place] % (Auto) 7.7 Eos % (Auto) 1.5 Baso % (Auto) 1.1 H Absolute Neuts (auto) 4.2 Absolute Lymphs (auto) 2.30 Nucleated RBC % 0 Sodium 138 Potassium 4.0 Chloride 103 Carbon Dioxide 22.3 Anion Gap 12 BUN 22 H Creatinine 0.83 Estim Creat Clear Calc 112.81 Est GFR (MDRD) Non-Af 94 BUN/Creatinine Ratio 26.7 H Glucose 115 H Calcium 9.2 Total Bilirubin 0.25 AST 17 ALT 12 Alkaline Phosphatase 68 Total Protein 7.1 Albumin 4.2 Globulin 3.0 Albumin/Globulin Ratio 1.4 Serum , Qual NEGATIVE Urine Opiates Screen NEGATIVE U Buprenorphine Qual NEGATIVE Ur Oxycodone Screen NEGATIVE Urine Methadone Screen NEGATIVE Urine Fentanyl Screen PRESUMPTIVE POSITIVE Ur Barbiturates Screen NEGATIVE Ur Phencyclidine Scrn NEGATIVE Ur Amphetamines Screen PRESUMPTIVE POSITIVE U Benzodiazepines Scrn NEGATIVE Urine Cocaine Screen PRESUMPTIVE POSITIVE U Cannabinoids Screen NEGATIVE Ethyl Alcohol < 10.1 Management Discussion w/another healthcare provider: Hospitalist Discharge Plan Dx/Rx/DC Orders Clinical Impression: Opiate dependence, Opiate withdrawal, Polysubstance abuse Disposition Disposition: Acute Care Hospital [facility]
--- OUTSIDE RECORDS SUMMARY | 2025-05-25 02:34 | XMS RPT_ITS | CCD ---
Author Organization [facility] CliniSyms Care Team Providers Care Metal Stamper Name Role Phone Care Physician, No Primary Primary Care Provider Unavailable Dr. Geena Alaniz Emergency Provider Dr. Dick Cunningham Admit Provider Dr. Dick Cunningham Attending Provider Dr. Dick Cunningham Other Provider Dr. Kelly Loza Attending Provider Dr. Kelly Loza Other Provider Dr. Neeraj Abdullahi Emergency Provider VAHE Carpenter Attending Provider Unavail able Dr. Geena Koehler Attending Provider Dr. Geena Koehler Admit Provider Dr. Geena Koehler Other Provider Dr. Fletcher Harris Attending Provider Unavailable Dr. Fletcher Harris Other Provider Unavailable Care Physician, No Primary Primary Care Provider Unavailable Dr. Raúl Huerta Emergency Provider Dr. James Otero Admit Provider Dr. James Otero Attending Provider Dr. James Otero Other Provider Care Physician, No Primary Primary Care Provider Unavailable Dr. Raúl Huerta Emergency Provider Dr. James Otero Admit Provider Dr. James Otero Attending Provider Dr. James Otero Other Provider Unavailable Primary Care Provider UnavailLin Giraldo Admitting Unavailable Fletcher Harris Attending Unavailable Lin Malik Consulting Unavailable Care Physician, No Primary Primary Care Unava ilJames Roper Consulting Unavailable [place] Attending Unavailable Care Physician, No Primary Primary Care Unava ilable Fletcher Harris Attending Unavailable Lin Malik Consulting Unavailable Lin Malik Admitting Unavailable Care Physician, No Primary Primary Care Unava ilable James Otero Consulting Unavailable Fletcher Harris Consulting Unavailable Lin Malik Attending Unavailable James Otero Attending Unavailable Unavailable Primary Care Provider UnavailMIREILLE Malik Referring Unavailable SOLOMON, MIREILLE Referring Unavailable MIREILLE GREENE Attending Unavailable SELF Referring Unavailable Allergies Allergy Classification Reported Allergen(s) Allergy Type Date of Onset Reaction(s) Facility (13 sources) Penicillins; Translations: [Penicillins] Allergy to substance 07-28-2012 [facility] Medications Current Medications Medication Drug Class(es) Dates Sig (Normalized) Sig (Original) cephalexin 500 mg oral capsule (1 source) Cephalosporin Antibacterial Start: 10-02-2023 End: 10-07-2023 take 1 capsule by mouth three times daily cephALEXin (KEFLEX) 500 mg capsule Take 1 capsule by mouth three times a day for 5 days. 15 capsule 0 10/02/2023 10/07/2023 Active Comment on above: Take 1 capsule by [facility] three times a day for 5 days. doxycycline hyclate 100 mg oral capsule (1 source) Tetracycline-class Drug Start: 11-03-2023 take 100 mg by mouth twice daily Doxycycline Hyclate Active 100 MG PO TWICE A DAY November 03, 2023 12:00am levoFLOXacin 500 mg oral tablet (1 source) Quinolone Antimicrobial Start: 01-10-2022 take 500 mg by mouth once daily Levofloxacin Active 500 MG PO DAILY 12 23January 10, 2022 10:13am metroNIDAZOLE 500 mg oral tablet (2 sources) Nitroimidazole Antimicrobial Start: 11-03-2023 take 500 mg by mouth twice daily Metronidazole Active 500 MG PO TWICE A DAY November 03, 2023 12:00am Start: 01-10-2022 take 500 mg by mouth three times daily Metronidazole Active 500 MG PO THREE TIMES A DAY 02 01January 10, 2022 10:12am naproxen 500 mg oral tablet (2 sources) Nonsteroidal Anti-inflammatory Drug Start: 10-27-2020 End: 03-18-2025 take 1 tablet by mouth twice daily as needed for pain naproxen (NAPROSYN) 500 mg tablet Indications: Toothache Take 1 tablet by mouth twice daily as needed (for pain/inflammation). Take with food. 15 tablet 10/27/2020 03/18/2025 Discontinued Comment on above: Take 1 tablet by mouth twice daily as ne eded (for pain/inflammation). Take with food. Nirmatrelvir- Ritonavir (1 source) Start: 07-27-2022 Nirmatrelvir-Ritonavir (Paxlovid (Eua)) 300 mg (150 mg x 2)-100 mg tablets,dose pack Active 0 PO .COMPLEX July 27, 2022 12:00am take TWO 150 mg tablets of nirmatrelvir with ONE 100 mg tablet of ritonavir twice daily for 5 days [place] (Nk) (3 sources) Start: 11-03-2023 [place] (Nk) Active November 03, 2023 12:00am Start: 12-13-2022 [place] (Nk) A ctive December 13, 2022 12:00am Start: 05-16-2022 [place] (Nk) A ctive May 16, 2022 12:00am ondansetron 4 mg oral tablet (1 source) Serotonin-3 Receptor Antagonist Start: 07-27-2022 take 4 mg by mouth every six hours Ondansetron Hcl Active 4 MG PO EVERY 6 HOURS July 27, 2022 12:00am Fpdbwhip-Sx-Cxj-Fe -FA tab (2 sources) End: 03-18-2025 take 1 tablet by mouth once Cutmcrhk-Iz-Pok-Fe- FA tab Take 1 tablet by mouth. 03/18/2025 Discontinued take 1 tablet by mouth once Pren atal Mmugqitr-Ai-Gqz-Fe-FA tab Take 1 tablet by mouth. 0 Active Comment on above: Take 1 tablet by jarod th. Completed/Discontinued Medications Medication Drug Class(es) Dates Sig (Normalized) Sig (Original) clindamycin 300 mg oral capsule (6 sources) Lincosamide Antibacterial Start: 01-21-2023 End: 11-03-2023 take 1 capsule by mouth every six hours Clindamycin Hcl (Cleocin Hcl) 300 mg capsule Discontinued 300 MG PO EVERY 6 HOURS 40 April 20, 2023 3:36am November 03, 2023 2:57am Start: 10-27-2020 End: 10-02-2023 take 1 capsule by mouth four times daily clindamycin (CLEOCIN) 300 mg capsule Indications: Toothache Take 1 capsule by mouth four times daily. 40 capsule 0 10/27/2020 10/02/2023 Discontinued (Course of therapy completed) Comment on above: Take 1 capsule by mo [facility] four times daily. Vit,Uyqf14-Egqh-Gbq ic (Prenatabs Fa ) 1 TABLET tablet (7 sources) Start: 03-21-2014 End: 03-22-2014 take 1 tablet by mouth once daily Vit,Filo33-Ahrt-Qilxo (Prenatabs Fa ) 1 TABLET tablet Discontinued 1 TABLET PO DAILY March 21, 2014 8:07am March 22, 2014 8:44am Start: 03-21-2014 End: 03-22-2014 take 1 tablet by mouth once daily Vit,Tsin69-Gmsk-Xvayz (Prenatab s Fa ) 1 TABLET tablet Discontinued 1 TABLET PO DAILY March 20, 2014 11:00pm March 22, 2014 7:44am Start: 03-21-2014 End: 03-22-2014 take 1 tablet by mouth once daily Vit,Janc56-Glfd-Atkgx (Prenatab s Fa ) 1 TABLET tablet Discontinued 1 TABLET PO DAILY March 21, 2014 12:00am March 22, 2014 8:44am Problems Active Problems Problem Classification Problem Date Documented Date Episodic/Chronic Acute and chronic tonsillitis (3 sources) Peritonsillar abscess; Translations: [Peritonsillar abscess] 01-21-2023 Episodic Benign neoplasm of uterus (3 sources) Subserous leiomyoma of uterus; Translations: [Subserosal leiomyoma of uterus] Onset: 03-18-2025 03-18-2025 Episodic Cardiac dysrhythmias (8 sources) ECG: sinus tachycardia; Translations: [Tachycardia, unspecified] 10-27-2018 Episodic Essential hypertension (3 sources) Essential hypertension; Translations: [Essential (primary) hypertension] Onset: 03-18-2025 03-18-2025 Chronic Fluid and electrolyte disorders (8 sources) Mild dehydration; Translations: [Dehydration] 04-30-2019 Episodic Hepatitis (20 sources) Type B viral hepatitis; Translations: [Unspecified viral hepatitis B without hepatic coma] Episodic Immunizations and screening for infectious disease (5 sources) Patient encounter status; Translations: [Encounter for screening for infections with a predominantly sexual mode of transmission] Onset: 03-18-2025 03-18-2025 Episodic Malaise and fatigue (3 sources) Malaise and fatigue; Translations: [Other malaise] Onset: 03-18-2025 03-18-2025 Episodic Menstrual disorders (10 sources) Amenorrhea; Translations: [Amenorrhea, unspecified] Onset: 03-18-2025 04-30-2019 Chronic Nausea and vomiting (8 sources) Nausea and vomiting; Translations: [Nausea with vomiting, unspecified] 10-27-2018 Episodic Other circulatory disease (8 sources) Elevated blood pressure; Translations: [Elevated blood-pressure reading, without diagnosis of hypertension] 01-01-2022 Episodic Other circulatory disease (2 sources) Elevated blood-pressure reading, without diagnosis of hypertension; Translations: [Elevated blood pressure reading without diagnosis of hypertension] Episodic Other female genital disorders (3 sources) Abnormal uterine bleeding; Translations: [Abnormal uterine and vaginal bleeding, unspecified] 03-18-2025 Chronic Other female genital disorders (1 source) Abnormal uterine and vaginal bleeding, unspecified; Translations: [Abnormal uterine bleeding (AUB)] Onset: 03-18-2025 Chronic Other nutritional; endocrine; and metabolic disorders (1 source) Unintentional weight gain; Translations: [Abnormal weight gain] 03-18-2025 Episodic Other nutritional; endocrine; and metabolic disorders (1 source) Abnormal weight gain; Translations: [Unintended weight gain] Onset: 03-18-2025 Episodic Other screening for suspected conditions (not mental disorders or infectious disease) (1 source) Encounter for screening for malignant neoplasm of cervix; Translations: [Encounter for screening for malignant neoplasm of cervix] Onset: 03-18-2025 Episodic Ovarian cyst (4 sources) Cyst of ovary; Translations: [Unspecified ovarian cyst, unspecified side] 12-13-2022 Episodic Residual codes; unclassified (8 sources) Tobacco user; Translations: [Tobacco use] 01-01-2022 Episodic Residual codes; unclassified (4 sources) Tobacco use; Translations: [Tobacco use disorder] Episodic Schizophrenia and other psychotic disorders (8 sources) Paranoid disorder; Translations: [Delusional disorders] 01-01-2019 Chronic Skin and subcutaneous tissue infections (2 sources) Cellulitis of face; Translations: [Cellulitis of face] 04-20-2023 Episodic Substance-related disorders (20 sources) Opioid withdrawal; Translations: [Opioid dependence with withdrawal] Onset: 10-03-2024 Chronic Substance-related disorders (20 sources) Illicit medication use; Translations: [Other psychoactive substance use, unspecified, uncomplicated] 01-18-2022 Episodic Superficial injury; contusion (1 source) Foreign body of skin of great toe; Translations: [Superficial foreign body, right great toe, initial encounter] 10-02-2023 Episodic Unclassified (14 sources) Readiness finding; Translations: [Desire for detoxification] Urinary tract infections (1 source) Urinary tract infectious disease; Translations: [Urinary tract infection, site not specified] 11-03-2023 Episodic Viral infection (13 sources) Disease caused by 2019-nCoV; Translations: [COVID-19] 07-27-2022 Episodic Past or Other Problems Problem Classification Problem Date Documented Da te Episodic/Chronic Abdominal pain (20 sources) Abdominal pain; Translations: [Unspecified abdominal pain] Onset: 11-07-2023 12-13-2022 Episodic Diabetes or abnormal glucose tolerance complicating ; childbirth; or the puerperium (3 sources) Abnormal glucose level; Translations: [Abnormal glucose complicating ] Onset: 06-08-2015 06-08-2015 Episodic Other complications of (3 sources) High risk ; Translations: [Smoking (tobacco) complicating , first trimester] Onset: 12-29-2014 12-29-2014 Episodic Other complications of (3 sources) Finding of pattern of ; Translations: [Supervision of other high risk pregnancies, unspecified trimester] Onset: 12-29-2014 12-29-2014 Episodic Other complications of (3 sources) Rubella non-immune; Translations: [Supervision of other high risk pregnancies, unspecified trimester] Onset: 01-29-2015 01-29-2015 Episodic Other complications of (3 sources) History of shoulder dystocia; Translations: [Supervision of with other poor reproductive or obstetric history, unspecified trimester] Onset: 06-05-2015 08-16-2021 Episodic Other and delivery including normal (11 sources) First trimester ; Translations: [Encounter for supervision of normal , unspecified, first trimester] Onset: 12-29-2014 07-05-2020 Episodic Residual codes; unclassified (3 sources) FH: Sickle cell trait; Translations: [Family history of diseases of the blood and blood-forming organs and certain disorders involving the immune mechanism] Onset: 12-29-2014 08-16-2021 Episodic Results Test Name Value Interpretation Reference Range Facility [facility] 03-25-2025 Indication Abnormal uterine bleeding Impression Uterus 96 x 63 x 49 mm and anteverted Myometrium with direct signs of adenomyosis There are two fibroids as noted below, however the second may represent an adenomyoma as there is internal color flow Endometrium 9 mm, no lesions or areas of color-flow Cervix normal Mild free fluid in the cul-de-sac Right ovary 24 x 21 x 20 mm, normal Left ovary 30 x 23 x 28 mm, volume 10 mL with greater than 20 antral follicles Recommendations Adenomyosis Polycystic ovarian morphology Fibroids Menstrual History LMP on 03/11/2025. Day of cycle 8. Cycle: regular cycle. Cycle length 30 d to 60 d. Bleeding: normal. Bleeding duration 4 d to 5 d. Contraception: none Method Transabdominal, transvaginal, 3D ultrasound examination, Color Doppler examination Uterus Uterus: Visualized Uterus position: anteverted Description of uterine malformations: normally shaped Myometrium: heterogeneous, asymmetrically thickened Endometrium: endometrial midline: not well defined Cervix details: cystic lesions identified suggesting superficial Nabothian cysts Uterus length 96 mm Uterus width 63 mm Uterus height 49 mm Uterus Vol 155.7 cm Endometrial thickness, total 8.8 mm Fibroids: Fibroids identified Uterine fibroid D1 30 mm Uterine fibroid D2 27 mm Uterine fibroid D3 27 mm Uterine fibroid mean 28.2 mm Uterine fibroid vol 11.681 cm Uterine fibroids findings: Posterior right, ALYSSA, Subserous , FIGO score: 5 - Subserous > or equal to 50% intramural Uterine fibroid D1 20 mm Uterine fibroid D2 16 mm Uterine fibroid D3 19 mm Uterine fibroid mean 18.5 mm Uterine fibroid vol 3.282 cm Uterine fibroids findings: Anterior left, intramural , FIGO score: 4 - Intramural Right Ovary Rt ovary: Visualized Rt ovary morphology: premenopausal normal follicular Rt ovary D1 24 mm Rt ovary D2 21 mm Rt ovary D3 20 mm Rt ovary Vol 5.3 cm Left Ovary Lt ovary: Visualized Lt ovary morphology: premenopausal polycystic Lt ovary D1 30 mm Lt ovary D2 23 mm Lt ovary D3 28 mm Lt ovary Vol 10.0 cm Cul de Sac Visualized. no free fluid visualized Performed By: Libra Orantes RDMS Read By: Verona Ramirez M.D. MATERNAL MEDICINE [facility] 25(OH)D3 [facility] 25-hydroxyvitamin D3 [Mass/Vol] 23.9 ng/mL Low 31.0-80.0 [facility] Comment on above: Order Comment: Speci men Type: BLOOD SPECIMEN Ordering Facility: [facility] Address: [address] [place] [address] Performed By: #### 1 989-3 #### [facility] CLIA [id number] [address] [place] [address] [place] C. trachomatis+N. gonorrhoea e DNA JUDY+probe Ql (Unsp spec)on 03-18-2025 C. trachomatis rRNA JUDY+probe Ql (Unsp spec) Detected Abnormal Not detected [facility] Comment on above: Order Comment: Speci men Type: SWAB Ordering Facility: [facility] Address: [address] [place] [address] Performed By: #### 3 6902-5 #### [facility] CLIA [id number] [address] [place] [address] [place] N. gonorrhoeae rRNA JUDY+probe Ql (Unsp spec) Not detected Normal Not detected [facility] Comment on above: Order Comment: Speci men Type: SWAB Ordering Facility: [facility] Address: [address] [place] [address] Performed By: #### 3 6902-5 #### [facility] CLIA [id number] [address] [place] [address] [place] [facility] CBC W Auto Differential pane l (Bld)on 03-18-2025 Basophils (Bld) [#/Vol] 0.06 10*3/uL [facility] Basophils/100 WBC (Bld) 0.9 % C [facility] Differential cell count method Nom (Bld) Auto [facility] Eosinophils (Bld) [#/Vol] 0.13 10*3/uL [facility] Eosinophils/100 WBC (Bld) 1.9 % [facility] Erythrocyte distribution width (RBC) [Ratio] 12.8 % 11.5 - 15.0 % [facility] Hematocrit (Bld) [Volume fraction] 38.5 % 36.0 - 46.0 % [facility] Hemoglobin (Bld) [Mass/Vol] 13.3 g/dL 11.5 - 15.5 g/dL [facility] Immature granulocytes (Bld) [#/Vol] 0.04 10*3/uL [facility] Immature granulocytes/100 WBC (Bld) 0.6 % [facility] Lymphocytes (Bld) [#/Vol] 2.21 10*3/uL [facility] Lymphocytes/100 WBC (Bld) 31.8 % [facility] MCH (RBC) [Entitic mass] 31.1 pg 26.0 - 34.0 pg [facility] MCHC (RBC) [Mass/Vol] 34.5 g/dL 30.5 - 36.0 g/dL [facility] MCV (RBC) [Entitic vol] 90 fL 80.0 - 100.0 fL [facility] Monocytes (Bld) [#/Vol] 0.65 10*3/uL [facility] Monocytes/100 WBC (Bld) 9.4 % C [facility] Neutrophils (Bld) [#/Vol] 3.85 10*3/uL [facility] Neutrophils/100 WBC (Bld) 55.4 % [facility] Nucleated RBC (Bld) [#/Vol] [facility] Nucleated RBC/100 WBC (Bld) [Ratio] 0 % /100 WBC [facility] Platelet mean volume (Bld) [Entitic vol] 9.4 fL 9.0 - 12.7 fL [facility] Platelets (Bld) [#/Vol] 385 10*3/uL [facility] RBC (Bld) [#/Vol] 4.28 10*6/uL 3.90 - 5.2 0 m/uL [facility] WBC (Bld) [#/Vol] 6.94 10*3/uL [facility] Basophils (Bld) [#/Vol] 0.06 10*3/uL Normal <0.11 [facility] Comment on above: Order Comment: Speci men Type: BLOOD SPECIMEN Ordering Facility: [facility] Address: [address] [place] [address] Performed By: #### 5 7021-8 #### [facility] CLIA [id number] [address] [place] [address] [place] Basophils/100 WBC (Bld) 0.9 % Normal [facility] Comment on above: Order Comment: Speci men Type: BLOOD SPECIMEN Ordering Facility: [facility] Address: [address] [place] [address] Performed By: #### 5 7021-8 #### [facility] CLIA [id number] [address] [place] [address] [place] Differential cell count method Nom (Bld) Auto Normal [facility] Comment on above: Order Comment: Speci men Type: BLOOD SPECIMEN Ordering Facility: [facility] Address: [address] [place] [address] Performed By: #### 5 7021-8 #### [facility] CLIA [id number] [address] [place] [address] [place] Eosinophils (Bld) [#/Vol] 0.13 10*3/uL Normal <0.46 [facility] Comment on above: Order Comment: Speci men Type: BLOOD SPECIMEN Ordering Facility: [facility] Address: [address] [place] [address] Performed By: #### 5 7021-8 #### [facility] CLIA [id number] [address] [place] [address] [place] Eosinophils/100 WBC (Bld) 1.9 % Normal [facility] Comment on above: Order Comment: Speci men Type: BLOOD SPECIMEN Ordering Facility: [facility] Address: [address] [place] [address] Performed By: #### 5 7021-8 #### [facility] CLIA [id number] [address] [place] [address] [place] Erythrocyte distribution width (RBC) [Ratio] 12.8 % Normal 11.5-15.0 [facility] Comment on above: Order Comment: Speci men Type: BLOOD SPECIMEN Ordering Facility: [facility] Address: [address] [place] [address] Performed By: #### 5 7021-8 #### [id number] [address] [place] [address] [place] Hematocrit (Bld) [Volume fraction] 38.5 % Normal 36.0-46.0 [facility] Comment on above: Order Comment: Speci men Type: BLOOD SPECIMEN Ordering Facility: [facility] Address: [address] [place] [address] Performed By: #### 5 7021-8 #### [facility] [id number] [address] [place] [address] [place] Hemoglobin (Bld) [Mass/Vol] 13.3 g/dL Normal 11.5-15.5 [facility] Comment on above: Order Comment: Speci men Type: BLOOD SPECIMEN Ordering Facility: [facility] Address: [address] [place] [address] Performed By: #### 5 7021-8 #### [facility] [id number] [address] [place] [address] [place] Immature granulocytes (Bld) [#/Vol] 0.04 10*3/uL Normal <0.10 [facility] Comment on above: Order Comment: Speci men Type: BLOOD SPECIMEN Ordering Facility: [facility] Address: [address] [id number] Performed By: #### 5 7021-8 #### [facility] CLIA [id number] [address] [place] [address] [place] Immature granulocytes/100 WBC (Bld) 0.6 % Normal [facility] Comment on above: Order Comment: Speci men Type: BLOOD SPECIMEN Ordering Facility: [facility] Address: [address] [place] [address] Performed By: #### 5 7021-8 #### [facility] CLIA [id number] [address] [place] [address] [place] Lymphocytes (Bld) [#/Vol] 2.21 10*3/uL Normal 1.00-4.00 [facility] Comment on above: Order Comment: Speci men Type: BLOOD SPECIMEN Ordering Facility: [facility] Address: [address] [place] [address] Performed By: #### 5 7021-8 #### [facility] [id number] [address] [place] [address] [place] Lymphocytes/100 WBC (Bld) 31.8 % Normal [facility] Comment on above: Order Comment: Speci men Type: BLOOD SPECIMEN Ordering Facility: [facility] Address: [address] [place] [address] Performed By: #### 5 7021-8 #### [facility] CLIA [id number] [address] [place] [address] [place] MCH (RBC) [Entitic mass] 31.1 pg Normal 26.0-34.0 [facility] Comment on above: Order Comment: Speci men Type: BLOOD SPECIMEN Ordering Facility: [facility] Address: [address] [place] [address] Performed By: #### 5 7021-8 #### [facility] CLIA [id number] [address] [place] [address] [place] MCHC (RBC) [Mass/Vol] 34.5 g/dL Normal 30.5-36.0 [facility] Comment on above: Order Comment: Speci men Type: BLOOD SPECIMEN Ordering Facility: [facility] Address: [address] [place] [address] Performed By: #### 5 7021-8 #### [facility] CLIA [id number] [address] [place] [address] [place] MCV (RBC) [Entitic vol] 90.0 fL Normal 80.0-100.0 [facility] Comment on above: Order Comment: Speci men Type: BLOOD SPECIMEN Ordering Facility: [facility] Address: [address] [place] [address] Performed By: #### 5 7021-8 #### [facility] CLIA [id number] [address] [place] [address] [place] Monocytes (Bld) [#/Vol] 0.65 10*3/uL Normal <0.87 [facility] Comment on above: Order Comment: Speci men Type: BLOOD SPECIMEN Ordering Facility: [facility] Address: [address] [place] [address] Performed By: #### 5 7021-8 #### [facility] CLIA [id number] [address] [place] [address] [place] Monocytes/100 WBC (Bld) 9.4 % Normal [facility] Comment on above: Order Comment: Speci men Type: BLOOD SPECIMEN Ordering Facility: [facility] Address: [address] [place] [address] Performed By: #### 5 7021-8 #### [facility] CLIA [id number] [address] [place] [address] [place] Neutrophils (Bld) [#/Vol] 3.85 10*3/uL Normal 1.45-7.50 [facility] Comment on above: Order Comment: Speci men Type: BLOOD SPECIMEN Ordering Facility: [facility] Address: [address] [place] [address] Performed By: #### 5 7021-8 #### [facility] CLIA [id number] [address] [place] [address] [place] Neutrophils/100 WBC (Bld) 55.4 % Normal [facility] Comment on above: Order Comment: Speci men Type: BLOOD SPECIMEN Ordering Facility: [facility] Address: [address] [place] [address] Performed By: #### 5 7021-8 #### [facility] CLIA [id number] [address] [place] [address] [place] Nucleated RBC (Bld) [#/Vol] 10*3/uL Normal <0.01 [facility] Comment on above: Order Comment: Speci men Type: BLOOD SPECIMEN Ordering Facility: [facility] Address: [address] [place] [address] Performed By: #### 5 7021-8 #### [id number] [address] [place] [address] [place] Nucleated RBC/100 WBC (Bld) [Ratio] 0.0 /100 WBC Normal [facility] Comment on above: Order Comment: Speci men Type: BLOOD SPECIMEN Ordering Facility: [facility] Address: [address] [place] [address] Performed By: #### 5 7021-8 #### [facility] CLIA [id number] [address] [place] [address] [place] Platelet mean volume (Bld) [Entitic vol] 9.4 fL Normal 9.0-12.7 [facility] Comment on above: Order Comment: Speci men Type: BLOOD SPECIMEN Ordering Facility: [facility] Address: [address] [place] [address] Performed By: #### 5 7021-8 #### [facility] CLIA [id number] [address] [place] [address] [place] Platelets (Bld) [#/Vol] 385 10*3/uL Normal 150-400 [facility] Comment on above: Order Comment: Speci men Type: BLOOD SPECIMEN Ordering Facility: [facility] Address: [address] [place] [address] Performed By: #### 5 7021-8 #### [facility] CLIA [id number] [address] [place] [address] [place] RBC (Bld) [#/Vol] 4.28 10*6/uL Normal 3.90-5.20 [facility] Comment on above: Order Comment: Speci men Type: BLOOD SPECIMEN Ordering Facility: [facility] Address: [address] [place] [address] Performed By: #### 5 7021-8 #### [facility] CLIA [id number] [address] [place] [address] [place] WBC (Bld) [#/Vol] 6.94 10*3/uL Normal 3.70-11.00 [facility] Comment on above: Order Comment: Speci men Type: BLOOD SPECIMEN Ordering Facility: [facility] Address: [address] [place] [address] Performed By: #### 5 7021-8 #### [facility] CLIA [id number] [address] [place] [address] [place] CNOVon 03-18-2025 CNOV Office Visit (OBGYWM ) BAUDILIO SHARMA ([id number]) 1990 F Date Time Provider Department 03/18/25 7:00 AM MIREILLE GREENE During your visit today, we recorded the following information about you: Blood pressure Weight Height Last Period 141/102 103 kg 1.626 m 03/10/25 Mireille Greene APRN.SANJIV 03/18/2025 8:11 AM 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 Obstetrics and Gynecology [place] [facility] [facility] Visit Subjective Recording using [employer] software for draft documentation of the visit was discussed with the patient/authorized billing representative; all questions welcomed and answered. Patient/authorized billing representative agreed to proceed CHIEF COMPLAINT: CC: Patient is a 34-year-old female presenting with concerns about irregular bleeding, weight gain, and fatigue. HPI: HPI: Irregular Menstrual Bleeding: - Reports frequent bleeding over the past couple of months, occurring multiple times within a single month. - Describes her periods as irregular for the past 6-7 years, typically occurring every 1-2 months and lasting 4-5 days with light flow and no significant cramps. - Noted changes in her menstrual cycle 2-3 months ago, with increased frequency of bleeding episodes. - Recently experienced a full 5-day period, followed by another full period a week later, and then another bleeding episode lasting 3 days after a week. - Currently not experiencing bleeding. Weight Gain and Fatigue: - Reports significant weight gain in a short period and extreme fatigue. - Expresses concern about potential thyroid issues, noting a family history of thyroid problems. Ovarian Cyst History - per patient: - Approximately 1.5 years ago, states was diagnosed with a 5 cm ovarian cyst at the hospital and was advised to consider surgery, but did not follow up. - Recently recalled the cyst and is concerned it may be contributing to her current symptoms. - Reviewed abdominal/pelvic CT from 11/03/2023 [facility]: 1.4 cm exophytic fibroid at posterior uterine body, no adnexal mass. Sexual Activity and Control: - Sexually active but has not engaged in sexual intercourse since December. - Not using any form of control and is open to if it occurs. Medical History: - Diagnosed with hepatitis B and C, likely due to past drug use. - Has a history of high blood pressure but is not currently taking medication for it. - Allergic to penicillin. - Has not undergone any surgeries. 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 - Recently completed a residential treatment program. HISTORY: OB History Gravida4 Para3 Term3 Preterm0 AB1 Living3 SAB1 IAB0 Ectopic0 Multiple0 Live Births3 Comment: Vacuum for decel- documentation in delivery note by Edward forte- with moderate shoulder dystocia - suprapubic, an maneuver, delivery of posterior arm. Household Personal Assistant History LMP: 03/10/2025, Having periods Age at Menarche: Age at First : Age at Menopause: Household Personal Assistant History Comments: Sexual Activity: Yes; Male Contraception: None PAST MEDICAL HISTORY Diagnosis Date Hepatitis B 2021 Hepatitis C 2021 History of drug use meth - sobriety date 03/2024 Hypertension PAST SURGICAL HISTORY Procedure Laterality Date NONE FAMILY HISTORY Problem Relation Age of Onset Cancer Father Throat Cancer Social History Tobacco Use Smoking status: Some Days Current packs/day: 0.25 Average packs/day: 0.3 packs/day for 17.0 years (4.3 ttl pk-yrs) Types: Cigarettes Smokeless tobacco: Never Vaping Use Vaping status: Never Used Substance Use Topics Alcohol use: No Drug use: Not Currently No current outpatient medications on file. No current facility-administered medications for this visit. ALLERGIES Allergen Reactions Penicillins Rash REVIEW OF SYSTEMS: Constitutional: (+) weight gain, (+) fatigue Head: (-) migraine Genitourinary: (+) abnormal vaginal bleeding, (-) vaginal discharge, (-) vaginal odor, (-) vaginal irritation, (-) pelvic pain, (-) menstrual cramps Psychiatric: (+) depressed mood Objective SENSITIVE EXAM: The sensitive examination was discussed with the Patient or Patient's Authorized Railway Traction Line Worker. As applicable, any other physician, advance practice provider, medical student, or other health professional student that will be observing or involved in the sensitive examination for educational or training purposes was discussed with the Patient or Authorized Railway Traction Line Worker. The Patient or Authorized Railway Traction Line Worker has agreed to proceed with the sensitive examination. (Sensitive examination includes inspection and/or palpation of the breasts, pelvis, prostate and anorectal regions). PHYSICAL EXAM: BP 141/102 Ht 5' 4 (1.63m) Wt 227 lb (103.0kg) LMP 03/10/2025 BMI 38.95 kg/(m2 (more content not included)... Normal [facility] HIGH RISK HUMAN PAPILLOMA ANITA (HPV), PCR FOR DETECTION AND GENOTYPINGon 03-18-2025 HPV 16 Ag Ql (Unsp spec) Not detected Normal Not detected [facility] Comment on above: Order Comment: Speci men Type: FLUID SPECIMEN Ordering Facility: [facility] Address: [address] [place] [address] Performed By: #### H PVHRT #### [facility] CLIA [id number] [address] [place] [address] [place] HPV 18 Ag Ql (Unsp spec) Not detected Normal Not detected [facility] Comment on above: Order Comment: Speci men Type: FLUID SPECIMEN Ordering Facility: [facility] Address: [address] [place] [address] Performed By: #### H PVHRT #### [facility] CLIA [id number] [address] [place] [address] [place] HPV 31+33+35+39+45+51+52+56 +58+59+66+68 DNA JUDY+probe Ql (Cvx) Not detected Normal Not detected [facility] Comment on above: Order Comment: Speci men Type: FLUID SPECIMEN Ordering Facility: [facility] Address: [address] [place] [address] Result Comment: High Risk HPV Other Type includes HPV types 31, 33, 35, 39, 45, 51, 52, 56, 58, 59, 66 and 68. Performed By: #### H PVHRT #### [facility] CLIA [id number] [address] [place] [address] [place] HIV 1+2 Ab IA Qlon HIV 1 and 2 Ab IA.rapid Nom (S/P/Bld) Normal [facility] Comment on above: Order Comment: Speci men Type: BLOOD SPECIMEN Ordering Facility: [facility] Address: [address] [place] [address] Result Comment: Test not indicated. Performed By: #### 3 1201-7, 46538-1 #### [facility] CLIA [id number] [address] [place] [address] [place] HIV 1+2 Ab+HIV1 p24 Ag IA Ql Non-Reactive Normal Nonreactive [facility] Comment on above: Order Comment: Speci men Type: BLOOD SPECIMEN Ordering Facility: [facility] Address: [address] [place] [address] Performed By: #### 3 1201-7, 39302-9 #### [facility] CLIA [id number] [address] [place] [address] [place] HIV immunoassay testing algorithm interpretation (S/P/Bld) [Interp] Normal [facility] Comment on above: Order Comment: Speci men Type: BLOOD SPECIMEN Ordering Facility: [facility] Address: [address] [place] [address] Result Comment: No e vidence of HIV-1 or HIV-2 infection. Should recent infection be suspected, repeat testing may be considered 2-3 weeks after this draw. Cloud Rev. Code 3701.243(E): This information has been disclosed to you from confidential records protected from disclosure by state law. You shall make no further disclosure of this information without the specific, written, and informed release of the individual to whom it pertains or as otherwise permitted by state law. A general authorization for the release of medical or other information is not sufficient for the purpose of the release of HIV test results or diagnoses. Performed By: #### 3 1201-7, 79510-4 #### [facility] CLIA [id number] [address] [place] [address] [place] PAP TESTon 03-18-2025 ADEQUACY Normal [facility] Comment on above: Order Comment: Speci men Type: FLUID SPECIMEN Ordering Facility: [facility] Address: [address] [place] [address] Result Comment: Sati sfactory for interpretation. Transformation zone present Performed By: #### L [id number] #### [facility] CLIA [id number] [address] [place] [address] [place] CASE REPORT Normal [facility] Comment on above: Order Comment: Speci men Type: FLUID SPECIMEN Ordering Facility: [facility] Address: [address] [place] [address] Result Comment: Gyne cologic Cytology Report Case: [id number] Authorizing Provider: Mireille Greene APRN.COMMUNITY RELATIONS ADVISOR Collected: 03/18/2025 08:03 AM Ordering Location: OB/Gynecology Received: 03/18/2025 12:57 PM First Screen: Zhorova, Effie, CT, ASCP Specimen: Pap Test, ThinPrep, Cervix Performed By: #### L [id number] #### [facility] CLIA [id number] [address] [place] [address] [place] CLINICAL HISTORY, CYTOLOGY, [employer] Routine Exam Normal [facility] Comment on above: Order Comment: Speci men Type: FLUID SPECIMEN Ordering Facility: [facility] Address: [address] [place] [address] Performed By: #### L [id number] #### [facility] CLIA [id number] [address] [place] [address] [place] CYTOLOGY PAP OTHER INTERPRETATION Predominance of coccobacilli consistent with shift in vaginal papo. Normal [facility] Comment on above: Order Comment: Speci men Type: FLUID SPECIMEN Ordering Facility: [facility] Address: [address] [place] [address] Performed By: #### L [id number] #### [facility] CLIA [id number] [address] [place] [address] [place] FINAL PERFORMING LAB Normal [facility] Comment on above: Order Comment: Speci men Type: FLUID SPECIMEN Ordering Facility: [facility] Address: [address] [place] [address] Result Comment: Tech nical component, signals collector/analyst screening performed at: [facility], [address] [place] [address] CLIA: [id number] Diagnostic interpretation performed at: [facility], [address] [place] [address] [place] [address] CLIA# [id number] Portfolio Management Marketing: Cesar Purcell MD Performed By: #### L [id number] #### [facility] CLIA [id number] [address] [place] [address] [place] INTERPRETATION, CYTOLOGY, [place] [employer] Normal [facility] Comment on above: Order Comment: Speci men Type: FLUID SPECIMEN Ordering Facility: [facility] Address: [address] [place], [place] [address] Result Comment: Nega tive for intraepithelial lesion or malignancy. at 0954 EDT Performed By: #### L [id number] #### [facility] CLIA [id number] [address] [place] [address] [place] LMP 03/10/2025 Normal [facility] Comment on above: Order Comment: Speci men Type: FLUID SPECIMEN Ordering Facility: [facility] Address: [address] [place] [address] Performed By: #### L [id number] #### [facility] CLIA [id number] [address] [place] [address] [place] PAP DISCLAIMER COMMENT The Pap Smear is a screening test for cervical cancer. False negative results occur with all screening tests, emphasizing the need for rescreening at recommended intervals, and clinical correlation. Normal [facility] Comment on above: Order Comment: Speci men Type: FLUID SPECIMEN Ordering Facility: [facility] Address: [address] [place], [place] [address] Performed By: #### L [id number] #### [facility] CLIA [id number] [address] [place] [address] [place] PAP RECORDS SUPERVISOR COMMENT This specimen has be en analyzed by the FDA-approved Standardized Safety System, which uses digital imaging and an enhanced artificial intelligence image analysis algorithm to identify harris of interest on the microscopic slide, to assist the firer helper and pathologist in evaluating cells on ThinPrep Pap tests. Following analysis, harris of interest on the microscopic slide selected by the algorithm are reviewed by a firer helper. If a sample requires hierarchical review, the pathologist will review the same harris of interest selected by the algorithm prior to final interpretation. Normal [facility] Comment on above: Order Comment: Speci men Type: FLUID SPECIMEN Ordering Facility: [facility] Address: [address] [place] [address] Performed By: #### L [id number] #### [facility] CLIA [id number] [address] [place] [address] [place] Reagin and Treponema pallidu m IgG and IgM [Interp]on 03-18-2025 T. pallidum IgG+IgM IA Ql (S) Non-Reactive Normal Nonreactive [facility] Comment on above: Order Comment: Noemii khadra Type: BLOOD SPECIMEN Ordering Facility: [facility] Address: [address] [place] [address] Performed By: #### 3 1201-7, 69804-5 #### [facility] CLIA [id number] [address] [place] [address] [place] Reagin+T pallidum IgG+IgM Se rPl-Impon 03-18-2025 Reagin and Treponema pallidum IgG and IgM [Interp] Cannot exclude recent Treponemal infection if specimen collected within 7-10 days after appearance of suspect lesions or 2-3 weeks after an exposure. Clinical correlation is required. Normal [facility] Comment on above: Order Comment: Speci khadra Type: BLOOD SPECIMEN Ordering Facility: [facility] Address: [address] [place] [address] Performed By: #### 3 1201-7, 73525-7 #### [facility] CLIA [id number] [address] [place] [address] [place] TSH SerPl-aCncon 03-18-2025 TSH Qn 3.110 m[IU]/L Normal 0.270-4.200 [facility] Comment on above: Order Comment: Speci men Type: BLOOD SPECIMEN Ordering Facility: [facility] Address: [address] [place] [address] Result Comment: If t he patient is , TSH reference range varies by gestational period: First Trimester (weeks 9-12): 0.180-2.990 mIU/L Second Trimester: 0.110-3.980 mIU/L Third Trimester: 0.480-4.710 mIU/L Yonis Griffith et al. A Practical Approach for the Verifications and Determination of Site- and Trimester-Specific Reference Intervals for Thyroid Function tests in . Thyroid, 2019:29:3:412-420. Ross E, et al. 2017 Guidelines of the [place] Thyroid Association for the Diagnosis and Management of Thyroid Disease during and the . Thyroid, 2017:27:3:315-389. Performed By: #### 3 016-3 #### [facility] CLIA [id number] [address] [place], [place] [address] [address] STATES OF [facility] Radiology Study observation (narrative) [facility] Alcohol, Blood (Medical)-Ser on 06-12-2024 SERUM ETOH < 3.0 Normal [facility] Comment on above: Result Comment: The serum:whole blood ethanol ratio is approximately 1.14 and varies slightly with hematocrit. Medical Alcohol reference interval and critical value in non-tolerant individuals; 50 - 100 Impairment 100 Intoxication 100 - 250 Severe Poisoning 250 - 400 Deep/possible fatal coma Performed By: #### L 501.9100, L500.4050, L700.6800, L100.0100 #### [facility] [address] [place], [place], [id number] CBC W/Diff, Automatedon 05-22 Absolute Lymph 1.96 X10 3/uL Normal 0.83-4.51 [facility] Comment on above: Performed By: #### L 501.9100, L500.4050, L700.6800, L100.0100 #### [facility] [address] [place], [address] Absolute Neut 3.4 X10 3/uL Normal 2.0-7.7 [facility] Comment on above: Performed By: #### L 501.9100, L500.4050, L700.6800, L100.0100 #### [facility] [address] [place], [address] Basophils/100 WBC (Bld) 0.9 % Normal 0-1 [facility] Comment on above: Performed By: #### L 501.9100, L500.4050, L700.6800, L100.0100 #### [facility] [address] [place], [address] Eosinophils/100 WBC (Bld) 4.8 % Normal 0-5 [facility] Comment on above: Performed By: #### L 501.9100, L500.4050, L700.6800, L100.0100 #### [facility] [address] [place], [address] Erythrocyte distribution width (RBC) [Ratio] 12.8 % Normal 11.6-14.6 [facility] Comment on above: Performed By: #### L 501.9100, L500.4050, L700.6800, L100.0100 #### [facility] [address] [place], [address] Hematocrit (Bld) [Volume fraction] 36.1 % Low 37-47 [facility] Comment on above: Performed By: #### L 501.9100, L500.4050, L700.6800, L100.0100 #### [facility] [address] [place], [address] Hemoglobin (Bld) [Mass/Vol] 11.7 g/dL Low 12.0-15.0 [facility] Comment on above: Performed By: #### L 501.9100, L500.4050, L700.6800, L100.0100 #### [facility] [address] [place], [address] IG% 0.300 Normal 0.0-0.9 [facility] Comment on above: Result Comment: IG% - Immature Granulocytes (promyelocytes, myelocytes and metamyelocytes) > 1% indicates that a LEFT SHIFT is Present. Performed By: #### L 501.9100, L500.4050, L700.6800, L100.0100 #### [facility] [address] [place], [address] Lymphocytes/100 WBC (Bld) 30.3 % Normal 19-41 [facility] Comment on above: Performed By: #### L 501.9100, L500.4050, L700.6800, L100.0100 #### [facility] [address] [place], [address] MCH (RBC) [Entitic mass] 30.2 pg Normal 27.0-32.0 [facility] Comment on above: Performed By: #### L 501.9100, L500.4050, L700.6800, L100.0100 #### [facility] [address] [place], [address] MCHC (RBC) [Mass/Vol] 32.4 g/dL Normal 32-36 [facility] Comment on above: Performed By: #### L 501.9100, L500.4050, L700.6800, L100.0100 #### [facility] [address] [place], [address] MCV (RBC) [Entitic vol] 93.3 fL Normal 81-99 [facility] Comment on above: Performed By: #### L 501.9100, L500.4050, L700.6800, L100.0100 #### [facility] [address] [place], [address] Monocytes/100 WBC (Bld) 11.7 % High 0-10 [facility] Comment on above: Performed By: #### L 501.9100, L500.4050, L700.6800, L100.0100 #### [facility] [address] [place], [address] Neutrophils/100 WBC (Bld) 52.0 % Normal 47-70 [facility] Comment on above: Performed By: #### L 501.9100, L500.4050, L700.6800, L100.0100 #### [facility] [address] [place], [address] Nucleated RBC (Bld) [#/Vol] 0 10*3/uL Normal 0-5 [facility] Comment on above: Performed By: #### L 501.9100, L500.4050, L700.6800, L100.0100 #### [facility] [address] [place], [address] Platelet mean volume (Bld) [Entitic vol] 9.5 fL Normal 6.2-12.0 [facility] Comment on above: Performed By: #### L 501.9100, L500.4050, L700.6800, L100.0100 #### [facility] [address] [place], [address] Platelets (Bld) [#/Vol] 357 10*3/uL Normal 150-450 [facility] Comment on above: Performed By: #### L 501.9100, L500.4050, L700.6800, L100.0100 #### [facility] [address] [place], [address] RBC (Bld) [#/Vol] 3.87 10*6/uL Low 4.2-5.4 [facility] Comment on above: Performed By: #### L 501.9100, L500.4050, L700.6800, L100.0100 #### [facility] [address] [place], [address] RDW SD 43.9 fl Normal 35.1-43.9 [facility] [facility] Comment on above: Performed By: #### L 501.9100, L500.4050, L700.6800, L100.0100 #### [facility] [address] [place], [address] WBC (Bld) [#/Vol] 6.5 10*3/uL Normal 4.4-11.0 [facility] Comment on above: Performed By: #### L 501.9100, L500.4050, L700.6800, L100.0100 #### [facility] [address] [place], [address] Comprehensive [facility] 06-12-2024 Albumin [Mass/Vol] 3.7 g/dL Normal 3.2-5.0 [facility] Comment on above: Performed By: #### L 501.9100, L500.4050, L700.6800, L100.0100 #### [facility] [address] [place], [address] Albumin/Globulin [Mass ratio] 0.9 {ratio} Normal 0.9-2.4 [facility] Comment on above: Performed By: #### L 501.9100, L500.4050, L700.6800, L100.0100 #### [facility] [address] [place], [address] ALK P 68 U/L Normal 45-117 [facility] Comment on above: Performed By: #### L 501.9100, L500.4050, L700.6800, L100.0100 #### [facility] [address] [place], [address] ALT [Catalytic activity/Vol] 19 U/L Normal 13-56 [facility] Comment on above: Performed By: #### L 501.9100, L500.4050, L700.6800, L100.0100 #### [facility] [address] [place], [address] AST [Catalytic activity/Vol] 14 U/L Low 15-37 [facility] Comment on above: Performed By: #### L 501.9100, L500.4050, L700.6800, L100.0100 #### [facility] [address] [place], [address] Bilirubin [Mass/Vol] 0.50 mg/dL Normal 0.20-1.00 [facility] Comment on above: Result Comment: For patients on eltrombopag therapy, use of Dimension [place] TBIL is not recommended. Performed By: #### L 501.9100, L500.4050, L700.6800, L100.0100 #### [facility] [address] [place], [address] BUN/CRE 21.3 RATIO High 10-20 [facility] Comment on above: Performed By: #### L 501.9100, L500.4050, L700.6800, L100.0100 #### [facility] [address] [place], [address] CA,Total 8.8 mg/dL Normal 8.5-10.1 [facility] Comment on above: Performed By: #### L 501.9100, L500.4050, L700.6800, L100.0100 #### [facility] [address] [place], [address] Chloride [Moles/Vol] 110 mmol/L High 98-107 [facility] Comment on above: Performed By: #### L 501.9100, L500.4050, L700.6800, L100.0100 #### [facility] [address] [place], [address] CO2 [Moles/Vol] 26.0 mmol/L Normal 21.0-32.0 [facility] Comment on above: Performed By: #### L 501.9100, L500.4050, L700.6800, L100.0100 #### [facility] [address] [place], [address] Creatinine [Mass/Vol] 0.85 mg/dL Normal 0.55-1.02 [facility] Comment on above: Result Comment: The validity of the calculated GFR GFRAA in patients over 70 years has not been determined. Clinical correlation is essential. Performed By: #### L 501.9100, L500.4050, L700.6800, L100.0100 #### [facility] [address] [place], [address] ECRCL 106.07 ml/min Normal [facility] Comment on above: Performed By: #### L 501.9100, L500.4050, L700.6800, L100.0100 #### [facility] [address] [place], [address] EST GFR - AA 98 mL/min Normal >60 [facility] Comment on above: Result Comment: Afri can Turkish GFR Calc Performed By: #### L 501.9100, L500.4050, L700.6800, L100.0100 #### [facility] [address] [place], [address] GAP 4 Low 5-15 [facility] Comment on above: Performed By: #### L 501.9100, L500.4050, L700.6800, L100.0100 #### [facility] [address] [place], [address] GFR/1.73 sq M.predicted among non-blacks MDRD (S/P/Bld) [Vol rate/Area] 81 mL/min/{1.73_m2} Normal >60 [facility] Comment on above: Result Comment: Non- GFR Calc Performed By: #### L 501.9100, L500.4050, L700.6800, L100.0100 #### [facility] [address] [place], [address] Globulin (S) [Mass/Vol] 3.9 g/dL Normal 2.2-4.2 [facility] Comment on above: Performed By: #### L 501.9100, L500.4050, L700.6800, L100.0100 #### [facility] [address] [place], [address] Glucose [Mass/Vol] 90 mg/dL Normal 74-106 [facility] Comment on above: Performed By: #### L 501.9100, L500.4050, L700.6800, L100.0100 #### [facility] [address] [place], [address] Potassium [Moles/Vol] 4.0 mmol/L Normal 3.5-5.1 [facility] Comment on above: Performed By: #### L 501.9100, L500.4050, L700.6800, L100.0100 #### [facility] [address] [place], [address] Sodium [Moles/Vol] 140 mmol/L Normal 136-145 [facility] Comment on above: Performed By: #### L 501.9100, L500.4050, L700.6800, L100.0100 #### [facility] [address] [place], [address] T PROT 7.6 g/dL Normal 6.4-8.2 [facility] Comment on above: Performed By: #### L 501.9100, L500.4050, L700.6800, L100.0100 #### [facility] [address] [place], [address] Urea nitrogen [Mass/Vol] 18 mg/dL Normal 7-18 [facility] Comment on above: Performed By: #### L 501.9100, L500.4050, L700.6800, L100.0100 #### [facility] [address] [place], [address] Emergency Department Summary on 06-12-2024 Emergency Department Summary [facility] Medical Records Department [address] [facility] [place] [address] Emergency Department Summary 06/12/24 MR#: [id number] Acct: [id number] Name: BAUDILIO SHARMA Rep #: [id number] : 1990 33 From: Neeraj Abdullahi DO PCP: Care Physician,No Primary Status:ADM IN Location: [place] [address] HPI History of Present Illness Chief Complaint: Substance Abuse Informant: patient Onset/Context/Timing Onset: Yesterday Context: Gradual Onset Timing: Continuous Associated Symptoms Associated Symptoms: Positive for palpatations and no; Negative for vomiting*, diarrhea*, fever*, rash*, seizure, tremor, change in mental status, trauma, suicidal ideation or homicidal i deation Narrative Narrative: Patient presents requesting detox from fentanyl and methamphetamine. Patient states her last use of fentanyl was last evening. Patient states she smokes it. Patient states she uses approximately 1 g/week. Patient does state that she uses methamphetamines daily. Patient does not inject. Patient denies any fevers or chills. Patient states she has been through detox here in the past. Patient states her last detox was in April 2022. Patient admits to some palpitations where she felt like her heart was racing at times. Patient denies any suicidal homicidal ideations. Patient denies any chance of . PFSH PFSH Medical History Opioid abuse Hepatitis B Hepatitis C Anxiety Depression Smoker Opiate withdrawal Substance abuse Illicit drug use, continuous Home Medications ???Medication ???Instructions ???Recorded ???Last Taken ???Type NK 11/03/23 Unknown History Allergy/AdvReac Type Severity Reaction Status Date / Time Penicillins Allergy Hives Verified 06/12/24 16:10 Family History Father Throat cancer Surgical History No history of previous surgery Social History household members: family housing: house number of children: 3 Smoking Status: Current every day smoker tobacco type: e-cigarettes alcohol intake: never substance use type: amphetamines, opiates and IV drugs ROS ROS ED Constitutional Constitutional ED: Denies chills or fever(s) Eyes Eyes: Denies blurry vision or change in vision ENT ENT ED: Reports sore throat; Denies rhinorrhea Cardiovascular Cardiovascular: Reports palpitations; Denies chest pain Respiratory/Chest Respiratory/Chest: Denies cough or dyspnea Gastrointestinal Gastrointestinal: Denies nausea or vomiting Genitourinary Genitourinary ED: Denies dysuria or hematuria Musculoskeletal Musculoskeletal: Denies back pain or neck pain Integumentary Denies abscess or rash Neurologic Neurologic: Denies headache(s) or weakness Allergic/Immunologic Allergic/Immunologic ED: Denies mouth swelling or urticaria EXAM Physical Exam Const Vital Signs: 06/12/24 16:10 06/12/24 17:09 Temperature 97.8 F Temperature Source Temporal Pulse Rate 106 H 110 H Respiratory Rate 18 16 Blood Pressure 145/108 H 124/86 H Blood Pressure Mean 120 98 Pulse Ox 99 100 Oxygen Delivery Method Room Air Positive well nourished and well developed General Appearance ED: well developed and NAD HEENT Reports moist mucous membranes Neck supple and no JVD Resp normal respiratory effort and clear to auscultation bilaterally Cardio regular rate and regular rhythm GI soft to palpation, non-tender and non-distended Neuro oriented x3, CN's II-XII intact bilaterally and no sensory deficits noted Kaylie Coma Scale: document GCS findings Spontaneous Obeys Commands Oriented 15 Sensorium / Orientation: alert Motor Exam: strength 5/5 throughout Psych mental status grossly normal and thought process normal MDM MDM MDM Narrative Medical decision making narrative: Medical screening labs will be obtained. CBC will be obtained to assess for leukocytosis and anemia. Comprehensive metabolic profile will be obtained to assess for hepatic function, renal function, and electrolyte abnormality. Serum hCG will be obtained to assess for . Serum alcohol level will be obtained to assess for alcohol intoxication. Urine drug screen will be obtained to assess for substance abuse. Lab Data Attestation: I reviewed the patient's lab results. Lab results narrative: CBC was reviewed. There is a mild anemia with a hemoglobin of 11.7 and hematocrit of 36.1. Comprehensive metabolic profile was reviewed and was essentially within normal limits. Serum alcohol level was reviewed and was less than 3.0. Serum hCG was reviewed and was negative. Urine tox screen was reviewed and was positive for amphetamines and MDMA. Labs: (more content not included)... Normal [facility] H AND P Exam - [facility] 06-12-2024 H&P Exam - Hospitalist [facility] Medical Records Department [address] [place] [id number] H P Exam - Hospitalist 06/12/24 1816 MR#: [id number] Acct: [id number] Name: BAUDILIO SHARMA Rep #: [id number] : 1990 33 From: Lin Malik MD PCP: Care Physician,No Primary Status:REG ER Location: ED HPI - General General Date of Admission: 06/12/24 Date of Service: 06/12/24 Chief Complaint: Request for detox HPI Narrative BAUDILIO SHARMA, is a 33 F with a history of tobacco use, opiate use, amphetamine use who presented to [facility] ED 06/12/2024 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 Hospitalist contacted for admission. Patient uses roughly 1 g of fentanyl per week and smokes it, does not inject. Last use was last night and she does not yet feel like she is going through withdrawal. Does also routinely uses methamphetamine with last use today. Patient reports she is tired and hungry but denies any other new or acute complaints, no abdominal pain, diarrhea, nausea. No fevers or chills. PFSH Medical History Opioid abuse Hepatitis B Hepatitis C Anxiety Depression Smoker Opiate withdrawal Substance abuse Illicit drug use, continuous Home Medications ???Medication ???Instructions ???Recorded ???Last Taken ???Type NK 11/03/23 Unknown History Allergy/AdvReac Type Severity Reaction Status Date / Time Penicillins Allergy Hives Verified 06/12/24 16:10 Family History Father Throat cancer Surgical History No history of previous surgery Social History household members: family housing: house number of children: 3 Smoking Status: Current every day smoker tobacco type: e-cigarettes alcohol intake: never substance use type: amphetamines, opiates and IV drugs ROS ROS Narrative ROS reviewed and pertinent positive and negatives as above Vital Signs Vital Signs Vital Signs: 06/12/24 16:10 06/12/24 17:09 Temperature 97.8 F Temperature Source Temporal Pulse Rate 106 H 110 H Respiratory Rate 18 16 Blood Pressure 145/108 H 124/86 H Blood Pressure Mean 120 98 Pulse Ox 99 100 Oxygen Delivery Method Room Air Weight Weight: 99.79 kg Body Mass Index (BMI) 37.8 Physical Exam Narrative General: Resting comfortably, answers questions appropriately HEENT: Atraumatic Eyes: Anicteric Neck: Supple Respiratory: Clear to auscultation bilaterally, normal respiratory effort Cardiovascular: Regular rate and rhythm GI: Soft, nontender, nondistended Extremities: No edema Musculoskeletal: Moving all extremities Neuro: No overt focal neurological deficits Skin: No rashes appreciated Psych: Cooperative Results Lab / Micro Data 06/12/24 15:56 06/12/24 15:56 Labs: Laboratory Results - last 24 hr 06/12/24 15:56: WBC 6.5, RBC 3.87 L, Hgb 11.7 L, Hct 36.1 L, MCV 93.3, MCH 30.2, MCHC 32.4, RDW Std Deviation 43.9, RDW Coeff of Fanta 12.8, Plt Count 357, MPV 9.5, Immature Gran % (Auto) 0.300, Neut % (Auto) 52.0, Lymph % (Auto) 30.3, Blair % (Auto) 11.7 H, Eos % (Auto) 4.8, Baso % (Auto) 0.9, Absolute Neuts (auto) 3.4, Absolute Lymphs (auto) 1.96, Nucleated RBC % 0, Sodium 140, Potassium 4.0, Chloride 110 H, Carbon Dioxide 26.0, Anion Gap 4 L, BUN 18, Creatinine 0.85, Estim Creat Clear Calc 106.07, Est GFR (MDRD) Af Amer 98, Est GFR (MDRD) Non-Af 81, BUN/Creatinine Ratio 21.3 H, Glucose 90, Calcium 8.8, Total Bilirubin 0.50, AST 14 L, ALT 19, Alkaline Phosphatase 68, Total Protein 7.6, Albumin 3.7, Globulin 3.9, Albumin/Globulin Ratio 0.9, Serum , Qual NEGATIVE, Urine Opiates Screen NEGATIVE, Urine Methadone Screen NEGATIVE, Ur Barbiturates Screen NEGATIVE, Ur Phencyclidine Scrn NEGATIVE, Ur Amphetamines Screen POSITIVE H, MDMA (Ecstasy) Screen POSITIVE H, U Benzodiazepines Scrn NEGATIVE, Urine Cocaine Screen NEGATIVE, U Cannabinoids Screen NEGATIVE, Ur Drug Screen Comment , Ethyl Alcohol < 3.0 Assessment Plan Assessment/Plan (1) Desire for detoxification: PLAN: Plan #Acute opiate withdrawal - Subutex taper initiated - As needed Tylenol, ibuprofen, bowel regimen, gabapentin, Bentyl, Vistaril, methocarbamol, clonidine - As needed trazodone nightly - As needed antiemetics -Once patient begins to clinically improve will discuss further discharge planning # Amphetamine use disorder -Advise cessation -UDS was positive for amphetamines #Tobacco use -Advise cessation -Nicotine replacement available if desired #DVT ppx: Low risk, ambulatory Lin Malik MD Charges/Coding Visit Charges Inpatient E M: 33236 Init Hosp L1 06/12/24 1821 Cosigner Signature (if applicable): CC: (more content not included)... Normal [facility] ,Serum,hCG Quali.on 06-12-2024 HCG, SERUM QUAL Negative Normal [facility] Comment on above: Performed By: #### L 501.9100, L500.4050, L700.6800, L100.0100 #### [facility] [address] [place], [place], [id number] Urine Drug Screen (VISTA)on 06-12-2024 AMPHETAMINES Positive Abnormal <1000 ng/mL [facility] Comment on above: Performed By: #### L 505.5000 ####[facility] [address] [place], [address] BARBITIURATES Negative Normal < 200 ng/mL [facility] Comment on above: Performed By: #### L 505.5000 ####[facility] [address] [facility] [address] BENZODIAZIPINE Negative Normal < 200 ng/mL [facility] Comment on above: Performed By: #### L 505.5000 ####[facility] [address] [facility] [address] COCAINE Negative Normal < 300 ng/mL [facility] Comment on above: Performed By: #### L 505.5000 ####[facility] [address] [facility] [address] ECSTACY Positive Abnormal < 500 ng/mL [facility] Comment on above: Performed By: #### L 505.5000 ####[facility] [address] [facility] [address] METHADONE Negative Normal < 300 ng/mL [facility] Comment on above: Performed By: #### L 505.5000 ####[facility] [address] [facility] [address] OPIATES Negative Normal < 300 ng/mL [facility] Comment on above: Performed By: #### L 505.5000 ####[facility] [address] [facility] [address] PCP Negative Normal < 25 ng/mL [facility] Comment on above: Performed By: #### L 505.5000 ####[facility] [address] [facility] [address] THC Negative Normal < 50 ng/mL [facility] Comment on above: Performed By: #### L 505.5000 ####[facility] [address] [place], [address] VISTA UDS PH 4 Normal [facility] Comment on above: Performed By: #### L 505.5000 ####[facility] [address] [place], [address] Urine Cultureon 11-04-2023 URC Mixed Gram Pos Gram Neg Org Viola Count 1000-10,000 MIXC Mixed contaminants. Submit a new specimen if indicated. Normal [facility] Comment on above: Performed By: #### M 100.2200 #### [facility] [address] [facility] [place], [address] Abdomen/Pelvis W IV Cont ONL Yon 11-03-2023 Abdomen/Pelvis W IV Cont ONLY [facility] Imaging Services [address] [facility] [place] [address] Abdomen/Pelvis W IV Cont ONLY MR#: [id number] Acct: [id number] Name: BAUDILIO SHARMA Rep #: [id number] : 1990 F 33 From: John mendze MD PCP: Care Physician,No Primary Status: REG ER Study: Abdomen/Pelvis W IV Cont ONLY Date of Exam: Exam# [id number] Ordering Dr: [place] [id number] STUDY: CT ABDOMEN AND PELVIS WITH CONTRAST REASON FOR EXAM: Female, 33 years old. abd pain RADIATION DOSAGE (If Supplied By Facility): CTDIvol = ( 15.82 ) mGy, DLP = ( 1147.42 ) mGycm TECHNIQUE: IV 100mL Isovue-370 was administered. Transaxial images were obtained from the dome of the diaphragm to the symphysis pubis in the portal venous phase. Multiplanar coronal and sagittal images were reformatted. Individualized Dose Optimization Techniques Were Used For This CT. COMPARISON: Prior study dated: 12/13/2022 FINDINGS: LOWER CHEST: Lung bases are clear. No cardiomegaly or pericardial effusion. LIVER: The liver is normal in size, shape, and attenuation. No focal mass. GALLBLADDER AND BILIARY TREE: The gallbladder is normally distended. No gallstones. No gallbladder wall thickening or edema. No pericholecystic fluid. No intra- or extrahepatic biliary ductal dilation. PANCREAS: No focal cystic or solid mass. SPLEEN: Normal size without focal cystic or solid mass. ADRENAL GLANDS: No nodules. KIDNEYS AND URETERS: Normal renal size and position. No hydronephrosis or nephrolithiasis. PERITONEUM: No ascites or free air. No other fluid collection. BOWEL: The stomach is unremarkable. Normal caliber small bowel. There is no obstruction. No colonic wall thickening or inflammation. Diverticulosis noted at the sigmoid colon. No diverticulitis. No evidence of acute appendicitis. LYMPH NODES: No enlarged mesenteric or retroperitoneal lymph nodes. VESSELS: Aorta is non-dilated. URINARY BLADDER: Unremarkable. REPRODUCTIVE ORGANS: Anteverted uterus. 1.4 cm exophytic fibroid at the posterior uterine body. No adnexal mass. ABDOMINAL WALL: No discrete abdominal or pelvic wall hernia. BONES: No lytic or blastic abnormality. CT/Abdomen/Pelvis W IV Cont ONLY IMPRESSION: No acute finding in the abdomen or pelvis. Small uterine fibroid noted. Electronically Signed: John Gramajo MD at 5:51 EDT Reading Location ID and State: [address] [place] [address] Tel , Service support , CC: South Koch DO; No Primary Care Physician Food Service Kitchen Supervisor: Signed Normal [facility] Absolute lymphocyte countOrd ered By: South Koch on 11-03-2023 Lymphocytes Auto (Unsp spec) [#/Vol] 2.82 10*3/uL 0.83-4.51 [facility] Automated lymphocyte count a s percentage of total leukocytesOrdered By: South Koch on 11-03-2023 Lymphocytes/100 WBC Auto (Unsp spec) 24.7 % 19-41 [facility] Basic Metabolic Profile (BMP )on 11-03-2023 BUN/CRE 19.0 RATIO Normal 10-20 [facility] Comment on above: Performed By: #### L 500.2500, L501.2450, L500.3400, L700.6800, L100.0100 ####[facility] [address] [place], [address] CA,Total 9.7 mg/dL Normal 8.5-10.1 [facility] Comment on above: Performed By: #### L 500.2500, L501.2450, L500.3400, L700.6800, L100.0100 ####[facility] [address] [place], [address] Chloride [Moles/Vol] 103 mmol/L Normal 98-107 [facility] Comment on above: Performed By: #### L 500.2500, L501.2450, L500.3400, L700.6800, L100.0100 ####[facility] [address] [place], [address] CO2 [Moles/Vol] 26.0 mmol/L Normal 21.0-32.0 [facility] Comment on above: Performed By: #### L 500.2500, L501.2450, L500.3400, L700.6800, L100.0100 ####[facility] [address] [place], [address] Creatinine [Mass/Vol] 1.21 mg/dL High 0.55-1.02 [facility] Comment on above: Result Comment: The validity of the calculated GFR GFRAA in patients over 70 years has not been determined. Clinical correlation is essential. Performed By: #### L 500.2500, L501.2450, L500.3400, L700.6800, L100.0100 ####[facility] [address] [place], [address] ECRCL 71.16 ml/min Normal [facility] Comment on above: Performed By: #### L 500.2500, L501.2450, L500.3400, L700.6800, L100.0100 ####[facility] [address] [place], [address] EST GFR - AA 65 mL/min Normal >60 [facility] Comment on above: Result Comment: Afri can Turkish GFR Calc Performed By: #### L 500.2500, L501.2450, L500.3400, L700.6800, L100.0100 ####[facility] [address] [place], [address] GAP 11 Normal 5-15 [facility] Comment on above: Performed By: #### L 500.2500, L501.2450, L500.3400, L700.6800, L100.0100 ####[facility] [address] [place], [address] GFR/1.73 sq M.predicted among non-blacks MDRD (S/P/Bld) [Vol rate/Area] 54 mL/min/{1.73_m2} Low >60 [facility] Comment on above: Result Comment: Non- GFR Calc Performed By: #### L 500.2500, L501.2450, L500.3400, L700.6800, L100.0100 ####[facility] [address] [place], [address] Glucose [Mass/Vol] 128 mg/dL High 74-106 [facility] Comment on above: Result Comment: Fast ing Glucose result greater than or equal to 126 mg/dL suggests DIABETES MELLITUS per A.D.A. criteria. Performed By: #### L 500.2500, L501.2450, L500.3400, L700.6800, L100.0100 ####[facility] [address] [place], [address] Potassium [Moles/Vol] 4.3 mmol/L Normal 3.5-5.1 [facility] Comment on above: Performed By: #### L 500.2500, L501.2450, L500.3400, L700.6800, L100.0100 ####[facility] [address] [place], [address] Sodium [Moles/Vol] 140 mmol/L Normal 136-145 [facility] Comment on above: Performed By: #### L 500.2500, L501.2450, L500.3400, L700.6800, L100.0100 ####[facility] [address] [place], [address] Urea nitrogen [Mass/Vol] 23 mg/dL High 7-18 [facility] Comment on above: Performed By: #### L 500.2500, L501.2450, L500.3400, L700.6800, L100.0100 ####[facility] [address] [place], [place], [phone] Basophil percentageOrdered B y: South Koch on 11-03-2023 Basophil percentage >100 SEEN /hpf 0-5 [facility] Basophils/100 WBC (Bld) 0.6 % 0-1 [facility] Bilirubin [Mass/Vol] 0.60 mg/dL 0.20-1.00 [facility] Comment on above: For patients on eltr ombopag therapy, use of Dimension [place] TBIL is not recommended. Chloride [Moles/Vol] 103 mmol/L 98-107 [facility] Eosinophils/100 WBC (Bld) 0.7 % 0-5 [facility] Glucose [Mass/Vol] 128 mg/dL 74-106 [facility] Comment on above: Fasting Glucose resu lt greater than or equal to 126 mg/dL suggests DIABETES MELLITUS per A.D.A. criteria. Hemoglobin (Bld) [Mass/Vol] 14.1 g/dL 12.0-15.0 [facility] Monocytes/100 WBC (Bld) 10.7 % 0-10 [facility] Neutrophils (Bld) [#/Vol] 7.2 10*3/uL 2.0-7.7 [facility] Neutrophils/100 WBC (Bld) 62.9 % 47-70 [facility] Potassium [Moles/Vol] 4.3 mmol/L 3.5-5.1 [facility] Protein [Mass/Vol] 8.6 g/dL 6.4-8.2 [facility] Sodium [Moles/Vol] 140 mmol/L 136-145 [facility] WBC (Bld) [#/Vol] 11.4 10*3/uL 4.4-11.0 [facility] Bilirubin Test strip Ql (U)O rdered By: South Koch on 11-03-2023 Bilirubin Ql (U) Negative Negative [facility] CBC W/Diff, Automatedon 10-19 Absolute Lymph 2.82 X10 3/uL Normal 0.83-4.51 [facility] Comment on above: Performed By: #### L 500.2500, L501.2450, L500.3400, L700.6800, L100.0100 ####[facility] [address] [place], [address] Absolute Neut 7.2 X10 3/uL Normal 2.0-7.7 [facility] Comment on above: Performed By: #### L 500.2500, L501.2450, L500.3400, L700.6800, L100.0100 ####[facility] [address] [place], [address] Basophils/100 WBC (Bld) 0.6 % Normal 0-1 [facility] Comment on above: Performed By: #### L 500.2500, L501.2450, L500.3400, L700.6800, L100.0100 ####[facility] [address] [place], [address] Eosinophils/100 WBC (Bld) 0.7 % Normal 0-5 [facility] Comment on above: Performed By: #### L 500.2500, L501.2450, L500.3400, L700.6800, L100.0100 ####[facility] [address] [place], [address] Erythrocyte distribution width (RBC) [Ratio] 12.4 % Normal 11.6-14.6 [facility] Comment on above: Performed By: #### L 500.2500, L501.2450, L500.3400, L700.6800, L100.0100 ####[facility] [address] [place], [address] Hematocrit (Bld) [Volume fraction] 41.0 % Normal 37-47 [facility] Comment on above: Performed By: #### L 500.2500, L501.2450, L500.3400, L700.6800, L100.0100 ####[facility] [address] [place], [address] Hemoglobin (Bld) [Mass/Vol] 14.1 g/dL Normal 12.0-15.0 [facility] Comment on above: Performed By: #### L 500.2500, L501.2450, L500.3400, L700.6800, L100.0100 ####[facility] [address] [place], [address] IG% 0.400 Normal 0.0-0.9 [facility] Comment on above: Result Comment: IG% - Immature Granulocytes (promyelocytes, myelocytes and metamyelocytes) > 1% indicates that a LEFT SHIFT is Present. Performed By: #### L 500.2500, L501.2450, L500.3400, L700.6800, L100.0100 ####[facility] [address] [place], [address] Lymphocytes/100 WBC (Bld) 24.7 % Normal 19-41 [facility] Comment on above: Performed By: #### L 500.2500, L501.2450, L500.3400, L700.6800, L100.0100 ####[facility] [address] [place], [address] MCH (RBC) [Entitic mass] 31.2 pg Normal 27.0-32.0 [facility] Comment on above: Performed By: #### L 500.2500, L501.2450, L500.3400, L700.6800, L100.0100 ####[facility] [address] [place], [address] MCHC (RBC) [Mass/Vol] 34.4 g/dL Normal 32-36 [facility] Comment on above: Performed By: #### L 500.2500, L501.2450, L500.3400, L700.6800, L100.0100 ####[facility] [address] [place], [address] MCV (RBC) [Entitic vol] 90.7 fL Normal 81-99 [facility] Comment on above: Performed By: #### L 500.2500, L501.2450, L500.3400, L700.6800, L100.0100 ####[facility] [address] [place], [address] Monocytes/100 WBC (Bld) 10.7 % High 0-10 [facility] Comment on above: Performed By: #### L 500.2500, L501.2450, L500.3400, L700.6800, L100.0100 ####[facility] [address] [place], [address] Neutrophils/100 WBC (Bld) 62.9 % Normal 47-70 [facility] Comment on above: Performed By: #### L 500.2500, L501.2450, L500.3400, L700.6800, L100.0100 ####[facility] [address] [place], [address] Nucleated RBC (Bld) [#/Vol] 0 10*3/uL Normal 0-5 [facility] Comment on above: Performed By: #### L 500.2500, L501.2450, L500.3400, L700.6800, L100.0100 ####[facility] [address] [place], [address] Platelet mean volume (Bld) [Entitic vol] 9.8 fL Normal 6.2-12.0 [facility] Comment on above: Performed By: #### L 500.2500, L501.2450, L500.3400, L700.6800, L100.0100 ####[facility] [address] [place], [address] Platelets (Bld) [#/Vol] 331 10*3/uL Normal 150-450 [facility] Comment on above: Performed By: #### L 500.2500, L501.2450, L500.3400, L700.6800, L100.0100 ####[facility] [address] [place], [address] RBC (Bld) [#/Vol] 4.52 10*6/uL Normal 4.2-5.4 [facility] Comment on above: Performed By: #### L 500.2500, L501.2450, L500.3400, L700.6800, L100.0100 ####[facility] [address] [place], [address] RDW SD 40.9 fl Normal 35.1-43.9 [facility] Comment on above: Performed By: #### L 500.2500, L501.2450, L500.3400, L700.6800, L100.0100 ####[facility] [address] [place], [address] WBC (Bld) [#/Vol] 11.4 10*3/uL High 4.4-11.0 [facility] Comment on above: Performed By: #### L 500.2500, L501.2450, L500.3400, L700.6800, L100.0100 ####[facility] [address] [place], [address] Chlamydia/GC JUDY aptimaon CHLAMY,NUC ACID Normal [facility] Comment on above: Result Comment: WRON G TEST ORDERED- CTNG URINE NOT APTIMA Performed By: #### L 7000.1800, M8200.2100, M8200.2200 #### [facility] [address] [place], [address] GC BY NUC ACID Normal [facility] Comment on above: Result Comment: WRON G TEST ORDERED- CTNG URINE NOT APTIMA Performed By: #### L 7000.1800, M8200.2100, M8200.2200 #### [facility] [address] [place], [address] Determination of erythrocyte mean corpuscular volume (MCV)Ordered By: South Koch on 11-03-2023 MCV (RBC) [Entitic vol] 90.7 fL 81-99 [facility] Direct bilirubinOrdered By: South Koch on 11-03-2023 Bilirubin.direct [Mass/Vol] 0.14 mg/dL 0.00-0.30 [facility] Emergency Department Summary on 11-03-2023 Emergency Department Summary [facility] Medical Records Department [address] [place] [address] Emergency Department Summary 11/03/23 MR#: [id number] Acct: [id number] Name: BAUDILIO SHARMA FRANKIEBARBRA Rep #: [id number] : 1990 33 From: South Koch DO PCP: Care Physician,No Primary Status:DEP ER Location: ED HPI History of Present Illness Chief Complaint: Abd Pain Informant: patient Narrative Narrative: Patient is a 33-year-old female with past medical history of anxiety and depression as well as opioid abuse and also past history of large ovarian cyst diagnosed on CT and ultrasound roughly 1 year ago. Patient states she was smoking methamphetamine this evening and developed pain in her right lower abdomen and as she never followed up regarding her large cyst had concerned it may have ruptured and also has concern that she is now septic. Secondary to these concerns she presents for evaluation. [facility] Medical History Anxiety Depression Hepatitis B Hepatitis C Illicit drug use, continuous Opiate withdrawal Opioid abuse Smoker Substance abuse Home Medications NK 11/03/23 [History Last Taken Unknown] doxycycline hyclate 100 mg capsule 100 mg PO BID 14 days #28 caps 11/03/23 [Rx Last Taken Unknown] metronidazole 500 mg tablet 500 mg PO BID 14 days #28 tabs 11/03/23 [Rx Last Taken Unknown] Allergy/AdvReac Type Severity Reaction Status Date / Time Penicillins Allergy Hives Verified 11/03/23 02:53 Family History Father Throat cancer Surgical History No history of previous surgery Social History household members: family housing: house number of children: 3 Smoking Status: Current every day smoker tobacco type: cigarettes alcohol intake: never substance use type: amphetamines, opiates and IV drugs ROS ROS ED Constitutional Constitutional ED: Denies chills or fever(s) ENT ENT ED: Denies sore throat Cardiovascular Cardiovascular: Denies chest pain Respiratory/Chest Respiratory/Chest: Denies cough or dyspnea Gastrointestinal Gastrointestinal: Reports abdominal pain; Denies diarrhea, nausea or vomiting Genitourinary Genitourinary ED: Denies dysuria or hematuria Musculoskeletal Musculoskeletal: Denies back pain or myalgias Integumentary Denies rash Neurologic Neurologic: Denies headache(s) Psychiatric Psychiatric: Reports anxiety Hematologic/Lymphatic Hematologic/Lymphatic: Denies easy bleeding or easy bruising EXAM Physical Exam Const Vital Signs: 11/03/23 02:53 11/03/23 05:05 Temperature 97.6 F L Temperature Source Temporal Pulse Rate 120 H 102 H Respiratory Rate 19 H 18 Blood Pressure 148/109 H 138/60 H Blood Pressure Mean 122 86 Pulse Ox 99 96 Oxygen Delivery Method Room Air Positive well nourished and well developed General Appearance ED: well developed; Negative for pallor HEENT Reports moist mucous membranes HEENT Narrative: No signs of infection noted in the posterior pharynx No tongue or lip swelling no oral lesions no airway edema or compromise Eyes PERRL and EOMs intact bilaterally General Eye ED: Negative for scleral icterus Neck supple Neck Narrative: No nuchal rigidity or meningeal signs Resp normal respiratory effort and clear to auscultation bilaterally Cardio regular rhythm Rate: tachycardic and other Other Details: Tachycardic rate with regular rhythm No murmurs rubs or gallop Radial and carotid pulses are equal and symmetric GI non-distended GI Narrative: Abdomen is soft and nondistended with normoactive bowel sounds. Patient has pain with palpation in the right lower quadrant without voluntary guarding or rigidity. Negative heel strike psoas and obturator signs Auscultation: normoactive bowel sounds Palpation: soft Back/Spine no CVA tenderness Extremity normal to inspection Neuro oriented x3, CN's II-XII intact bilaterally and no sensory deficits noted Sensorium / Orientation: alert Motor Exam: strength 5/5 throughout Psych Psych Narrative: Patient has a nervous/anxious affect Skin no rashes or lesions noted General Skin Exam: Negative for jaundice or pallor MDM MDM MDM Narrative Medical decision making narrative: Patient presented to the ER hypertensive and tachycardic but also reported smoking methamphetamine prior to arrival. She did have pain with palpation in the right lower quadrant and has a previous large ovarian cyst roughly 1 year ago. With concern for acute appendicitis versus atypical biliary colic versus pancreatitis versus acute cholecystitis versus ovarian cyst versus kidney stone I did (more content not included)... Normal [facility] Erythrocyte distribution wid th ratioOrdered By: South Koch on 11-03-2023 Erythrocyte distribution width (RBC) [Ratio] 12.4 % 11.6-14.6 [facility] Erythrocyte distribution wid th standard deviationOrdered By: South Koch on 11-03-2023 Erythrocyte distribution width (RBC) [Entitic vol] 40.9 fL 35.1-43.9 [facility] Hematocrit Auto (Bld) [Volum e fraction]Ordered By: South Koch on 11-03-2023 Hematocrit (Bld) [Volume fraction] 41.0 % 37-47 [facility] Immature granulocytes/100 WB C Auto (Bld)Ordered By: South Koch on 11-03-2023 Immature granulocytes/100 WBC (Bld) 0.400 % 0.0-0.9 [facility] Comment on above: IG% - Immature Granu locytes (promyelocytes, myelocytes and metamyelocytes) > 1% indicates that a LEFT SHIFT is Present. Ketones Test strip Ql (U)Ord ered By: South Koch on 11-03-2023 Ketones Ql (U) 5 mg/dl Negative [facility] - Chemistry and C hemistry - challengeOrdered By: South Koch on 11-03-2023 ALP [Catalytic activity/Vol] 67 U/L 45-117 [facility] ALT [Catalytic activity/Vol] 34 U/L 13-56 [facility] CO2 [Moles/Vol] 26.0 mmol/L 21.0-32.0 [facility] Globulin (S) [Mass/Vol] 4.3 g/dL 2.2-4.2 [facility] Lipase [Catalytic activity/Vol] 23 U/L 13-75 [facility] Comment on above: Please note:LIPASE r evised reference range effective 22. New Lipase methodology. Expected to produce lower values than the previous assay method. NEW Reference Range: 13 - 75 U/L Urea nitrogen/Creatinine [Mass ratio] 19.0 mg/mg 10-20 [facility] - Hematology and Cell countsOrdered By: South Koch on 11-03-2023 MCH (RBC) [Entitic mass] 31.2 pg 27.0-32.0 [facility] MCHC (RBC) [Mass/Vol] 34.4 g/dL 32-36 [facility] Nucleated RBC/100 WBC (Bld) [Ratio] 0 % 0-5 [facility] Platelet mean volume (Bld) [Entitic vol] 9.8 fL 6.2-12.0 [facility] Platelets (Bld) [#/Vol] 331 10*3/uL 150-450 [facility] Lipaseon 11-03-2023 Lipase [Catalytic activity/Vol] 23 U/L Normal 13-75 [facility] Comment on above: Result Comment: Bhavna tapia note: LIPASE revised reference range effective 22. New Lipase methodology. Expected to produce lower values than the previous assay method. NEW Reference Range: 13 - 75 U/L Performed By: #### L 500.2500, L501.2450, L500.3400, L700.6800, L100.0100 ####[facility] [address] [place], [address] Liver Profileon 11-03-2023 Albumin [Mass/Vol] 4.3 g/dL Normal 3.2-5.0 [facility] Comment on above: Performed By: #### L 500.2500, L501.2450, L500.3400, L700.6800, L100.0100 ####[facility] [address] [place], [address] ALK P 67 U/L Normal 45-117 [facility] Comment on above: Performed By: #### L 500.2500, L501.2450, L500.3400, L700.6800, L100.0100 ####[facility] [address] [place], [address] ALT [Catalytic activity/Vol] 34 U/L Normal 13-56 [facility] Comment on above: Performed By: #### L 500.2500, L501.2450, L500.3400, L700.6800, L100.0100 ####[facility] [address] [place], [address] AST [Catalytic activity/Vol] 66 U/L High 15-37 [facility] Comment on above: Performed By: #### L 500.2500, L501.2450, L500.3400, L700.6800, L100.0100 ####[facility] [address] [place], [address] Bilirubin [Mass/Vol] 0.60 mg/dL Normal 0.20-1.00 [facility] Comment on above: Result Comment: For patients on eltrombopag therapy, use of Dimension [place] TBIL is not recommended. Performed By: #### L 500.2500, L501.2450, L500.3400, L700.6800, L100.0100 ####[facility] [address] [place], [address] Bilirubin.direct [Mass/Vol] 0.14 mg/dL Normal 0.00-0.30 [facility] Comment on above: Performed By: #### L 500.2500, L501.2450, L500.3400, L700.6800, L100.0100 ####[facility] [address] [place], [address] Globulin (S) [Mass/Vol] 4.3 g/dL High 2.2-4.2 [facility] Comment on above: Performed By: #### L 500.2500, L501.2450, L500.3400, L700.6800, L100.0100 ####[facility] [address] [place], [address] T PROT 8.6 g/dL High 6.4-8.2 [facility] Comment on above: Performed By: #### L 500.2500, L501.2450, L500.3400, L700.6800, L100.0100 ####[facility] [address] [place], [address] M8200.2100on 11-03-2023 M8200.2100 Normal Reference Ran ge = Negative Chlamydia Trachomatis PCR GeneXpert Instrument, PCR method Chlamydia Trachomatis PCR Copy of report sent to Infection Control Printer [id number] 11/03/23 0906 JPIECHUTA. Chlamydia Trachomatis PCR RESULTS CALLED TO ED, H. MUELLER 11/03/23 0907 Baudiliochristal Reza. REPORT READ BACK BY . Chlamydia Trachomatis PCR POSITIVE A Chlamydia trachomatis Normal [facility] Comment on above: Performed By: #### L 7000.1800, M8200.2100, M8200.2200 ####[facility] [address] [place], [address] M8200.2200on 11-03-2023 M8200.2200 Negative Normal [facility] Comment on above: Performed By: #### L 7000.1800, M8200.2100, M8200.2200 ####[facility] [address] [place], [address] Mucus LM Ql (Urine sed)Order ed By: South Koch on 11-03-2023 Mucus Ql (Urine sed) 0 SEEN /hpf [facility] Nitrite Test strip Ql (U)Ord ered By: South Koch on 11-03-2023 Nitrite Ql (U) Negative Negative [facility] No Panel InformationOrdered By: South Koch on 11-03-2023 Estimated Creatinine Clearance Calc 71.16 ml/min [facility] Estimated GFR (MDRD) Amer 65 mL/min >60 [facility] Comment on above: GFR Calc Estimated GFR (MDRD) Non-Af Amer 54 mL/min >60 [facility] Comment on above: Non- GFR Calc Urine RBC 25-50 SEEN /hpf 0-5 [facility] ,Serum,hCG Quali.on 11-03-2023 HCG, SERUM QUAL Negative Normal [facility] Comment on above: Performed By: #### L 500.2500, L501.2450, L500.3400, L700.6800, L100.0100 ####[facility] [address] [place], [place], [id number] Protein Test strip Ql (U)Ord ered By: South Koch on 11-03-2023 Protein Ql (U) 30 mg/dl Negative [facility] RBC Auto (Bld) [#/Vol]Ordere d By: South Koch on 11-03-2023 RBC (Bld) [#/Vol] 4.52 10*6/uL 4.2-5.4 [facility] Serum or plasma calcium lexy urement (mass/volume)Ordered By: South Koch on 11-03-2023 Calcium [Mass/Vol] 9.7 mg/dL 8.5-10.1 [facility] Serum or plasma choriogonado tropin detectionOrdered By: South Koch on 11-03-2023 HCG ( test) Ql Negative [facility] Serum or plasma creatinine m easurement (mass/volume)Ordered By: South Koch on 11-03-2023 Creatinine [Mass/Vol] 1.21 mg/dL 0.55-1.02 [facility] Comment on above: The validity of the calculated GFR & GFRAA in patients over 70 years has not been determined. Clinical correlation is essential. Serum or plasma urea nitroge n measurement (mass/volume)Ordered By: South Koch on 11-03-2023 Urea nitrogen [Mass/Vol] 23 mg/dL 7-18 [facility] Squamous epithelial cells de tection in urine sediment by light microscopyOrdered By: South Koch on 11-03-2023 Epithelial cells.squamous LM Ql (Urine sed) 5-10 SEEN /hpf - [facility] Thin prep Papanicolaou smear with manual screeningOrdered By: South Koch on 11-03-2023 Thin prep Papanicolaou smear with manual screening 4.3 g/dL 3.2-5.0 [facility] Thin prep Papanicolaou smear with manual screening 66 U/L 15-37 [facility] Thin prep Papanicolaou smear with manual screening 11 01-02 [facility] Urinalysis, Completeon 11-02 BACTERIA 3+ /hpf Normal None Seen [facility] Comment on above: Order Comment: CLEAN CATCH Performed By: #### L 400.0001 ####[facility] [address] [place], [address] EPI,SQUAMOUS 5-10 SEEN Normal - [facility] Comment on above: Order Comment: CLEAN CATCH Performed By: #### L 400.0001 ####[facility] [address] [place], [place], [address] RBC 25-50 SEEN Normal 0-5 [facility] Comment on above: Order Comment: CLEAN CATCH Performed By: #### L 400.0001 ####[facility] [address] [place], [address] WBC >100 SEEN Normal 0-5 [facility] Comment on above: Order Comment: CLEAN CATCH Performed By: #### L 400.0001 ####[facility] [address] [place], [place], [address] Mucus Ql (Urine sed) 0 SEEN Normal [facility] Comment on above: Order Comment: CLEAN CATCH Performed By: #### L 400.0001 ####[facility] [address] [place], [place], [id number] Urine blood detectionOrdered By: South Koch on 11-03-2023 RBC Ql (U) 50 /ul Negative [facility] Urine clarityOrdered By: Joshua Koch on 11-03-2023 Clarity (U) Clear Clear [facility] Urine color determinationOrd ered By: South Koch on 11-03-2023 Color (U) Yellow Yellow [facility] Urine glucose detectionOrder ed By: South Koch on 11-03-2023 Glucose Ql (U) Normal mg/dl Normal [facility] Urine leukocyte esterase det ection by dipstickOrdered By: South Koch on 11-03-2023 Leukocyte esterase Test strip Ql (U) 500 /ul Negative [facility] Urine pHOrdered By: South rosas on 11-03-2023 pH (U) 5.0 [pH] 5.0 - 8.0 [facility] Urine sediment bacteria coun t by microscopy (number/high power field)Ordered By: South Koch on 11-03-2023 Bacteria LM.HPF (Urine sed) [#/Area] 3 /[HPF] None Seen [facility] Urine specific gravity measu rementOrdered By: South Koch on 11-03-2023 Specific gravity (U) [Rel density] 1.030 1.002-1.030 [facility] Urine urobilinogen measureme ntOrdered By: Southray Koch on 11-03-2023 Urobilinogen Ql (U) 1 mg/dl Normal [facility] Absolute lymphocyte countOrd ered By: Dr. Stern on 12-13-2022 Lymphocytes Auto (Unsp spec) [#/Vol] 1.61 10*3/uL 0.83-4.51 [facility] Basophil percentageOrdered B y: Dr. Stern on 12-13-2022 Basophil percentage 5-10 SEEN /hpf 0-5 [facility] Basophils/100 WBC (Bld) 0.5 % 0-1 [facility] Bilirubin [Mass/Vol] 0.50 mg/dL 0.20-1.00 [facility] Comment on above: For patients on eltr ombopag therapy, use of Dimension [place] TBIL is not recommended. Chloride [Moles/Vol] 109 mmol/L 98-107 [facility] Eosinophils/100 WBC (Bld) 1.5 % 0-5 [facility] Glucose [Mass/Vol] 122 mg/dL 74-106 [facility] Comment on above: Fasting Glucose resu lt from 100 to 125 mg/dL suggests IMPAIRED HOMEOSTASIS per A.D.A. criteria. Neutrophils (Bld) [#/Vol] 7.8 10*3/uL 2.0-7.7 [facility] Neutrophils/100 WBC (Bld) 75.5 % 47-70 [facility] Potassium [Moles/Vol] 4.0 mmol/L 3.5-5.1 [facility] Protein [Mass/Vol] 7.4 g/dL 6.4-8.2 [facility] Sodium [Moles/Vol] 138 mmol/L 136-145 [facility] WBC (Bld) [#/Vol] 10.4 10*3/uL 4.4-11.0 [facility] Bilirubin Test strip Ql (U)O rdered By: Dr. Stern on 12-13-2022 Bilirubin Ql (U) 1 mg/dL Negative [facility] Comment on above: COLOR OF URINE MAY A FFECT DIPSTICK RESULTS. Blood erythrocytes count (nu mber/volume)Ordered By: Dr. Stern on 12-13-2022 RBC (Bld) [#/Vol] 4.35 10*6/uL 4.2-5.4 [facility] Blood hemoglobin measurement (mass/volume)Ordered By: Dr. Stern on 12-13-2022 Hemoglobin (Bld) [Mass/Vol] 13.5 g/dL 12.0-15.0 [facility] Blood lymphocytes/100 leukoc ytesOrdered By: Dr. Stern on 12-13-2022 Lymphocytes/100 WBC (Bld) 15.5 % 19-41 [facility] Blood monocytes/100 leukocyt esOrdered By: Dr. Stern on 12-13-2022 Monocytes/100 WBC (Bld) 6.5 % 0-10 [facility] Blood platelet mean volumeOr dered By: Dr. Stern on 12-13-2022 Platelet mean volume (Bld) [Entitic vol] 10.1 fL 6.2-12.0 [facility] Determination of erythrocyte mean corpuscular volume (MCV)Ordered By: Dr. Stern on 12-13-2022 MCV (RBC) [Entitic vol] 94.5 fL 81-99 [facility] Hematocrit Auto (Bld) [Volum e fraction]Ordered By: Dr. Stern on 12-13-2022 Hematocrit (Bld) [Volume fraction] 41.1 % 37-47 [facility] Hyaline casts LM.LPF (Urine sed) [#/Area]Ordered By: Dr. Stern on 12-13-2022 Hyaline casts (Urine sed) [#/Area] 0 /[LPF] 0-5 [facility] Ketones Test strip Ql (U)Ord ered By: Dr. Stern on 12-13-2022 Ketones Ql (U) 5 mg/dl Negative [facility] Laboratory - Chemistry and C hemistry - challengeOrdered By: Dr. Stern on 12-13-2022 ALP [Catalytic activity/Vol] 68 U/L 45-117 [facility] ALT [Catalytic activity/Vol] 15 U/L 13-56 [facility] CO2 [Moles/Vol] 24.0 mmol/L 21.0-32.0 [facility] Globulin (S) [Mass/Vol] 3.7 g/dL 2.2-4.2 [facility] HCG ( test) Ql (U) Negative [facility] Comment on above: Very dilute urine sp ecimens, as indicated by a low specificgravity, may not contain billing representative levels of hCG. If is still suspected, a first morning urinespecimen should be collected 48 hours later and tested. Lipase [Catalytic activity/Vol] 63 U/L 13-75 [facility] Comment on above: Please note:LIPASE r evised reference range effective 22. New Lipase methodology. Expected to produce lower values than the previous assay method. NEW Reference Range: 13 - 75 U/L Urea nitrogen/Creatinine [Mass ratio] 22.8 mg/mg 10-20 [facility] Laboratory - Hematology and Cell countsOrdered By: Dr. Stern on 12-13-2022 Erythrocyte distribution width (RBC) [Entitic vol] 44.4 fL 35.1-43.9 [facility] Erythrocyte distribution width (RBC) [Ratio] 12.9 % 11.6-14.6 [facility] Immature granulocytes/100 WBC (Bld) 0.500 % 0.0-0.9 [facility] Comment on above: IG% - Immature Granu locytes (promyelocytes, myelocytes and metamyelocytes) > 1% indicates that a LEFT SHIFT is Present. MCH (RBC) [Entitic mass] 31.0 pg 27.0-32.0 [facility] Nucleated RBC/100 WBC (Bld) [Ratio] 0 % 0-5 [facility] MCHC Auto (RBC) [Mass/Vol]Or dered By: Dr. Stern on 12-13-2022 MCHC (RBC) [Mass/Vol] 32.8 g/dL 32-36 [facility] Mucus LM Ql (Urine sed)Order ed By: Dr. Stern on 12-13-2022 Mucus Ql (Urine sed) 0 SEEN /hpf [facility] Nitrite Test strip Ql (U)Ord ered By: Dr. Stern on 12-13-2022 Nitrite Ql (U) Negative Negative [facility] No Panel InformationOrdered By: Dr. Stern on 12-13-2022 Estimated Creatinine Clearance Calc 67.77 ml/min [facility] Estimated GFR (MDRD) Amer 81 mL/min >60 [facility] Comment on above: GFR Calc Estimated GFR (MDRD) Non-Af Amer 67 mL/min >60 [facility] Comment on above: Non- GFR Calc Platelets bldOrdered By: Dr. Stern on 12-13-2022 Platelets (Bld) [#/Vol] 364 10*3/uL 150-450 [facility] Protein Test strip Ql (U)Ord ered By: Dr. Stern on 12-13-2022 Protein Ql (U) 30 mg/dl Negative [facility] Serum or plasma albumin lexy urement (mass/volume)Ordered By: Dr. Stern on 12-13-2022 Albumin [Mass/Vol] 3.7 g/dL 3.2-5.0 [facility] Serum or plasma albumin/glob ulin mass ratioOrdered By: Dr. Stern on 12-13-2022 Albumin/Globulin [Mass ratio] 1.0 {ratio} 0.9-2.4 [facility] Serum or plasma calcium lexy urement (mass/volume)Ordered By: Dr. Stern on 12-13-2022 Calcium [Mass/Vol] 9.0 mg/dL 8.5-10.1 [facility] Serum or plasma creatinine m easurement (mass/volume)Ordered By: Dr. Stern on 12-13-2022 Creatinine [Mass/Vol] 1.01 mg/dL 0.55-1.02 [facility] Comment on above: The validity of the calculated GFR & GFRAA in patients over 70 years has not been determined. Clinical correlation is essential. Serum or plasma urea nitroge n measurement (mass/volume)Ordered By: Dr. Stern on 12-13-2022 Urea nitrogen [Mass/Vol] 23 mg/dL 7-18 [facility] Squamous epithelial cells de tection in urine sediment by light microscopyOrdered By: Dr. Stern on 12-13-2022 Epithelial cells.squamous LM Ql (Urine sed) 0-5 SEEN /hpf 5-10 [facility] Thin prep Papanicolaou smear with manual screeningOrdered By: Dr. Stern on 12-13-2022 Thin prep Papanicolaou smear with manual screening 11 U/L 15-37 [facility] Thin prep Papanicolaou smear with manual screening 5 5-15 [facility] Urine blood detectionOrdered By: Dr. Stern on 12-13-2022 RBC Ql (U) Negative Negative [facility] RBC Ql (U) 0 SEEN /hpf 0-5 [facility] Urine clarityOrdered By: Dr. Stern on 12-13-2022 Clarity (U) Clear Clear [facility] Urine color determinationOrd ered By: Dr. Stern on 12-13-2022 Color (U) Yellow Yellow [facility] Urine glucose detectionOrder ed By: Dr. Stern on 12-13-2022 Glucose Ql (U) Normal mg/dl Normal [facility] Urine leukocyte esterase det ection by dipstickOrdered By: Dr. Stern on 12-13-2022 Leukocyte esterase Test strip Ql (U) 25 /ul Negative [facility] Urine pHOrdered By: Dr. Stern o n 12-13-2022 pH (U) 6.0 [pH] 5.0 - 8.0 [facility] Urine sediment bacteria coun t by microscopy (number/high power field)Ordered By: Dr. Stern on 12-13-2022 Bacteria LM.HPF (Urine sed) [#/Area] 1 /[HPF] None Seen [facility] Urine specific gravity measu rementOrdered By: Dr. Stern on 12-13-2022 Specific gravity (U) [Rel density] 1.025 1.002-1.030 [facility] Urobilinogen Auto test strip Ql (U)Ordered By: Dr. Stern on 12-13-2022 Urobilinogen Ql (U) 1 mg/dl Normal [facility] Absolute lymphocyte counton 01-06-2022 Lymphocytes Auto (Unsp spec) [#/Vol] 2.00 10*3/uL 0.83-4.51 [facility] Work Phone: Basophil percentageon 2021 Basophil percentage 5-10 SEEN /hpf [facility] Work Phone: Comment on above: Previous reported re sult: 0 SEEN /hpfEdited by: SHANITA on 01/06/22:0027 AMENDED REPORT 01/06/22 1647 WBC previously reported as: 0 SEEN /hpf Basophils/100 WBC (Bld) 1.0 % 0-1 [facility] Work Phone: Bilirubin [Mass/Vol] 0.20 mg/dL 0.20-1.00 [facility] Work Phone: Comment on above: For patients on eltr ombopag therapy, use of Dimension [place] TBIL is not recommended. Chloride [Moles/Vol] 106 mmol/L 98-107 [facility] Work Phone: Eosinophils/100 WBC (Bld) 2.9 % 0-5 [facility] Work Phone: Glucose [Mass/Vol] 103 mg/dL 74-106 [facility] Work Phone: [phone] Comment on above: Fasting Glucose resu lt from 100 to 125 mg/dL suggests IMPAIRED HOMEOSTASIS per A.D.A. criteria. Neutrophils (Bld) [#/Vol] 4.3 10*3/uL 2.0-7.7 [facility] Work Phone: Neutrophils/100 WBC (Bld) 59.6 % 47-70 [facility] Work Phone: [phone] Potassium [Moles/Vol] 4.3 mmol/L 3.5-5.1 [facility] Work Phone: Protein [Mass/Vol] 7.3 g/dL 6.4-8.2 [facility] Work Phone: Sodium [Moles/Vol] 137 mmol/L 136-145 [facility] Work Phone: WBC (Bld) [#/Vol] 7.2 10*3/uL 4.4-11.0 [facility] Work Phone: Bilirubin Test strip Ql (U)o n 01-06-2022 Bilirubin Ql (U) Negative Negative [facility] Work Phone: Blood erythrocytes count (nu mber/volume)on 01-06-2022 RBC (Bld) [#/Vol] 4.39 10*6/uL 4.2-5.4 [facility] Work Phone: Blood hemoglobin measurement (mass/volume)on 01-06-2022 Hemoglobin (Bld) [Mass/Vol] 13.7 g/dL 12.0-15.0 [facility] Work Phone: Blood lymphocytes/100 leukoc yteson 01-06-2022 Lymphocytes/100 WBC (Bld) 27.7 % 19-41 [facility] Work Phone: Blood monocytes/100 leukocyt eson 01-06-2022 Monocytes/100 WBC (Bld) 8.2 % 0-10 [facility] Work Phone: Blood platelet mean volumeon 01-06-2022 Platelet mean volume (Bld) [Entitic vol] 9.2 fL 6.2-12.0 [facility] Work Phone: Determination of erythrocyte mean corpuscular volume (MCV)on 01-06-2022 MCV (RBC) [Entitic vol] 94.3 fL 81-99 [facility] Work Phone: HIV 1 and HIV-2 antibody ass ay with HIV-1 p24 antigen detectionon 01-06-2022 HIV 1+2 Ab+HIV1 p24 Ag IA Ql Non-Reactive Nonreactive [facility] Work Phone: Hematocrit Auto (Bld) [Volum e fraction]on 01-06-2022 Hematocrit (Bld) [Volume fraction] 41.4 % 37-47 [facility] Work Phone: Ketones Test strip Ql (U)on 01-06-2022 Ketones Ql (U) Negative Negative [facility] Work Phone: Laboratory - Chemistry and C hemistry - challengeon 01-06-2022 HCG ( test) Ql (U) Negative [facility] Work Phone: Comment on above: Very dilute urine sp ecimens, as indicated by a low specificgravity, may not contain billing representative levels of hCG. If is still suspected, a first morning urinespecimen should be collected 48 hours later and tested. ALP [Catalytic activity/Vol] 72 U/L 45-117 [facility] Work Phone: ALT [Catalytic activity/Vol] 18 U/L 13-56 [facility] Work Phone: CO2 [Moles/Vol] 25.0 mmol/L 21.0-32.0 [facility] Work Phone: Globulin (S) [Mass/Vol] 3.9 g/dL 2.2-4.2 [facility] Work Phone: Urea nitrogen/Creatinine [Mass ratio] 21.9 mg/mg 10-20 [facility] Work Phone: Laboratory - Drug toxicology on 01-06-2022 Amphetamines Ql (U) Positive [facility] Work Phone: Benzodiazepines Ql (U) Negative [facility] Work Phone: Cannabinoids Screen Ql (U) Negative [facility] Work Phone: Cocaine Ql (U) Negative [facility] Work Phone: Opiates Ql (U) Negative [facility] Work Phone: Laboratory - Hematology and Cell countson 01-06-2022 Erythrocyte distribution width (RBC) [Entitic vol] 43.8 fL 35.1-43.9 [facility] Work Phone: Erythrocyte distribution width (RBC) [Ratio] 12.6 % 11.6-14.6 [facility] Work Phone: Immature granulocytes/100 WBC (Bld) 0.600 % 0.0-0.9 [facility] Work Phone: Comment on above: IG% - Immature Granu locytes (promyelocytes, myelocytes and metamyelocytes) > 1% indicates that a LEFT SHIFT is Present. MCH (RBC) [Entitic mass] 31.2 pg 27.0-32.0 [facility] Work Phone: Nucleated RBC/100 WBC (Bld) [Ratio] 0 % 0-5 [facility] Work Phone: MCHC Auto (RBC) [Mass/Vol]on 01-06-2022 MCHC (RBC) [Mass/Vol] 33.1 g/dL 32-36 [facility] Work Phone: Mucus LM Ql (Urine sed)on Mucus Ql (Urine sed) 0 SEEN /hpf [facility] Work Phone: Nitrite Test strip Ql (U)on 01-06-2022 Nitrite Ql (U) Negative Negative [facility] Work Phone: No Panel Informationon 01-06 MDMA (Ecstasy) Screen Positive [facility] Work Phone: Urine Barbiturates Screen Negative [facility] Work Phone: Urine Drug Screen Comment [facility] Work Phone: Comment on above: CONFIRMATORY TESTING FOR ALL POSITIVE URINE DRUG SCREENRESULTS WILL ONLY BE SENT OUT UPON PHYSICIAN ORDER. VISTA Urine Drug Screen methods provide only preliminaryanalytical test results. A more specific alternate chemicalmethod must be used in order to obtain a confirmedanalytical result. Gas chromatography/mass spectrometery(GC/MS) is the preferred confirmatory method. Clinicalconsideration and professional judgement should be appliedto any drug of abuse test result, particularly whenpreliminary positive results are used. URINE TCA TESTING MUST BE ORDERED SEPARATELY. USE TESTMNEMONIC: [facility] Urine Methadone Screen Negative [facility] Work Phone: Estimated Creatinine Clearance Calc 79.42 ml/min [facility] Work Phone: Estimated GFR (MDRD) Amer 97 mL/min >60 [facility] Work Phone: Comment on above: GFR Calc Estimated GFR (MDRD) Non-Af Amer 80 mL/min >60 [facility] Work Phone: Comment on above: Non- GFR Calc Ethyl Alcohol Level 6.0 mg/dL [facility] Work Phone: Comment on above: The serum:whole bloo d ethanol ratio is approximately 1.14and varies slightly with hematocrit. Medical Alcohol reference interval and critical value innon-tolerant individuals; 50 - 100 Impairment 100 Intoxication 100 - 250 Severe Poisoning 250 - 400 Deep/possible fatal coma Platelets bldon 01-06-2022 Platelets (Bld) [#/Vol] 386 10*3/uL 150-450 [facility] Work Phone: Protein Test strip Ql (U)on 01-06-2022 Protein Ql (U) Negative Negative [facility] Work Phone: Serum or plasma albumin lexy urement (mass/volume)on 01-06-2022 Albumin [Mass/Vol] 3.4 g/dL 3.2-5.0 [facility] Work Phone: Serum or plasma albumin/glob ulin mass ratioon 01-06-2022 Albumin/Globulin [Mass ratio] 0.9 {ratio} 0.9-2.4 [facility] Work Phone: Serum or plasma calcium lexy urement (mass/volume)on 01-06-2022 Calcium [Mass/Vol] 8.6 mg/dL 8.5-10.1 [facility] Work Phone: Serum or plasma creatinine m easurement (mass/volume)on 01-06-2022 Creatinine [Mass/Vol] 0.87 mg/dL 0.55-1.02 [facility] Work Phone: Comment on above: The validity of the calculated GFR & GFRAA in patients over 70 years has not been determined. Clinical correlation is essential. Serum or plasma urea nitroge n measurement (mass/volume)on 01-06-2022 Urea nitrogen [Mass/Vol] 19 mg/dL 7-18 [facility] Work Phone: Squamous epithelial cells de tection in urine sediment by light microscopyon 01-06-2022 Epithelial cells.squamous LM Ql (Urine sed) 10-25 SEEN /hpf [facility] Work Phone: Comment on above: Previous reported re sult: 0 SEEN /hpfEdited by: SHANITA on 01/06/22:1648 AMENDED REPORT 01/06/22 1648 SQUAM EPI previously reported as: 0 SEEN /hpf Thin prep Papanicolaou smear with manual screeningon 01-06-2022 Thin prep Papanicolaou smear with manual screening 9 U/L 15-37 [facility] Work Phone: Thin prep Papanicolaou smear with manual screening 6 5-15 [facility] Work Phone: Urine blood detectionon 12-19 RBC Ql (U) Negative Negative [facility] Work Phone: RBC Ql (U) 0-5 SEEN /hpf [facility] Work Phone: Comment on above: Previous reported re sult: 0 SEEN /hpfEdited by: SHANITA on 01/06/22:1648 AMENDED REPORT 01/06/22 1648 RBC-UA previously reported as: 0 SEEN /hpf Urine clarityon 01-06-2022 Clarity (U) Sl. Cloudy Clear [facility] Work Phone: Urine color determinationon 01-06-2022 Color (U) Yellow Yellow [facility] Work Phone: Urine glucose detectionon Glucose Ql (U) Normal mg/dl Normal [facility] Work Phone: Urine leukocyte esterase det ection by dipstickon 01-06-2022 Leukocyte esterase Test strip Ql (U) 100 /ul Negative [facility] Work Phone: Urine pHon 01-06-2022 pH (U) 6.0 [pH] [facility] Work Phone: Urine phencyclidine (PCP) de tectionon 01-06-2022 Phencyclidine Ql (U) Negative [facility] Work Phone: Urine sediment bacteria coun t by microscopy (number/high power field)on 01-06-2022 Bacteria LM.HPF (Urine sed) [#/Area] 3 /[HPF] None Seen [facility] Work Phone: Comment on above: Previous reported re sult: 0 SEEN /hpfEdited by: SHANITA on 01/06/22:1649 AMENDED REPORT 01/06/22 1649 BACTERIA previously reported as: 0 SEEN /hpf Urine specific gravity measu rementon 01-06-2022 Specific gravity (U) [Rel density] 1.020 [facility] Work Phone: Urobilinogen Auto test strip Ql (U)on 01-06-2022 Urobilinogen Ql (U) Normal mg/dl Normal [facility] Work Phone: Absolute lymphocyte counton 01-01-2022 Lymphocytes Auto (Unsp spec) [#/Vol] 2.43 10*3/uL 0.83-4.51 [facility] Work Phone: Basophil percentageon 2021 Basophils/100 WBC (Bld) 0.7 % 0-1 [facility] Work Phone: Bilirubin [Mass/Vol] 0.30 mg/dL 0.20-1.00 [facility] Work Phone: Comment on above: For patients on eltr ombopag therapy, use of Dim[place] TBIL is not recommended. Chloride [Moles/Vol] 109 mmol/L 98-107 [facility] Work Phone: Eosinophils/100 WBC (Bld) 2.4 % 0-5 [facility] Work Phone: Glucose [Mass/Vol] 90 mg/dL 74-106 [facility] Work Phone: Neutrophils (Bld) [#/Vol] 4.3 10*3/uL 2.0-7.7 [facility] Work Phone: Neutrophils/100 WBC (Bld) 56.0 % 47-70 [facility] Work Phone: Potassium [Moles/Vol] 3.8 mmol/L 3.5-5.1 [facility] Work Phone: Protein [Mass/Vol] 7.6 g/dL 6.4-8.2 [facility] Work Phone: [phone] Sodium [Moles/Vol] 141 mmol/L 136-145 [facility] Work Phone: WBC (Bld) [#/Vol] 7.6 10*3/uL 4.4-11.0 [facility] Work Phone: Beta hCG serum qualon 2021 Beta HCG ( test) Ql Negative [facility] Work Phone: Blood erythrocytes count (nu mber/volume)on 01-01-2022 RBC (Bld) [#/Vol] 4.15 10*6/uL 4.2-5.4 [facility] Work Phone: Blood hemoglobin measurement (mass/volume)on 01-01-2022 Hemoglobin (Bld) [Mass/Vol] 12.9 g/dL 12.0-15.0 [facility] Work Phone: Blood lymphocytes/100 leukoc yteson 01-01-2022 Lymphocytes/100 WBC (Bld) 31.8 % 19-41 [facility] Work Phone: Blood monocytes/100 leukocyt eson 01-01-2022 Monocytes/100 WBC (Bld) 8.7 % 0-10 [facility] Work Phone: Blood platelet mean volumeon 01-01-2022 Platelet mean volume (Bld) [Entitic vol] 9.1 fL 6.2-12.0 [facility] Work Phone: Determination of erythrocyte mean corpuscular volume (MCV)on 01-01-2022 MCV (RBC) [Entitic vol] 96.1 fL 81-99 [facility] Work Phone: Hematocrit Auto (Bld) [Volum e fraction]on 01-01-2022 Hematocrit (Bld) [Volume fraction] 39.9 % 37-47 [facility] Work Phone: Laboratory - Chemistry and C hemistry - challengeon 01-01-2022 ALP [Catalytic activity/Vol] 76 U/L 45-117 [facility] Work Phone: ALT [Catalytic activity/Vol] 15 U/L 13-56 [facility] Work Phone: CO2 [Moles/Vol] 26.0 mmol/L 21.0-32.0 [facility] Work Phone: Globulin (S) [Mass/Vol] 3.9 g/dL 2.2-4.2 [facility] Work Phone: Urea nitrogen/Creatinine [Mass ratio] 17.7 mg/mg 10-20 [facility] Work Phone: Laboratory - Drug toxicology on 01-01-2022 Amphetamines Ql (U) Positive [facility] Work Phone: Benz[facility]ines [facility]l (U) [facility] Work Phone: Cannabinoids Screen Ql (U) Negative [facility] Work Phone: Cocaine Ql (U) Negative [facility] Work Phone: Opiates Ql (U) Negative [facility] Work Phone: Laboratory - Hematology and Cell countson 01-01-2022 Erythrocyte distribution width (RBC) [Entitic vol] 44.4 fL 35.1-43.9 [facility] Work Phone: Erythrocyte distribution width (RBC) [Ratio] 12.5 % 11.6-14.6 [facility] Work Phone: Immature granulocytes/100 WBC (Bld) 0.400 % 0.0-0.9 [facility] Work Phone: Comment on above: IG% - Immature Granu locytes (promyelocytes, myelocytes and metamyelocytes) > 1% indicates that a LEFT SHIFT is Present. MCH (RBC) [Entitic mass] 31.1 pg 27.0-32.0 [facility] Work Phone: Nucleated RBC/100 WBC (Bld) [Ratio] 0 % 0-5 [facility] Work Phone: MCHC Auto (RBC) [Mass/Vol]on 01-01-2022 MCHC (RBC) [Mass/Vol] 32.3 g/dL 32-36 [facility] Work Phone: No Panel Informationon 01-01 Estimated Creatinine Clearance Calc 71.98 ml/min [facility] Work Phone: Estimated GFR (MDRD) Amer 86 mL/min >60 [facility] Work Phone: Comment on above: GFR Calc Estimated GFR (MDRD) Non-Af Amer 71 mL/min >60 [facility] Work Phone: Comment on above: Non- GFR Calc Ethyl Alcohol Level 9.0 mg/dL [facility] Work Phone: Comment on above: The serum:whole bloo d ethanol ratio is approximately 1.14and varies slightly with hematocrit. Medical Alcohol reference interval and critical value innon-tolerant individuals; 50 - 100 Impairment 100 Intoxication 100 - 250 Severe Poisoning 250 - 400 Deep/possible fatal coma MDMA (Ecstasy) Screen Positive [facility] Work Phone: Urine Barbiturates Screen Negative [facility] Work Phone: Urine Drug Screen Comment [facility] Work Phone: Comment on above: CONFIRMATORY TESTING FOR ALL POSITIVE URINE DRUG SCREENRESULTS WILL ONLY BE SENT OUT UPON PHYSICIAN ORDER. VISTA Urine Drug Screen methods provide only preliminaryanalytical test results. A more specific alternate chemicalmethod must be used in order to obtain a confirmedanalytical result. Gas chromatography/mass spectrometery(GC/MS) is the preferred confirmatory method. Clinicalconsideration and professional judgement should be appliedto any drug of abuse test result, particularly whenpreliminary positive results are used. URINE TCA TESTING MUST BE ORDERED SEPARATELY. USE TESTMNEMONIC: [facility] Urine Methadone Screen Negative [facility] Work Phone: Platelets bldon 01-01-2022 Platelets (Bld) [#/Vol] 365 10*3/uL 150-450 [facility] Work Phone: Serum or plasma albumin lexy urement (mass/volume)on 01-01-2022 Albumin [Mass/Vol] 3.7 g/dL 3.2-5.0 [facility] Work Phone: Serum or plasma albumin/glob ulin mass ratioon 01-01-2022 Albumin/Globulin [Mass ratio] 0.9 {ratio} 0.9-2.4 [facility] Work Phone: Serum or plasma calcium lexy urement (mass/volume)on 01-01-2022 Calcium [Mass/Vol] 8.5 mg/dL 8.5-10.1 [facility] Work Phone: Serum or plasma creatinine m easurement (mass/volume)on 01-01-2022 Creatinine [Mass/Vol] 0.96 mg/dL 0.55-1.02 [facility] Work Phone: Comment on above: The validity of the calculated GFR & GFRAA in patients over 70 years has not been determined. Clinical correlation is essential. Serum or plasma urea nitroge n measurement (mass/volume)on 01-01-2022 Urea nitrogen [Mass/Vol] 17 mg/dL 7-18 [facility] Work Phone: Thin prep Papanicolaou smear with manual screeningon 01-01-2022 Thin prep Papanicolaou smear with manual screening 12 U/L 15-37 [facility] Work Phone: Thin prep Papanicolaou smear with manual screening 6 5-15 [facility] Work Phone: Urine phencyclidine (PCP) de tectionon 01-01-2022 Phencyclidine Ql (U) Negative [facility] Work Phone: Influenza virus A and B and SARS-CoV-2 (COVID-19) Ag panel - Upper respiratory specim SARS-CoV-2 & FLU Antigen (Rapid) SARS-CoV-2 (COVID 19) [facility] Work Phone: Vital Signs Date Time Vital Sign Value Performing Clinician Jarad galvez 03-18-2025 07:09-0400 Body height 162.6 cm Mireille Greene APRN.COMMUNITY RELATIONS ADVISOR Work Phone: [facility] 03-18-2025 07:09-0400 Body mass index (BMI) [Ratio] 38.96 kg/m2 Mireille Greene APRN.COMMUNITY RELATIONS ADVISOR Work Phone: [facility] 03-18-2025 07:09-0400 Body weight 102.97 kg Mireille Greeen APRN.COMMUNITY RELATIONS ADVISOR Work Phone: [facility] 03-18-2025 07:09-0400 Diastolic blood pressure 102 mm[Hg] Mireille Greene APRN.COMMUNITY RELATIONS ADVISOR Work Phone: [facility] 03-18-2025 07:09-0400 Systolic blood pressure 141 mm[Hg] Mireille Greene APRN.COMMUNITY RELATIONS ADVISOR Work Phone: [facility] 11-03-2023 05:05-0400 Diastolic blood pressure 60 mm[Hg] [facility] 11-03-2023 05:05-0400 Heart rate 102 /min [facility] 11-03-2023 05:05-0400 Respiratory rate 18 /min [facility] 11-03-2023 05:05-0400 SaO2% (BldA) [Mass fraction] 96 % [facility] 11-03-2023 05:05-0400 Systolic blood pressure 138 mm[Hg] [facility] 11-03-2023 02:53-0400 Body height 162.[address] [facility] 11-03-2023 02:53-0400 Body mass index (BMI) [Ratio] 34.7 kg/m2 [facility] 11-03-2023 02:53-0400 Body temperature 97.6 [degF] [facility] 11-03-2023 02:53-0400 Body weight 91.[address] [facility] 10-02-2023 15:59-0500 Body temperature 98.1 [degF] Emiliano Lanza APRN.COMMUNITY RELATIONS ADVISOR Work Phone: [facility] 10-02-2023 15:59-0500 Body weight 93.98 kg Emiliano Lanza APRN.COMMUNITY RELATIONS ADVISOR Work Phone: [facility] 10-02-2023 15:59-0500 Diastolic blood pressure 98 mm[Hg] [facility] COMMUNITY SERVICE AIDE.COMMUNITY RELATIONS ADVISOR Work Phone: [facility] 10-02-2023 15:59-0500 Heart rate 100 /min [facility] COMM[facility]ITY SERVICE AIDE.COMMUNITY RELATIONS ADVISOR Work Phone: [facility] 10-02-2023 15:59-0500 Respiratory rate 22 /min [facility] COMMUNITY SERVICE AIDE.COMMUNITY RELATIONS ADVISOR Work Phone: [facility] 10-02-2023 15:59-0500 SaO2% (BldA) [Mass fraction] 98 % [facility] COMMUNITY SERVICE AIDE.COMMUNITY RELATIONS ADVISOR Work Phone: [facility] 10-02-2023 15:59-0500 Systolic blood pressure 130 mm[Hg] [facility] COMMUNITY SERVICE AIDE.COMMUNITY RELATIONS ADVISOR Work Phone: [facility] 04-20-2023 03:39-0400 Diastolic blood pressure 89 mm[Hg] [facility] 04-20-2023 03:39-0400 Heart rate 108 /min [facility] 04-20-2023 03:39-0400 Respiratory rate 15 /min [facility] 04-20-2023 03:39-0400 SaO2% (BldA) [Mass fraction] 98 % [facility] 04-20-2023 03:39-0400 Systolic blood pressure 144 mm[Hg] [facility] 04-20-2023 03:20-0400 Body height 162.[address] [facility] 04-20-2023 03:20-0400 Body mass index (BMI) [Ratio] 33.6 kg/m2 [facility] 04-20-2023 03:20-0400 Body temperature 98.5 [degF] [facility] 04-20-2023 03:20-0400 Body weight 88.[address] [facility] 01-21-2023 08:30-0400 Body height 162.[address] [facility] 01-21-2023 08:30-0400 Body mass index (BMI) [Ratio] 33.3 kg/m2 [facility] 01-21-2023 08:30-0400 Body temperature 97.3 [degF] [facility] 01-21-2023 08:30-0400 Body weight 87.[address] [facility] 01-21-2023 08:30-0400 Diastolic blood pressure 105 mm[Hg] [facility] 01-21-2023 08:30-0400 Heart rate 100 /min [facility] 01-21-2023 08:30-0400 Respiratory rate 18 /min [facility] 01-21-2023 08:30-0400 SaO2% (BldA) [Mass fraction] 99 % [facility] 01-21-2023 08:30-0400 Systolic blood pressure 148 mm[Hg] [facility] 12-13-2022 19:07-0400 Diastolic blood pressure 73 mm[Hg] [facility] 12-13-2022 19:07-0400 Heart rate 82 /min [facility] 12-13-2022 19:07-0400 Respiratory rate 14 /min [facility] 12-13-2022 19:07-0400 SaO2% (BldA) [Mass fraction] 100 % [facility] 12-13-2022 19:07-0400 Systolic blood pressure 113 mm[Hg] [facility] 12-13-2022 13:34-0400 Body height 162.[address] [facility] 12-13-2022 13:34-0400 Body mass index (BMI) [Ratio] 33 kg/m2 [facility] 12-13-2022 13:34-0400 Body temperature 98 [degF] [facility] 12-13-2022 13:34-0400 Body weight 87.[address] [facility] 07-27-2022 15:53-0500 Heart rate 98 /min No Primary Care Physician [facility] Work Phone: 07-27-2022 15:53-0500 Respiratory rate 17 /min No Primary Care Physician [facility] Work Phone: 07-27-2022 15:53-0500 SaO2% (BldA) [Mass fraction] 100 % No Primary Care Physician [facility] Work Phone: 07-27-2022 13:50-0500 Body height 162.56 cm No Primary Care Physician [facility] Work Phone: 07-27-2022 13:50-0500 Body mass index (BMI) [Ratio] 34.3 kg/m2 No Primary Care Physician [facility] Work Phone: 07-27-2022 13:50-0500 Body temperature 97.8 [degF] No Primary Care Physician [facility] Work Phone: 07-27-2022 13:50-0500 Body weight 90.71 kg No Primary Care Physician [facility] Work Phone: 07-27-2022 13:50-0500 Diastolic blood pressure 96 mm[Hg] No Primary Care Physician [facility] Work Phone: 07-27-2022 13:50-0500 Systolic blood pressure 142 mm[Hg] No Primary Care Physician [facility] Work Phone: 05-19-2022 09:11-0400 Body temperature 98.2 [degF] No Primary Care Physician [facility] Work Phone: 05-19-2022 09:11-0400 Diastolic blood pressure 77 mm[Hg] No Primary Care Physician [facility] Work Phone: 05-19-2022 09:11-0400 Heart rate 66 /min No Primary Care Physician [facility] Work Phone: 05-19-2022 09:11-0400 Respiratory rate 18 /min No Primary Care Physician [facility] Work Phone: 05-19-2022 09:11-0400 SaO2% (BldA) [Mass fraction] 95 % No Primary Care Physician [facility] Work Phone: 05-19-2022 09:11-0400 Systolic blood pressure 119 mm[Hg] No Primary Care Physician [facility] Work Phone: 05-16-2022 14:08-0400 Body height 162.56 cm No Primary Care Physician [facility] Work Phone: 05-16-2022 14:08-0400 Body mass index (BMI) [Ratio] 32.3 kg/m2 No Primary Care Physician [facility] Work Phone: 05-16-2022 14:08-0400 Body weight 85.5 kg No Primary Care Physician [facility] Work Phone: 01-10-2022 10:15-0400 Body temperature 98.2 [degF] No Primary Care Physician [facility] Work Phone: 01-10-2022 10:15-0400 Diastolic blood pressure 74 mm[Hg] No Primary Care Physician [facility] Work Phone: 01-10-2022 10:15-0400 Heart rate 79 /min No Primary Care Physician [facility] Work Phone: 01-10-2022 10:15-0400 Respiratory rate 16 /min No Primary Care Physician [facility] Work Phone: 01-10-2022 10:15-0400 SaO2% (BldA) [Mass fraction] 97 % No Primary Care Physician [facility] Work Phone: 01-10-2022 10:15-0400 Systolic blood pressure 112 mm[Hg] No Primary Care Physician [facility] Work Phone: 01-06-2022 17:53-0400 Body height 162.56 cm No Primary Care Physician [facility] Work Phone: 01-06-2022 17:53-0400 Body mass index (BMI) [Ratio] 32.5 kg/m2 No Primary Care Physician [facility] Work Phone: 01-06-2022 17:53-0400 Body weight 85.9 kg No Primary Care Physician [facility] Work Phone: 01-06-2022 17:05-0400 Body temperature 97.3 [degF] No Primary Care Physician [facility] Work Phone: 01-06-2022 17:05-0400 Diastolic blood pressure 102 mm[Hg] No Primary Care Physician [facility] Work Phone: 01-06-2022 17:05-0400 Heart rate 91 /min No Primary Care Physician [facility] Work Phone: 01-06-2022 17:05-0400 Respiratory rate 17 /min No Primary Care Physician [facility] Work Phone: 01-06-2022 17:05-0400 SaO2% (BldA) [Mass fraction] 99 % No Primary Care Physician [facility] Work Phone: 01-06-2022 17:05-0400 Systolic blood pressure 143 mm[Hg] No Primary Care Physician [facility] Work Phone: 01-06-2022 15:22-0400 Body height 162.56 cm No Primary Care Physician [facility] Work Phone: 01-06-2022 15:22-0400 Body mass index (BMI) [Ratio] 30.9 kg/m2 No Primary Care Physician [facility] Work Phone: 01-06-2022 15:22-0400 Body weight 81.64 kg No Primary Care Physician [facility] Work Phone: 01-02-2022 20:00-0400 Body temperature 97.2 [degF] No Primary Care Physician [facility] Work Phone: 01-02-2022 20:00-0400 Diastolic blood pressure 93 mm[Hg] No Primary Care Physician [facility] Work Phone: 01-02-2022 20:00-0400 Heart rate 97 /min No Primary Care Physician [facility] Work Phone: 01-02-2022 20:00-0400 Respiratory rate 18 /min No Primary Care Physician [facility] Work Phone: 01-02-2022 20:00-0400 SaO2% (BldA) [Mass fraction] 98 % No Primary Care Physician [facility] Work Phone: 01-02-2022 20:00-0400 Systolic blood pressure 138 mm[Hg] No Primary Care Physician [facility] Work Phone: 01-02-2022 10:25-0400 Body weight 84.5 kg No Primary Care Physician [facility] Work Phone: 01-01-2022 23:37-0400 Body mass index (BMI) [Ratio] 31.9 kg/m2 No Primary Care Physician [facility] Work Phone: Encounters Encounter Date Encounter Type Care Provider Facility Start: 03-18-2025 End: 03-18-2025 ambulatory [facility] Work Phone: OB/Gynecology Start: 03-18-2025 End: 03-18-2025 ambulatory MIREILLE GREENE Facility:[facility] Start: 03-18-2025 End: 03-18-2025 Patient encounter procedure Mireille Greene APRN.COMMUNITY RELATIONS ADVISOR Work Phone: OB/Gynecology Comment on above: Abnormal uterine ble eding (AUB) (Primary Dx); Irregular menstrual cycle; Subserous leiomyoma of uterus; Screen for STD (sexually transmitted disease); Malaise and fatigue; Unintended weight gain; Primary hypertension; Encounter for screening for malignant neoplasm of cervix; Special screening examination for human papillomavirus (HPV) Start: 06-12-2024 End: 06-17-2024 ambulatory Lin Malik Facility:[facility] Start: 11-03-2023 End: 11-03-2023 Emergency department patient visit [facility] Work Phone: Start: 10-02-2023 End: 10-02-2023 Office outpatient visit 25 minutes Emiliano Lanza APRN.COMMUNITY RELATIONS ADVISOR Work Phone: [facility] Comment on above: Foreign body of skin of great toe, right, initial encounter (Primary Dx) Start: 04-20-2023 End: 04-20-2023 Emergency department patient visit [facility] Work Phone: Start: 01-21-2023 End: 01-21-2023 Emergency department patient visit [facility] Start: 12-13-2022 End: 12-13-2022 Emergency department patient visit [facility] Start: 07-27-2022 End: 07-27-2022 Emergency department patient visit No Primary Care Physician [facility] Start: 05-19-2022 Non-patient / Non-visit No Lili felice Care Physician [facility] Start: 05-18-2022 Non-patient / Non-visit No Lili felice Care Physician [facility] Start: 05-17-2022 Non-patient / Non-visit No Lili felice Care Physician [facility] Start: 05-16-2022 Non-patient / Non-visit No Lili felice Care Physician [facility] Start: 05-16-2022 End: 05-19-2022 Evaluation and management of inpatient [facility] Start: 01-09-2022 Non-patient / Non-visit No Lili viveros Care Physician [facility] Start: 01-08-2022 Non-patient / Non-visit No Lili felice Care Physician [facility] Start: 01-07-2022 Non-patient / Non-visit No Lili felice Care Physician [facility] Start: 01-06-2022 Non-patient / Non-visit No Lili felice Care Physician [facility] Start: 01-06-2022 End: 01-10-2022 Evaluation and management of inpatient No Primary Care Physician [facility]Medical Surgical 3 Start: 01-02-2022 Non-patient / Non-visit No Lili viveros Care Physician [facility] Start: 01-01-2022 Non-patient / Non-visit No Lili felice Care Physician [facility] Start: 01-01-2022 End: 01-02-2022 Evaluation and management of inpatient No [facility] Procedures Date Procedure Procedure Detail Performing Clinician Start: 03-18-2025 Us pelvic nonobstetr ic real-time image complete Mireille Greene APRN.COMMUNITY RELATIONS ADVISOR Work Phone: Start: 11-03-2023 Computed tomography of abdomen and pelvis with intravenous contrast Start: 12-13-2022 Transvaginal echography Start: 12-13-2022 Computed tomography of abdomen and pelvis with intravenous contrast SARS-CoV-2 & FLU Ant igen (Rapid) No Primary Care Physician Plan of Treatment Date Care Activity Detail Author Start: 03-18-2030 Screening for malign ant neoplasm of cervix Cervical Cancer Screening [facility] Start: 04-23-2025 Urine microalbumin profile DTaP,Tdap,Td Vaccine (2 - Td or Tdap) [facility] Start: 04-21-2025 Influenza vaccination Influenza Vacc ine (#1) [facility] Start: 03-18-2025 End: 06-17-2025 25-hydroxyvitamin D3 [Mass/volume] in Serum or Plasma [facility] Comment on above: Expected: 03/18/2025 , Expires: 06/17/2025 Start: 03-18-2025 End: 06-17-2025 HIV 1+2 Ab [Presence] in Serum or Plasma by Immunoassay [facility] Comment on above: Expected: 03/18/2025 , Expires: 06/17/2025 Start: 03-18-2025 End: 06-17-2025 SYPHILIS TREPONEMAL W/REFLEX [facility] Comment on above: Expected: 03/18/2025 , Expires: 06/17/2025 Start: 03-18-2025 End: 06-17-2025 Thyrotropin [Units/volume] in Serum or Plasma [facility] Comment on above: Expected: 03/18/2025 , Expires: 06/17/2025 Start: 03-18-2025 End: 03-18-2026 US Pelvis PELVIC US [facility] Anc Imaging Routine Abnormal uterine bleeding (AUB) Expected: 03/18/2025, Expires: 03/18/2026 [facility] Comment on above: Expected: 03/18/2025 , Expires: 03/18/2026 Start: 11-03-2023 End: 11-03-2023 [facility] Start: 08-21-2023 Depression Assessment Depression Ass essment [facility] Start: 04-21-2023 Influenza vaccination Influenza Vacc ine (#1) [facility] Start: 01-21-2023 Puncture aspiration abscess hematoma bulla/cyst PUNCTURE DRAINAGE OF LESION [facility] Start: 05-19-2022 Patient [place] [facility] Work Phone: Start: 05-16-2022 Assessment using assessment scale [facility] Work Phone: Start: 05-16-2022 End: 05-16-2022 [facility] Work Phone: Start: 05-16-2022 Ambulation without limitation [facility] Work Phone: Start: 05-16-2022 Assessment of risk o f venous thromboembolism [facility] Work Phone: Start: 05-16-2022 Insertion of cathete r into peripheral vein [facility] Work Phone: Start: 05-16-2022 Providing care accor ding to standard [facility] Work Phone: Start: 05-16-2022 [facility] Start: 05-16-2022 Verification routine [facility] Work Phone: Start: 2018 Screening for malign ant neoplasm of cervix HPV Testing [facility] Start: 03-22-2015 Pneumococcal vaccination Pneum ococcal Vaccine (2 of 2 - PCV) [facility] Start: 2009 Screening for malign ant neoplasm of cervix [facility] Start: 11-03-2007 Hepatitis B Vaccine (1 of 3 - 19+ 3-dose series) Hepatitis B Vaccine (1 of 3 - 19+ 3-dose series) [facility] Start: 2006 Anxiety Screening Anxiety Screening [facility] Start: 2006 Depression Screening Depression Scre ening [facility] Start: 05-05-1989 Covid-19 Vaccine (#1) Covid-19 Vacci ne (#1) [facility] Start: 1988 Hepatitis B Vaccine (1 of 3 - 3-dose series) Hepatitis B Vaccine (1 of 3 - 3-dose series) [facility] Bacteria identified in Urine by Culture [facility] Chlamydia trachomatis [facility] Chlamydia trachomatis+Neisseria gonorrhoeae DNA [Presence] in Unspecified specimen by JUDY with probe detection GONORRHEA/CHLAMYDIA NAAT Lab Routine Screen for STD (sexually transmitted disease) Ordered: 03/18/2025 [facility] Comment on above: Ordered: 03/18/2025 Neisseria gonorrhoea e DNA [Presence] in Genital specimen by JUDY with probe detection [facility] PAP TEST PAP TEST Lab Lizbeth angie Encounter for screening for malignant neoplasm of cervix Special screening examination for human papillomavirus (HPV) Ordered: 03/18/2025 [facility] Work Phone: Comment on above: Ordered: 03/18/2025 Patient Education [facility] Work Phone: Patient referral [facility] Work Phone: Immunizations Immunization Date Immunization Notes Care Provider Fa michelle 06-27-2015 measles, mumps and rubella virus vaccine No Primary Care Physician [facility] 06-05-2015 influenza, injectabl e, quadrivalent, contains preservative Emiliano Pendlebury COMMUNITY SERVICE AIDE.COMMUNITY RELATIONS ADVISOR Work Phone: [facility] 06-05-2015 influenza virus vaccine, unspecified formulation Emiliano Pendlebury COMMUNITY SERVICE AIDE.COMMUNITY RELATIONS ADVISOR Work Phone: [facility] 04-23-2015 tetanus toxoid, reduced diphtheria toxoid, and acellular pertussis vaccine, adsorbed Emiliano Pendlebury COMMUNITY SERVICE AIDE.COMMUNITY RELATIONS ADVISOR Work Phone: [facility] 03-22-2014 Pneumococcal Vaccine No Prim beth Care Physician [facility] Work Phone: 03-22-2014 pneumococcal vaccine , unspecified formulation No Primary Care Physician [facility] Payers Date Payer Category Payer Self-pay [id number] 2022 Medicaid [id number] 2017 Unknown [id number] Medicaid [id number] Unknown [id number] Unknown [id number] 2.16.8 [id number] Unknown [id number] 2.16.8 [id number] Unknown [id number] 2.16.8 [id number] Unknown [id number] 2.16.8 [id number] Unknown [id number] 2.16.8 [id number] Unknown [id number] 2.16.8 [id number] Unknown [id number] 2.16.8 [id number] Unknown [id number] [id number] [id number] Social History Date Type Detail Facility [facility] Work Phone: Start: 01-06-2022 End: 11-03-2023 Tobacco smoking status WAIS Unknown if ever smoked [facility] Start: 08-20-2020 None [facility] Start: 08-20-2020 - [facility] Start: 08-20-2020 Spouse/ Signif icant Other [facility] Start: 08-17-2020 Cigarettes [facility] Start: 1990 Sex Assigned At Female W [facility] Start: 07-27-2022 End: 03-18-2025 Tobacco smoking status NHIS Occasional tobacco smoker [facility] History of tobacco use Cigarette Smoker [facility] Start: 07-27-2022 End: 03-18-2025 Cigarettes smoked current (pack per day) - Reported 0.3 [facility] Start: 07-27-2022 End: 03-18-2025 Tobacco use and exposure Smokeless tobacco non-user [facility] Start: 10-02-2023 End: 03-18-2025 Alcohol intake Current non-drinker of alcohol (finding) [facility] Start: 10-02-2023 End: 03-18-2025 Tobacco use panel [facility] National Score (1-100), lower number is lower risk 92 [facility] Start: 03-27-2022 Gender identity Identifies as female gender (finding) [facility] Start: 03-27-2022 Sexual orientation Heterosexual (dashawn michele) [facility] NEGATED: Highlighted row [facility] Goals Date Patient Goal Desired Activity /State Functional Status Date Assessment Result Facility 05-19-2022 Functional status Ambulates;Up ad g[facility] Work Phone: 01-10-2022 Functional status Ambulates [facility] Work Phone: 01-02-2022 Functional status Ambulates;Up ad gabriel [facility] Work Phone: 01-27-2015 Are you deaf, or do you have serious difficulty hearing No 01/27/2015 3:43 PM Clarita Walden RN No [facility] 01-27-2015 Are you blind, or do you have serious difficulty seeing, even when wearing glasses No 01/27/2015 3:43 PM Clarita Walden RN No [facility] 01-27-2015 Do you have serious difficulty walking or climbing stairs No 01/27/2015 3:43 PM Clarita Walden RN No [facility] 01-27-2015 Do you have difficul ty dressing or bathing No 01/27/2015 3:43 PM Clarita Walden RN No [facility] 01-27-2015 Because of a physica l, mental, or emotional condition, do you have difficulty doing errands alone such as visiting a physician's office or shopping No 01/27/2015 3:43 PM Clarita Walden RN No [facility] Mental Status Date Assessment Result Facility 05-19-2022 Cognitive function Voice/Name [facility] Work Phone: 01-09-2022 Cognitive function Voice/Name [facility] Work Phone: 01-02-2022 Cognitive function Voice/Name [facility] Work Phone: 01-27-2015 Because of a physica l, mental, or emotional condition, do you have serious difficulty concentrating, remembering, or making decisions No 01/27/2015 3:43 PM EDT Clarita Valdez RN No [facility] Clinical Notes 12-13-2022 to 03-25-2025 Verona Ramirez MD - 03/25/2025 9:52 AM EDTPatient Mireille Gomez APRN.COMMUNITY RELATIONS ADVISOR - 03/18/2025 7:09 AM EDTPEmiliano crawford APRN.COMMUNITY RELATIONS ADVISOR - 10/02/2023 4:00 PM EST Note Date & Type Note Facility 03-25-2025 Note HNO ID: [id number] Author: VERONA RAMIREZ MD Service: ? Author Type: Physician Type: Progress Notes Filed: 03/25/2025 09:57 Note Text: Pelvic ultrasound was performed on Baudilio. Please see imaging tab for documentation and results. Verona Ramirez MD OBGYN Staff Physician SIGNATURE: Verona Ramirez MD PATIENT NAME: Baudilio Sharma DATE: March 25, 2025 TIME: 9:57 AM PAGER/CONTACT #: Pager OBGYN Call Schedule: QGenda [facility] 03-25-2025 History of Presen t illness Narrative Pelvic ultrasound was performed on Baudilio. Please see imaging tab for documentation and results. Verona Ramirez MD OBGYN Staff Physician SIGNATURE: Verona Ramirez MD PATIENT NAME: Baudilio Sharma DATE: March 25, 2025 TIME: 9:57 AM PAGER/CONTACT #: Pager OBGYN Call Schedule: QGenda documented in this encounter [facility] 03-18-2025 Mireille Simental APRN.[facility] - 03/18/2025 7:51 AM EDT We discussed your concerns about irregular bleeding, weight gain, fatigue, and possible thyroid issues: - You reported irregular periods for the past 6-7 years, typically occurring every 1-2 months and lasting 4-5 days. Recently, you have experienced more frequent bleeding, with periods occurring weekly over the past 2-3 months. - We will perform a pelvic ultrasound to check for any cysts, fibroids, or other abnormalities that could be contributing to your symptoms. Please schedule this at the front office java developer before leaving. - Blood work has been ordered to check for anemia (CBC), vitamin D levels, thyroid function, HIV, and syphilis. Please go downstairs to the lab for these tests today. - If the ultrasound or blood work indicates further concerns, we may need to perform an endometrial biopsy. This procedure can be done at the same time as placing an IUD if you decide to pursue that option. We discussed your history of a fibroid and ovarian cyst: - A previous CT scan showed a 1.4 cm fibroid on the posterior uterine body. Fibroids can sometimes resolve on their own, but we will reassess with the pelvic ultrasound. - You mentioned a history of a 5 cm ovarian cyst that was identified approximately 1.5 years ago but not surgically treated. The ultrasound will also evaluate for any current ovarian cysts. We discussed control options: - Due to your high blood pressure, certain control methods are not recommended. An IUD, specifically the Mirena IUD, may be a good option for you. - You do not need to decide on the IUD today. If you are interested, we can coordinate placement during a future visit, especially if an endometrial biopsy is needed. We discussed your high blood pressure: - Your blood pressure today was 141/102, which is elevated. You are not currently taking medication for this. - I recommend establishing care with a primary care provider (PCP) to manage your blood pressure and overall health. Please schedule an appointment with a PCP at the front office java developer before leaving. We discussed your history of hepatitis B and C: - You expressed interest in treatment for hepatitis C. Establishing care with a PCP is the first step to coordinate this referral. We discussed your fatigue, mood swings, and weight gain: - These symptoms may be related to your thyroid, vitamin D levels, or lifestyle changes. Blood work has been ordered to evaluate these concerns. We performed a Pap test and STD screening: - A Pap test was completed today to screen for cervical abnormalities. - STD testing was also performed, including gonorrhea, chlamydia, trichomonas, HIV, and syphilis. Results will be reviewed at your follow-up visit. Next steps: - Schedule a pelvic ultrasound at the front office java developer. - Complete your blood work downstairs today. - Schedule an appointment with a primary care provider to address your high blood pressure and coordinate care for hepatitis C. - Consider your options for control, including the Mirena IUD, and let us know if you would like to proceed with placement during a future visit. Your pharmacy is listed as [facility] [employer]. Please let us know if this needs to be updated. documented in this encounter [facility] 03-18-2025 Note HNO ID: [id number] Author: MIREILLE GREENE APRN.SANJIV Service: ? Author Type: Nurse Practitioner Type: Progress Notes Filed: 03/18/2025 08:11 Note Text: Steel Welder offered: Patient declines. Obstetrics and Gynecology [place] [facility] Visit Subjective Recording using [employer] software for draft documentation of the visit was discussed with the patient/authorized billing representative; all questions welcomed and answered. Patient/authorized billing representative agreed to proceed CHIEF COMPLAINT: CC: Patient is a 34-year-old female presenting with concerns about irregular bleeding, weight gain, and fatigue. HPI: HPI: Irregular Menstrual Bleeding: - Reports frequent bleeding over the past couple of months, occurring multiple times within a single month. - Describes her periods as irregular for the past 6-7 years, typically occurring every 1-2 months and lasting 4-5 days with light flow and no significant cramps. - Noted changes in her menstrual cycle 2-3 months ago, with increased frequency of bleeding episodes. - Recently experienced a full 5-day period, followed by another full period a week later, and then another bleeding episode lasting 3 days after a week. - Currently not experiencing bleeding. Weight Gain and Fatigue: - Reports significant weight gain in a short period and extreme fatigue. - Expresses concern about potential thyroid issues, noting a family history of thyroid problems. Ovarian Cyst History - per patient: - Approximately 1.5 years ago, states was diagnosed with a 5 cm ovarian cyst at the hospital and was advised to consider surgery, but did not follow up. - Recently recalled the cyst and is concerned it may be contributing to her current symptoms. - Reviewed abdominal/pelvic CT from 11/03/2023 [facility]: 1.4 cm exophytic fibroid at posterior uterine body, no adnexal mass. Sexual Activity and Control: - Sexually active but has not engaged in sexual intercourse since December. - Not using any form of control and is open to if it occurs. Medical History: - Diagnosed with hepatitis B and C, likely due to past drug use. - Has a history of high blood pressure but is not currently taking medication for it. - Allergic to penicillin. - Has not undergone any surgeries. 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 - Recently completed a residential treatment program. HISTORY: OB History Gravida4 Para3 Term3 Preterm0 AB1 Living3 SAB1 IAB0 Ectopic0 Multiple0 Live Births3 Comment: Vacuum for decel- documentation in delivery note by Edward forte- with moderate shoulder dystocia - suprapubic, an maneuver, delivery of posterior arm. Household Personal Assistant History LMP: 03/10/2025, Having periods Age at Menarche: Age at First : Age at Menopause: Household Personal Assistant History Comments: Sexual Activity: Yes; Male Contraception: None PAST MEDICAL HISTORY Diagnosis Date Hepatitis B 2021 Hepatitis C 2021 History of drug use meth - sobriety date 03/2024 Hypertension PAST SURGICAL HISTORY Procedure Laterality Date NONE FAMILY HISTORY Problem Relation Age of Onset Cancer Father Throat Cancer Social History Tobacco Use Smoking status: Some Days Current packs/day: 0.25 Average packs/day: 0.3 packs/day for 17.0 years (4.3 ttl pk-yrs) Types: Cigarettes Smokeless tobacco: Never Vaping Use Vaping status: Never Used Substance Use Topics Alcohol use: No Drug use: Not Currently No current outpatient medications on file. No current facility-administered medications for this visit. ALLERGIES Allergen Reactions Penicillins Rash REVIEW OF SYSTEMS: Constitutional: (+) weight gain, (+) fatigue Head: (-) migraine Genitourinary: (+) abnormal vaginal bleeding, (-) vaginal discharge, (-) vaginal odor, (-) vaginal irritation, (-) pelvic pain, (-) menstrual cramps Psychiatric: (+) depressed mood Objective SENSITIVE EXAM: The sensitive examination was discussed with the Patient or Patient's Authorized Railway Traction Line Worker. As applicable, any other physician, advance practice provider, medical student, or other health professional student that will be observing or involved in the sensitive examination for educational or training purposes was discussed with the Patient or Authorized Railway Traction Line Worker. The Patient or Authorized Railway Traction Line Worker has agreed to proceed with the sensitive examination. (Sensitive examination includes inspection and/or palpation of the breasts, pelvis, prostate and anorectal regions). PHYSICAL EXAM: BP 141/102 Ht 5' 4 (1.63m) Wt 227 lb (103.0kg) LMP 03/10/2025 BMI 38.95 kg/(m2). GENERAL: Pleasant; in no acute distress PULMONARY: normal inspiratory effort ABDOMEN: soft, generalized tenderness on palpation, no localized tenderness, no masses : - PELVIC: external genitalia normal, normal Bartholin's glands, urethra, [place]' (more content not included)... [facility] 03-18-2025 History of Presen t illness Narrative Images from the original note were not included. Steel Welder offered: Patient declines. Obstetrics and Gynecology [place] Visit Subjective Recording using [employer] software for draft documentation of the visit was discussed with the patient/authorized billing representative; all questions welcomed and answered. Patient/authorized billing representative agreed to proceed CHIEF COMPLAINT: CC: Patient is a 34-year-old female presenting with concerns about irregular bleeding, weight gain, and fatigue. HPI: HPI: Irregular Menstrual Bleeding: - Reports frequent bleeding over the past couple of months, occurring multiple times within a single month. - Describes her periods as irregular for the past 6-7 years, typically occurring every 1-2 months and lasting 4-5 days with light flow and no significant cramps. - Noted changes in her menstrual cycle 2-3 months ago, with increased frequency of bleeding episodes. - Recently experienced a full 5-day period, followed by another full period a week later, and then another bleeding episode lasting 3 days after a week. - Currently not experiencing bleeding. Weight Gain and Fatigue: - Reports significant weight gain in a short period and extreme fatigue. - Expresses concern about potential thyroid issues, noting a family history of thyroid problems. Ovarian Cyst History - per patient: - Approximately 1.5 years ago, states was diagnosed with a 5 cm ovarian cyst at the hospital and was advised to consider surgery, but did not follow up. - Recently recalled the cyst and is concerned it may be contributing to her current symptoms. - Reviewed abdominal/pelvic CT from 11/03/2023 [facility]: 1.4 cm exophytic fibroid at posterior uterine body, no adnexal mass. Sexual Activity and Control: - Sexually active but has not engaged in sexual intercourse since December. - Not using any form of control and is open to if it occurs. Medical History: - Diagnosed with hepatitis B and C, likely due to past drug use. - Has a history of high blood pressure but is not currently taking medication for it. - Allergic to penicillin. - Has not undergone any surgeries. 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 - Recently completed a residential treatment program. HISTORY: OB History Gravida4 Para3 Term3 Preterm0 AB1 Living3 SAB1 IAB0 Ectopic0 Multiple0 Live Births3 Comment: Vacuum for decel- documentation in delivery note by Edward forte- with moderate shoulder dystocia - suprapubic, an maneuver, delivery of posterior arm. Household Personal Assistant History LMP: 03/10/2025, Having periods Age at Menarche: Age at First : Age at Menopause: Household Personal Assistant History Comments: Sexual Activity: Yes; Male Contraception: None PAST MEDICAL HISTORY Diagnosis Date Hepatitis B 2021 Hepatitis C 2021 History of drug use meth - sobriety date 03/2024 Hypertension PAST SURGICAL HISTORY Procedure Laterality Date NONE FAMILY HISTORY Problem Relation Age of Onset Cancer Father Throat Cancer Social History Tobacco Use Smoking status: Some Days Current packs/day: 0.25 Average packs/day: 0.3 packs/day for 17.0 years (4.3 ttl pk-yrs) Types: Cigarettes Smokeless tobacco: Never Vaping Use Vaping status: Never Used Substance Use Topics Alcohol use: No Drug use: Not Currently No current outpatient medications on file. No current facility-administered medications for this visit. ALLERGIES Allergen Reactions Penicillins Rash REVIEW OF SYSTEMS: Constitutional: (+) weight gain, (+) fatigue Head: (-) migraine Genitourinary: (+) abnormal vaginal bleeding, (-) vaginal discharge, (-) vaginal odor, (-) vaginal irritation, (-) pelvic pain, (-) menstrual cramps Psychiatric: (+) depressed mood Objective SENSITIVE EXAM: The sensitive examination was discussed with the Patient or Patient's Authorized Railway Traction Line Worker. As applicable, any other physician, advance practice provider, medical student, or other health professional student that will be observing or involved in the sensitive examination for educational or training purposes was discussed with the Patient or Authorized Railway Traction Line Worker. The Patient or Authorized Railway Traction Line Worker has agreed to proceed with the sensitive examination. (Sensitive examination includes inspection and/or palpation of the breasts, pelvis, prostate and anorectal regions). PHYSICAL EXAM: BP 141/102 Ht 5' 4 (1.63m) Wt 227 lb (103.0kg) LMP 03/10/2025 BMI 38.95 kg/(m^2). GENERAL: Pleasant; in no acute distress PULMONARY: normal inspiratory effort ABDOMEN: soft, generalized tenderness on palpation, no localized tenderness, no masses : - PELVIC: external genitalia normal, normal Bartholin's glands, urethra, [place]'s glands, no vulvar lesions, no cervical lesions, good vaginal support, physiologic discharge present, normal appearing perineal body and perianal region - BIMANUAL: uterus normal size, shape and consistency, no adnexal masses, no localized tenderness - Patient consent for exam received NEURO: alert and oriented x3 EXTREMITIES: normal Assessment & Plan ASSESSMENT AND PLAN: 1. Abnormal uterine bleeding (AUB) (N93.9) 2. Irregular menstrual cycle (N92.6) 3. Subserous leiomyoma of uterus (D25.2) - Recent increase in frequency and irregularity of menstrual bleeding over the past 2-3 months. - Reviewed abdominal/pelvic CT from 11/03/2023: 1.4 cm exophytic fibroid at posterior uterine body, no adnexal mass. - Order pelvic ultrasound to assess for cysts, fibroids, or other causes of abnormal bleeding. - Discussed potential need for endometrial biopsy pending ultrasound results. - Discussed Mirena IUD as a treatment option for abnormal uterine bleeding and contraception; reviewed risks and benefits, including potential for amenorrhea and welding machine operator electron beam periods. - Patient to consider IUD placement; will coordinate with endometrial biopsy if indicated. - PELVIC US WHI 4. Screen for STD (sexually transmitted disease) (Z11.3) - Order STD testing: gonorrhea, chlamydia, trichomonas, syphilis, and HIV. - GONORRHEA/CHLAMYDIA NAAT - SYPHILIS TREPONEMAL W/REFLEX - HIV 1/2 COMBO WITH REFLEX TO DIFFERENTIATION 5. Malaise and fatigue (R53.81) 6. Unintended weight gain (R63.5) - Order CBC, TSH, and vitamin D level to evaluate for underlying causes. - THYROID STIMULATING HORMONE - VITAMIN D 25 HYDROXY - COMPLETE BLOOD COUNT AND DIFFERENTIAL 7. Primary hypertension (I10) - BP today 141/102; history of consistently elevated readings. - Advised patient to establish care with primary care provider for ongoing management. - Discussed limitations on control options due to uncontrolled hypertension. - ESTABLISH WITH PRIMARY CARE - NEW PATIENT 8. Encounter for screening for malignant neoplasm of cervix (Z12.4) 9. Special screening examination for human papillomavirus (HPV) (Z11.51) - Performed Pap test today. - PAP TEST Will notify of results. Follow- up as needed. Mireille Greene APRN.CNP Medical Decision Making: Problems: Moderate: New problem with uncertain prognosis and 1+ chronic illnesses with change Data: Unique source(s) for external note(s) reviewed: 1 Unique test result(s) reviewed: 1 Unique test(s) ordered: 3+ Medical Decision Making Level: 4 - Moderate documented in this encounter [facility] 06-17-2024 Note [facility] Medical Records Department [address] [place] [id number] Discharge Summary 06/17/24 0844 MR#: [id number] Acct: [id number] Name: BAUDILIO SHARMA Rep #: [id number] : 1990 33 From: Fletcher Harris MD PCP: Care Physician,No Primary Status:ADM [id number] Prov[facility] Date of Admission: 06/12/24 Date of Discharge: 06/17/24 Primary Care Physician: No Primary Care Phys Reason For Visit: REQUEST FOR DETOX Diagnosis Discharge Diagnosis (1) Desire for detoxification: Status: Acute Plan Patient is a 33-year-old lady with history of opioid dependence admitted with acute opioid withdrawal 1. 1. Acute opioid withdrawal - Patient has been admitted to regular nursing floor, managed buprenorphine taper along with other adjunctive medications for medical stabilization. Plan is for patient to be discharged to an inpatient rehab ??? 06/16/2024; symptoms remain well-controlled ??? 06/16/2024. Patient was discharged to an inpatient rehab facility 2. Methamphetamine use ??? Counseled on cessation 3. Tobacco dependence ??? Counseled on cessation, offered nicotine patch for tobacco cravings 4. Class II obesity with BMI 37.0 Complicating care weight loss advised 5. DVT prophylaxis ??? Low risk to encourage ambulation Time spent in the patient's overall evaluation,decision-making process, review of diagnostic data, adjustment of management, discussion with other providers, nursing nursing and ancillary staff involved in patient's care documentation 35 Minutes Medications at Discharge Home Medications NK 11/03/23 Physical Exam Narrative GENERAL: cooperative HEENT: Atraumatic; normocephalic EYES; Anicteric, Normal Conjunctiva NECK; supple, normal thyroid, RESPIRATORY: Diminished to auscultation CARDIOVASCULAR: Regular S1 S2, GI: soft, normoactive bowel sounds, : No Renal angle tenderness; EXTREMITIES: No edema, no clubbing, MUSCULOSKELETAL: no muscle wasting NEURO: Awake; no lateralizing signs. SKIN: No Rash PSYCH; Flat affect Medical Records Data Homelessness:: Sheltered Weight / BMI Weight Weight: 97.749 kg Body Mass Index (BMI) 37.0 ABG / Lab / Microbiology Data 06/12/24 15:56 06/12/24 15:56 D/C Instructions Discharge Diet: No restrictions Discharge Activity: Return to Normal Activity Call your doctor if you observe: Fever of 101 or Higher, Shortness of breath, Fainting spells and Chest pain Meaningful Use Info Meaningful Use Meaningful Use Diagnoses (Choose all that apply): None applicable Ischemic Stroke Statin Dosing Therapy Reference: STATIN DOSE THERAPY REFERENCE: * Patients > 75 years receive moderate or high dose statin therapy. * Patients 75 years or YOUNGER should receive HIGH intensity statin dose unless contraindicated. You will be required to document reason for non-treatment if statin daily dose does not meet guidelines. HIGH DOSE STATIN THERAPY DAILY Atorvastatin > than or = to 40 mg Rosuvastatin > than or = to 20 mg Amlodipine + Atorvastatin > than or = to 2.5/40 mg Ezetimibe + Simvastatin 10/80 mg Simvastatin 80mg Discharge Plan Admission Admit Date/Time: 06/12/24 18:16 Attending Provider: Fletcher Harris Primary Care Provider: Care Physician,No Primary Consulting Providers: Lin Malik; James Otero Discharge Orders/Prescriptions Prescriptions: Continued NK Referrals / Follow Up: Care Physician,No Primary [Primary Care Provider] - Disposition Disposition (needs filled in before D/C Order can be placed): Inpatient Rehab Unit/Facility Charges/Coding Visit Charges Inpatient E M: 97266 Disch Hosp >30min 06/17/24 0848 Cosigner Signature (if applicable): CC: Dr. Fletcher Harris MD; No Primary Care Physician Signed [facility] 10-02-2023 History of Presen t illness Narrative [...] food. (Patient not taking: Reported on 07/27/2022) [id number] tab Take 1 tablet by mouth. (Patient [...] of care. This note was generated using [employer] software. It may contain errors in wording, punctuation, or spelling. Emiliano Lanza APRN.COMMUNITY RELATIONS ADVISOR documented in this encounter [facility] 12-13-2022 Hospital Discharg e instructions Additional Instructions PatientYour CT and ultrasound findings concerning for 10 cm cystic adenoma, left ovarian 10 cm you have a cyst of 5 cm inside you are at risk for torsion's. Discussed with Dr. Garcia at [facility], . 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 Return if any sudden worsening symptoms. [facility] Work Phone: Discharge summary Note Date/Time January 21, 2023 8:49a m [facility] Medical Records Department [address] [place] [address] Emergency Department Summary 01/21/23 MR#: [id number] Acct: [id number] Name: BAUDILIO SHARMA Rep #:[id number] : 1990 32 From: Bin Gaspar MD PCP: Care Physician,No Primary Status :REG ER Location: ED HPI History of Present Illness Chief Complaint: Sore Throat Detail of Chief Complaint: Sore throat Informant: patient Onset/Context/Timing Onset: Weeks (1 week ago) Context: Sudden Onset Timing: Continuous Quality: Pain Location: Swollen tonsils Current Severity: Mild Maximum Severity: Severe Worsened by: Swallowing liquids or solids Relieved by: Nothing Associated Symptoms Associated Symptoms: Change in voice Narrative Narrative: Patient is a 32-year-old woman who has hives to penicillin who presents with sore throat that started 1 week ago. She reports difficulty swallowing liquids and solids. She had no drooling. She does report subjective fever. She deniesheadache, visual, ocular auditory symptoms. She denies difficulty breathing. She denies history rheumatic fever, heart murmur, SBE or being immune suppressed. Patient's menses ended 2 days ago. Patient denies nausea, vomiting or diarrhea. Patient denies any ill contacts. She denies upper abdominal pain andspecifically on the left side. Prior similar symptoms: No Recent Illness/Hospitalization: No PFSH PFSH Medical History Anxiety Depression Hepatitis B Hepatitis C Illicit drug use, continuous Opiate withdrawal Opioid abuse Smoker Substance abuse Home Medications clindamycin HCl 300 mg capsule (Cleocin HCl) 300 mg PO Q6H #40 CAPSULES 01/21/23[Rx Last Taken Unknown] Allergy/AdvReac Type Severity Reaction Status Date / Time Penicillins Allergy Hives Verified 12/13/22 13:36 Family History Father Throat cancer Surgical History No history of previous surgery Social History household members: family housing: house number of children: 3 Smoking Status: Current every day smoker tobacco type: cigarettes alcohol intake: never substance use type: amphetamines, opiates and IV drugs ROS ROS ED Constitutional Constitutional ED: Reports chills and fever(s); Denies subjective, sweats or weight loss Eyes Eyes: Denies blurry vision, change in vision or diplopia ENT ENT ED: Reports sore throat; Denies ear pain or rhinorrhea Cardiovascular Cardiovascular: Denies chest pain or palpitations Respiratory/Chest Respiratory/Chest: Denies cough, dyspnea or dyspnea on exertion Gastrointestinal Gastrointestinal: Denies abdominal pain, nausea or vomiting Musculoskeletal Musculoskeletal: Denies arthralgias, myalgias or neck pain Integumentary Denies rash Neurologic Neurologic: Denies headache(s) or paresthesias Hematologic/Lymphatic Hematologic/Lymphatic: Denies easy bleeding or easy bruising Allergic/Immunologic Allergic/Immunologic ED: Reports mouth swelling; Denies tongue swelling or urticaria EXAM Physical Exam Const Vital Signs: 01/21/23 08:30 Temperature 97.3 F L Temperature Source Temporal Pulse Rate 100 Respiratory Rate 18 Blood Pressure 148/105 H Blood Pressure Mean 119 Pulse Ox 99 Oxygen Delivery Method Room Air Positive well nourished and well developed Constitutional Narrative: Patient appears ill but not toxic. She has hot potato voice. General Appearance ED: well developed; Negative for cyanotic, diaphoretic, NAD or pallor HEENT Reports TM's clear and moist mucous membranes HEENT Narrative: Posterior pharynx reveals erythematous tonsils with minimal exudate. There is evidence of a peritonsillar abscess on the right. Uvula is not displaced. There is no deviation tongue with protrusion. Tympanic Membrane ED: Yes TM's clear Eyes PERRL and EOMs intact bilaterally General Eye ED: Negative for pale conjunctiva or scleral icterus Neck No no lymphadenopathy, supple and no JVD Neck Narrative: Patient does have anterior cervical lymphadenopathy trachea is midline. There is no inspiratory expiratory stridor. Resp normal respiratory effort and clear to auscultation bilaterally Cardio regular rate, regular rhythm, S1 normal heart sound, S2 normal heart sound and no murmurs Extremity normal to inspection General Extremety ED: Negative for edema or tenderness General Extremity: Negative for edema Neuro CN's II-XII intact bilaterally Sensorium / Orientation: alert Skin no rashes or lesions noted, no wounds and skin turgor normal General Skin Exam: Negative for jaundice or pallor MDM MDM MDM Narrative Medical decision making narrative: History and physical is suggestive of peritonsillar abscess. There is fluctuance noted on the right. Patient was explained risk benefits of needle aspirate of peritonsillar abscess. She did give verbal consent. It is of my opinion the patient has capacity to give consent and understands risk benefits. Using a 5 cc syringe with 18-gauge needle 3.2 cc of thick green purulent material was aspirated. Patient's voice improved. Her pain diminished. Since she has allergy to penicillin we will treat with clindamycin and refer to Dr. Keven Walters who is on-call for ENT. She received her first dose of clindamycinin the emergency department. Procedures Other Procedures Procedure(s): Needle aspirate of right peritonsillar abscess as documented in the MDM portion of the chart. Discharge Plan Triage Chief Complaint: Sore Throat ED Provider: Bin Gaspar Dx/Rx/DC Orders Clinical Impression: Peritonsillar abscess Prescriptions: New clindamycin HCl [Cleocin HCl] 300 mg capsule 300 mg PO Q6H Qty: 40 0RF Primary Care Provider: Care Physician,No Primary Referrals: Keven Leroy MD [Med Staff - Active Staff] - 3-5 Days Care Physician,No Primary [Primary Care Provider] - Activity Restrictions/Additional Instructions: 1. Salt water gargles 6-10 times a day. (2 tablespoons of salt and a glass of water) 2. If you have any drooling or difficulty breathing return to the emergency department 3. Take antibiotics until gone 4. You may take either 4 ibuprofen tablets every 8 hours or 2 Aleve tablets every 12 hours for the next 2 to 3 days for pain/discomfort 5. Call Dr. Keven Walters's office for follow-up appointment the next 3 to 5 days. Disposition Disposition: Home, Self Care What to do if you have Problems For any increased pain, shortness of breath, bleeding, nausea or vomiting, chestpain, or any unexpected problems, contact your Primary Care Provider. Call [facility] ([phone]) or report to the closest Emergency Room. Call 911 if necessary. 01/21/23 0851 <Electronically signed by Bin Gaspar MD> Cosigner Signature (if applicable): CC: No Primary Care Physician ~ Signed [facility] Work Phone: Evaluation note* Diagnosis Onset Date Resolution Status Desire for detoxification [place] Elevated blood pressure reading acute Tobacco abuse acute Desire for detoxification [place] Hepatitis B acute Hepatitis C acute Opioid abuse acute Tobacco abuse acute [facility] Work Phone: Evaluation note* Diagnosis Onset Date Resolution Status Desire for detoxification [place] Hepatitis B acute Hepatitis C acute Opioid abuse acute [facility] Work Phone: Evaluation note* Diagnosis Onset Date Resolution Status Desire for detoxification [place] [facility] Work Phone: Evaluation noteNo assessment information available [facility] Work Phone: Evaluation note* Diagnosis Foreign body of skin of great toe, right, initial encounter- Primary [facility] Abnormal uterine bleeding (AUB)- Primary Irregular menstrual cycle Subserous leiomyoma of uterus Screen for STD (sexually transmitted disease) Screening examination for venereal disease Malaise and fatigue Other malaise and fatigue Unintended weight gain Abnormal weight gain Primary hypertension Unspecified essential hypertension Encounter for screening for malignant neoplasm of cervix Screening for malignant neoplasm of the cervix Special screening examination for human papillomavirus (HPV) [facility] Abnormal uterine bleeding (AUB) [facility] Additional Instructions 1. Salt water gargles 6-10 times a day. (2 tablespoons of salt and a glass of water) 2. If you have any drooling or difficulty breathing return to the emergency department 3. Take antibiotics until gone 4. You may take either 4 ibuprofen tablets every 8 hours or 2 Aleve tablets every 12 hours for the next 2 to 3 days for pain/discomfort 5. Call Dr. Keven Walters's office for follow-up appointment the next 3 to 5 days.[facility] Work Phone: Hospital Discharge instructions Additional Instructions Please take your antibiotics as directed to help resolve any infection and/or pain and return to the ER should you have any further concernsWThe [facility] Work Phone: Reason for visit Narrative* Diagnostic Procedure Only (Routine) - Closed Specialty Diagnoses / Procedures Referred By Max estrada Referred To Contact [facility] Diagnoses Abnormal uterine bleeding (AUB) Procedures PELVIC US WHI US PELVIC NONOBSTETRIC REAL-TIME IMAGE COMPLETE Mireille Greene APRN.COMM[employer]ITY [employer]ATIONS ADVISOR [address] [place] [address] Phone: tel: fax: [facility] [address] [place] [address] Referral ID Status Reason Start Date Expiration Date V isits Requested Visits Authorized [id number] Closed Auto-Generate d Referral 03/18/2025 03/18/2026 1 1 [facility] Chief Complaint and Reason for Visit Chief Complaint DESIRE FOR DETOXIFIC ATION DESIRE FOR DETOXIFICATION DESIRE FOR DETOXIFICATION ACUTE OPIATE WITHDRAWAL detox Reason for Visit Desire for detoxific ation Elevated blood pressure reading Tobacco abuse Desire for detoxification Hepatitis B Hepatitis C Opioid abuse Tobacco abuse Chief Complaint DESIRE FOR DETOXIFIC ATION DESIRE FOR DETOXIFICATION DESIRE FOR DETOXIFICATION ACUTE OPIATE WITHDRAWAL detox ACUTE OPIATE WITHDRAWAL ACUTE OPIATE WITHDRAWAL ACUTE OPIATE WITHDRAWAL Reason for Visit Desire for detoxific ation Elevated blood pressure reading Tobacco abuse Desire for detoxification Hepatitis B Hepatitis C Opioid abuse Tobacco abuse Chief Complaint OPIATE DETOX DETOX, FENT[place]L ABUSE DETOX, [place] ABUSE OPIATE DETOX Reason for Visit Desire for detoxific ation Hepatitis B Hepatitis C Opioid abuse Chief Complaint OPIATE DETOX DETOX, [place] ABUSE DETOX, [place] ABUSE OPIATE DETOX OPIATE DETOX COLD SX Reason for Visit Desire for detoxific ation Chief Complaint ABD PAIN, COMPLAI NT Chief Complaint ABD PAIN, COMPLAI NT SORE THROAT Chief Complaint SORE THROAT BITE Chief Complaint abd pain Advance Directives No Advanced Directives Records Found Advance Directive Response Recorded Date/ Time Living Will No January 06, 2022 4 :34pm Power of Front Loader Residential Driver No January 06, 2022 4:34pm Advance Directive Response Recorded Date/ Time Living Will No May 16, 2022 2:04pm Power of Front Loader Residential Driver No April 2:04pm Advance Directive Response Recorded Date/ Time Living Will No July 27 3:30pm Power of Front Loader Residential Driver No July 27, 2022 3:30pm Advance Directive Response Recorded Date/ Time Living Will No December 13, 2022 1:46pm Power of Front Loader Residential Driver No December 13 1:46pm Advance Directive Response Recorded Date/ Time Living Will No January 21, 2023 9 :17am Power of Front Loader Residential Driver No January 21, 2023 9:17am Advance Directive Response Recorded Date/ Time Living Will No April 20 3:24am Power of Front Loader Residential Driver No April 20 023 3:24am Advance Directive Response Recorded Date/ Time Living Will No November 03, 2023 2:53am Power of Front Loader Residential Driver No November 02 2:53am Summary Purpose Family History No Family History Records Found Additional Source Comments Goals (unrecognized section and content) Goals may be documented in a n alternate sectionGoals may be documented in an alternate sectionGoals may be documented in an alternate sectionGoals may be documented in an alternate sectionGoals may be documented in an alternate sectionGoals may be documented in an alternate section Care Teams (unrecognized sec tion and content) Team Status: Active Member Role Status Dates No Primary Care Physician Family Provider Active No Primary Care Physician Primary Care Provider Active Team Status: Inactive Member Role Status Dates No Primary Care Physician Primary Care Provider Active Dr. Jean Carlos Stern , DO Emergency Provider Active Team Status: Inactive Member Role Status Dates No Primary Care Physician Primary Care Provider Active Dr. Jean Carlos Stern , DO Attending Provider, Emergency Provide r Active Team Status: Inactive Member Role Status Dates No Primary Care Physician Primary Care Provider Active Dr. Bin Gaspar MD Emergency Provider Active Team Status: Inactive Member Role Status Dates No Primary Care Physician Primary Care Provider Active Dr. Bin Gaspar MD Attending Provider, Emergency Provi joseph Active Team Status: Inactive Member Role Status Dates No Primary Care Physician Primary Care Provider Active Dr. Neeraj Abdullahi , Emergency Provider Active Team Status: Inactive Member Role Status Dates No Primary Care Physician Primary Care Provider Active Dr. South Koch , DO Emergency Provider Active Source Comments (unrecognize d section and content) In the event this informatio n is protected by the Federal Confidentiality of Alcohol and Drug Abuse Patient Records regulations: The Federal rules restrict any use of the information to criminally investigate or prosecute any alcohol or drug abuse patient.[facility] the event this information is protected by the Federal Confidentiality of Alcohol and Drug Abuse Patient Records regulations: The Federal rules restrict any use of the information to criminally investigate or prosecute any alcohol or drug abuse patient.[facility] Reason for Visit (unrecogniz ed section and content) Reason Comments Foreign Body Stepped on sewing ne edle and is lodged in right foot big toe happened last night INFORMATION SOURCE (unrecogn ized section and content) DATE CREATED AUTHOR 10/05/[address] [facility] DATE CREATED AUTHOR AUTHOR'Chase CRISTINA 03/25/2025 [facility] FOR RECORDS PERTAINING TO PATIENTS WHO ARE [...] BE BASED ON THE PRIMARY CLINICAL RECORDS. [facility]. provides no warranty or guarantee of the accuracy or completeness of information in this document.
[2025-05-25 02:44] LABS: Hematocrit 40.6 % (37-47); Hemoglobin 13.5 g/dL (12.0-15.0); Immature Granulocytes Count 0.050 X10^3/uL (0.0-0.0); Mean Corp Hgb Conc 33.3 g/dL (32-36); Mean Corpuscular Volume 93.1 fL (81-99); Mean Platelet Vol. 9.3 fl (6.2-12.0); NRBC Flagged by Analyzer 0 % (0-5); Platelet Count 328 K/mm3 (150-450); RBC Distribution Width CV 13.0 % (11.6-14.6); RBC Distribution Width SD 44.1 fl (35.1-43.9); Red Blood Count 4.36 M/mm3 (4.2-5.4); White Blood Count 7.3 K/mm3 (4.4-11.0)
[2025-05-25 03:03] LABS: Internal QC Validated? YES +Cl - CLEAR BKGD; Pregnancy, Serum, hCG Quali. NEGATIVE Negative; Record Kit Lot#, Serum Preg. 0000980607
[2025-05-25 03:23] LABS: AST(SGOT) 17 U/L (<=31); Alanine Aminotransfer ALT/SGPT 12 U/L (<=34); Albumin, Serum 4.2 g/dL (3.5-5.0); Alkaline Phosphatase 68 U/L (35-104); Anion Gap 12 (5-15); BUN 22 mg/dL (4-19); BUN/Creat Ratio 26.7 RATIO (10-20); Calcium,Total 9.2 mg/dL (7.6-11.0); Carbon Dioxide 22.3 mmol/L (21.0-32.0); Chloride 103 mmol/L (98-108); Estimated Creatinine Clearance 112.81 ml/min (50-250); Globulin 3.0 g/dL (2.2-4.2); Glucose 115 mg/dL (70-99); Potassium 4.0 mmol/L (3.3-5.1)
[2025-05-25 03:23] LABS: Barbiturate Urine NEGATIVE (< 200 ng/mL); Benzodiazepine Urine NEGATIVE (< 200 ng/mL); PCP Urine NEGATIVE (< 25 ng/mL); THC Urine NEGATIVE (< 50 ng/mL)
[2025-05-25 03:24] LABS: Alcohol, Blood (Medical)-Serum < 10.1 mg/dL (<=10.0)
--- NOTE | 2025-05-25 03:31 | HP.PCM.HOS_ITS ---
HPI - General General Date of Admission: 05/25/25 Date of Service: 05/25/25 Chief Complaint: Acute Opiate Withdrawal. HPI Narrative The patient is a 34 y/o F w/ PMHx: Morbid obesity, Tobacco use, Anxiety and Depression, records 12/2018 + Hepatitis C/Hepatitis B, Polysubstance abuse including fentanyl and methamphetamine both of which are usually smoked with previous history of IV drug abuse however in she has not done this in some time who presents to the [facility] ED on 05/25/2025 w/ noted acute opiate withdrawal onset starting the evening prior following last dose at approximately 10 AM with increased anxiety, nausea without emesis, abdominal cramping, piloerection, restlessness, fatigue and yawning with generalized bodyaches noting interest in attaining clean status. Patient has been seen previously for acute withdrawal treatment. Workup in the ED included T97.6, heart rate 104, BP 157/102, respiratory rate 16, 94% on room air, CBC with WBC 7.3, hemoglobin 13.5, platelet 328 without marked shift, negative test, CMP with BUN/creatinine 22/0.83, GFR 94, glucose 115, UDS with positive fentanyl, amphetamine, cocaine, ethyl alcohol less than 10.1. [facility] Medical History Morbid obesity Anxiety and depression Tobacco abuse Opioid abuse Hepatitis B Hepatitis C Substance abuse Home Medications ?Medication ?Instructions ?Recorded ?Last Taken ?Type NK 11/03/23 Unknown History Allergy/AdvReac Type Severity Reaction Status Date / Time Penicillins Allergy Hives Verified 05/25/25 02:06 Family History (Updated 05/25/25 @ 03:[address] Geena Koehler MD) Father Throat cancer Mother No problems noted. Surgical History No history of previous surgery Social History (Updated 05/25/25 @ 03:[address] Geena Koehler MD) household members: family housing: house number of children: 3 Smoking Status: Current every day smoker tobacco type: e-cigarettes alcohol intake: current alcohol intake frequency: a few times a month substance use type: amphetamines, opiates and IV drugs ROS ROS Narrative Admission Review of Systems: CONSTITUTIONAL: No weight loss, fever, + chills, weakness or fatigue. HEENT: Eyes: No visual loss, blurred vision, double vision or yellow sclerae. Ears, Nose, Throat: No hearing loss, sneezing, congestion, runny nose or sore throat. SKIN: No rash or itching, lesions, wounds except + occasional stage ecchymoses, abrasion CARDIOVASCULAR: No chest pain, chest pressure or chest discomfort, palpitations, edema, orthopnea, syncopal events. RESPIRATORY: No shortness of breath, cough or sputum, wheezing, hemoptysis. GASTROINTESTINAL: + Anorexia with nausea without vomiting, abdominal cramping. No diarrhea melena, BRBPR. GENITOURINARY: No dysuria, frequency, urgency or retention. NEUROLOGICAL: No headache, dizziness, syncope, paralysis, ataxia, numbness or tingling in the extremities, focal weakness, change in bowel or bladder control, seizure. MUSCULOSKELETAL: + muscle, back pain, joint pain or stiffness. HEMATOLOGIC: No anemia, bleeding or bruising. LYMPHATICS: No enlarged nodes. No history of splenectomy. PSYCHIATRIC: + History of anxiety and depression. ENDOCRINOLOGIC: No reports of sweating. + cold or heat intolerance. No polyuria or polydipsia. ALLERGIES: + History of hives. Vital Signs Vital Signs Vital Signs: 05/25/25 02:03 Temperature 97.6 F L Temperature Source Oral Pulse Rate 104 H Respiratory Rate 16 Blood Pressure 157/102 H Blood Pressure Mean 120 Pulse Ox 94 Oxygen Delivery Method Room Air Weight Weight: 239 lb 6.752 oz Body Mass Index (BMI) 41.1 Physical Exam Narrative Physical Examination: General: Awake, alert, oriented x 3 and cooperative, laying in ED bed, fatigued, notes abdominal cramping, nausea, restlessness ongoing. Skin: Normal color, normal turgor, no icterus, no cyanosis except occasional stage ecchymoses, abrasion, several picked regions, acne. HEENT: AT/NC, EOMI, PERRLA, moderately dry MM, no carotid bruits or JVD noted. Lungs: Mildly diminished, greater bases, proper effort, no rales, ronchi or wheezing. Heart: Mildly tachycardic with regular rhythm; no gallop, rub audible. Abdomen: Soft, morbidly obese, NTTP, ND, mildly hyperactive BS, no appreciated HSM. Extremities: No cyanosis, clubbing, or edema. Neurological: Patient awake, alert, oriented as noted, cognitive function intact; pupils equally reactive to light and accommodation, cranial nerves grossly normal, moving all 4 extremities, no focal deficits, strength mildly globally decreased, restless, fatigued, evident withdrawal Psychiatric: Affect appears fatigued, restless, no acute evidence of depressive or anxiety feelings but does have underlying history. Results Lab / Micro Data 05/25/25 02:37 05/25/25 02:37 Labs: Laboratory Results - last 24 hr 05/25/25 02:30: Urine Opiates Screen NEGATIVE, U Buprenorphine Qual NEGATIVE, Ur Oxycodone Screen NEGATIVE, Urine Methadone Screen NEGATIVE, Urine Fentanyl Screen PRESUMPTIVE POSITIVE, Ur Barbiturates Screen NEGATIVE, Ur Phencyclidine Scrn NEGATIVE, Ur Amphetamines Screen PRESUMPTIVE POSITIVE, U Benzodiazepines Scrn NEGATIVE, Urine Cocaine Screen PRESUMPTIVE POSITIVE, U Cannabinoids Screen NEGATIVE 05/25/25 02:37: WBC 7.3, RBC 4.36, Hgb 13.5, Hct 40.6, MCV 93.1, MCH 31.0, MCHC 33.3, RDW Std Deviation 44.1 H, RDW Coeff of Fanta 13.0, Plt Count 328, MPV 9.3, Immature Gran % (Auto) 0.700, Neut % (Auto) 57.3, Lymph % (Auto) 31.7, [place] % (Auto) 7.7, Eos % (Auto) 1.5, Baso % (Auto) 1.1 H, Absolute Neuts (auto) 4.2, Absolute Lymphs (auto) 2.30, Nucleated RBC % 0, Sodium 138, Potassium 4.0, Chloride 103, Carbon Dioxide 22.3, Anion Gap 12, BUN 22 H, Creatinine 0.83, Estim Creat Clear Calc 112.81, Est GFR (MDRD) Non-Af 94, BUN/Creatinine Ratio 26.7 H, Glucose 115 H, Calcium 9.2, Total Bilirubin 0.25, AST 17, ALT 12, Alkaline Phosphatase 68, Total Protein 7.1, Albumin 4.2, Globulin 3.0, Albumin/Globulin Ratio 1.4, Serum , Qual NEGATIVE, Ethyl Alcohol < 10.1 Assessment & Plan Assessment/Plan (1) Opiate withdrawal: PLAN: Plan The patient is a 34 y/o F w/ PMHx: Morbid obesity, Tobacco use, Anxiety and Depression, records 12/2018 + Hepatitis C/Hepatitis B, Polysubstance abuse including fentanyl and methamphetamine both of which are usually smoked with previous history of IV drug abuse however in she has not done this in some time who presents to the [facility] ED on 05/25/2025 w/ noted acute opiate withdrawal. #1. Acute Opiate Withdrawal: Will admit to [facility] as long as testing is negative, routine labs including CBC, CMP, urine for drug screen obtained in the ED and pending upon evaluation, will initiate and continue on protocol with tapering course of Subutex, as needed tylenol, ibuprofen, bowel regimen, gabapentin, Bentyl, Vistaril, methocarbamol, clonidine, PRN nightly trazodone for insomnia, IV fluids, IV antiemetics. Once patient clinically improved and completion of taper nearing will plan consultation with case management for transition to next level of rehabilitation care. #2. Elevated BP without hypertensive diagnosis: BP in the ED elevated above goal, potentially related with acute withdrawal, will continue to monitor and add regimen if appropriate, as needed IV hydralazine in the interim. #3. Polysubstance Abuse (reported primarily fentanyl and methamphetamine), history of hepatitis C as well as hepatitis B: Strongly encourage clean status, encourage follow-up with infectious disease/PCP as previously arranged. #4. Morbid Obesity: Weight loss and lifestyle changes encouraged. #5. Anxiety and depression: Likely contributing to substance abuse, not on any medications, would benefit from ongoing counseling, case management/substance abuse counselor consulted and following. #6. Tobacco Abuse: Encouraged cessation, inpatient consultation per RT, NR if desired. #7. DVT prophylaxis: Low risk, encourage ambulation. Charges/Coding Visit Charges Inpatient E&M: 50126 Init Hosp L3
--- OUTSIDE RECORDS SUMMARY | 2025-05-25 03:44 | XMS RPT_ITS | CCD ---
Author Organization [facility] Care Team Providers Care Associate Music Professor Name Role Phone Care Physician, No Primary [...] Dr. Fletcher Harris Attending Provider Unavailable Dr. Flethcer Harris Other Provider Unavailable Care Physician, No [...] Penicillins; Translations: [Penicillins] Allergy to substance 07-28-2012 [facility] Medications Current Medications Medication Drug [...] Comment on above: Take 1 capsule by [facility] three times a day for 5 days. [...] of ritonavir twice daily for 5 days [place] (Nk) (3 sources) Start: 11-03-2023 [place] (Nk) Active November 03, 2023 12:00am Start: 12-13-2022 [place] (Nk) A ctive December 13, 2022 12:00am Start: 05-16-2022 [place] (Nk) A ctive May 16, 2022 12:00am ondansetron 4 mg oral tablet (1 source) Serotonin-3 Receptor Antagonist Start: 07-27-2022 take 4 mg by mouth every six hours Ondansetron Hcl Active 4 MG PO EVERY 6 HOURS July 27, 2022 12:00am Ihsdjjub-Nw-Weo-Fe -FA tab (2 sources) End: 03-18-2025 take 1 tablet by mouth once Bbtxvpwg-Br-Imi-Fe- FA tab Take 1 tablet by mouth. 03/18/2025 Discontinued take 1 tablet by mouth once Pren atal Ijvckbbf-Kw-Ujz-Fe-FA tab Take 1 tablet by mouth. 0 [...] on above: Take 1 capsule by mo [facility] four times daily. Vit,Yxep03-Sdbi-Qse ic (Prenatabs Fa ) 1 TABLET tablet (7 sources) Start: 03-21-2014 End: 03-22-2014 take 1 tablet by mouth once daily Vit,Nkpx67-Jcmu-Qjkld (Prenatabs Fa ) 1 TABLET tablet Discontinued 1 TABLET PO DAILY March 21, 2014 8:07am March 22, 2014 8:44am Start: 03-21-2014 End: 03-22-2014 take 1 tablet by mouth once daily Vit,Iwgh41-Qwdi-Bhbcs (Prenatab s Fa ) 1 TABLET tablet Discontinued 1 TABLET PO DAILY March 20, 2014 11:00pm March 22, 2014 7:44am Start: 03-21-2014 End: 03-22-2014 take 1 tablet by mouth once daily Vit,Dero95-Ynlq-Iytah (Prenatab s Fa ) 1 TABLET tablet [...] Read By: Verona Ramirez M.D. MATERNAL MEDICINE [facility] 25(OH)D3 [facility] 25-hydroxyvitamin D3 [Mass/Vol] 23.9 ng/mL Low 31.0-80.0 [facility] Comment on above: Order Comment: Speci men Type: BLOOD SPECIMEN Ordering Facility: [facility] Address: [address] [place] [address] Performed By: #### 1 989-3 #### [facility] CLIA [id number] [address] [place] [address] [place] C. trachomatis+N. gonorrhoea e DNA JUDY+probe Ql (Unsp spec)on 03-18-2025 C. trachomatis rRNA JUDY+probe Ql (Unsp spec) Detected Abnormal Not detected [facility] Comment on above: Order Comment: Speci men Type: SWAB Ordering Facility: [facility] Address: [address] [place] [address] Performed By: #### 3 6902-5 #### [facility] CLIA [id number] [address] [place] [address] [place] N. gonorrhoeae rRNA JUDY+probe Ql (Unsp spec) Not detected Normal Not detected [facility] Comment on above: Order Comment: Speci men Type: SWAB Ordering Facility: [facility] Address: [address] [place] [address] Performed By: #### 3 6902-5 #### [facility] CLIA [id number] [address] [place] [address] [place] [facility] CBC W Auto Differential pane l (Bld)on 03-18-2025 Basophils (Bld) [#/Vol] 0.06 10*3/uL [facility] Basophils/100 WBC (Bld) 0.9 % C [facility] Differential cell count method Nom (Bld) Auto [facility] Eosinophils (Bld) [#/Vol] 0.13 10*3/uL [facility] Eosinophils/100 WBC (Bld) 1.9 % [facility] Erythrocyte distribution width (RBC) [Ratio] 12.8 % 11.5 - 15.0 % [facility] Hematocrit (Bld) [Volume fraction] 38.5 % 36.0 - 46.0 % [facility] Hemoglobin (Bld) [Mass/Vol] 13.3 g/dL 11.5 - 15.5 g/dL [facility] Immature granulocytes (Bld) [#/Vol] 0.04 10*3/uL [facility] Immature granulocytes/100 WBC (Bld) 0.6 % [facility] Lymphocytes (Bld) [#/Vol] 2.21 10*3/uL [facility] Lymphocytes/100 WBC (Bld) 31.8 % [facility] MCH (RBC) [Entitic mass] 31.1 pg 26.0 - 34.0 pg [facility] MCHC (RBC) [Mass/Vol] 34.5 g/dL 30.5 - 36.0 g/dL [facility] MCV (RBC) [Entitic vol] 90 fL 80.0 - 100.0 fL [facility] Monocytes (Bld) [#/Vol] 0.65 10*3/uL [facility] Monocytes/100 WBC (Bld) 9.4 % C [facility] Neutrophils (Bld) [#/Vol] 3.85 10*3/uL [facility] Neutrophils/100 WBC (Bld) 55.4 % [facility] Nucleated RBC (Bld) [#/Vol] [facility] Nucleated RBC/100 WBC (Bld) [Ratio] 0 % /100 WBC [facility] Platelet mean volume (Bld) [Entitic vol] 9.4 fL 9.0 - 12.7 fL [facility] Platelets (Bld) [#/Vol] 385 10*3/uL [facility] RBC (Bld) [#/Vol] 4.28 10*6/uL 3.90 - 5.2 0 m/uL [facility] WBC (Bld) [#/Vol] 6.94 10*3/uL [facility] Basophils (Bld) [#/Vol] 0.06 10*3/uL Normal <0.11 [facility] Comment on above: Order Comment: Speci men Type: BLOOD SPECIMEN Ordering Facility: [facility] Address: [address] [place] [address] Performed By: #### 5 7021-8 #### [facility] CLIA [id number] [address] [place] [address] [place] Basophils/100 WBC (Bld) 0.9 % Normal [facility] Comment on above: Order Comment: Speci men Type: BLOOD SPECIMEN Ordering Facility: [facility] Address: [address] [place] [address] Performed By: #### 5 7021-8 #### [facility] CLIA [id number] [address] [place] [address] [place] Differential cell count method Nom (Bld) Auto Normal [facility] Comment on above: Order Comment: Speci men Type: BLOOD SPECIMEN Ordering Facility: [facility] Address: [address] [place] [address] Performed By: #### 5 7021-8 #### [facility] CLIA [id number] [address] [place] [address] [place] Eosinophils (Bld) [#/Vol] 0.13 10*3/uL Normal <0.46 [facility] Comment on above: Order Comment: Speci men Type: BLOOD SPECIMEN Ordering Facility: [facility] Address: [address] [place] [address] Performed By: #### 5 7021-8 #### [facility] CLIA [id number] [address] [place] [address] [place] Eosinophils/100 WBC (Bld) 1.9 % Normal [facility] Comment on above: Order Comment: Speci men Type: BLOOD SPECIMEN Ordering Facility: [facility] Address: [address] [place] [address] Performed By: #### 5 7021-8 #### [facility] CLIA [id number] [address] [place] [address] [place] Erythrocyte distribution width (RBC) [Ratio] 12.8 % Normal 11.5-15.0 [facility] Comment on above: Order Comment: Speci men Type: BLOOD SPECIMEN Ordering Facility: [facility] Address: [address] [place] [address] Performed By: #### 5 7021-8 #### [facility] [id number] [address] [place] [address] [place] Hematocrit (Bld) [Volume fraction] 38.5 % Normal 36.0-46.0 [facility] Comment on above: Order Comment: Speci men Type: BLOOD SPECIMEN Ordering Facility: [facility] Address: [address] [place] [address] Performed By: #### 5 7021-8 #### [facility] [id number] [address] [place] [address] [place] Hemoglobin (Bld) [Mass/Vol] 13.3 g/dL Normal 11.5-15.5 [facility] Comment on above: Order Comment: Speci men Type: BLOOD SPECIMEN Ordering Facility: [facility] Address: [address] [place] [address] Performed By: #### 5 7021-8 #### [facility] [id number] [address] [place] [address] [place] Immature granulocytes (Bld) [#/Vol] 0.04 10*3/uL Normal <0.10 [facility] Comment on above: Order Comment: Speci men Type: BLOOD SPECIMEN Ordering Facility: [facility] Address: [address] [id number] Performed By: #### 5 7021-8 #### [facility] CLIA [id number] [address] [place] [address] [place] Immature granulocytes/100 WBC (Bld) 0.6 % Normal [facility] Comment on above: Order Comment: Speci men Type: BLOOD SPECIMEN Ordering Facility: [facility] Address: [address] [place] [address] Performed By: #### 5 7021-8 #### [facility] CLIA [id number] [address] [place] [address] [place] Lymphocytes (Bld) [#/Vol] 2.21 10*3/uL Normal 1.00-4.00 [facility] Comment on above: Order Comment: Speci men Type: BLOOD SPECIMEN Ordering Facility: [facility] Address: [address] [place] [address] Performed By: #### 5 7021-8 #### [facility] [id number] [address] [place] [address] [place] Lymphocytes/100 WBC (Bld) 31.8 % Normal [facility] Comment on above: Order Comment: Speci men Type: BLOOD SPECIMEN Ordering Facility: [facility] Address: [address] [place] [address] Performed By: #### 5 7021-8 #### [facility] CLIA [id number] [address] [place] [address] [place] MCH (RBC) [Entitic mass] 31.1 pg Normal 26.0-34.0 [facility] Comment on above: Order Comment: Speci men Type: BLOOD SPECIMEN Ordering Facility: [facility] Address: [address] [place] [address] Performed By: #### 5 7021-8 #### [facility] CLIA [id number] [address] [place] [address] [place] MCHC (RBC) [Mass/Vol] 34.5 g/dL Normal 30.5-36.0 [facility] Comment on above: Order Comment: Speci men Type: BLOOD SPECIMEN Ordering Facility: [facility] Address: [address] [place] [address] Performed By: #### 5 7021-8 #### [facility] CLIA [id number] [address] [place] [address] [place] MCV (RBC) [Entitic vol] 90.0 fL Normal 80.0-100.0 C [facility] Comment on above: Order Comment: Speci men Type: BLOOD SPECIMEN Ordering Facility: [facility] Address: [address] [place] [address] Performed By: #### 5 7021-8 #### [facility] CLIA [id number] [address] [place] [address] [place] Monocytes (Bld) [#/Vol] 0.65 10*3/uL Normal <0.87 [facility] Comment on above: Order Comment: Speci men Type: BLOOD SPECIMEN Ordering Facility: [facility] Address: [address] [place] [address] Performed By: #### 5 7021-8 #### [facility] CLIA [id number] [address] [place] [address] [place] Monocytes/100 WBC (Bld) 9.4 % Normal C [facility] Comment on above: Order Comment: Speci men Type: BLOOD SPECIMEN Ordering Facility: [facility] Address: [address] [place] [address] Performed By: #### 5 7021-8 #### [facility] CLIA [id number] [address] [place] [address] [place] Neutrophils (Bld) [#/Vol] 3.85 10*3/uL Normal 1.45-7.50 [facility] Comment on above: Order Comment: Speci men Type: BLOOD SPECIMEN Ordering Facility: [facility] Address: [address] [place] [address] Performed By: #### 5 7021-8 #### [facility] CLIA [id number] [address] [place] [address] [place] Neutrophils/100 WBC (Bld) 55.4 % Normal [facility] Comment on above: Order Comment: Speci men Type: BLOOD SPECIMEN Ordering Facility: [facility] Address: [address] [place] [address] Performed By: #### 5 7021-8 #### [facility] CLIA [id number] [address] [place] [address] [place] Nucleated RBC (Bld) [#/Vol] 10*3/uL Normal <0.01 [facility] Comment on above: Order Comment: Speci men Type: BLOOD SPECIMEN Ordering Facility: [facility] Address: [address] [place] [address] Performed By: #### 5 7021-8 #### [facility] [id number] [address] [place] [address] [place] Nucleated RBC/100 WBC (Bld) [Ratio] 0.0 /100 WBC Normal [facility] Comment on above: Order Comment: Speci men Type: BLOOD SPECIMEN Ordering Facility: [facility] Address: [address] [place] [address] Performed By: #### 5 7021-8 #### [facility] CLIA [id number] [address] [place] [address] [place] Platelet mean volume (Bld) [Entitic vol] 9.4 fL Normal 9.0-12.7 [facility] Comment on above: Order Comment: Speci men Type: BLOOD SPECIMEN Ordering Facility: [facility] Address: [address] [place] [address] Performed By: #### 5 7021-8 #### [facility] CLIA [id number] [address] [place] [address] [place] Platelets (Bld) [#/Vol] 385 10*3/uL Normal 150-400 [facility] Comment on above: Order Comment: Speci men Type: BLOOD SPECIMEN Ordering Facility: [facility] Address: [address] [place] [address] Performed By: #### 5 7021-8 #### [facility] CLIA [id number] [address] [place] [address] [place] RBC (Bld) [#/Vol] 4.28 10*6/uL Normal 3.90-5.20 [facility] Comment on above: Order Comment: Speci men Type: BLOOD SPECIMEN Ordering Facility: [facility] Address: [address] [place] [address] Performed By: #### 5 7021-8 #### [facility] CLIA [id number] [address] [place] [address] [place] WBC (Bld) [#/Vol] 6.94 10*3/uL Normal 3.70-11.00 [facility] Comment on above: Order Comment: Speci men Type: BLOOD SPECIMEN Ordering Facility: [facility] Address: [address] [place] [address] Performed By: #### 5 7021-8 #### [facility] CLIA [id number] [address] [place] [address] [place] CNOVon 03-18-2025 CNOV Office Visit (OBGYWM ) BAUDILIO SHARMA ([id number]) 1990 F Date Time Provider Department 03/18/25 7:00 AM MIREILLE GREENE During your visit today, we recorded the following information about you: Blood pressure Weight Height Last Period 141/102 103 kg 1.626 m 03/10/25 Mireille Greene APRN.SANJIV 03/18/2025 8:11 AM Signed Cartography Technician offered: Patient declines. Obstetrics and Gynecology [place] PARTITION NOTCHER Visit Subjective Recording using [place] software for draft documentation of the visit was discussed with the patient/authorized patient portal representative; all questions welcomed and answered. Patient/authorized patient portal representative agreed to proceed CHIEF COMPLAINT: CC: [...] suprapubic, an maneuver, delivery of posterior arm. Consultant Nurse History LMP: 03/10/2025, Having periods Age at Menarche: Age at First : Age at Menopause: Consultant Nurse History Comments: Sexual Activity: Yes; Male Contraception: [...] discussed with the Patient or Patient's Authorized Vp Human Resources. As applicable, any other physician, advance practice provider, medical student, or other health professional student that will be observing or involved in the sensitive examination for educational or training purposes was discussed with the Patient or Authorized Vp Human Resources. The Patient or Authorized Vp Human Resources has agreed to proceed with the sensitive examination. (Sensitive examination includes inspection and/or palpation of the breasts, pelvis, prostate and anorectal regions). PHYSICAL EXAM: BP 141/102 Ht 5' 4 (1.63m) Wt 227 lb (103.0kg) LMP 03/10/2025 BMI 38.95 kg/(m2 (more content not included)... Normal [facility] HIGH RISK HUMAN PAPILLOMA ANITA (HPV), PCR FOR DETECTION AND GENOTYPINGon 03-18-2025 HPV 16 Ag Ql (Unsp spec) Not detected Normal Not detected [facility] Comment on above: Order Comment: Speci men Type: FLUID SPECIMEN Ordering Facility: [facility] Address: [address] [place] [address] Performed By: #### H PVHRT #### [facility] CLIA [id number] [address] [place] [address] [place] HPV 18 Ag Ql (Unsp spec) Not detected Normal Not detected [facility] Comment on above: Order Comment: Speci men Type: FLUID SPECIMEN Ordering Facility: [facility] Address: [address] [place] [address] Performed By: #### H PVHRT #### [facility] CLIA [id number] [address] [place] [address] [place] HPV 31+33+35+39+45+51+52+56 +58+59+66+68 DNA JUDY+probe Ql (Cvx) Not detected Normal Not detected [facility] Comment on above: Order Comment: Speci men Type: FLUID SPECIMEN Ordering Facility: [facility] Address: [address] [place] [address] Result Comment: High Risk HPV Other Type includes HPV types 31, 33, 35, 39, 45, 51, 52, 56, 58, 59, 66 and 68. Performed By: #### H PVHRT #### [facility] CLIA [id number] [address] [place] [address] [place] HIV 1+2 Ab IA Qlon HIV 1 and 2 Ab IA.rapid Nom (S/P/Bld) Normal [facility] Comment on above: Order Comment: Speci men Type: BLOOD SPECIMEN Ordering Facility: [facility] Address: [address] [place] [address] Result Comment: Test not indicated. Performed By: #### 3 1201-7, 31396-2 #### [facility] CLIA [id number] [address] [place] [address] [place] HIV 1+2 Ab+HIV1 p24 Ag IA Ql Non-Reactive Normal Nonreactive [facility] Comment on above: Order Comment: Speci men Type: BLOOD SPECIMEN Ordering Facility: [facility] Address: [address] [place] [address] Performed By: #### 3 1201-7, 68842-9 #### [facility] CLIA [id number] [address] [place] [address] [place] HIV immunoassay testing algorithm interpretation (S/P/Bld) [Interp] Normal [facility] Comment on above: Order Comment: Speci men Type: BLOOD SPECIMEN Ordering Facility: [facility] Address: [address] [place] [address] Result Comment: No e vidence of HIV-1 or HIV-2 infection. Should recent infection be suspected, repeat testing may be considered 2-3 weeks after this draw. [place] Rev. Code 3701.243(E): This information has been [...] or diagnoses. Performed By: #### 3 1201-7, 37070-4 #### [facility] CLIA [id number] [address] [place] [address] [place] PAP TESTon 03-18-2025 ADEQUACY Normal [facility] Comment on above: Order Comment: Speci men Type: FLUID SPECIMEN Ordering Facility: [facility] Address: [address] [place] [address] Result Comment: Sati sfactory for interpretation. Transformation zone present Performed By: #### L [id number] #### [facility] CLIA [id number] [address] [place] [address] [place] CASE REPORT Normal [facility] Comment on above: Order Comment: Speci men Type: FLUID SPECIMEN Ordering Facility: [facility] Address: [address] [place] [address] Result Comment: Gyne cologic Cytology Report Case: [id number] Authorizing Provider: Mireille Greene APRN.EMPLOYEE BENEFITS MANAGER Collected: 03/18/2025 08:03 AM Ordering Location: OB/Gynecology Received: 03/18/2025 12:57 PM First Screen: Zhorova, [place]ie, CT, ASCP Specimen: Pap Test, ThinPrep, Cervix Performed By: #### L [id number] #### [facility] CLIA [id number] [address] [place] [address] [place] CLINICAL HISTORY, CYTOLOGY, PARTITION NOTCHER Routine Exam Normal [facility] Comment on above: Order Comment: Speci men Type: FLUID SPECIMEN Ordering Facility: [facility] Address: [address] [place] [address] Performed By: #### L [id number] #### [facility] CLIA [id number] [address] [place] [address] [place] CYTOLOGY PAP OTHER INTERPRETATION Predominance of coccobacilli consistent with shift in vaginal papo. Normal [facility] Comment on above: Order Comment: Speci men Type: FLUID SPECIMEN Ordering Facility: [facility] Address: [address] [place] [address] Performed By: #### L [id number] #### [facility] CLIA [id number] [address] [place] [address] [place] FINAL PERFORMING LAB Normal [facility] Comment on above: Order Comment: Speci men Type: FLUID SPECIMEN Ordering Facility: [facility] Address: [address] [place] [address] Result Comment: Tech nical component, burlesque dancer screening performed at: [facility], [address] [place] [address] CLIA: [id number] Diagnostic interpretation performed at: [facility], [address] [place] [address] [place] [address] CLIA# [id number] Clinical Neuropsychologist: Cesar Purcell MD Performed By: #### L [id number] #### [facility] CLIA [id number] [address] [place] [address] [place] INTERPRETATION, CYTOLOGY, PARTITION NOTCHER Normal [facility] Comment on above: Order Comment: Speci men Type: FLUID SPECIMEN Ordering Facility: [facility] Address: [address] [place], [place] [address] Result Comment: Nega tive for intraepithelial lesion or malignancy. at 0954 EDT Performed By: #### L [id number] #### [facility] CLIA [id number] [address] [place] [address] [place] LMP 03/10/2025 Normal [facility] Comment on above: Order Comment: Speci men Type: FLUID SPECIMEN Ordering Facility: [facility] Address: [address] [place] [address] Performed By: #### L [id number] #### [facility] CLIA [id number] [address] [place] [address] [place] PAP DISCLAIMER COMMENT The Pap Smear is a screening test for cervical cancer. False negative results occur with all screening tests, emphasizing the need for rescreening at recommended intervals, and clinical correlation. Normal [facility] Comment on above: Order Comment: Speci men Type: FLUID SPECIMEN Ordering Facility: [facility] Address: [address] [place], [place] [address] Performed By: #### L [id number] #### [facility] CLIA [id number] [address] [place] [address] [place] PAP DIE MAINTENANCE TECHNICIAN COMMENT This specimen has be en analyzed by the FDA-approved [employer] System, which uses digital imaging and an enhanced artificial intelligence image analysis algorithm to identify harris of interest on the microscopic slide, to assist the rubber stamp assembler and pathologist in evaluating cells on ThinPrep Pap tests. Following analysis, harris of interest on the microscopic slide selected by the algorithm are reviewed by a rubber stamp assembler. If a sample requires hierarchical review, the pathologist will review the same harris of interest selected by the algorithm prior to final interpretation. Normal [facility] Comment on above: Order Comment: Speci men Type: FLUID SPECIMEN Ordering Facility: [facility] Address: [address] [place] [address] Performed By: #### L [id number] #### [facility] CLIA [id number] [address] [place] [address] [place] Reagin and Treponema pallidu m IgG and IgM [Interp]on 03-18-2025 T. pallidum IgG+IgM IA Ql (S) Non-Reactive Normal Nonreactive [facility] Comment on above: Order Comment: Noemii khadra Type: BLOOD SPECIMEN Ordering Facility: [facility] Address: [address] [place] [address] Performed By: #### 3 1201-7, 15246-6 #### [facility] CLIA [id number] [address] [place] [address] [place] Reagin+T pallidum IgG+IgM Se rPl-Impon 03-18-2025 Reagin and Treponema pallidum IgG and IgM [Interp] Cannot exclude recent Treponemal infection if specimen collected within 7-10 days after appearance of suspect lesions or 2-3 weeks after an exposure. Clinical correlation is required. Normal [facility] Comment on above: Order Comment: Speci khadra Type: BLOOD SPECIMEN Ordering Facility: [facility] Address: [address] [place] [address] Performed By: #### 3 1201-7, 99993-6 #### [facility] CLIA [id number] [address] [place] [address] [place] TSH SerPl-aCncon 03-18-2025 TSH Qn 3.110 m[IU]/L Normal 0.270-4.200 [facility] Comment on above: Order Comment: Speci men Type: BLOOD SPECIMEN Ordering Facility: [facility] Address: [address] [place] [address] Result Comment: If t he patient is , TSH reference range varies by gestational period: First Trimester (weeks 9-12): 0.180-2.990 mIU/L Second Trimester: 0.110-3.980 mIU/L Third Trimester: 0.480-4.710 mIU/L Yonis Griffith et al. A Practical Approach for the Verifications and Determination of Site- and Trimester-Specific Reference Intervals for Thyroid Function tests in . Thyroid, 2019:29:3:412-420. Ross E, et al. 2017 Guidelines of the [place] Thyroid Association for the Diagnosis and Management of Thyroid Disease during and the . Thyroid, 2017:27:3:315-389. Performed By: #### 3 016-3 #### [facility] CLIA [id number] [address] [place], [place] [address] STATES OF [facility] Radiology Study observation (narrative) [facility] Alcohol, Blood (Medical)-Ser on 06-12-2024 SERUM ETOH < 3.0 Normal [facility] Comment on above: Result Comment: The serum:whole blood ethanol ratio is approximately 1.14 and varies slightly with hematocrit. Medical Alcohol reference interval and critical value in non-tolerant individuals; 50 - 100 Impairment 100 Intoxication 100 - 250 Severe Poisoning 250 - 400 Deep/possible fatal coma Performed By: #### L 501.9100, L500.4050, L700.6800, L100.0100 #### [facility] [address] [place], [place], [id number] CBC W/Diff, Automatedon 05-22 Absolute Lymph 1.96 X10 3/uL Normal 0.83-4.51 [facility] Comment on above: Performed By: #### L 501.9100, L500.4050, L700.6800, L100.0100 #### [facility] [address] [place], [address] Absolute Neut 3.4 X10 3/uL Normal 2.0-7.7 [facility] Comment on above: Performed By: #### L 501.9100, L500.4050, L700.6800, L100.0100 #### [facility] [address] [place], [address] Basophils/100 WBC (Bld) 0.9 % Normal 0-1 [facility] Comment on above: Performed By: #### L 501.9100, L500.4050, L700.6800, L100.0100 #### [facility] [address] [place], [address] Eosinophils/100 WBC (Bld) 4.8 % Normal 0-5 [facility] Comment on above: Performed By: #### L 501.9100, L500.4050, L700.6800, L100.0100 #### [facility] [address] [place], [address] Erythrocyte distribution width (RBC) [Ratio] 12.8 % Normal 11.6-14.6 [facility] Comment on above: Performed By: #### L 501.9100, L500.4050, L700.6800, L100.0100 #### [facility] [address] [place], [address] Hematocrit (Bld) [Volume fraction] 36.1 % Low 37-47 [facility] Comment on above: Performed By: #### L 501.9100, L500.4050, L700.6800, L100.0100 #### [facility] [address] [place], [address] Hemoglobin (Bld) [Mass/Vol] 11.7 g/dL Low 12.0-15.0 [facility] Comment on above: Performed By: #### L 501.9100, L500.4050, L700.6800, L100.0100 #### [facility] [address] [place], [address] IG% 0.300 Normal 0.0-0.9 [facility] Comment on above: Result Comment: IG% - Immature Granulocytes (promyelocytes, myelocytes and metamyelocytes) > 1% indicates that a LEFT SHIFT is Present. Performed By: #### L 501.9100, L500.4050, L700.6800, L100.0100 #### [facility] [address] [place], [address] Lymphocytes/100 WBC (Bld) 30.3 % Normal 19-41 [facility] Comment on above: Performed By: #### L 501.9100, L500.4050, L700.6800, L100.0100 #### [facility] [address] [place], [address] MCH (RBC) [Entitic mass] 30.2 pg Normal 27.0-32.0 [facility] Comment on above: Performed By: #### L 501.9100, L500.4050, L700.6800, L100.0100 #### [facility] [address] [place], [address] MCHC (RBC) [Mass/Vol] 32.4 g/dL Normal 32-36 [facility] Comment on above: Performed By: #### L 501.9100, L500.4050, L700.6800, L100.0100 #### [facility] [address] [place], [address] MCV (RBC) [Entitic vol] 93.3 fL Normal 81-99 [facility] Comment on above: Performed By: #### L 501.9100, L500.4050, L700.6800, L100.0100 #### [facility] [address] [place], [address] Monocytes/100 WBC (Bld) 11.7 % High 0-10 [facility] Comment on above: Performed By: #### L 501.9100, L500.4050, L700.6800, L100.0100 #### [facility] [address] [place], [address] Neutrophils/100 WBC (Bld) 52.0 % Normal 47-70 [facility] Comment on above: Performed By: #### L 501.9100, L500.4050, L700.6800, L100.0100 #### [facility] [address] [place], [address] Nucleated RBC (Bld) [#/Vol] 0 10*3/uL Normal 0-5 [facility] Comment on above: Performed By: #### L 501.9100, L500.4050, L700.6800, L100.0100 #### [facility] [address] [place], [address] Platelet mean volume (Bld) [Entitic vol] 9.5 fL Normal 6.2-12.0 [facility] Comment on above: Performed By: #### L 501.9100, L500.4050, L700.6800, L100.0100 #### [facility] [address] [place], [address] Platelets (Bld) [#/Vol] 357 10*3/uL Normal 150-450 [facility] Comment on above: Performed By: #### L 501.9100, L500.4050, L700.6800, L100.0100 #### [facility] [address] [place], [address] RBC (Bld) [#/Vol] 3.87 10*6/uL Low 4.2-5.4 [facility] Comment on above: Performed By: #### L 501.9100, L500.4050, L700.6800, L100.0100 #### [facility] [address] [place], [address] RDW SD 43.9 fl Normal 35.1-43.9 [facility] Comment on above: Performed By: #### L 501.9100, L500.4050, L700.6800, L100.0100 #### [facility] [address] [place], [address] WBC (Bld) [#/Vol] 6.5 10*3/uL Normal 4.4-11.0 [facility] Comment on above: Performed By: #### L 501.9100, L500.4050, L700.6800, L100.0100 #### [facility] [address] [place], [address] Comprehensive Metabolic [facility] 06-12-2024 Albumin [Mass/Vol] 3.7 g/dL Normal 3.2-5.0 [facility] Comment on above: Performed By: #### L 501.9100, L500.4050, L700.6800, L100.0100 #### [facility] [address] [place], [address] Albumin/Globulin [Mass ratio] 0.9 {ratio} Normal 0.9-2.4 [facility] Comment on above: Performed By: #### L 501.9100, L500.4050, L700.6800, L100.0100 #### [facility] [address] [place], [address] ALK P 68 U/L Normal 45-117 [facility] Comment on above: Performed By: #### L 501.9100, L500.4050, L700.6800, L100.0100 #### [facility] [address] [place], [address] ALT [Catalytic activity/Vol] 19 U/L Normal 13-56 [facility] Comment on above: Performed By: #### L 501.9100, L500.4050, L700.6800, L100.0100 #### [facility] [address] [place], [address] AST [Catalytic activity/Vol] 14 U/L Low 15-37 [facility] Comment on above: Performed By: #### L 501.9100, L500.4050, L700.6800, L100.0100 #### [facility] [address] [place], [address] Bilirubin [Mass/Vol] 0.50 mg/dL Normal 0.20-1.00 [facility] Comment on above: Result Comment: For patients on eltrombopag therapy, use of Dimension Fairdealing TBIL is not recommended. Performed By: #### L 501.9100, L500.4050, L700.6800, L100.0100 #### [facility] [address] [place], [address] BUN/CRE 21.3 RATIO High 10-20 [facility] Comment on above: Performed By: #### L 501.9100, L500.4050, L700.6800, L100.0100 #### [facility] [address] [place], [address] CA,Total 8.8 mg/dL Normal 8.5-10.1 [facility] Comment on above: Performed By: #### L 501.9100, L500.4050, L700.6800, L100.0100 #### [facility] [address] [place], [address] Chloride [Moles/Vol] 110 mmol/L High 98-107 [facility] Comment on above: Performed By: #### L 501.9100, L500.4050, L700.6800, L100.0100 #### [facility] [address] [place], [address] CO2 [Moles/Vol] 26.0 mmol/L Normal 21.0-32.0 [facility] Comment on above: Performed By: #### L 501.9100, L500.4050, L700.6800, L100.0100 #### [facility] [address] [place], [address] Creatinine [Mass/Vol] 0.85 mg/dL Normal 0.55-1.02 [facility] Comment on above: Result Comment: The validity of the calculated GFR GFRAA in patients over 70 years has not been determined. Clinical correlation is essential. Performed By: #### L 501.9100, L500.4050, L700.6800, L100.0100 #### [facility] [address] [place], [address] ECRCL 106.07 ml/min Normal [facility] Comment on above: Performed By: #### L 501.9100, L500.4050, L700.6800, L100.0100 #### [facility] [address] [place], [address] EST GFR - AA 98 mL/min Normal >60 [facility] Comment on above: Result Comment: Afri can [place]ian GFR Calc Performed By: #### L 501.9100, L500.4050, L700.6800, L100.0100 #### [facility] [address] [place], [address] GAP 4 Low 5-15 [facility] Comment on above: Performed By: #### L 501.9100, L500.4050, L700.6800, L100.0100 #### [facility] [address] [place], [address] GFR/1.73 sq M.predicted among non-blacks MDRD (S/P/Bld) [Vol rate/Area] 81 mL/min/{1.73_m2} Normal >60 [facility] Comment on above: Result Comment: Non- GFR Calc Performed By: #### L 501.9100, L500.4050, L700.6800, L100.0100 #### [facility] [address] [place], [address] Globulin (S) [Mass/Vol] 3.9 g/dL Normal 2.2-4.2 [facility] Comment on above: Performed By: #### L 501.9100, L500.4050, L700.6800, L100.0100 #### [facility] [address] [place], [address] Glucose [Mass/Vol] 90 mg/dL Normal 74-106 [facility] Comment on above: Performed By: #### L 501.9100, L500.4050, L700.6800, L100.0100 #### [facility] [address] [place], [address] Potassium [Moles/Vol] 4.0 mmol/L Normal 3.5-5.1 [facility] Comment on above: Performed By: #### L 501.9100, L500.4050, L700.6800, L100.0100 #### [facility] [address] [place], [address] Sodium [Moles/Vol] 140 mmol/L Normal 136-145 [facility] Comment on above: Performed By: #### L 501.9100, L500.4050, L700.6800, L100.0100 #### [facility] [address] [place], [address] T PROT 7.6 g/dL Normal 6.4-8.2 [facility] Comment on above: Performed By: #### L 501.9100, L500.4050, L700.6800, L100.0100 #### [facility] [address] [place], [address] Urea nitrogen [Mass/Vol] 18 mg/dL Normal 7-18 [facility] Comment on above: Performed By: #### L 501.9100, L500.4050, L700.6800, L100.0100 #### [facility] [address] [place], [address] Emergency Department Summary on 06-12-2024 Emergency Department Summary [facility] Medical Records Department [address] [place] [address] Emergency Department Summary 06/12/24 MR#: [id number] Acct: [id number] Name: BAUDILIO SHARMA Rep #: [id number] : 1990 33 From: Neeraj Abdullahi DO PCP: Care Physician,No Primary Status:ADM IN Location: [place] [address] HPI History of Present Illness Chief Complaint: [...] MDMA. Labs: (more content not included)... Normal [facility] H AND P Exam - Hospitaliston 06-12-2024 H&P Exam - Hospitalist [facility] Medical Records Department [address] [place] [address] H P Exam - Hospitalist 06/12/24 1816 MR#: [id number] Acct: [id number] Name: BAUDILIO SHARMA Rep #: [id number] : 1990 33 From: Lin Malik MD PCP: Care Physician,No Primary Status:REG ER Location: ED HPI - General General Date of Admission: 06/12/24 Date of Service: 06/12/24 Chief Complaint: Request for detox HPI Narrative BAUDILIO SHARMA, is a 33 F with a history of tobacco use, opiate use, amphetamine use who presented to [facility] ED 06/12/2024 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 [...] % (Auto) 52.0, Lymph % (Auto) 30.3, [place] % (Auto) 11.7 H, Eos % (Auto) [...] MD Charges/Coding Visit Charges Inpatient E M: 53824 Init Hosp L1 06/12/24 1821 Cosigner Signature (if applicable): CC: (more content not included)... Normal [facility] ,Serum,hCG Quali.on 06-12-2024 HCG, SERUM QUAL Negative Normal [facility] Comment on above: Performed By: #### L 501.9100, L500.4050, L700.6800, L100.0100 #### [facility] [address] [place], [place], [address] Urine Drug Screen (VISTA)on 06-12-2024 AMPHETAMINES Positive Abnormal <1000 ng/mL [facility] Comment on above: Performed By: #### L 505.5000 ####[facility] [address] [place], [address] BARBITIURATES Negative Normal < 200 ng/mL [facility] Comment on above: Performed By: #### L 505.5000 ####[facility] [address] [facility] [address] BENZODIAZIPINE Negative Normal < 200 ng/mL [facility] Comment on above: Performed By: #### L 505.5000 ####[facility] [address] [facility] [address] COCAINE Negative Normal < 300 ng/mL [facility] Comment on above: Performed By: #### L 505.5000 ####[facility] [address] [facility] [address] ECSTACY Positive Abnormal < 500 ng/mL [facility] Comment on above: Performed By: #### L 505.5000 ####[facility] [address] [facility] [address] METHADONE Negative Normal < 300 ng/mL [facility] Comment on above: Performed By: #### L 505.5000 ####[facility] [address] [facility] [address] OPIATES Negative Normal < 300 ng/mL [facility] Comment on above: Performed By: #### L 505.5000 ####[facility] [address] [facility] [address] PCP Negative Normal < 25 ng/mL [facility] Comment on above: Performed By: #### L 505.5000 ####[facility] [address] [facility] [address] THC Negative Normal < 50 ng/mL [facility] Comment on above: Performed By: #### L 505.5000 ####[facility] [address] [place], [address] VISTA UDS PH 4 Normal [facility] Comment on above: Performed By: #### L 505.5000 ####[facility] [address] [place], [address] Urine Cultureon 11-04-2023 [facility] Mixed Gram Pos Gram Neg Org Nicholson Count 1000-10,000 MIXC Mixed contaminants. Submit a new specimen if indicated. Normal [facility] Comment on above: Performed By: #### M 100.2200 #### [facility] [address] [facility] [place], [address] Abdomen/Pelvis W IV Cont ONL Yon 11-03-2023 Abdomen/Pelvis W IV Cont ONLY [facility] Imaging Services [address] [place] [address] Abdomen/Pelvis W IV Cont ONLY MR#: [id number] Acct: [id number] Name: BAUDILIO SHARMA Rep #: [id number] : 1990 F 33 From: John mendez MD PCP: Care Physician,No Primary Status: REG ER Study: Abdomen/Pelvis W IV Cont ONLY Date of Exam: Exam# [id number] Ordering Dr: [place] [id number] STUDY: CT ABDOMEN AND PELVIS WITH CONTRAST [...] 5:51 EDT Reading Location ID and State: [address] [place] [address] Tel , Service support , CC: South Koch DO; No Primary Care Physician Field Enumerator: Signed Normal [facility] Absolute lymphocyte countOrd ered By: South Koch on 11-03-2023 Lymphocytes Auto (Unsp spec) [#/Vol] 2.82 10*3/uL 0.83-4.51 [facility] Automated lymphocyte count a s percentage of total leukocytesOrdered By: South Koch on 11-03-2023 Lymphocytes/100 WBC Auto (Unsp spec) 24.7 % 19-41 [facility] Basic Metabolic Profile (BMP )on 11-03-2023 BUN/CRE 19.0 RATIO Normal 10-20 [facility] Comment on above: Performed By: #### L 500.2500, L501.2450, L500.3400, L700.6800, L100.0100 ####[facility] [address] [place], [address] CA,Total 9.7 mg/dL Normal 8.5-10.1 [facility] Comment on above: Performed By: #### L 500.2500, L501.2450, L500.3400, L700.6800, L100.0100 ####[facility] [address] [place], [address] Chloride [Moles/Vol] 103 mmol/L Normal 98-107 [facility] Comment on above: Performed By: #### L 500.2500, L501.2450, L500.3400, L700.6800, L100.0100 ####[facility] [address] [place], [address] CO2 [Moles/Vol] 26.0 mmol/L Normal 21.0-32.0 [facility] Comment on above: Performed By: #### L 500.2500, L501.2450, L500.3400, L700.6800, L100.0100 ####[facility] [address] [place], [address] Creatinine [Mass/Vol] 1.21 mg/dL High 0.55-1.02 [facility] Comment on above: Result Comment: The validity of the calculated GFR GFRAA in patients over 70 years has not been determined. Clinical correlation is essential. Performed By: #### L 500.2500, L501.2450, L500.3400, L700.6800, L100.0100 ####[facility] [address] [place], [address] ECRCL 71.16 ml/min Normal [facility] Comment on above: Performed By: #### L 500.2500, L501.2450, L500.3400, L700.6800, L100.0100 ####[facility] [address] [place], [address] EST GFR - AA 65 mL/min Normal >60 [facility] Comment on above: Result Comment: Afri can Colombian GFR Calc Performed By: #### L 500.2500, L501.2450, L500.3400, L700.6800, L100.0100 ####[facility] [address] [place], [address] GAP 11 Normal 5-15 [facility] Comment on above: Performed By: #### L 500.2500, L501.2450, L500.3400, L700.6800, L100.0100 ####[facility] [address] [place], [address] GFR/1.73 sq M.predicted among non-blacks MDRD (S/P/Bld) [Vol rate/Area] 54 mL/min/{1.73_m2} Low >60 [facility] Comment on above: Result Comment: Non- GFR Calc Performed By: #### L 500.2500, L501.2450, L500.3400, L700.6800, L100.0100 ####[facility] [address] [place], [address] Glucose [Mass/Vol] 128 mg/dL High 74-106 [facility] Comment on above: Result Comment: Fast ing Glucose result greater than or equal to 126 mg/dL suggests DIABETES MELLITUS per A.D.A. criteria. Performed By: #### L 500.2500, L501.2450, L500.3400, L700.6800, L100.0100 ####[facility] [address] [place], [address] Potassium [Moles/Vol] 4.3 mmol/L Normal 3.5-5.1 [facility] Comment on above: Performed By: #### L 500.2500, L501.2450, L500.3400, L700.6800, L100.0100 ####[facility] [address] [place], [address] Sodium [Moles/Vol] 140 mmol/L Normal 136-145 [facility] Comment on above: Performed By: #### L 500.2500, L501.2450, L500.3400, L700.6800, L100.0100 ####[facility] [address] [place], [address] Urea nitrogen [Mass/Vol] 23 mg/dL High 7-18 [facility] Comment on above: Performed By: #### L 500.2500, L501.2450, L500.3400, L700.6800, L100.0100 ####[facility] [address] [place], [place], [phone] Basophil percentageOrdered B y: South Koch on 11-03-2023 Basophil percentage >100 SEEN /hpf 0-5 [facility] Basophils/100 WBC (Bld) 0.6 % 0-1 [facility] Bilirubin [Mass/Vol] 0.60 mg/dL 0.20-1.00 [facility] Comment on above: For patients on eltr ombopag therapy, use of Dimension [place]de[place] TBIL is not recommended. Chloride [Moles/Vol] 103 mmol/L 98-107 [facility] Eosinophils/100 WBC (Bld) 0.7 % 0-5 [facility] Glucose [Mass/Vol] 128 mg/dL 74-106 [facility] Comment on above: Fasting Glucose resu lt greater than or equal to 126 mg/dL suggests DIABETES MELLITUS per A.D.A. criteria. Hemoglobin (Bld) [Mass/Vol] 14.1 g/dL 12.0-15.0 [facility] Monocytes/100 WBC (Bld) 10.7 % 0-10 [facility] Neutrophils (Bld) [#/Vol] 7.2 10*3/uL 2.0-7.7 [facility] Neutrophils/100 WBC (Bld) 62.9 % 47-70 [facility] Potassium [Moles/Vol] 4.3 mmol/L 3.5-5.1 [facility] Protein [Mass/Vol] 8.6 g/dL 6.4-8.2 [facility] Sodium [Moles/Vol] 140 mmol/L 136-145 [facility] WBC (Bld) [#/Vol] 11.4 10*3/uL 4.4-11.0 [facility] Bilirubin Test strip Ql (U)O rdered By: South Koch on 11-03-2023 Bilirubin Ql (U) Negative Negative [facility] CBC W/Diff, Automatedon 10-19 Absolute Lymph 2.82 X10 3/uL Normal 0.83-4.51 [facility] Comment on above: Performed By: #### L 500.2500, L501.2450, L500.3400, L700.6800, L100.0100 ####[facility] [address] [place], [address] Absolute Neut 7.2 X10 3/uL Normal 2.0-7.7 [facility] Comment on above: Performed By: #### L 500.2500, L501.2450, L500.3400, L700.6800, L100.0100 ####[facility] [address] [place], [address] Basophils/100 WBC (Bld) 0.6 % Normal 0-1 [facility] Comment on above: Performed By: #### L 500.2500, L501.2450, L500.3400, L700.6800, L100.0100 ####[facility] [facility] [address] [place], [address] Eosinophils/100 WBC (Bld) 0.7 % Normal 0-5 [facility] Comment on above: Performed By: #### L 500.2500, L501.2450, L500.3400, L700.6800, L100.0100 ####[facility] [address] [place], [address] Erythrocyte distribution width (RBC) [Ratio] 12.4 % Normal 11.6-14.6 [facility] Comment on above: Performed By: #### L 500.2500, L501.2450, L500.3400, L700.6800, L100.0100 ####[facility] [address] [place], [address] Hematocrit (Bld) [Volume fraction] 41.0 % Normal 37-47 [facility] Comment on above: Performed By: #### L 500.2500, L501.2450, L500.3400, L700.6800, L100.0100 ####[facility] [address] [place], [address] Hemoglobin (Bld) [Mass/Vol] 14.1 g/dL Normal 12.0-15.0 [facility] Comment on above: Performed By: #### L 500.2500, L501.2450, L500.3400, L700.6800, L100.0100 ####[facility] [address] [place], [address] IG% 0.400 Normal 0.0-0.9 [facility] Comment on above: Result Comment: IG% - Immature Granulocytes (promyelocytes, myelocytes and metamyelocytes) > 1% indicates that a LEFT SHIFT is Present. Performed By: #### L 500.2500, L501.2450, L500.3400, L700.6800, L100.0100 ####[facility] [address] [place], [address] Lymphocytes/100 WBC (Bld) 24.7 % Normal 19-41 [facility] Comment on above: Performed By: #### L 500.2500, L501.2450, L500.3400, L700.6800, L100.0100 ####[facility] [address] [place], [address] MCH (RBC) [Entitic mass] 31.2 pg Normal 27.0-32.0 [facility] Comment on above: Performed By: #### L 500.2500, L501.2450, L500.3400, L700.6800, L100.0100 ####[facility] [address] [place], [address] MCHC (RBC) [Mass/Vol] 34.4 g/dL Normal 32-36 [facility] Comment on above: Performed By: #### L 500.2500, L501.2450, L500.3400, L700.6800, L100.0100 ####[facility] [address] [place], [address] MCV (RBC) [Entitic vol] 90.7 fL Normal 81-99 [facility] Comment on above: Performed By: #### L 500.2500, L501.2450, L500.3400, L700.6800, L100.0100 ####[facility] [address] [place], [address] Monocytes/100 WBC (Bld) 10.7 % High 0-10 [facility] Comment on above: Performed By: #### L 500.2500, L501.2450, L500.3400, L700.6800, L100.0100 ####[facility] [address] [place], [address] Neutrophils/100 WBC (Bld) 62.9 % Normal 47-70 [facility] Comment on above: Performed By: #### L 500.2500, L501.2450, L500.3400, L700.6800, L100.0100 ####[facility] [address] [place], [address] Nucleated RBC (Bld) [#/Vol] 0 10*3/uL Normal 0-5 [facility] Comment on above: Performed By: #### L 500.2500, L501.2450, L500.3400, L700.6800, L100.0100 ####[facility] [address] [place], [address] Platelet mean volume (Bld) [Entitic vol] 9.8 fL Normal 6.2-12.0 [facility] Comment on above: Performed By: #### L 500.2500, L501.2450, L500.3400, L700.6800, L100.0100 ####[facility] [address] [place], [address] Platelets (Bld) [#/Vol] 331 10*3/uL Normal 150-450 [facility] Comment on above: Performed By: #### L 500.2500, L501.2450, L500.3400, L700.6800, L100.0100 ####[facility] [address] [place], [address] RBC (Bld) [#/Vol] 4.52 10*6/uL Normal 4.2-5.4 [facility] Comment on above: Performed By: #### L 500.2500, L501.2450, L500.3400, L700.6800, L100.0100 ####[facility] [address] [place], [address] RDW SD 40.9 fl Normal 35.1-43.9 [facility] Comment on above: Performed By: #### L 500.2500, L501.2450, L500.3400, L700.6800, L100.0100 ####[facility] [address] [place], [address] WBC (Bld) [#/Vol] 11.4 10*3/uL High 4.4-11.0 [facility] Comment on above: Performed By: #### L 500.2500, L501.2450, L500.3400, L700.6800, L100.0100 ####[facility] [address] [place], [address] Chlamydia/GC JUDY aptimaon CHLAMY,NUC ACID Normal [facility] Comment on above: Result Comment: WRON G TEST ORDERED- CTNG URINE NOT APTIMA Performed By: #### L 7000.1800, M8200.2100, M8200.2200 #### [facility] [address] [place], [address] GC BY NUC ACID Normal [facility] Comment on above: Result Comment: WRON G TEST ORDERED- CTNG URINE NOT APTIMA Performed By: #### L 7000.1800, M8200.2100, M8200.2200 #### [facility] [address] [place], [address] Determination of erythrocyte mean corpuscular volume (MCV)Ordered By: oSuth Koch on 11-03-2023 MCV (RBC) [Entitic vol] 90.7 fL 81-99 [facility] Direct bilirubinOrdered By: South Koch on 11-03-2023 Bilirubin.direct [Mass/Vol] 0.14 mg/dL 0.00-0.30 [facility] Emergency Department Summary on 11-03-2023 Emergency Department Summary [facility] Medical Records Department [address] [place] [address] Emergency Department Summary 11/03/23 MR#: [id number] Acct: [id number] Name: BAUDILIO SHARMA FRANKIEBARBRA Rep #: [id number] : 1990 33 From: South Koch DO [...] to these concerns she presents for evaluation. [facility] Medical History Anxiety Depression Hepatitis B [...] I did (more content not included)... Normal [facility] Erythrocyte distribution wid th ratioOrdered By: South Koch on 11-03-2023 Erythrocyte distribution width (RBC) [Ratio] 12.4 % 11.6-14.6 [facility] Erythrocyte distribution wid th standard deviationOrdered By: South Koch on 11-03-2023 Erythrocyte distribution width (RBC) [Entitic vol] 40.9 fL 35.1-43.9 [facility] Hematocrit Auto (Bld) [Volum e fraction]Ordered By: South Koch on 11-03-2023 Hematocrit (Bld) [Volume fraction] 41.0 % 37-47 [facility] Immature granulocytes/100 WB C Auto (Bld)Ordered By: South Koch on 11-03-2023 Immature granulocytes/100 WBC (Bld) 0.400 % 0.0-0.9 [facility] Comment on above: IG% - Immature Granu locytes (promyelocytes, myelocytes and metamyelocytes) > 1% indicates that a LEFT SHIFT is Present. Ketones Test strip Ql (U)Ord ered By: South Koch on 11-03-2023 Ketones Ql (U) 5 mg/dl Negative [facility] - Chemistry and C hemistry - challengeOrdered By: South Koch on 11-03-2023 ALP [Catalytic activity/Vol] 67 U/L 45-117 [facility] ALT [Catalytic activity/Vol] 34 U/L 13-56 [facility] CO2 [Moles/Vol] 26.0 mmol/L 21.0-32.0 [facility] Globulin (S) [Mass/Vol] 4.3 g/dL 2.2-4.2 [facility] Lipase [Catalytic activity/Vol] 23 U/L 13-75 [facility] Comment on above: Please note:LIPASE r evised reference range effective 22. New Lipase methodology. Expected to produce lower values than the previous assay method. NEW Reference Range: 13 - 75 U/L Urea nitrogen/Creatinine [Mass ratio] 19.0 mg/mg 10-20 [facility] - Hematology and Cell countsOrdered By: South Koch on 11-03-2023 MCH (RBC) [Entitic mass] 31.2 pg 27.0-32.0 [facility] MCHC (RBC) [Mass/Vol] 34.4 g/dL 32-36 [facility] Nucleated RBC/100 WBC (Bld) [Ratio] 0 % 0-5 [facility] Platelet mean volume (Bld) [Entitic vol] 9.8 fL 6.2-12.0 [facility] Platelets (Bld) [#/Vol] 331 10*3/uL 150-450 [facility] Lipaseon 11-03-2023 Lipase [Catalytic activity/Vol] 23 U/L Normal 13-75 [facility] Comment on above: Result Comment: Bhavna tapia note: LIPASE revised reference range effective 22. New Lipase methodology. Expected to produce lower values than the previous assay method. NEW Reference Range: 13 - 75 U/L Performed By: #### L 500.2500, L501.2450, L500.3400, L700.6800, L100.0100 ####[facility] [address] [place], [address] Liver Profileon 11-03-2023 Albumin [Mass/Vol] 4.3 g/dL Normal 3.2-5.0 [facility] Comment on above: Performed By: #### L 500.2500, L501.2450, L500.3400, L700.6800, L100.0100 ####[facility] [address] [place], [address] ALK P 67 U/L Normal 45-117 [facility] Comment on above: Performed By: #### L 500.2500, L501.2450, L500.3400, L700.6800, L100.0100 ####[facility] [address] [place], [address] ALT [Catalytic activity/Vol] 34 U/L Normal 13-56 [facility] Comment on above: Performed By: #### L 500.2500, L501.2450, L500.3400, L700.6800, L100.0100 ####[facility] [address] [place], [address] AST [Catalytic activity/Vol] 66 U/L High 15-37 [facility] Comment on above: Performed By: #### L 500.2500, L501.2450, L500.3400, L700.6800, L100.0100 ####[facility] [address] [place], [address] Bilirubin [Mass/Vol] 0.60 mg/dL Normal 0.20-1.00 [facility] Comment on above: Result Comment: For patients on eltrombopag therapy, use of Dimension [place] TBIL is not recommended. Performed By: #### L 500.2500, L501.2450, L500.3400, L700.6800, L100.0100 ####[facility] [address] [place], [address] Bilirubin.direct [Mass/Vol] 0.14 mg/dL Normal 0.00-0.30 [facility] Comment on above: Performed By: #### L 500.2500, L501.2450, L500.3400, L700.6800, L100.0100 ####[facility] [address] [place], [address] Globulin (S) [Mass/Vol] 4.3 g/dL High 2.2-4.2 [facility] Comment on above: Performed By: #### L 500.2500, L501.2450, L500.3400, L700.6800, L100.0100 ####[facility] [address] [place], [address] T PROT 8.6 g/dL High 6.4-8.2 [facility] Comment on above: Performed By: #### L 500.2500, L501.2450, L500.3400, L700.6800, L100.0100 ####[facility] [address] [place], [address] M8200.2100on 11-03-2023 M8200.2100 Normal Reference Ran ge = Negative Chlamydia Trachomatis PCR GeneXpert Instrument, PCR method Chlamydia Trachomatis PCR Copy of report sent to Infection Control Printer MS#[id number] 11/03/23 0906 JPIECHUTA. Chlamydia Trachomatis PCR RESULTS CALLED TO ED, H. MUELLER 11/03/23 0907 Baudiliochristal Reza. REPORT READ BACK BY . Chlamydia Trachomatis PCR POSITIVE A Chlamydia trachomatis Normal [facility] Comment on above: Performed By: #### L 7000.1800, M8200.2100, M8200.2200 ####[facility] [address] [place], [address] M8200.2200on 11-03-2023 M8200.2200 Negative Normal [facility] Comment on above: Performed By: #### L 7000.1800, M8200.2100, M8200.2200 ####[facility] [address] [place], [address] Mucus LM Ql (Urine sed)Order ed By: South Koch on 11-03-2023 Mucus Ql (Urine sed) 0 SEEN /hpf [facility] Nitrite Test strip Ql (U)Ord ered By: South Koch on 11-03-2023 Nitrite Ql (U) Negative Negative [facility] No Panel InformationOrdered By: South Koch on 11-03-2023 Estimated Creatinine Clearance Calc 71.16 ml/min [facility] Estimated GFR (MDRD) Amer 65 mL/min >60 [facility] Comment on above: GFR Calc Estimated GFR (MDRD) Non-Af Amer 54 mL/min >60 [facility] Comment on above: Non- GFR Calc Urine RBC 25-50 SEEN /hpf 0-5 [facility] ,Serum,hCG Quali.on 11-03-2023 HCG, SERUM QUAL Negative Normal [facility] Comment on above: Performed By: #### L 500.2500, L501.2450, L500.3400, L700.6800, L100.0100 ####[facility] [address] [place], [place], [address] Protein Test strip Ql (U)Ord ered By: South Koch on 11-03-2023 Protein Ql (U) 30 mg/dl Negative [facility] RBC Auto (Bld) [#/Vol]Ordere d By: South Koch on 11-03-2023 RBC (Bld) [#/Vol] 4.52 10*6/uL 4.2-5.4 [facility] Serum or plasma calcium lexy urement (mass/volume)Ordered By: South Koch on 11-03-2023 Calcium [Mass/Vol] 9.7 mg/dL 8.5-10.1 [facility] Serum or plasma choriogonado tropin detectionOrdered By: South Koch on 11-03-2023 HCG ( test) Ql Negative [facility] Serum or plasma creatinine m easurement (mass/volume)Ordered By: South Koch on 11-03-2023 Creatinine [Mass/Vol] 1.21 mg/dL 0.55-1.02 [facility] Comment on above: The validity of the calculated GFR & GFRAA in patients over 70 years has not been determined. Clinical correlation is essential. Serum or plasma urea nitroge n measurement (mass/volume)Ordered By: South Koch on 11-03-2023 Urea nitrogen [Mass/Vol] 23 mg/dL 7-18 [facility] Squamous epithelial cells de tection in urine sediment by light microscopyOrdered By: South Koch on 11-03-2023 Epithelial cells.squamous LM Ql (Urine sed) 5-10 SEEN /hpf - [facility] Thin prep Papanicolaou smear with manual screeningOrdered By: South Koch on 11-03-2023 Thin prep Papanicolaou smear with manual screening 4.3 g/dL 3.2-5.0 [facility] Thin prep Papanicolaou smear with manual screening 66 U/L 15-37 [facility] Thin prep Papanicolaou smear with manual screening 11 01-02 [facility] Urinalysis, Completeon 11-02 BACTERIA 3+ /hpf Normal None Seen [facility] Comment on above: Order Comment: CLEAN CATCH Performed By: #### L 400.0001 ####[facility] [address] [place], [address] EPI,SQUAMOUS 5-10 SEEN Normal - [facility] Comment on above: Order Comment: CLEAN CATCH Performed By: #### L 400.0001 ####[facility] [address] [place], [place], [address] RBC 25-50 SEEN Normal 0-5 [facility] Comment on above: Order Comment: CLEAN CATCH Performed By: #### L 400.0001 ####[facility] [address] [place], [address] WBC >100 SEEN Normal 0-5 [facility] Comment on above: Order Comment: CLEAN CATCH Performed By: #### L 400.0001 ####[facility] [address] [place], [place], [address] Mucus Ql (Urine sed) 0 SEEN Normal [facility] Comment on above: Order Comment: CLEAN CATCH Performed By: #### L 400.0001 ####[facility] [address] [place], [place], [address] Urine blood detectionOrdered By: South Koch on 11-03-2023 RBC Ql (U) 50 /ul Negative [facility] Urine clarityOrdered By: Joshua Koch on 11-03-2023 Clarity (U) Clear Clear [facility] Urine color determinationOrd ered By: South Koch on 11-03-2023 Color (U) Yellow Yellow [facility] Urine glucose detectionOrder ed By: South Koch on 11-03-2023 Glucose Ql (U) Normal mg/dl Normal [facility] Urine leukocyte esterase det ection by dipstickOrdered By: South Koch on 11-03-2023 Leukocyte esterase Test strip Ql (U) 500 /ul Negative [facility] Urine pHOrdered By: South rosas on 11-03-2023 pH (U) 5.0 [pH] 5.0 - 8.0 [facility] Urine sediment bacteria coun t by microscopy (number/high power field)Ordered By: South oKch on 11-03-2023 Bacteria LM.HPF (Urine sed) [#/Area] 3 /[HPF] None Seen [facility] Urine specific gravity measu rementOrdered By: South Koch on 11-03-2023 Specific gravity (U) [Rel density] 1.030 1.002-1.030 [facility] Urine urobilinogen measureme ntOrdered By: Southray Koch on 11-03-2023 Urobilinogen Ql (U) 1 mg/dl Normal [facility] Absolute lymphocyte countOrd ered By: Dr. Stern on 12-13-2022 Lymphocytes Auto (Unsp spec) [#/Vol] 1.61 10*3/uL 0.83-4.51 [facility] Basophil percentageOrdered B y: Dr. Stern on 12-13-2022 Basophil percentage 5-10 SEEN /hpf 0-5 [facility] Basophils/100 WBC (Bld) 0.5 % 0-1 [facility] Bilirubin [Mass/Vol] 0.50 mg/dL 0.20-1.00 [facility] Comment on above: For patients on eltr ombopag therapy, use of Dimension [place] TBIL is not recommended. Chloride [Moles/Vol] 109 mmol/L 98-107 [facility] Eosinophils/100 WBC (Bld) 1.5 % 0-5 [facility] Glucose [Mass/Vol] 122 mg/dL 74-106 [facility] Comment on above: Fasting Glucose resu lt from 100 to 125 mg/dL suggests IMPAIRED HOMEOSTASIS per A.D.A. criteria. Neutrophils (Bld) [#/Vol] 7.8 10*3/uL 2.0-7.7 [facility] Neutrophils/100 WBC (Bld) 75.5 % 47-70 [facility] Potassium [Moles/Vol] 4.0 mmol/L 3.5-5.1 [facility] Protein [Mass/Vol] 7.4 g/dL 6.4-8.2 [facility] Sodium [Moles/Vol] 138 mmol/L 136-145 [facility] WBC (Bld) [#/Vol] 10.4 10*3/uL 4.4-11.0 [facility] Bilirubin Test strip Ql (U)O rdered By: Dr. Stern on 12-13-2022 Bilirubin Ql (U) 1 mg/dL Negative [facility] Comment on above: COLOR OF URINE MAY A FFECT DIPSTICK RESULTS. Blood erythrocytes count (nu mber/volume)Ordered By: Dr. Stern on 12-13-2022 RBC (Bld) [#/Vol] 4.35 10*6/uL 4.2-5.4 [facility] Blood hemoglobin measurement (mass/volume)Ordered By: Dr. Stern on 12-13-2022 Hemoglobin (Bld) [Mass/Vol] 13.5 g/dL 12.0-15.0 [facility] Blood lymphocytes/100 leukoc ytesOrdered By: Dr. Stern on 12-13-2022 Lymphocytes/100 WBC (Bld) 15.5 % 19-41 [facility] Blood monocytes/100 leukocyt esOrdered By: Dr. Stern on 12-13-2022 Monocytes/100 WBC (Bld) 6.5 % 0-10 [facility] Blood platelet mean volumeOr dered By: Dr. Stern on 12-13-2022 Platelet mean volume (Bld) [Entitic vol] 10.1 fL 6.2-12.0 [facility] Determination of erythrocyte mean corpuscular volume (MCV)Ordered By: Dr. Stern on 12-13-2022 MCV (RBC) [Entitic vol] 94.5 fL 81-99 [facility] Hematocrit Auto (Bld) [Volum e fraction]Ordered By: Dr. Stern on 12-13-2022 Hematocrit (Bld) [Volume fraction] 41.1 % 37-47 [facility] Hyaline casts LM.LPF (Urine sed) [#/Area]Ordered By: Dr. Stern on 12-13-2022 Hyaline casts (Urine sed) [#/Area] 0 /[LPF] 0-5 [facility] Ketones Test strip Ql (U)Ord ered By: Dr. Stern on 12-13-2022 Ketones Ql (U) 5 mg/dl Negative [facility] - Chemistry and C hemistry - challengeOrdered By: Dr. Stern on 12-13-2022 ALP [Catalytic activity/Vol] 68 U/L 45-117 [facility] ALT [Catalytic activity/Vol] 15 U/L 13-56 [facility] CO2 [Moles/Vol] 24.0 mmol/L 21.0-32.0 [facility] Globulin (S) [Mass/Vol] 3.7 g/dL 2.2-4.2 [facility] HCG ( test) Ql (U) Negative [facility] Comment on above: Very dilute urine sp ecimens, as indicated by a low specificgravity, may not contain patient portal representative levels of hCG. If is still suspected, a first morning urinespecimen should be collected 48 hours later and tested. Lipase [Catalytic activity/Vol] 63 U/L 13-75 [facility] Comment on above: Please note:LIPASE r evised reference range effective 22. New Lipase methodology. Expected to produce lower values than the previous assay method. NEW Reference Range: 13 - 75 U/L Urea nitrogen/Creatinine [Mass ratio] 22.8 mg/mg 10-20 [facility] - Hematology and Cell countsOrdered By: Dr. Stern on 12-13-2022 Erythrocyte distribution width (RBC) [Entitic vol] 44.4 fL 35.1-43.9 [facility] Erythrocyte distribution width (RBC) [Ratio] 12.9 % 11.6-14.6 [facility] Immature granulocytes/100 WBC (Bld) 0.500 % 0.0-0.9 [facility] Comment on above: IG% - Immature Granu locytes (promyelocytes, myelocytes and metamyelocytes) > 1% indicates that a LEFT SHIFT is Present. MCH (RBC) [Entitic mass] 31.0 pg 27.0-32.0 [facility] Nucleated RBC/100 WBC (Bld) [Ratio] 0 % 0-5 [facility] MCHC Auto (RBC) [Mass/Vol]Or dered By: Dr. Stern on 12-13-2022 MCHC (RBC) [Mass/Vol] 32.8 g/dL 32-36 [facility] Mucus LM Ql (Urine sed)Order ed By: Dr. Stenr on 12-13-2022 Mucus Ql (Urine sed) 0 SEEN /hpf [facility] Nitrite Test strip Ql (U)Ord ered By: Dr. Stern on 12-13-2022 Nitrite Ql (U) Negative Negative [facility] No Panel InformationOrdered By: Dr. Stern on 12-13-2022 Estimated Creatinine Clearance Calc 67.77 ml/min [facility] Estimated GFR (MDRD) Amer 81 mL/min >60 [facility] Comment on above: GFR Calc Estimated GFR (MDRD) Non-Af Amer 67 mL/min >60 [facility] Comment on above: Non- GFR Calc Platelets bldOrdered By: Dr. Stern on 12-13-2022 Platelets (Bld) [#/Vol] 364 10*3/uL 150-450 [facility] Protein Test strip Ql (U)Ord ered By: Dr. Stern on 12-13-2022 Protein Ql (U) 30 mg/dl Negative [facility] Serum or plasma albumin lexy urement (mass/volume)Ordered By: Dr. Stern on 12-13-2022 Albumin [Mass/Vol] 3.7 g/dL 3.2-5.0 [facility] Serum or plasma albumin/glob ulin mass ratioOrdered By: Dr. Stern on 12-13-2022 Albumin/Globulin [Mass ratio] 1.0 {ratio} 0.9-2.4 [facility] Serum or plasma calcium lexy urement (mass/volume)Ordered By: Dr. Stern on 12-13-2022 Calcium [Mass/Vol] 9.0 mg/dL 8.5-10.1 [facility] Serum or plasma creatinine m easurement (mass/volume)Ordered By: Dr. Stern on 12-13-2022 Creatinine [Mass/Vol] 1.01 mg/dL 0.55-1.02 [facility] Comment on above: The validity of the calculated GFR & GFRAA in patients over 70 years has not been determined. Clinical correlation is essential. Serum or plasma urea nitroge n measurement (mass/volume)Ordered By: Dr. Stern on 12-13-2022 Urea nitrogen [Mass/Vol] 23 mg/dL 7-18 [facility] Squamous epithelial cells de tection in urine sediment by light microscopyOrdered By: Dr. Stern on 12-13-2022 Epithelial cells.squamous LM Ql (Urine sed) 0-5 SEEN /hpf 5-10 [facility] Thin prep Papanicolaou smear with manual screeningOrdered By: Dr. Stern on 12-13-2022 Thin prep Papanicolaou smear with manual screening 11 U/L 15-37 [facility] Thin prep Papanicolaou smear with manual screening 5 5-15 [facility] Urine blood detectionOrdered By: Dr. Stern on 12-13-2022 RBC Ql (U) Negative Negative [facility] RBC Ql (U) 0 SEEN /hpf 0-5 [facility] Urine clarityOrdered By: Dr. Stern on 12-13-2022 Clarity (U) Clear Clear [facility] Urine color determinationOrd ered By: Dr. Stern on 12-13-2022 Color (U) Yellow Yellow [facility] Urine glucose detectionOrder ed By: Dr. Stern on 12-13-2022 Glucose Ql (U) Normal mg/dl Normal [facility] Urine leukocyte esterase det ection by dipstickOrdered By: Dr. Stern on 12-13-2022 Leukocyte esterase Test strip Ql (U) 25 /ul Negative [facility] Urine pHOrdered By: Dr. Stern o n 12-13-2022 pH (U) 6.0 [pH] 5.0 - 8.0 [facility] Urine sediment bacteria coun t by microscopy (number/high power field)Ordered By: Dr. Stern on 12-13-2022 Bacteria LM.HPF (Urine sed) [#/Area] 1 /[HPF] None Seen [facility] Urine specific gravity measu rementOrdered By: Dr. Stern on 12-13-2022 Specific gravity (U) [Rel density] 1.025 1.002-1.030 [facility] Urobilinogen Auto test strip Ql (U)Ordered By: Dr. Stern on 12-13-2022 Urobilinogen Ql (U) 1 mg/dl Normal [facility] Absolute lymphocyte counton 01-06-2022 Lymphocytes Auto (Unsp spec) [#/Vol] 2.00 10*3/uL 0.83-4.51 [facility] Work Phone: Basophil percentageon 2021 Basophil percentage 5-10 SEEN /hpf [facility] Work Phone: Comment on above: Previous reported re sult: 0 SEEN /hpfEdited by: SHANITA on 01/06/22:6187 AMENDED REPORT 01/06/22 1647 WBC previously reported as: 0 SEEN /hpf Basophils/100 WBC (Bld) 1.0 % 0-1 [facility] Work Phone: [phone] Bilirubin [Mass/Vol] 0.20 mg/dL 0.20-1.00 [facility] Work Phone: Comment on above: For patients on eltr ombopag therapy, use of Dimension [place] TBIL is not recommended. Chloride [Moles/Vol] 106 mmol/L 98-107 [facility] Work Phone: Eosinophils/100 WBC (Bld) 2.9 % 0-5 [facility] Work Phone: Glucose [Mass/Vol] 103 mg/dL 74-106 [facility] Work Phone: Comment on above: Fasting Glucose resu lt from 100 to 125 mg/dL suggests IMPAIRED HOMEOSTASIS per A.D.A. criteria. Neutrophils (Bld) [#/Vol] 4.3 10*3/uL 2.0-7.7 [facility] Work Phone: Neutrophils/100 WBC (Bld) 59.6 % 47-70 [facility] Work Phone: Potassium [Moles/Vol] 4.3 mmol/L 3.5-5.1 [facility] Work Phone: Protein [Mass/Vol] 7.3 g/dL 6.4-8.2 [facility] Work Phone: [phone] Sodium [Moles/Vol] 137 mmol/L 136-145 [facility] Work Phone: WBC (Bld) [#/Vol] 7.2 10*3/uL 4.4-11.0 [facility] Work Phone: Bilirubin Test strip Ql (U)o n 01-06-2022 Bilirubin Ql (U) Negative Negative [facility] Work Phone: Blood erythrocytes count (nu mber/volume)on 01-06-2022 RBC (Bld) [#/Vol] 4.39 10*6/uL 4.2-5.4 [facility] Work Phone: Blood hemoglobin measurement (mass/volume)on 01-06-2022 Hemoglobin (Bld) [Mass/Vol] 13.7 g/dL 12.0-15.0 [facility] Work Phone: Blood lymphocytes/100 leukoc yteson 01-06-2022 Lymphocytes/100 WBC (Bld) 27.7 % 19-41 [facility] Work Phone: Blood monocytes/100 leukocyt eson 01-06-2022 Monocytes/100 WBC (Bld) 8.2 % 0-10 [facility] Work Phone: Blood platelet mean volumeon 01-06-2022 Platelet mean volume (Bld) [Entitic vol] 9.2 fL 6.2-12.0 [facility] Work Phone: Determination of erythrocyte mean corpuscular volume (MCV)on 01-06-2022 MCV (RBC) [Entitic vol] 94.3 fL 81-99 [facility] Work Phone: HIV 1 and HIV-2 antibody ass ay with HIV-1 p24 antigen detectionon 01-06-2022 HIV 1+2 Ab+HIV1 p24 Ag IA Ql Non-Reactive Nonreactive [facility] Work Phone: Hematocrit Auto (Bld) [Volum e fraction]on 01-06-2022 Hematocrit (Bld) [Volume fraction] 41.4 % 37-47 [facility] Work Phone: Ketones Test strip Ql (U)on 01-06-2022 Ketones Ql (U) Negative Negative [facility] Work Phone: Laboratory - Chemistry and C hemistry - challengeon 01-06-2022 HCG ( test) Ql (U) Negative [facility] Work Phone: Comment on above: Very dilute urine sp ecimens, as indicated by a low specificgravity, may not contain patient portal representative levels of hCG. If is still suspected, a first morning urinespecimen should be collected 48 hours later and tested. ALP [Catalytic activity/Vol] 72 U/L 45-117 [facility] Work Phone: ALT [Catalytic activity/Vol] 18 U/L 13-56 [facility] Work Phone: CO2 [Moles/Vol] 25.0 mmol/L 21.0-32.0 [facility] Work Phone: Globulin (S) [Mass/Vol] 3.9 g/dL 2.2-4.2 [facility] Work Phone: Urea nitrogen/Creatinine [Mass ratio] 21.9 mg/mg 10-20 [facility] Work Phone: Laboratory - Drug toxicology on 01-06-2022 Amphetamines Ql (U) Positive [facility] Work Phone: Benzodiazepines Ql (U) Negative [facility] Work Phone: Cannabinoids Screen Ql (U) Negative [facility] Work Phone: Cocaine Ql (U) Negative [facility] Work Phone: Opiates Ql (U) Negative [facility] Work Phone: Laboratory - Hematology and Cell countson 01-06-2022 Erythrocyte distribution width (RBC) [Entitic vol] 43.8 fL 35.1-43.9 [facility] Work Phone: Erythrocyte distribution width (RBC) [Ratio] 12.6 % 11.6-14.6 [facility] Work Phone: Immature granulocytes/100 WBC (Bld) 0.600 % 0.0-0.9 [facility] Work Phone: Comment on above: IG% - Immature Granu locytes (promyelocytes, myelocytes and metamyelocytes) > 1% indicates that a LEFT SHIFT is Present. MCH (RBC) [Entitic mass] 31.2 pg 27.0-32.0 [facility] Work Phone: Nucleated RBC/100 WBC (Bld) [Ratio] 0 % 0-5 [facility] Work Phone: MCHC Auto (RBC) [Mass/Vol]on 01-06-2022 MCHC (RBC) [Mass/Vol] 33.1 g/dL 32-36 [facility] Work Phone: Mucus LM Ql (Urine sed)on Mucus Ql (Urine sed) 0 SEEN /hpf [facility] Work Phone: Nitrite Test strip Ql (U)on 01-06-2022 Nitrite Ql (U) Negative Negative [facility] Work Phone: No Panel Informationon 01-06 MDMA (Ecstasy) Screen Positive [facility] Work Phone: Urine Barbiturates Screen Negative [facility] Work Phone: Urine Drug Screen Comment [facility] Work Phone: Comment on above: CONFIRMATORY [...] USE TESTMNEMONIC: [facility] Urine Methadone Screen Negative [facility] Work Phone: Estimated Creatinine Clearance Calc 79.42 ml/min [facility] Work Phone: Estimated GFR (MDRD) Amer 97 mL/min >60 [facility] Work Phone: Comment on above: GFR Calc Estimated GFR (MDRD) Non-Af Amer 80 mL/min >60 [facility] Work Phone: Comment on above: Non- GFR Calc Ethyl Alcohol Level 6.0 mg/dL [facility] Work Phone: Comment on above: The serum:whole bloo d ethanol ratio is approximately 1.14and varies slightly with hematocrit. Medical Alcohol reference interval and critical value innon-tolerant individuals; 50 - 100 Impairment 100 Intoxication 100 - 250 Severe Poisoning 250 - 400 Deep/possible fatal coma Platelets bldon 01-06-2022 Platelets (Bld) [#/Vol] 386 10*3/uL 150-450 [facility] Work Phone: Protein Test strip Ql (U)on 01-06-2022 Protein Ql (U) Negative Negative [facility] Work Phone: Serum or plasma albumin lexy urement (mass/volume)on 01-06-2022 Albumin [Mass/Vol] 3.4 g/dL 3.2-5.0 [facility] Work Phone: Serum or plasma albumin/glob ulin mass ratioon 01-06-2022 Albumin/Globulin [Mass ratio] 0.9 {ratio} 0.9-2.4 [facility] Work Phone: Serum or plasma calcium lexy urement (mass/volume)on 01-06-2022 Calcium [Mass/Vol] 8.6 mg/dL 8.5-10.1 [facility] Work Phone: Serum or plasma creatinine m easurement (mass/volume)on 01-06-2022 Creatinine [Mass/Vol] 0.87 mg/dL 0.55-1.02 [facility] Work Phone: Comment on above: The validity of the calculated GFR & GFRAA in patients over 70 years has not been determined. Clinical correlation is essential. Serum or plasma urea nitroge n measurement (mass/volume)on 01-06-2022 Urea nitrogen [Mass/Vol] 19 mg/dL 7-18 [facility] Work Phone: Squamous epithelial cells de tection in urine sediment by light microscopyon 01-06-2022 Epithelial cells.squamous LM Ql (Urine sed) 10-25 SEEN /hpf [facility] Work Phone: Comment on above: Previous reported re sult: 0 SEEN /hpfEdited by: SHANITA on 01/06/22:1648 AMENDED REPORT 01/06/22 1648 SQUAM EPI previously reported as: 0 SEEN /hpf Thin prep Papanicolaou smear with manual screeningon 01-06-2022 Thin prep Papanicolaou smear with manual screening 9 U/L 15-37 [facility] Work Phone: Thin prep Papanicolaou smear with manual screening 6 5-15 [facility] Work Phone: Urine blood detectionon 12-19 RBC Ql (U) Negative Negative [facility] Work Phone: RBC Ql (U) 0-5 SEEN /hpf [facility] Work Phone: Comment on above: Previous reported re sult: 0 SEEN /hpfEdited by: SHANITA on 01/06/22:1648 AMENDED REPORT 01/06/22 1648 RBC-UA previously reported as: 0 SEEN /hpf Urine clarityon 01-06-2022 Clarity (U) Sl. Cloudy Clear [facility] Work Phone: Urine color determinationon 01-06-2022 Color (U) Yellow Yellow [facility] Work Phone: Urine glucose detectionon Glucose Ql (U) Normal mg/dl Normal [facility] Work Phone: Urine leukocyte esterase det ection by dipstickon 01-06-2022 Leukocyte esterase Test strip Ql (U) 100 /ul Negative [facility] Work Phone: Urine pHon 01-06-2022 pH (U) 6.0 [pH] [facility] Work Phone: Urine phencyclidine (PCP) de tectionon 01-06-2022 Phencyclidine Ql (U) Negative [facility] Work Phone: Urine sediment bacteria coun t by microscopy (number/high power field)on 01-06-2022 Bacteria LM.HPF (Urine sed) [#/Area] 3 /[HPF] None Seen [facility] Work Phone: Comment on above: Previous reported re sult: 0 SEEN /hpfEdited by: SHANITA on 01/06/22:1649 AMENDED REPORT 01/06/22 1649 BACTERIA previously reported as: 0 SEEN /hpf Urine specific gravity measu rementon 01-06-2022 Specific gravity (U) [Rel density] 1.020 [facility] Work Phone: Urobilinogen Auto test strip Ql (U)on 01-06-2022 Urobilinogen Ql (U) Normal mg/dl Normal [facility] Work Phone: Absolute lymphocyte counton 01-01-2022 Lymphocytes Auto (Unsp spec) [#/Vol] 2.43 10*3/uL 0.83-4.51 [facility] Work Phone: Basophil percentageon 2021 Basophils/100 WBC (Bld) 0.7 % 0-1 [facility] Work Phone: Bilirubin [Mass/Vol] 0.30 mg/dL 0.20-1.00 [facility] Work Phone: Comment on above: For patients on eltr ombopag therapy, use of Dimension [place] TBIL is not recommended. Chloride [Moles/Vol] 109 mmol/L 98-107 [facility] Work Phone: Eosinophils/100 WBC (Bld) 2.4 % 0-5 [facility] Work Phone: Glucose [Mass/Vol] 90 mg/dL 74-106 [facility] Work Phone: Neutrophils (Bld) [#/Vol] 4.3 10*3/uL 2.0-7.7 [facility] Work Phone: Neutrophils/100 WBC (Bld) 56.0 % 47-70 [facility] Work Phone: Potassium [Moles/Vol] 3.8 mmol/L 3.5-5.1 [facility] Work Phone: Protein [Mass/Vol] 7.6 g/dL 6.4-8.2 [facility] Work Phone: [phone] Sodium [Moles/Vol] 141 mmol/L 136-145 [facility] Work Phone: WBC (Bld) [#/Vol] 7.6 10*3/uL 4.4-11.0 [facility] Work Phone: Beta hCG serum qualon 2021 Beta HCG ( test) Ql Negative [facility] Work Phone: Blood erythrocytes count (nu mber/volume)on 01-01-2022 RBC (Bld) [#/Vol] 4.15 10*6/uL 4.2-5.4 [facility] Work Phone: Blood hemoglobin measurement (mass/volume)on 01-01-2022 Hemoglobin (Bld) [Mass/Vol] 12.9 g/dL 12.0-15.0 [facility] Work Phone: Blood lymphocytes/100 leukoc yteson 01-01-2022 Lymphocytes/100 WBC (Bld) 31.8 % 19-41 [facility] Work Phone: Blood monocytes/100 leukocyt eson 01-01-2022 Monocytes/100 WBC (Bld) 8.7 % 0-10 [facility] Work Phone: Blood platelet mean volumeon 01-01-2022 Platelet mean volume (Bld) [Entitic vol] 9.1 fL 6.2-12.0 [facility] Work Phone: Determination of erythrocyte mean corpuscular volume (MCV)on 01-01-2022 MCV (RBC) [Entitic vol] 96.1 fL 81-99 [facility] Work Phone: Hematocrit Auto (Bld) [Volum e fraction]on 01-01-2022 Hematocrit (Bld) [Volume fraction] 39.9 % 37-47 [facility] Work Phone: Laboratory - Chemistry and C hemistry - challengeon 01-01-2022 ALP [Catalytic activity/Vol] 76 U/L 45-117 [facility] Work Phone: ALT [Catalytic activity/Vol] 15 U/L 13-56 [facility] Work Phone: CO2 [Moles/Vol] 26.0 mmol/L 21.0-32.0 [facility] Work Phone: Globulin (S) [Mass/Vol] 3.9 g/dL 2.2-4.2 [facility] Work Phone: Urea nitrogen/Creatinine [Mass ratio] 17.7 mg/mg 10-20 [facility] Work Phone: Laboratory - Drug toxicology on 01-01-2022 Amphetamines Ql (U) Positive [facility] Work Phone: Benzodiazepines Ql (U) Negative [facility] Work Phone: Cannabinoids Screen Ql (U) Negative [facility] Work Phone: Cocaine Ql (U) Negative [facility] Work Phone: Opiates Ql (U) Negative [facility] Work Phone: Laboratory - Hematology and Cell countson 01-01-2022 Erythrocyte distribution width (RBC) [Entitic vol] 44.4 fL 35.1-43.9 [facility] Work Phone: Erythrocyte distribution width (RBC) [Ratio] 12.5 % 11.6-14.6 [facility] Work Phone: Immature granulocytes/100 WBC (Bld) 0.400 % 0.0-0.9 [facility] Work Phone: Comment on above: IG% - Immature Granu locytes (promyelocytes, myelocytes and metamyelocytes) > 1% indicates that a LEFT SHIFT is Present. MCH (RBC) [Entitic mass] 31.1 pg 27.0-32.0 [facility] Work Phone: Nucleated RBC/100 WBC (Bld) [Ratio] 0 % 0-5 [facility] Work Phone: MCHC Auto (RBC) [Mass/Vol]on 01-01-2022 MCHC (RBC) [Mass/Vol] 32.3 g/dL 32-36 [facility] Work Phone: No Panel Informationon 01-01 Estimated Creatinine Clearance Calc 71.98 ml/min [facility] Work Phone: Estimated GFR (MDRD) Amer 86 mL/min >60 [facility] Work Phone: Comment on above: GFR Calc Estimated GFR (MDRD) Non-Af Amer 71 mL/min >60 [facility] Work Phone: Comment on above: Non- GFR Calc Ethyl Alcohol Level 9.0 mg/dL [facility] Work Phone: Comment on above: The serum:whole bloo d ethanol ratio is approximately 1.14and varies slightly with hematocrit. Medical Alcohol reference interval and critical value innon-tolerant individuals; 50 - 100 Impairment 100 Intoxication 100 - 250 Severe Poisoning 250 - 400 Deep/possible fatal coma MDMA (Ecstasy) Screen Positive [facility] Work Phone: Urine Barbiturates Screen Negative [facility] Work Phone: Urine Drug Screen Comment [facility] Work Phone: Comment on above: CONFIRMATORY [...] USE TESTMNEMONIC: [facility] Urine Methadone Screen Negative [facility] Work Phone: Platelets bldon 01-01-2022 Platelets (Bld) [#/Vol] 365 10*3/uL 150-450 [facility] Work Phone: Serum or plasma albumin lexy urement (mass/volume)on 01-01-2022 Albumin [Mass/Vol] 3.7 g/dL 3.2-5.0 [facility] Work Phone: Serum or plasma albumin/glob ulin mass ratioon 01-01-2022 Albumin/Globulin [Mass ratio] 0.9 {ratio} 0.9-2.4 [facility] Work Phone: Serum or plasma calcium lexy urement (mass/volume)on 01-01-2022 Calcium [Mass/Vol] 8.5 mg/dL 8.5-10.1 [facility] Work Phone: Serum or plasma creatinine m easurement (mass/volume)on 01-01-2022 Creatinine [Mass/Vol] 0.96 mg/dL 0.55-1.02 [facility] Work Phone: Comment on above: The validity of the calculated GFR & GFRAA in patients over 70 years has not been determined. Clinical correlation is essential. Serum or plasma urea nitroge n measurement (mass/volume)on 01-01-2022 Urea nitrogen [Mass/Vol] 17 mg/dL 7-18 [facility] Work Phone: Thin prep Papanicolaou smear with manual screeningon 01-01-2022 Thin prep Papanicolaou smear with manual screening 12 U/L 15-37 [facility] Work Phone: Thin prep Papanicolaou smear with manual screening 6 5-15 [facility] Work Phone: Urine phencyclidine (PCP) de tectionon 01-01-2022 Phencyclidine Ql (U) Negative [facility] Work Phone: Influenza virus A and B and SARS-CoV-2 (COVID-19) Ag panel - Upper respiratory specim SARS-CoV-2 & FLU Antigen (Rapid) SARS-CoV-2 (COVID 19) [facility] Work Phone: Vital Signs Date Time Vital Sign Value Performing Clinician Jarad galvez 03-18-2025 07:09-0400 Body height 162.6 cm Mireille Greene APRN.EMPLOYEE BENEFITS MANAGER Work Phone: [facility] 03-18-2025 07:09-0400 Body mass index (BMI) [Ratio] 38.96 kg/m2 Mireille Greene APRN.EMPLOYEE BENEFITS MANAGER Work Phone: [facility] 03-18-2025 07:09-0400 Body weight 102.97 kg Mireille Greene APRN.EMPLOYEE BENEFITS MANAGER Work Phone: [facility] 03-18-2025 07:09-0400 Diastolic blood pressure 102 mm[Hg] Mireille Greene APRN.EMPLOYEE BENEFITS MANAGER Work Phone: [facility] 03-18-2025 07:09-0400 Systolic blood pressure 141 mm[Hg] Mireille Greene APRN.EMPLOYEE BENEFITS MANAGER Work Phone: [facility] 11-03-2023 05:05-0400 Diastolic blood pressure 60 mm[Hg] [facility] 11-03-2023 05:05-0400 Heart rate 102 /min [facility] 11-03-2023 05:05-0400 Respiratory rate 18 /min [facility] 11-03-2023 05:05-0400 SaO2% (BldA) [Mass fraction] 96 % [facility] 11-03-2023 05:05-0400 Systolic blood pressure 138 mm[Hg] [facility] 11-03-2023 02:53-0400 Body height 162.56 cm [facility] 11-03-2023 02:53-0400 Body mass index (BMI) [Ratio] 34.7 kg/m2 [facility] 11-03-2023 02:53-0400 Body temperature 97.6 [degF] [facility] 11-03-2023 02:53-0400 Body weight 91.6 kg [facility] 10-02-2023 15:59-0500 Body temperature 98.1 [degF] Emiliano Lanza APRN.EMPLOYEE BENEFITS MANAGER Work Phone: [facility] 10-02-2023 15:59-0500 Body weight 93.98 kg Emiliano Lanza APRN.EMPLOYEE BENEFITS MANAGER Work Phone: [facility] 10-02-2023 15:59-0500 Diastolic blood pressure 98 mm[Hg] [facility] [employer]SHORE DIVER.EMPLOYEE BENEFITS MANAGER Work Phone: [facility] 10-02-2023 15:59-0500 Heart rate 100 /min [facility] [employer] D[employer].EMPLOYEE BENEFITS MANAGER Work Phone: [facility] 10-02-2023 15:59-0500 Respiratory rate 22 /min [facility] [employer]SHORE DIVER.EMPLOYEE BENEFITS MANAGER Work Phone: [facility] 10-02-2023 15:59-0500 SaO2% (BldA) [Mass fraction] 98 % [facility] OFFSHORE DIVER.EMPLOYEE BENEFITS MANAGER Work Phone: [facility] 10-02-2023 15:59-0500 Systolic blood pressure 130 mm[Hg] [facility] OFFSHORE DIVER.EMPLOYEE BENEFITS MANAGER Work Phone: [facility] 04-20-2023 03:39-0400 Diastolic blood pressure 89 mm[Hg] [facility] 04-20-2023 03:39-0400 Heart rate 108 /min [facility] 04-20-2023 03:39-0400 Respiratory rate 15 /min [facility] 04-20-2023 03:39-0400 SaO2% (BldA) [Mass fraction] 98 % [facility] 04-20-2023 03:39-0400 Systolic blood pressure 144 mm[Hg] [facility] 04-20-2023 03:20-0400 Body height 162.56 cm [facility] 04-20-2023 03:20-0400 Body mass index (BMI) [Ratio] 33.6 kg/m2 [facility] 04-20-2023 03:20-0400 Body temperature 98.5 [degF] [facility] 04-20-2023 03:20-0400 Body weight 88.9 kg [facility] 01-21-2023 08:30-0400 Body height 162.56 cm [facility] 01-21-2023 08:30-0400 Body mass index (BMI) [Ratio] 33.3 kg/m2 [facility] 01-21-2023 08:30-0400 Body temperature 97.3 [degF] [facility] 01-21-2023 08:30-0400 Body weight 87.9 kg [facility] 01-21-2023 08:30-0400 Diastolic blood pressure 105 mm[Hg] [facility] 01-21-2023 08:30-0400 Heart rate 100 /min [facility] 01-21-2023 08:30-0400 Respiratory rate 18 /min [facility] 01-21-2023 08:30-0400 SaO2% (BldA) [Mass fraction] 99 % [facility] 01-21-2023 08:30-0400 Systolic blood pressure 148 mm[Hg] [facility] 12-13-2022 19:07-0400 Diastolic blood pressure 73 mm[Hg] [facility] 12-13-2022 19:07-0400 Heart rate 82 /min [facility] 12-13-2022 19:07-0400 Respiratory rate 14 /min [facility] 12-13-2022 19:07-0400 SaO2% (BldA) [Mass fraction] 100 % [facility] 12-13-2022 19:07-0400 Systolic blood pressure 113 mm[Hg] [facility] 12-13-2022 13:34-0400 Body height 162.56 cm [facility] 12-13-2022 13:34-0400 Body mass index (BMI) [Ratio] 33 kg/m2 [facility] 12-13-2022 13:34-0400 Body temperature 98 [degF] [facility] 12-13-2022 13:34-0400 Body weight 87.2 kg [facility] 07-27-2022 15:53-0500 Heart rate 98 /min No Primary Care Physician [facility] Work Phone: 07-27-2022 15:53-0500 Respiratory rate 17 /min No Primary Care Physician [facility] Work Phone: 07-27-2022 15:53-0500 SaO2% (BldA) [Mass fraction] 100 % No Primary Care Physician [facility] Work Phone: 07-27-2022 13:50-0500 Body height 162.56 cm No Primary Care Physician [facility] Work Phone: 07-27-2022 13:50-0500 Body mass index (BMI) [Ratio] 34.3 kg/m2 No Primary Care Physician [facility] Work Phone: 07-27-2022 13:50-0500 Body temperature 97.8 [degF] No Primary Care Physician [facility] Work Phone: 07-27-2022 13:50-0500 Body weight 90.71 kg No Primary Care Physician [facility] Work Phone: 07-27-2022 13:50-0500 Diastolic blood pressure 96 mm[Hg] No Primary Care Physician [facility] Work Phone: 07-27-2022 13:50-0500 Systolic blood pressure 142 mm[Hg] No Primary Care Physician [facility] Work Phone: 05-19-2022 09:11-0400 Body temperature 98.2 [degF] No Primary Care Physician [facility] Work Phone: 05-19-2022 09:11-0400 Diastolic blood pressure 77 mm[Hg] No Primary Care Physician [facility] Work Phone: 05-19-2022 09:11-0400 Heart rate 66 /min No Primary Care Physician [facility] Work Phone: 05-19-2022 09:11-0400 Respiratory rate 18 /min No Primary Care Physician [facility] Work Phone: 05-19-2022 09:11-0400 SaO2% (BldA) [Mass fraction] 95 % No Primary Care Physician [facility] Work Phone: 05-19-2022 09:11-0400 Systolic blood pressure 119 mm[Hg] No Primary Care Physician [facility] Work Phone: 05-16-2022 14:08-0400 Body height 162.56 cm No Primary Care Physician [facility] Work Phone: 05-16-2022 14:08-0400 Body mass index (BMI) [Ratio] 32.3 kg/m2 No Primary Care Physician [facility] Work Phone: 05-16-2022 14:08-0400 Body weight 85.5 kg No Primary Care Physician [facility] Work Phone: 01-10-2022 10:15-0400 Body temperature 98.2 [degF] No Primary Care Physician [facility] Work Phone: 01-10-2022 10:15-0400 Diastolic blood pressure 74 mm[Hg] No Primary Care Physician [facility] Work Phone: 01-10-2022 10:15-0400 Heart rate 79 /min No Primary Care Physician [facility] Work Phone: 01-10-2022 10:15-0400 Respiratory rate 16 /min No Primary Care Physician [facility] Work Phone: 01-10-2022 10:15-0400 SaO2% (BldA) [Mass fraction] 97 % No Primary Care Physician [facility] Work Phone: 01-10-2022 10:15-0400 Systolic blood pressure 112 mm[Hg] No Primary Care Physician [facility] Work Phone: 01-06-2022 17:53-0400 Body height 162.56 cm No Primary Care Physician [facility] Work Phone: 01-06-2022 17:53-0400 Body mass index (BMI) [Ratio] 32.5 kg/m2 No Primary Care Physician [facility] Work Phone: 01-06-2022 17:53-0400 Body weight 85.9 kg No Primary Care Physician [facility] Work Phone: 01-06-2022 17:05-0400 Body temperature 97.3 [degF] No Primary Care Physician [facility] Work Phone: 01-06-2022 17:05-0400 Diastolic blood pressure 102 mm[Hg] No Primary Care Physician [facility] Work Phone: 01-06-2022 17:05-0400 Heart rate 91 /min No Primary Care Physician [facility] Work Phone: 01-06-2022 17:05-0400 Respiratory rate 17 /min No Primary Care Physician [facility] Work Phone: 01-06-2022 17:05-0400 SaO2% (BldA) [Mass fraction] 99 % No Primary Care Physician [facility] Work Phone: 01-06-2022 17:05-0400 Systolic blood pressure 143 mm[Hg] No Primary Care Physician [facility] Work Phone: 01-06-2022 15:22-0400 Body height 162.56 cm No Primary Care Physician [facility] Work Phone: 01-06-2022 15:22-0400 Body mass index (BMI) [Ratio] 30.9 kg/m2 No Primary Care Physician [facility] Work Phone: 01-06-2022 15:22-0400 Body weight 81.64 kg No Primary Care Physician [facility] Work Phone: 01-02-2022 20:00-0400 Body temperature 97.2 [degF] No Primary Care Physician [facility] Work Phone: 01-02-2022 20:00-0400 Diastolic blood pressure 93 mm[Hg] No Primary Care Physician [facility] Work Phone: 01-02-2022 20:00-0400 Heart rate 97 /min No Primary Care Physician [facility] Work Phone: 01-02-2022 20:00-0400 Respiratory rate 18 /min No Primary Care Physician [facility] Work Phone: 01-02-2022 20:00-0400 SaO2% (BldA) [Mass fraction] 98 % No Primary Care Physician [facility] Work Phone: 01-02-2022 20:00-0400 Systolic blood pressure 138 mm[Hg] No Primary Care Physician [facility] Work Phone: 01-02-2022 10:25-0400 Body weight 84.5 kg No Primary Care Physician [facility] Work Phone: 01-01-2022 23:37-0400 Body mass index (BMI) [Ratio] 31.9 kg/m2 No Primary Care Physician [facility] Work Phone: Encounters Encounter Date Encounter Type Care Provider Facility Start: 03-18-2025 End: 03-18-2025 ambulatory Utilities Ground Worker [facility] Remote Work Phone: OB/Gynecology Start: 03-18-2025 End: 03-18-2025 ambulatory MIREILLE GREENE Facility:[facility] Start: 03-18-2025 End: 03-18-2025 Patient encounter procedure Mireille Greene APRN.EMPLOYEE BENEFITS MANAGER Work Phone: OB/Gynecology Comment on above: Abnormal uterine ble eding (AUB) (Primary Dx); Irregular menstrual cycle; Subserous leiomyoma of uterus; Screen for STD (sexually transmitted disease); Malaise and fatigue; Unintended weight gain; Primary hypertension; Encounter for screening for malignant neoplasm of cervix; Special screening examination for human papillomavirus (HPV) Start: 06-12-2024 End: 06-17-2024 ambulatory Lin Malik Facility:[facility] Start: 11-03-2023 End: 11-03-2023 Emergency department patient visit [facility] Work Phone: Start: 10-02-2023 End: 10-02-2023 Office outpatient visit 25 minutes Emiliano Lanza APRN.EMPLOYEE BENEFITS MANAGER Work Phone: [facility] Comment on above: Foreign body of skin of great toe, right, initial encounter (Primary Dx) Start: 04-20-2023 End: 04-20-2023 Emergency department patient visit [facility] Work Phone: Start: 01-21-2023 End: 01-21-2023 Emergency department patient visit [facility] Start: 12-13-2022 End: 12-13-2022 Emergency department patient visit [facility] Start: 07-27-2022 End: 07-27-2022 Emergency department patient visit No Primary Care Physician [facility] Start: 05-19-2022 Non-patient / Non-visit No Lili felice Care Physician [facility] Start: 05-18-2022 Non-patient / Non-visit No Lili felice Care Physician [facility] Start: 05-17-2022 Non-patient / Non-visit No Lili felice Care Physician [facility] Start: 05-16-2022 Non-patient / Non-visit No Lili felice Care Physician [facility] Start: 05-16-2022 End: 05-19-2022 Evaluation and management of inpatient No [facility] Start: 01-09-2022 Non-patient / Non-visit No Lili viveros Care Physician [facility] Start: 01-08-2022 Non-patient / Non-visit No Lili felice Care Physician [facility] Start: 01-07-2022 Non-patient / Non-visit No Lili felice Care Physician [facility] Start: 01-06-2022 Non-patient / Non-visit No Lili felice Care Physician [facility] Start: 01-06-2022 End: 01-10-2022 Evaluation and management of inpatient No Primary Care Physician [facility] 3 Start: 01-02-2022 Non-patient / Non-visit No Lili viveros Care Physician [facility] Start: 01-01-2022 Non-patient / Non-visit No Lili felice Care Physician [facility] Start: 01-01-2022 End: 01-02-2022 Evaluation and management of inpatient No [facility] Procedures Date Procedure Procedure Detail Performing Clinician Start: 03-18-2025 Us pelvic nonobstetr ic real-time image complete Mireille Greene APRN.EMPLOYEE BENEFITS MANAGER Work Phone: Start: 11-03-2023 Computed tomography of abdomen and pelvis with intravenous contrast Start: 12-13-2022 Transvaginal echography Start: 12-13-2022 Computed tomography of abdomen and pelvis with intravenous contrast SARS-CoV-2 & FLU Ant igen (Rapid) No Primary Care Physician Plan of Treatment Date Care Activity Detail Author Start: 03-18-2030 Screening for malign ant neoplasm of cervix Cervical Cancer Screening [facility] Start: 04-23-2025 Urine microalbumin profile DTaP,Tdap,Td Vaccine (2 - Td or Tdap) [facility] Start: 04-21-2025 Influenza vaccination Influenza Vacc ine (#1) [facility] Start: 03-18-2025 End: 06-17-2025 25-hydroxyvitamin D3 [Mass/volume] in Serum or Plasma [facility] Comment on above: Expected: 03/18/2025 , Expires: 06/17/2025 Start: 03-18-2025 End: 06-17-2025 HIV 1+2 Ab [Presence] in Serum or Plasma by Immunoassay [facility] Comment on above: Expected: 03/18/2025 , Expires: 06/17/2025 Start: 03-18-2025 End: 06-17-2025 SYPHILIS TREPONEMAL W/REFLEX [facility] Comment on above: Expected: 03/18/2025 , Expires: 06/17/2025 Start: 03-18-2025 End: 06-17-2025 Thyrotropin [Units/volume] in Serum or Plasma [facility] Comment on above: Expected: 03/18/2025 , Expires: 06/17/2025 Start: 03-18-2025 End: 03-18-2026 US Pelvis PELVIC US [facility] Anc Imaging Routine Abnormal uterine bleeding (AUB) Expected: 03/18/2025, Expires: 03/18/2026 [facility] Comment on above: Expected: 03/18/2025 , Expires: 03/18/2026 Start: 11-03-2023 End: 11-03-2023 [facility] Start: 08-21-2023 Depression Assessment Depression Ass essment [facility] Start: 04-21-2023 Influenza vaccination Influenza Vacc ine (#1) [facility] Start: 01-21-2023 Puncture aspiration abscess hematoma bulla/cyst PUNCTURE DRAINAGE OF LESION [facility] Start: 05-19-2022 [facility] Start: 05-16-2022 Assessment using assessment scale [facility] Work Phone: Start: 05-16-2022 End: 05-16-2022 [facility] Work Phone: Start: 05-16-2022 Ambulation without limitation [facility] Work Phone: Start: 05-16-2022 Assessment of risk o f venous thromboembolism [facility] Work Phone: Start: 05-16-2022 Insertion of cathete r into peripheral vein [facility] Work Phone: Start: 05-16-2022 Providing care accor ding to standard [facility] Work Phone: Start: 05-16-2022 Admission [facility] Work Phone: Start: 05-16-2022 Verification routine [facility] Work Phone: Start: 2018 Screening for malign ant neoplasm of cervix HPV Testing [facility] Start: 03-22-2015 Pneumococcal vaccination Pneum ococcal Vaccine (2 of 2 - PCV) [facility] Start: 2009 Screening for malign ant neoplasm of cervix [facility] Start: 11-03-2007 Hepatitis B Vaccine (1 of 3 - 19+ 3-dose series) Hepatitis B Vaccine (1 of 3 - 19+ 3-dose series) [facility] Start: 2006 Anxiety Screening Anxiety Screening [facility] Start: 2006 Depression Screening Depression Scre ening [facility] Start: 05-05-1989 Covid-19 Vaccine (#1) Covid-19 Vacci ne (#1) [facility] Start: 1988 Hepatitis B Vaccine (1 of 3 - 3-dose series) Hepatitis B Vaccine (1 of 3 - 3-dose series) [facility] Bacteria identified in Urine by Culture [facility] Chlamydia trachomatis [facility] Chlamydia trachomatis+Neisseria gonorrhoeae DNA [Presence] in Unspecified specimen by JUDY with probe detection GONORRHEA/CHLAMYDIA NAAT Lab Routine Screen for STD (sexually transmitted disease) Ordered: 03/18/2025 [facility] Comment on above: Ordered: 03/18/2025 Neisseria gonorrhoea e DNA [Presence] in Genital specimen by JUDY with probe detection [facility] PAP TEST PAP TEST Lab Lizbeth angie Encounter for screening for malignant neoplasm of cervix Special screening examination for human papillomavirus (HPV) Ordered: 03/18/2025 [facility] Work Phone: Comment on above: Ordered: 03/18/2025 Patient Education [facility] Work Phone: Patient referral [facility] Work Phone: Immunizations Immunization Date Immunization Notes Care Provider Fa michelle 06-27-2015 measles, mumps and rubella virus vaccine No Primary Care Physician [facility] 06-05-2015 influenza, injectabl e, quadrivalent, contains preservative Emiliano Pendlebury OFFSHORE DIVER.EMPLOYEE BENEFITS MANAGER Work Phone: [facility] 06-05-2015 influenza virus vaccine, unspecified formulation Emiliano Pendlebury OFFSHORE DIVER.EMPLOYEE BENEFITS MANAGER Work Phone: [facility] 04-23-2015 tetanus toxoid, reduced diphtheria toxoid, and acellular pertussis vaccine, adsorbed Emiliano Pendlebury OFFSHORE DIVER.EMPLOYEE BENEFITS MANAGER Work Phone: [facility] 03-22-2014 Pneumococcal Vaccine No Prim beth Care Physician [facility] Work Phone: 03-22-2014 pneumococcal vaccine , unspecified formulation No Primary Care Physician [facility] Payers Date Payer Category Payer Self-pay [id number] 2022 Medicaid [id number] 2017 Unknown [id number] Medicaid [id number] Unknown [id number] Unknown [id number] Unknown [id number] [id number] Unknown [id number] [id number] Unknown [id number] 2.16.8 [id number] Unknown [id number] 2.16.8 [id number] Unknown [id number] 2.16.8 [id number] Unknown [id number] 2.16.8 [id number] Unknown [id number] 2.16.8 [id number] Unknown [id number] [id number] Social History Date Type Detail Facility [facility] Work Phone: Start: 01-06-2022 End: 11-03-2023 Tobacco smoking status NJIS Unknown if ever smoked [facility] Start: 08-20-2020 None [facility] Start: 08-20-2020 - [facility] Start: 08-20-2020 Spouse/ Signif icant Other [facility] Start: 08-17-2020 Cigarettes [facility] Start: 1990 Sex Assigned At Female W [facility] Start: 07-27-2022 End: 03-18-2025 Tobacco smoking status NHIS Occasional tobacco smoker [facility] History of tobacco use Cigarette Smoker C [facility] Start: 07-27-2022 End: 03-18-2025 Cigarettes smoked current (pack per day) - Reported 0.3 [facility] Start: 07-27-2022 End: 03-18-2025 Tobacco use and exposure Smokeless tobacco non-user [facility] Start: 10-02-2023 End: 03-18-2025 Alcohol intake Current non-drinker of alcohol (finding) [facility] Start: 10-02-2023 End: 03-18-2025 Tobacco use panel [facility] National Score (1-100), lower number is lower risk 92 [facility] Start: 03-27-2022 Gender identity Identifies as female gender (finding) [facility] Start: 03-27-2022 Sexual orientation Heterosexual (dashawn michele) [facility] NEGATED: Highlighted row [facility] Goals Date Patient Goal Desired Activity /State Functional Status Date Assessment Result Facility 05-19-2022 Functional status Ambulates;Up ad g[facility] Work Phone: 01-10-2022 Functional status Ambulates [facility] Work Phone: 01-02-2022 Functional status Ambulates;Up ad gabriel [facility] Work Phone: 01-27-2015 Are you deaf, or do you have serious difficulty hearing No 01/27/2015 3:43 PM Clarita Walden RN No [facility] 01-27-2015 Are you blind, or do you have serious difficulty seeing, even when wearing glasses No 01/27/2015 3:43 PM Clarita Walden RN No [facility] 01-27-2015 Do you have serious difficulty walking or climbing stairs No 01/27/2015 3:43 PM Clarita Walden RN No [facility] 01-27-2015 Do you have difficul ty dressing or bathing No 01/27/2015 3:43 PM Clarita Walden RN No [facility] 01-27-2015 Because of a physica l, mental, or emotional condition, do you have difficulty doing errands alone such as visiting a physician's office or shopping No 01/27/2015 3:43 PM Clarita Walden RN No [facility] Mental Status Date Assessment Result Facility 05-19-2022 Cognitive function Voice/Name [facility] Work Phone: 01-09-2022 Cognitive function Voice/Name [facility] Work Phone: 01-02-2022 Cognitive function Voice/Name [facility] Work Phone: 01-27-2015 Because of a physica l, mental, or emotional condition, do you have serious difficulty concentrating, remembering, or making decisions No 01/27/2015 3:43 PM EDT Clarita Valdez RN No [facility] Clinical Notes 12-13-2022 to 03-25-2025 Verona Ramirez MD - 03/25/2025 9:52 AM EDTPatient Mireille Gomez APRN.EMPLOYEE BENEFITS MANAGER - 03/18/2025 7:09 AM EDTPEmiliano crawford APRN.EMPLOYEE BENEFITS MANAGER - 10/02/2023 4:00 PM EST Note Date & Type Note Facility 03-25-2025 Note HNO ID: [id number] Author: VERONA RAMIREZ MD Service: ? Author Type: Physician Type: Progress Notes Filed: 03/25/2025 09:57 Note Text: Pelvic ultrasound was performed on Baudilio. Please see imaging tab for documentation and results. Verona Ramirez MD OBGYN Staff Physician SIGNATURE: Verona Ramirez MD PATIENT NAME: Baudilio Sharma DATE: March 25, 2025 TIME: 9:57 AM PAGER/CONTACT #: Pager OBGYN Call Schedule: QGenda [facility] 03-25-2025 History of Presen t illness Narrative Pelvic ultrasound was performed on Baudilio. Please see imaging tab for documentation and results. Verona Ramirez MD OBGYN Staff Physician SIGNATURE: Verona Ramirez MD PATIENT NAME: Baudilio Sharma DATE: March 25, 2025 TIME: 9:57 AM PAGER/CONTACT #: Pager OBGYN Call Schedule: QGenda documented in this encounter [facility] 03-18-2025 Mireille Simental APRN.[facility] - 03/18/2025 7:51 AM EDT We [...] symptoms. Please schedule this at the front elevator operator before leaving. - Blood work has been [...] appointment with a PCP at the front elevator operator before leaving. We discussed your history of [...] Schedule a pelvic ultrasound at the front elevator operator. - Complete your blood work downstairs today. - Schedule an appointment with a primary care provider to address your high blood pressure and coordinate care for hepatitis C. - Consider your options for control, including the Mirena IUD, and let us know if you would like to proceed with placement during a future visit. Your pharmacy is listed as [facility] in [place]. Please let us know if this needs to be updated. documented in this encounter [facility] 03-18-2025 Note HNO ID: [id number] Author: MIREILLE GREENE APRN.SANJIV Service: ? Author Type: Nurse Practitioner Type: Progress Notes Filed: 03/18/2025 08:11 Note Text: Cartography Technician offered: Patient declines. Obstetrics and Gynecology [place] PARTITION NOTCHER Visit Subjective Recording using [place] software for draft documentation of the visit was discussed with the patient/authorized patient portal representative; all questions welcomed and answered. Patient/authorized patient portal representative agreed to proceed CHIEF COMPLAINT: CC: [...] suprapubic, an maneuver, delivery of posterior arm. Consultant Nurse History LMP: 03/10/2025, Having periods Age at Menarche: Age at First : Age at Menopause: Consultant Nurse History Comments: Sexual Activity: Yes; Male Contraception: [...] discussed with the Patient or Patient's Authorized Vp Human Resources. As applicable, any other physician, advance practice provider, medical student, or other health professional student that will be observing or involved in the sensitive examination for educational or training purposes was discussed with the Patient or Authorized Vp Human Resources. The Patient or Authorized Vp Human Resources has agreed to proceed with the sensitive [...] external genitalia normal, normal Bartholin's glands, urethra, Grayling' (more content not included)... [facility] 03-18-2025 History of Presen t illness Narrative Images from the original note were not included. Cartography Technician offered: Patient declines. Obstetrics and Gynecology [place] [employer] Visit Subjective Recording using [place] software for draft documentation of the visit was discussed with the patient/authorized patient portal representative; all questions welcomed and answered. Patient/authorized patient portal representative agreed to proceed CHIEF COMPLAINT: CC: [...] suprapubic, an maneuver, delivery of posterior arm. Consultant Nurse History LMP: 03/10/2025, Having periods Age at Menarche: Age at First : Age at Menopause: Consultant Nurse History Comments: Sexual Activity: Yes; Male Contraception: [...] discussed with the Patient or Patient's Authorized Vp Human Resources. As applicable, any other physician, advance practice provider, medical student, or other health professional student that will be observing or involved in the sensitive examination for educational or training purposes was discussed with the Patient or Authorized Vp Human Resources. 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 - Patient to consider IUD placement; [...] 4 - Moderate documented in this encounter [facility] 06-17-2024 Note [facility] Medical Records Department [address] [place] [id number] Discharge Summary 06/17/24 0844 MR#: [id number] Acct: [id number] Name: BAUDILIO SHARMA Rep #: [id number] : 1990 33 From: Fletcher Harris MD PCP: Care Physician,No Primary Status:ADM IN [id number] Prov[facility] Date of Admission: 06/12/24 Date of [...] Unit/Facility Charges/Coding Visit Charges Inpatient E M: 19166 Disch Hosp >30min 06/17/24 0848 Cosigner Signature (if applicable): CC: Dr. Fletcher Harris MD; No Primary Care Physician Signed [facility] 10-02-2023 History of Presen t illness [...] food. (Patient not taking: Reported on 07/27/2022) Zrdmpdis-[id number] tab Take 1 tablet by mouth. (Patient [...] of care. This note was generated using [employer] software. It may contain errors in wording, punctuation, or spelling. Emiliano Lanza APRN.EMPLOYEE BENEFITS MANAGER documented in this encounter [facility] 12-13-2022 Hospital Discharg e instructions Additional Instructions PatientYour CT and ultrasound findings concerning for 10 cm cystic adenoma, left ovarian 10 cm you have a cyst of 5 cm inside you are at risk for torsion's. Discussed with Dr. Garcia at [facility], . Call her for questions that she is staffing consultant also call and you can be seen in the next 1 to 2 days in the office. Return if any sudden worsening symptoms. [facility] Work Phone: Discharge summary Note Date/Time January 21, 2023 8:49a m [facility] Medical Records Department [address] [place] [address] Emergency Department Summary 01/21/23 MR#: [id number] Acct: [id number] Name: BAUDILIO SHARMA Rep #:[id number] : 1990 32 From: Bin Gaspar MD [...] your Primary Care Provider. Call [facility] ([phone]) or report to the closest Emergency Room. Call 911 if necessary. 01/21/23 0851 <Electronically signed by Bin Gaspar MD> Cosigner Signature (if applicable): CC: No Primary Care Physician ~ Signed [facility] Work Phone: Evaluation note* Diagnosis Onset Date Resolution Status Desire for detoxification [place] Elevated blood pressure reading acute Tobacco abuse acute Desire for detoxification [place] Hepatitis B acute Hepatitis C acute Opioid abuse acute Tobacco abuse acute [facility] Work Phone: Evaluation note* Diagnosis Onset Date Resolution Status Desire for detoxification [place] Hepatitis B acute Hepatitis C acute Opioid abuse acute [facility] Work Phone: Evaluation note* Diagnosis Onset Date Resolution Status Desire for detoxification [place] [facility] Work Phone: Evaluation noteNo assessment information available [facility] Work Phone: Evaluation note* Diagnosis Foreign body of skin of great toe, right, initial encounter- Primary [facility] Diagnosis Abnormal uterine bleeding (AUB)- [...] human papillomavirus (HPV) [facility] Diagnosis Abnormal uterine bleeding (AUB) [facility] Additional Instructions 1. Salt [...] follow-up appointment the next 3 to 5 days.[facility] Work Phone: Hospital Discharge instructions Additional Instructions Please take your antibiotics as directed to help resolve any infection and/or pain and return to the ER should [facility] Work Phone: Reason for visit Narrative* Diagnostic Procedure Only (Routine) - Closed Specialty Diagnoses / Procedures Referred By Max estrada Referred To Contact [facility] Diagnoses Abnormal uterine bleeding (AUB) Procedures PELVIC US WHI US PELVIC NONOBSTETRIC REAL-TIME IMAGE COMPLETE Mireille Greene APRN.EMPLOYEE BENEFITS MANAGER [address] [place] [address] Phone: tel: fax: [facility] [address] [place] [address] Referral ID Status Reason Start Date Expiration Date V isits Requested Visits Authorized [id number] Closed Auto-Generate d Referral 03/18/2025 03/18/2026 1 1 [facility] Chief Complaint and Reason for Visit [...] January 06, 2022 4 :34pm Power of Appliquer Zig[place] No January 06, 2022 4:34pm Advance Directive Response Recorded Date/ Time Living Will No May 16, 2022 2:04pm Power of Appliquer [place]ig[place] No April 2:04pm Advance Directive Response Recorded Date/ Time Living Will No July 27 3:30pm Power of Appliquer [place]igzag No July 27, 2022 3:30pm Advance Directive Response Recorded Date/ Time Living Will No December 13, 2022 1:46pm Power of Appliquer Zigzag No December 13 1:46pm Advance Directive Response Recorded Date/ Time Living Will No January 21, 2023 9 :17am Power of Appliquer Zigzag No January 21, 2023 9:17am Advance Directive Response Recorded Date/ Time Living Will No April 20 3:24am Power of Appliquer Zigzag No April 20 023 3:24am Advance Directive Response Recorded Date/ Time Living Will No November 03, 2023 2:53am Power of Appliquer Zigzag No November 02 2:53am Summary Purpose Family [...] or prosecute any alcohol or drug abuse patient.[facility] the event this information is protected by the Federal Confidentiality of Alcohol and Drug Abuse Patient Records regulations: The Federal rules restrict any use of the information to criminally investigate or prosecute any alcohol or drug abuse patient.[facility] Reason for Visit (unrecogniz ed section and content) Reason Comments Foreign Body Stepped on sewing ne edle and is lodged in right foot big toe happened last night INFORMATION SOURCE (unrecogn ized section and content) DATE CREATED AUTHOR 10/05/2024 [facility] DATE CREATED AUTHOR AUTHOR'Chase CRISTINA 03/25/2025 [facility] FOR RECORDS PERTAINING TO PATIENTS WHO ARE [...] BE BASED ON THE PRIMARY CLINICAL RECORDS. [facility] [facility]. provides no warranty or guarantee of the accuracy or completeness of information in this document.
[2025-05-25] MEDS: hydrOXYzine PAM 25 MG Capsule 50 MG PO (10:00)
--- NOTE | 2025-05-25 10:59 | PCM.HOSP.N ---
Hospitalist Note Evaluated bedside, feeling little bit achy overall but feeling better than she was initially. Will continue present management. Of note she refused IV so she did not get IV fluids, encourage p.o. intake
[2025-05-26 02:43] VITALS: BP 103/71; PULSE 72; RESP 16; TEMP 36.4; O2SAT 97
[2025-05-26 07:42] VITALS: O2SAT 95
[2025-05-26 08:52] VITALS: BP 97/70; PULSE 77; RESP 16; TEMP 36.7; O2SAT 98
--- NOTE | 2025-05-26 10:58 | PCM.PN.HOSP ---
Reason for Visit Chief Complaint: Acute Opiate Withdrawal. Subjective Subjective Still feeling achy all over and a little bit nauseous however has been tolerating food Objective Data Objective Data Vital Signs: Vital Signs Temp Pulse Resp BP Pulse Ox O2 Del Method 98.1 F 77 16 97/70 98 Room Air 05/26/25 08:52 05/26/25 08:52 05/26/25 08:52 05/26/25 08:52 05/26/25 08:52 05/26/25 08:52 Oxygen Delivery Method Room Air Weight: 107.8 kg Body Mass Index (BMI) 40.8 Intake & Output: Intake and Output for Last 24 Hours 05/24/25 05/25/25 05/26/25 23:59 23:59 23:59 Intake Total 1800 / 1800 300 / 300 Balance 1800 / 1800 300 / 300 Lab / Micro Data 05/25/25 02:37 05/25/25 02:37 Physical Exam Narrative General: Wakes up easily and answers questions HEENT: Atraumatic, normocephalic Eyes: extraocular movements grossly intact Neck: Supple Respiratory: normal respiratory effort Cardiovascular: no overt edema appreciated GI: nondistended Extremities: Moving all extremities Neuro: No overt focal neurological deficits Psych: Overall cooperative Assessment & Plan Assessment/Plan (1) Desire for detoxification: PLAN: Plan #Acute opiate withdrawal - Subutex taper ordered, patient is not scored to the threshold to begin this yet - As needed Tylenol, ibuprofen, bowel regimen, gabapentin, Bentyl, Vistaril, methocarbamol, clonidine - As needed trazodone nightly - As needed antiemetics -Once patient begins to clinically improve will discuss further discharge planning # Polysubstance use disorder_patient positive for amphetamines, cocaine, fentanyl #Tobacco use -Advise cessation -Nicotine replacement available if desired #DVT ppx: Low risk, ambulatory Lin Malik MD Charges/Coding Visit Charges Inpatient E&M: 68017 Subs Hosp L1
[2025-05-26 15:00] VITALS: BP 105/67; PULSE 85; RESP 16; TEMP 36.4; O2SAT 98
[2025-05-26] MEDS: hydrOXYzine PAM 25 MG Capsule 50 MG PO (15:11)
[2025-05-26 22:25] VITALS: BP 103/65; PULSE 84; RESP 16; TEMP 36.7; O2SAT 96
[2025-05-27 05:27] VITALS: BP 97/82; PULSE 82; RESP 16; TEMP 36.6; O2SAT 100
[2025-05-27] MEDS: hydrOXYzine PAM 25 MG Capsule 50 MG PO (05:33)
[2025-05-27 07:23] VITALS: O2SAT 95
[2025-05-27 08:25] VITALS: BP 128/72; PULSE 81; RESP 16; TEMP 36.8; O2SAT 100
--- NOTE | 2025-05-27 11:12 | PCM.PN.HOSP ---
Reason for Visit Chief Complaint: Acute Opiate Withdrawal. Subjective Subjective Feeling little bit better today with less GI symptoms, still tired and achy all over Objective Data Objective Data Vital Signs: Vital Signs Temp Pulse Resp BP Pulse Ox O2 Del Method 98.3 F 81 16 128/72 H 100 Room Air 05/27/25 08:25 05/27/25 08:25 05/27/25 08:25 05/27/25 08:25 05/27/25 08:25 05/27/25 08:25 Oxygen Delivery Method Room Air Weight: 107.8 kg Body Mass Index (BMI) 40.8 Intake & Output: Intake and Output for Last 24 Hours 05/25/25 05/26/25 05/27/25 23:59 23:59 23:59 Intake Total 1800 / 1800 700 / 700 Balance 1800 / 1800 700 / 700 Lab / Micro Data 05/25/25 02:37 05/25/25 02:37 Physical Exam Narrative General: Wakes up easily and answers questions, appears less restless HEENT: Atraumatic, normocephalic Eyes: extraocular movements grossly intact Neck: Supple Respiratory: normal respiratory effort Cardiovascular: no overt edema appreciated GI: nondistended Extremities: Moving all extremities Neuro: No overt focal neurological deficits Psych: Overall cooperative Assessment & Plan Assessment/Plan (1) Desire for detoxification: PLAN: Plan #Acute opiate withdrawal - Subutex taper ordered, patient is not scored to the threshold to begin this yet - As needed Tylenol, ibuprofen, bowel regimen, gabapentin, Bentyl, Vistaril, methocarbamol, clonidine - As needed trazodone nightly - As needed antiemetics -Once patient begins to clinically improve will discuss further discharge planning -05/27: Continue supportive care, patient has not yet triggered the Subutex taper, this point she may not, will continue with other supportive medications and monitor for readiness for discharge Chronic medical problems and/or problems not being actively addressed during today's encounter: # Polysubstance use disorder -patient positive for amphetamines, cocaine, fentanyl #Tobacco use -Advise cessation -Nicotine replacement available if desired #DVT ppx: Low risk, ambulatory Lin Malik MD Charges/Coding Visit Charges Inpatient E&M: 23320 Subs Hosp L1
[2025-05-27 11:22] VITALS: BP 128/76; PULSE 74; RESP 16; TEMP 36.6; O2SAT 97
[2025-05-27 15:31] VITALS: BP 122/86; PULSE 88; RESP 16; TEMP 37.1; O2SAT 98
[2025-05-27 22:33] VITALS: BP 130/80; PULSE 98; RESP 16; TEMP 36.7; O2SAT 98
[2025-05-28 05:34] VITALS: BP 146/84; PULSE 88; RESP 14; TEMP 36.8; O2SAT 97
[2025-05-28 08:08] VITALS: BP 115/71; PULSE 75; RESP 16; TEMP 36.4; O2SAT 98
--- NOTE | 2025-05-28 08:46 | DCINST_ITS ---
Discharge Instructions DC O2, CPAP, BIPAP needs Home O2 Discharge instructions: No Dressing / Incision Discharge Activity: Return to Normal Activity Follow Up Care Test Results: Test results from this visit will be discussed in further detail at your follow- up appointment, if applicable. Discharge Plan Admission Admit Date/Time: 05/25/25 03:32 Primary Reason for Your Visit: Opioid detox Attending Provider: Lin Malik Primary Care Provider: Care Physician,No Primary Consulting Providers: Geena Koehler Instructions Patient Instructions: ED Opiate Abuse Discharge Orders/Prescriptions Prescriptions: No Action NK Referrals / Follow Up: Care Physician,No Primary [Primary Care Provider, Medical] Disposition Disposition (needs filled in before D/C Order can be placed): Home, Self Care
--- NOTE | 2025-05-28 08:48 | PCM.DC.SUM ---
Providers Date of Admission: 05/25/25 Date of Discharge: 05/28/25 Primary Care Physician: Kerline Primary Care Phys Reason For Visit: OPIATE WITHDRAWAL Diagnosis Discharge Diagnosis (1) Desire for detoxification: Status: Resolved Plan #Acute opiate withdrawal # Polysubstance use disorder #Tobacco use Medications at Discharge Home Medications NK 11/03/23 Hospital Course Summary of Care Provided Minutes Spent on Discharge: 20 Hospital Course: Patient was admitted 05/25/2025 requesting detox from opiates. Patient was admitted and detox protocol ordered. She never triggered a COWS high enough to start Subutex taper so was detoxed with the additional supportive medication. She completed detox and were discharged in stable condition. On the day of discharge no new medical complaints voiced. Physical Exam Narrative General: Alert, oriented, no apparent distress HEENT: Atraumatic, normocephalic Eyes: extraocular movements grossly intact Neck: Supple Respiratory: normal respiratory effort Cardiovascular: no edema appreciated GI: nondistended Extremities: Moving all extremities Neuro: No overt focal neurological deficits Psych: Cooperative Weight / BMI Weight Weight: 107.8 kg Body Mass Index (BMI) 40.8 ABG / Lab / Microbiology Data 05/25/25 02:37 05/25/25 02:37 D/C Instructions DC O2, CPAP, BIPAP Needs Home O2 Discharge instructions: No Meaningful Use Info Meaningful Use Meaningful Use Diagnoses (Choose all that apply): None applicable Discharge Plan Admission Admit Date/Time: 05/25/25 03:32 Primary Reason for Your Visit: Opioid detox Attending Provider: Lin Malik Primary Care Provider: Care Physician,No Primary Consulting Providers: Geena Koehler Instructions Patient Instructions: ED Opiate Abuse Discharge Orders/Prescriptions Prescriptions: No Action NK Referrals / Follow Up: Care Physician,No Primary [Primary Care Provider, Medical] Disposition Disposition (needs filled in before D/C Order can be placed): Home, Self Care Charges/Coding Visit Charges Inpatient E&M: 30065 Disch Hosp
--- NOTE | 2025-05-28 08:48 | NURSING ---
talked with Jax [employer] navigator. aWaRe she is working on getting transportation for patient, medical office secretary also calling to check on hospital van to transport patient to court then to go straight [facility] hoover updated.
--- NOTE | 2025-05-28 11:12 | ADDICTION ---
Late Entry: Met with pt to complete RAMP assessments. Pt plans to go to [facility] at [facility] for residential treatment. [facility] called a screened pt. Pt reported she has a court hearing on 05/28/2025. Peer support will transport her to the hearing and will transport her to [facility] after pending results of the hearing.
== END 2025-05-28 09:32 | disposition home or self-care (01) ==
LOC: ED 03:13 → MS3 07:02
PROVIDERS: Admitting Provider Family Medicine; Emergency Provider Emergency Medicine; Visit Provider Internal Medicine
DX: F11.23 Opioid dependence with withdrawal (principal); F15.10 Other stimulant abuse, uncomplicated; F14.10 Cocaine abuse, uncomplicated; E66.01 Morbid (severe) obesity due to excess calories; Z68.41 Body mass index [BMI] 40.0-44.9, adult; F32.A Depression, unspecified; F12.90 Cannabis use, unspecified, uncomplicated; F41.9 Anxiety disorder, unspecified; F17.290 Nicotine dependence, other tobacco product, uncomplicated; Z86.19 Personal history of other infectious and parasitic diseases; R03.0 Elevated blood-pressure reading, without diagnosis of hypertension
CPT/HCPCS: 80053; 80307; 82077; 84703; 85025; 99284; 99406; H0012

== ENCOUNTER → 2025-07-03 | Outpatient (CLI) | payer MEDICAID, SELFPAY ==
[2025-07-07 05:06] LABS: Chlamydia By Nucleic Acid AMP Negative (Negative); Gonococcus By Nucleic Acid AMP Negative (Negative)
== END | disposition home or self-care (01) ==
PROVIDERS: Visit Provider Nurse Practitioner Family
DX: Z11.3 Encounter for screening for infections with a predominantly sexual mode of transmission (principal)
CPT/HCPCS: 87491; 87591